=== PATIENT | male | born 1955 | race Caucasian/White ===

== ENCOUNTER 2016-10-19 22:41 | Emergency (ER) | payer MEDICAID, MEDICARE ==
[~2016-10-19] VITALS: Ht 172.7 cm; Wt 65.3 kg
[~2016-10-19 22:41] MED LIST: /HALO5TAB; /QUET10TA; /QUET25TA; ARIC5TAB PO; BENZ5TA PO; CHLO10SU; CLON0.5T PO; CLON1TAB PO; COGENTIN; DEPA500T; DEPA500T2; EFFE37.527; HALO10TA4; HALO2TA PO; HYDR10TA3; HYDR25T PO; INDE1CAP5 PO; KLON0.5T; KLON1TAB PO; LATU1TAB PO; LORA2TAB; MIRT30TA3 PO; NORC1TAB4 PO; PROA1AER INH; PROP1TAB29 PO; PROP80CA PO; PROPRANOLOL PO; PROZ20CA11 PO; PROZ40CA PO; QUET20XRTB; RISP1TAB; RISP3TAB16; SERO200T PO; SERO400T; SERO400T PO; SERO400T3; Seroquel PO; VALI5TAB; VENL75TA2; VICO5TAB16 PO; ZOCO40TA
[2016-10-19 22:48] VITALS: BP 119/77
[2016-10-19] MEDS ORDERED: LORazepam 2 MG/ML VIAL (J2060) IV STA (23:03)
[2016-10-19] MEDS ORDERED: NS 500 ML IV ONE (23:15)
[2016-10-19 23:54] LABS: BASO % 0.8 % (0.0-1.0); EOS # 0.3 K/mm3 (0.0-0.50); EOS % 5.2 % (0.0-3.0); LARGE UNSTAINED CELL # 0.2 K/mm3 (0.0-0.4); LYMPH # 2.7 K/mm3 (1.5-4.5); LYMPH % 50.4 % (24.0-44.0); MEAN CORPUSCULAR HEMOGLOBIN 29.6 pg (27.0-33.0); MEAN CORPUSCULAR VOLUME 84.6 fl (80.0-96.0); MONO # 0.4 K/mm3 (0.0-0.8); MONO % 7.3 % (0.0-5.0); NEUTROPHILS # 1.7 K/mm3 (1.8-7.7); NEUTROPHILS % 32.2 % (36.0-66.0); PLATELET COUNT, AUTOMATED 217 k/mm3 (150-450); RED CELL DISTRIBUTION WIDTH 12.3 % (11.5-14.5); WHITE BLOOD COUNT 5.4 K/mm3 (4.0-10.0)
[2016-10-20 00:27] LABS: ALBUMIN 3.3 GM/DL (3.2-5.2); ALBUMIN/GLOBULIN RATIO 1.38 (1.00-1.93); ALKALINE PHOSPHATASE 79 U/L (45-117); ALT/SGPT 17 U/L (12-78); ANION GAP 10 MEQ/L (8-16); AST/SGOT 18 U/L (15-37); BILIRUBIN,DIRECT 0.1 MG/DL (0.0-0.2); BILIRUBIN,TOTAL 0.3 MG/DL (0.2-1.0); BLOOD UREA NITROGEN 16 MG/DL (7-18); CALCIUM LEVEL 9.2 MG/DL (8.8-10.2); CARBON DIOXIDE LEVEL 25 MEQ/L (21-32); CHLORIDE LEVEL 107 MEQ/L (98-107); CREATININE FOR GFR 1.15 MG/DL (0.70-1.30); GLOMERULAR FILTRATION RATE > 60.0 (>49); GLUCOSE, FASTING 114 MG/DL (80-110); POTASSIUM SERUM 4.1 MEQ/L (3.5-5.1); SODIUM LEVEL 142 MEQ/L (136-145); TOTAL PROTEIN 5.7 GM/DL (6.4-8.2)
--- NOTE | 2016-10-20 08:39 | REP ---
Clinical: Altered mental status . Comparison: 08/05/2016 . Findings: The mediastinum and cardiac silhouette are stable and within normal limits for portable technique. The lung dolan are clear without acute consolidation, effusion, or pneumothorax. Skeletal structures are intact. Impression: Normal portable chest x-ray Signed by Kofi Flowers MD 10/20/2016 08:30 A
--- NOTE | 2016-10-21 09:11 | ECGEPIP ---
Stationary ECG Study 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
== END 2016-10-20 02:22 | disposition home or self-care (01) ==
LOC: M ED 22:41
DX: F44.5 Conversion disorder with seizures or convulsions (principal); I10 Essential (primary) hypertension; M54.9 Dorsalgia, unspecified; M19.90 Unspecified osteoarthritis, unspecified site; F25.9 Schizoaffective disorder, unspecified; Z87.891 Personal history of nicotine dependence; Z79.899 Other long term (current) drug therapy
CPT/HCPCS: 71010; 80048; 80076; 82550; 82553; 83605; 84443; 84484; 85025; 93005; 94760; 96374; 99283; G0480; J2060

== ENCOUNTER 2016-11-19 12:54 | Emergency (ER) | payer MEDICARE ==
[~2016-11-19] VITALS: Ht 172.7 cm; Wt 64.4 kg
--- NOTE | 2016-11-19 14:22 | REP ---
Chest one-view HISTORY: Syncope Comparison: 10/19/2016 The lungs are clear. The heart is normal in size. The pulmonary vasculature is normal in appearance. Impression: No acute disease. Signed by Huy Bowie MD 11/19/2016 02:13 P
--- NOTE | 2016-11-19 14:39 | REP ---
CT CERVICAL SPINE WITHOUT CONTRAST: HISTORY: Syncope. There is no acute fracture or subluxation. Disc bulges are present at the C2-3 and C3-4 levels. Disc bulges with associated osteophyte formation are present at the C4-5 through C6-7 levels. There is minimal narrowing of the spinal canal. Uncinate process and/or facet hypertrophy are present at the C2-3 through C7-T1 levels . These findings produce minimal to moderate narrowing of the neural foramina. Anterior osteophyte formation is present at the C1-2 level. The C5-6 and C6-7 intervertebral discs are decreased in height consistent with disc degeneration. There is loss of the normal lordotic curve. IMPRESSION: 1. There is no acute fracture or subluxation. 2. There is cervical spondylosis at the C1-2 through C7-T1 levels. ? Signed by Huy Bowie MD 11/19/2016 02:53 P
[2016-11-19 14:49] LABS: BASO % 0.4 % (0.0-1.0); EOS # 0.1 K/mm3 (0.0-0.50); EOS % 1.3 % (0.0-3.0); LARGE UNSTAINED CELL # 0.2 K/mm3 (0.0-0.4); LARGE UNSTAINED CELL % 1.7 % (0.0-4.0); LYMPH # 1.5 K/mm3 (1.5-4.5); LYMPH % 16.1 % (24.0-44.0); MEAN CORPUSCULAR HEMOGLOBIN 30.7 pg (27.0-33.0); MEAN CORPUSCULAR HGB CONC 35.4 g/dl (32.0-36.5); MEAN CORPUSCULAR VOLUME 86.8 fl (80.0-96.0); MONO # 0.5 K/mm3 (0.0-0.8); MONO % 5.5 % (0.0-5.0); PLATELET COUNT, AUTOMATED 224 k/mm3 (150-450); RED CELL DISTRIBUTION WIDTH 12.4 % (11.5-14.5); WHITE BLOOD COUNT 9.3 K/mm3 (4.0-10.0)
[2016-11-19 15:15] LABS: ANION GAP 5 MEQ/L (8-16); BLOOD UREA NITROGEN 14 MG/DL (7-18); CALCIUM LEVEL 8.8 MG/DL (8.8-10.2); CARBON DIOXIDE LEVEL 30 MEQ/L (21-32); CHLORIDE LEVEL 106 MEQ/L (98-107); CREATININE FOR GFR 1.07 MG/DL (0.70-1.30); FREE T4 0.92 NG/DL (0.76-1.46); GLOMERULAR FILTRATION RATE > 60.0 (>49); GLUCOSE, FASTING 118 MG/DL (80-110); SODIUM LEVEL 141 MEQ/L (136-145)
[2016-11-19 16:09] VITALS: BP 130/67
[2016-11-19] MEDS ORDERED: NEUTRA-PHOS 1.25 GM PACKET PO ONE (16:30)
--- NOTE | 2016-11-19 17:22 | REP ---
CT HEAD WITHOUT CONTRAST: HISTORY: Syncope. COMPARISON: 03/17/2016 An area of decreased attenuation is present in the right basal ganglia. This represents an old lacunar infarction. Areas of decreased attenuation are present in the periventricular white matter. This represents small vessel ischemic disease. There is no intraparenchymal hemorrhage, mass or midline shift. The ventricular system and cortical sulci are dilated consistent with minimal volume loss. There is no extracerebral collection. There is no fracture. Minimal mucosal thickening is present in the right ethmoid sinus. IMPRESSION: 1. Old right basal ganglia lacunar infarction. 2. Small vessel ischemic disease. 3. Minimal volume loss. Signed by Huy Bowie MD 11/20/2016 08:23 A
--- NOTE | 2016-11-19 18:08 | ECGEPIP ---
Stationary ECG Study [facility] - ED Test Date: 2016-11-19 Pat Name: YOSSI PENA Department: Room: - Gender: M Carpenter Form: SUSHMA : 1955 Requested By: BLUE Grande Order Number: [id number] Reading MD: Alfredo Montes Measurements Intervals [place] Rate: 72 P: 41 GA: 154 QRS: 45 QRSD: 101 T: 50 QT: 393 QTc: 433 Interpretive Statements SINUS RHYTHM Electronically Signed On 11-19-2016 18:07:56 EDT by Alfredo Montes
== END 2016-11-19 16:13 | disposition home or self-care (01) ==
LOC: M ED 15:58
DX: R55 Syncope and collapse (principal); F44.5 Conversion disorder with seizures or convulsions; I10 Essential (primary) hypertension; F41.9 Anxiety disorder, unspecified; F31.9 Bipolar disorder, unspecified; F25.9 Schizoaffective disorder, unspecified; F17.200 Nicotine dependence, unspecified, uncomplicated; M47.812 Spondylosis without myelopathy or radiculopathy, cervical region; Z86.73 Personal history of transient ischemic attack (TIA), and cerebral infarction without residual deficits; Z79.899 Other long term (current) drug therapy

== ENCOUNTER → 2016-11-20 | Outpatient (REF) | payer MEDICARE | LOC: M LAB REF 17:07 | PROVIDERS: ATTEND Nurse Practitioner Adult Health | DX: E83.39 Other disorders of phosphorus metabolism (principal) ==

== ENCOUNTER 2017-01-06 15:07 | Emergency (ER) | payer MEDICARE ==
[~2017-01-06] VITALS: Ht 160 cm; Wt 66.3 kg
[2017-01-06] MEDS ORDERED: VENL37.598 PO (15:18)
[2017-01-06 17:22] VITALS: BP 116/79
[2017-01-08] MEDS ORDERED: HYDR-4274 PO ×2 (18:02)
[2017-01-08] MEDS ORDERED: VENL37CA PO (18:04)
[2017-01-08] MEDS ORDERED: ASPI81TA7 PO (18:05)
== END 2017-01-06 17:28 | disposition left against medical advice (07) ==
LOC: EDBD 15:07 → M ED 16:40
DX: Z53.29 Procedure and treatment not carried out because of patient's decision for other reasons (principal)

== ENCOUNTER 2017-01-08 14:36 | Inpatient (IN) | payer MEDICARE, MEDICAID ==
[~2017-01-08] VITALS: Ht 172.7 cm; Wt 68.4 kg
[~2017-01-08 14:36] MED LIST changes: +ARIC1TAB PO; -ARIC5TAB PO; +BENZ0.5T PO; -BENZ5TA PO; +HYDR-3363 PO; -HYDR25T PO; -PROA1AER INH; +PROAAER10 INH; +VENL37.598 PO
[2017-01-08 16:45] LABS: MEAN CORPUSCULAR HGB CONC 34.8 g/dl (32.0-36.5); MEAN CORPUSCULAR VOLUME 86.2 fl (80.0-96.0); RED CELL DISTRIBUTION WIDTH 12.2 % (11.5-14.5); WHITE BLOOD COUNT 5.3 K/mm3 (4.0-10.0)
[2017-01-08 17:00] LABS: ALBUMIN 3.6 GM/DL (3.2-5.2); ALKALINE PHOSPHATASE 80 U/L (45-117); ALT/SGPT 25 U/L (12-78); ANION GAP 9 MEQ/L (8-16); AST/SGOT 16 U/L (15-37); BILIRUBIN,DIRECT 0.1 MG/DL (0.0-0.2); BILIRUBIN,TOTAL 0.4 MG/DL (0.2-1.0); BLOOD UREA NITROGEN 16 MG/DL (7-18); CALCIUM LEVEL 8.8 MG/DL (8.8-10.2); CARBON DIOXIDE LEVEL 24 MEQ/L (21-32); CHLORIDE LEVEL 106 MEQ/L (98-107); GLOMERULAR FILTRATION RATE > 60.0 (>49); GLUCOSE, FASTING 86 MG/DL (80-110); POTASSIUM SERUM 3.9 MEQ/L (3.5-5.1); SODIUM LEVEL 139 MEQ/L (136-145)
[2017-01-08] MEDS ORDERED: CLON1TAB PO ×2 (18:01)
[2017-01-08] MEDS ORDERED: HYDR50TA70 PO ×2 (18:02)
[2017-01-08] MEDS ORDERED: SERO200T PO (18:04)
[2017-01-08] MEDS ORDERED: VENL37.52 PO (18:04)
[2017-01-08] MEDS ORDERED: DRIS50002 PO (18:04)
[2017-01-08] MEDS ORDERED: MIRT45TA PO (18:04)
[2017-01-08] MEDS ORDERED: VITMTA PO (18:05)
[2017-01-08] MEDS ORDERED: ASPI1TAB15 PO (18:05)
[2017-01-08 18:58] LABS: METHADONE URINE NEGATIVE (NEGATIVE)
[2017-01-08 20:15] VITALS: BP 117/75
[2017-01-08] MEDS ORDERED: traZODone 50 MG TAB PO PRN (22:15)
[2017-01-08] MEDS ORDERED: MOM 30ML SUSPENSION UDC PO PRN (22:15)
[2017-01-08] MEDS ORDERED: MAALOX 30 ML SUSP *UDC PO PRN (22:15)
[2017-01-08] MEDS: hydrOXYzine 50 MG TAB PO SCH (22:59)
[2017-01-08] MEDS: MIRTAZAPINE 15 MG TAB PO SCH (22:59)
[2017-01-08] MEDS: QUEtiapine FUMARATE 200 MG TAB PO SCH (22:59)
[2017-01-08] MEDS: clonazePAM 1 MG TAB PO SCH (23:00)
[2017-01-09 06:40] VITALS: BP 119/66
[2017-01-09] MEDS: VENLAFAXINE 37.5 MG TAB PO SCH (08:54)
[2017-01-09] MEDS: hydrOXYzine 50 MG TAB PO SCH ×3 (08:55→21:30)
[2017-01-09] MEDS: ASPIRIN 81 MG ENTERIC TAB PO SCH (08:55)
[2017-01-09] MEDS: ACETAMINOPHEN TAB 650MG DOSE (2X325MG) PO PRN (08:55)
[2017-01-09] MEDS: QUEtiapine FUMARATE 200 MG TAB PO SCH ×3 (08:55→21:31)
[2017-01-09] MEDS: MULTIVITAMINS/MINERALS THERAP 1 TAB PO SCH (08:55)
[2017-01-09] MEDS ORDERED: QUEtiapine FUMARATE 200 MG TAB PO SCH (09:00)
[2017-01-09] MEDS ORDERED: clonazePAM 1 MG TAB PO SCH ×2 (09:00)
[2017-01-09] MEDS ORDERED: hydrOXYzine 50 MG TAB PO SCH (09:00)
--- NOTE | 2017-01-09 09:31 | HPEPDOC ---
Medical History and Physical Date of Admission Jan 08, 2017 at 18:21 History and Physical PCP: Roxanne Hdz DONATIONS ATTENDANT. ATTENDING: Dr. Gaurang Azul HPI: 61yoM admitted to [facility] for depressive disorder, being medically examined today. No acute medical complaints today. Denies any fevers, chills, weakness, fatigue, NARVAEZ, CP, SOB, cough, palpitations, abdominal pain, N/V/D or changes in bowel or bladder habits. PMHx: Depression Anxiety Panic attacks History of pseudoseizure Schizoaffective disorder Osteoarthritis Vitamin D deficiency PSHX: Foot surgery Repair left eardrum Colonoscopy 08/06. Ronna. Diverticulosis and internal hemorrhoids. SOCHX: Resides in: [facility] Marital Status: Employment: [employer] [facility] Tobacco use: Denies ETOH: Denies Illicit Drugs: Denies IV Drug Use: Denies Tattoos done unprofessionally: Denies FAMHX: Mother: Alive, history of renal cancer Father: , lung cancer Siblings: 6 brothers Alive, well. One sister epilepsy. Children: Alive, well Unexpected deaths due to medical reasons: None. ROS: As noted in HPI, otherwise 11pt ROS of systems reviewed and remarkable only for some left knee pain which he had this morning. The patient states it is now resolved. PE: GEN: 61 yo M, appears stated age. Well-nourished, well developed. No acute distress. Alert and oriented x 3. Pleasant, interactive. HEENT: Normocephalic, atraumatic. Pupils are equal, round, and reactive to light. Extraocular movements are intact. No nystagmus appreciated. Sclera are nonicteric. Conjunctiva without injection. Nose midline. Nasal turbinates without bogginess. EACs both patent BL. TMs both visualized and quintero with good cone of light, no bulging or erythema. No facial asymmetry. Moist mucous membranes. Wearing upper dentures. Pharynx pink and moist, no cobblestoning. Neck supple, trachea midline. No lymphadenopathy or thyromegaly appreciated. CHEST: Regular rate and rhythm, +S1, +S2 LUNGS: Clear to auscultation bilaterally. No wheezes, rales, or rhonchi. Breathing appears symmetric and easy. Patient is speaking in full sentences. No accessory muscle use. ABD: Round, soft, non-tender, non-distended. +Bowel sounds throughout. No rebound or guarding. No costovertebral angle tenderness. EXT: Pulses 2+ bilaterally dorsalis pedis and radial. No lower extremity edema appreciated. SKIN: Joes, dry, warm. Capillary refill <2sec. No rashes. NEURO: Alert and oriented x 3. Cranial nerves III-XII are intact. No focal deficits appreciated. EKG: Pending. A&P: 61yoM admitted to [facility] for depressive disorder 1. Psych. Plan per Psychiatry.Obtain baseline EKG to assure the safety of psychiatric medications as they can prolong the QT interval. 2. History of pseudoseizure. Followed by Dr. More. 3. Osteoarthritis. Continue Tylenol 650 mg every 4 hours as needed. 4. Follow up with PCP on discharge. 5. Vitamin D deficiency. Continue supplement. Update vitamin D level. 6. Keenan safety aid present throughout exam. Vital Signs Vital Signs Date Time Temp Pulse Resp B/P (MAP) Pulse Ox O2 Delivery O2 Flow Rate FiO2 01/09/17 06:40 97.5 72 16 119/66 (83) 01/08/17 20:15 97 Room Air Laboratory Data Labs 24H Laboratory Tests 2 01/08/17 15:27: Anion Gap 9, Glomerular Filtration Rate > 60.0, Calcium Level 8.8, Aspartate Amino Transf (AST/SGOT) 16, Alanine Aminotransferase (ALT/SGPT) 25, Alkaline Phosphatase 80, Total Bilirubin 0.4, Direct Bilirubin 0.1, Total Protein 6.0L, Albumin 3.6, Albumin/Globulin Ratio 1.50, Thyroid Stimulating Hormone (TSH) 2.400, Salicylates Level < 1.7L, Acetaminophen Level 2.5L, Ethyl Alcohol Level < 0.003 01/08/17 18:22: Urine Amphetamines Screen NEGATIVE, Urine Benzodiazepines Screen POSITIVEH, Urine Opiates Screen NEGATIVE, Urine Methadone Screen NEGATIVE, Urine Barbiturates Screen NEGATIVE, Urine Phencyclidine Screen NEGATIVE, Urine Cocaine Metabolite Screen NEGATIVE, Urine Cannabinoids Screen NEGATIVE CBC/BMP Laboratory Tests 01/08/17 15:27 Red Blood Count 4.93, Mean Corpuscular Volume 86.2, Mean Corpuscular Hemoglobin 30.0, Mean Corpuscular Hemoglobin Concent 34.8, Red Cell Distribution Width 12.2 Home Medications Scheduled Aspirin (Aspirin) 81 Mg Tab, 81 MG PO DAILY Clonazepam (Clonazepam) 1 Mg Tab, 2 MG PO QAM Clonazepam (Clonazepam) 1 Mg Tab, 1 MG PO BID TAKES NOON AND HS Hydroxyzine HCl (Hydroxyzine HCl) 50 Mg Tab, 100 MG PO QAM Hydroxyzine HCl (Hydroxyzine HCl) 50 Mg Tab, 50 MG PO BID TAKES NOON AND HS Mirtazapine (Mirtazapine) 45 Mg Tab, 45 MG PO QHS Multivitamins *[facility] STOCKED* (Thera M Plus *[facility] STOCKED*) 1 Tab Tab, 1 TAB PO DAILY Quetiapine Fumerate (Seroquel) 200 Mg Tab, 200 MG PO TID Venlafaxine HCl (Venlafaxine HCl ER) 37.5 Mg Cap, 37.5 MG PO DAILY Vitamin D (Drisdol) 50,000 Unit Cap, 50,000 UNIT PO QWEEK SUNDAYS Allergies Coded Allergies: No Known Drug Allergy (Verified Allergy, Unknown, 01/08/17) Dahlia Ramsey Jan 09, 2017 09:31
[2017-01-09] MEDS: clonazePAM 1 MG TAB PO SCH ×2 (11:38→21:30)
[2017-01-09 13:27] LABS: BASO # 0.1 K/mm3 (0.0-0.2); BASO % 0.6 % (0.0-1.0); EOS # 0.4 K/mm3 (0.0-0.50); EOS % 4.3 % (0.0-3.0); LARGE UNSTAINED CELL # 0.2 K/mm3 (0.0-0.4); LARGE UNSTAINED CELL % 2.2 % (0.0-4.0); LYMPH # 1.8 K/mm3 (1.5-4.5); LYMPH % 20.4 % (24.0-44.0); MEAN CORPUSCULAR HGB CONC 33.9 g/dl (32.0-36.5); MEAN CORPUSCULAR VOLUME 88.5 fl (80.0-96.0); MONO # 0.5 K/mm3 (0.0-0.8); NEUTROPHILS # 5.9 K/mm3 (1.8-7.7); NEUTROPHILS % 66.4 % (36.0-66.0); PLATELET COUNT, AUTOMATED 242 k/mm3 (150-450); RED CELL DISTRIBUTION WIDTH 12.2 % (11.5-14.5); WHITE BLOOD COUNT 8.8 K/mm3 (4.0-10.0)
--- NOTE | 2017-01-09 17:17 | ECGEPIP ---
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
[2017-01-09 18:00] VITALS: BP 115/64
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
[2017-01-09] MEDS ORDERED: MIRTAZAPINE 15 MG TAB PO SCH (21:00)
[2017-01-09] MEDS: MIRTAZAPINE 15 MG TAB PO SCH (21:30)
[2017-01-10 06:38] VITALS: BP 126/61
[2017-01-10] MEDS ORDERED: clonazePAM 1 MG TAB PO SCH (09:00)
[2017-01-10] MEDS: ASPIRIN 81 MG ENTERIC TAB PO SCH (09:17)
[2017-01-10] MEDS: MULTIVITAMINS/MINERALS THERAP 1 TAB PO SCH (09:17)
[2017-01-10] MEDS: QUEtiapine FUMARATE 200 MG TAB PO SCH ×3 (09:17→20:17)
[2017-01-10] MEDS: hydrOXYzine 50 MG TAB PO SCH ×3 (09:17→20:17)
[2017-01-10] MEDS: VENLAFAXINE 37.5 MG TAB PO SCH (09:17)
[2017-01-10] MEDS: clonazePAM 1 MG TAB PO SCH ×2 (12:57→20:17)
--- NOTE | 2017-01-10 16:21 | MHIPNPDOC ---
[facility] Progress Note Progress Note DATE OF SERVICE: 01/10/17 INTERVAL HISTORY: Medication Side effects: Reports no side effects from his medications Behavior/events: Has been engaging in present in the social milieu, has little trouble, shaking has stopped and the patient describes feeling "good" Group Attendance: Has attended groups frequently Psychiatric Symptoms: Describes that his symptoms of anxiety, paranoia and tremors that associated with his panic attacks have resolved and that his mood is fairly stable at this time. This provider was able to talk to Dr. Beckham and his outpatient provider who related that he feels the patient primarily has a panic disorder and has done well on Klonopin primarily. He describes that he feels the patient has done well on higher doses before and the titration of this and/or the venlafaxine would be ideal for treating the patient's symptoms. VITAL SIGNS: See below. NEW TEST RESULTS: See below CURRENT MEDICATIONS: See below. MENTAL STATUS EXAMINATION: General: Well dressed with good hygiene Speech: Spontaneous and fluid Thought processes: Linear and logical Thought content: Future orientated Abstract reasoning, and computation: Intact Description of associations: Intact Description of abnormal or psychotic thoughts:Denies any suicidal or homicidal ideation. Denies any auditory or visual hallucinations. Does not appear to be responding to internal stimuli. Does not appear to be endorsing any bizarre or paranoid ideation. Judgment: Improving Insight: And improving Orientation: Alert and orientated 3 Recent and remote memory: Intact Attention span and concentration: Intact Fund of knowledge: Adequate Mood: "Okay" Affect: Euthymic with a constricted range DIAGNOSES: 1.Unspecified psychotic disorder. 2. Panic disorder, severe, without agoraphobia. ASSESSMENT: Improving was social milieu MANAGEMENT PLAN: Medications: Increase Effexor to 75 mg daily, continue clonazepam at 3 mg daily total with increased backup of 0.5 as outpatient provider wishes to keep him on this Psychotherapy: Encourage group attendance Social: Possible discharge Friday as the patient's symptoms resolved rapidly7 Misc: None Disposition: The patient will need of further inpatient stay to address disposition needs a medication titration. TIME SPENT: 15 minutes. Vital Signs Vital Signs Date Time Temp Pulse Resp B/P (MAP) Pulse Ox O2 Delivery O2 Flow Rate FiO2 01/10/17 06:38 98.0 71 18 126/61 (82) 01/08/17 20:15 97 Room Air Current Medications Current Medications Acetaminophen (Tylenol Tab) 650 mg Q6HP PRN PO HEADACHE or DISCOMFORT Last administered on 01/09/17 08:55; Start 01/08/17 at 22:15; Stop 02/07/17 at 22:14 Al Hydrox/Mg Hydrox/Simethicone (Mylanta) 30 ml Q4HP PRN PO HEARTBURN/ INDIGESTION; Start 01/08/17 at 22:15; Stop 02/07/17 at 22:14 Aspirin (Ecotrin) 81 mg DAILY PO Last administered on 01/10/17 09:17; Start at 09:00; Stop 02/08/17 at 08:59 Clonazepam (KlonoPIN) 1 mg BID PO ; Start 01/09/17 at 09:00; Stop 01/09/17 at 09 :00; Status DC Clonazepam (KlonoPIN) 1 mg BID@1200,2100 PO Last administered on 01/10/17 12: 57; Start 01/08/17 at 21:00; Stop 01/15/17 at 20:59 Clonazepam (KlonoPIN) 1.5 mg DAILY PO Last administered on 01/10/17 09:16; Start 01/10/17 at 09:00; Stop 01/10/17 at 09:24; Status DC Clonazepam (KlonoPIN) 1.5 mg DAILY PO ; Start 01/11/17 at 09:00; Stop 01/11/17 at 09:00; Status DC Clonazepam (KlonoPIN) 2 mg DAILY PO Last administered on 01/09/17 08:54; Start 01/09/17 at 09:00; Stop 01/09/17 at 20:58; Status DC Clonazepam (KlonoPIN) 2 mg DAILY PO ; Start 01/11/17 at 09:00; Stop 01/18/17 at 08:59 Home Med (Med Rec Complete!) ASDIRECTED XX ; Start 01/08/17 at 18:15; Stop at 18:15; Status DC Hydroxyzine HCl (Atarax) 50 mg BID PO ; Start 01/09/17 at 09:00; Stop 01/09/17 at 09:00; Status DC Hydroxyzine HCl (Atarax) 50 mg BID@1200,2100 PO Last administered on 01/10/17 12:57; Start 01/08/17 at 21:00; Stop 02/07/17 at 20:59 Hydroxyzine HCl (Atarax) 100 mg QAM PO Last administered on 01/10/17 09:17; Start 01/09/17 at 09:00; Stop 02/08/17 at 08:59 Magnesium Hydroxide (Milk Of Magnesia) 30 ml DAILYPRN PRN PO CONSTIPATION; Start 01/08/17 at 22:15; Stop 02/07/17 at 22:14 Mirtazapine (Remeron) 45 mg QHS PO Last administered on 01/09/17 21:30; Start 01/08/17 at 21:00; Stop 02/07/17 at 20:59 Mirtazapine (Remeron) 45 mg QHS PO ; Start 01/09/17 at 21:00; Stop 01/09/17 at 21:00; Status DC Multivitamins (Theragram-M) 1 tab DAILY PO Last administered on 01/10/17 09:17 ; Start 01/09/17 at 09:00; Stop 02/08/17 at 08:59 Quetiapine Fumarate (SEROquel) 200 mg TID PO Last administered on 01/10/17 09: 17; Start 01/08/17 at 21:00; Stop 02/07/17 at 20:59 Quetiapine Fumarate (SEROquel) 200 mg TID PO ; Start 01/09/17 at 09:00; Stop at 09:00; Status DC Trazodone HCl (Desyrel) 50 mg QHSP PRN PO INSOMNIA; Start 01/08/17 at 22:15; Stop 02/07/17 at 22:14 Venlafaxine HCl (Effexor) 37.5 mg DAILY PO Last administered on 01/10/17 09:17 ; Start 01/09/17 at 09:00; Stop 01/10/17 at 15:51; Status DC Venlafaxine HCl (Effexor) 75 mg DAILY PO ; Start 01/11/17 at 09:00; Stop at 08:59 Vitamin D (Drisdol) 50,000 units [place]@09 PO ; Start 01/12/17 at 09:00; Stop at 08:59 Allergies Coded Allergies: No Known Drug Allergy (Verified Allergy, Unknown, 01/08/17) GME ATTESTATION GME ATTESTATION My preceptor for this patient encounter was physically present in the building during the encounter and was fully available. As needed, all aspects of the patient interview, examination, medical decision making process, and medical care plan development were reviewed and approved by the preceptor. Preceptor is aware and concurs with the plan as stated in the body of this note and will attest to such by his/her cosignature. DAHLIA ADRIAN DO Jan 10, 2017 16:21
[2017-01-10 18:00] VITALS: BP 116/73
[2017-01-10] MEDS: MIRTAZAPINE 15 MG TAB PO SCH (20:17)
[2017-01-10 20:46] VITALS: BP 132/78
[2017-01-11 06:31] VITALS: BP 125/58
[2017-01-11 06:32] VITALS: BP 119/68
[2017-01-11] MEDS ORDERED: clonazePAM 0.5 MG TAB PO SCH (09:00)
[2017-01-11] MEDS: clonazePAM 1 MG TAB PO SCH ×3 (09:03→20:28)
[2017-01-11] MEDS: MULTIVITAMINS/MINERALS THERAP 1 TAB PO SCH (09:03)
[2017-01-11] MEDS: ASPIRIN 81 MG ENTERIC TAB PO SCH (09:03)
[2017-01-11] MEDS: VENLAFAXINE 37.5 MG TAB PO SCH (09:04)
[2017-01-11] MEDS: QUEtiapine FUMARATE 200 MG TAB PO SCH ×3 (09:04→20:28)
[2017-01-11] MEDS: hydrOXYzine 50 MG TAB PO SCH ×3 (09:04→20:28)
[2017-01-11 18:07] VITALS: BP 110/70
[2017-01-11] MEDS: MIRTAZAPINE 15 MG TAB PO SCH (20:29)
--- NOTE | 2017-01-12 05:03 | IPN ---
DATE OF SERVICE: 01/11/2017 SUBJECTIVE: "I'm feeling a little better." OBJECTIVE: Patient continues anxious, hyperactive, at times impulsive. Patient reports that is sleeping better with the adjustment of the medication. He denies side effects and reports some improvement. No evidence of psychotic symptoms. No auditory or visual hallucinations or delusions. Patient is able to contract for safety during his hospitalization. MENTAL STATUS EXAMINATION: Patient is dressed in [facility]. Patient is cooperative, has fair eye contact. Speech is normal in rate, volume, and articulation. Mood is depressed and anxious, but improving. Affect is congruent with mood. No delusions or hallucinations. Memory, attention and concentration are fair. Patient is able to contract for safety during his hospitalization. Insight and judgment is fair. ASSESSMENT: 1. Paranoia/delusions. 2. Anxiety. PLAN: 1. Continue with Klonopin 2 mg by mouth every morning and 1 mg at 12 and 2100. 2. Continue with Effexor 75 mg by mouth every morning. 3. Continue with hydroxyzine 100 mg by mouth every morning. 4. Continue with Remeron 45 mg by mouth nightly. 5. Continue with Seroquel 200 mg by mouth three times a day.
[2017-01-12 06:23] VITALS: BP 133/77
[2017-01-12] MEDS: MULTIVITAMINS/MINERALS THERAP 1 TAB PO SCH (07:39)
[2017-01-12] MEDS: VENLAFAXINE 37.5 MG TAB PO SCH (07:40)
[2017-01-12] MEDS: ASPIRIN 81 MG ENTERIC TAB PO SCH (07:40)
[2017-01-12] MEDS: hydrOXYzine 50 MG TAB PO SCH ×3 (07:40→21:22)
[2017-01-12] MEDS: QUEtiapine FUMARATE 200 MG TAB PO SCH ×3 (07:40→21:22)
[2017-01-12] MEDS: clonazePAM 1 MG TAB PO SCH ×3 (07:41→21:22)
[2017-01-12] MEDS: VITAMIN D 50,000 UNITS CAPSULE (ERGOCALCIFEROL 1.25MG) PO SCH (07:41)
[2017-01-12 18:00] VITALS: BP 119/65
--- NOTE | 2017-01-12 19:02 | IPN ---
DATE: 01/12/2017 SUBJECTIVE: "I am feeling better." OBJECTIVE: The patient continues improving. Denies any side effects from the medication. No evidence of psychotic symptoms. Appears to be motivated for treatment. Sleeps better with the help of the treatment. MENTAL STATUS EXAMINATION: The patient is dressed in [facility]. The patient was in bed this morning. The patient was cooperative. Fair eye contact. Speech is normal in rate, volume and articulation. Mood is depressed and anxious. Affect is somewhat restricted. No delusions during the interview. No evidence of auditory or visual hallucinations. The patient is able to contract for safety. Insight and judgment is limited. ASSESSMENT: 1. Paranoia/delusions. 2. Anxiety. PLAN: 1. Continue with Klonopin 1 mg by mouth at noon and 2100 hours and 2 mg by mouth in the morning. 2. Effexor 75 mg by mouth in the morning. 3. Hydroxyzine 100 mg by mouth in the morning. 4. Remeron 45 mg by mouth at night. 5. Seroquel 200 mg by mouth three times a day. 6. Continue medication management, individual and group therapy.
[2017-01-12] MEDS: MIRTAZAPINE 15 MG TAB PO SCH (21:22)
[2017-01-13 07:04] VITALS: BP 117/67
[2017-01-13] MEDS: clonazePAM 1 MG TAB PO SCH ×3 (08:36→21:23)
[2017-01-13] MEDS: hydrOXYzine 50 MG TAB PO SCH ×3 (08:36→21:22)
[2017-01-13] MEDS: VENLAFAXINE 37.5 MG TAB PO SCH (08:36)
[2017-01-13] MEDS: MULTIVITAMINS/MINERALS THERAP 1 TAB PO SCH (08:37)
[2017-01-13] MEDS: QUEtiapine FUMARATE 200 MG TAB PO SCH ×3 (08:37→21:22)
[2017-01-13] MEDS: ASPIRIN 81 MG ENTERIC TAB PO SCH (08:37)
[2017-01-13] MEDS: BENZTROPINE 1 MG TAB PO SCH ×3 (09:52→21:22)
--- NOTE | 2017-01-13 16:45 | MHIPNPDOC ---
[facility] Progress Note Progress Note DATE OF SERVICE: 01/13/17 INTERVAL HISTORY: Medication Side effects: Denies medication side effects Behavior: He has not presented behavioral problems, has been compliant with medications, has had a positive and pleasant attitude towards staff and peers Group Attendance: Has not been attending groups Psychiatric Symptom change: He reports feeling increasingly anxious since the weekend VITAL SIGNS: See below. NEW TEST RESULTS: See below CURRENT MEDICATIONS: See below. MENTAL STATUS EXAMINATION: General: Alert, pleasant and cooperative, with poor eye contact, with good hygiene, dressed properly Speech: Not tangential and not circumstantial Thought processes: Logical. Thought content: Goal oriented Abstract reasoning, and computation: Limited Description of associations: Not loose Description of abnormal or psychotic thoughts: Denies auditory and visual hallucinations, denies thought delusions and denies suicidal and homicidal ideations Judgment: Limited Insight: Limited Orientation: Oriented 3 Recent and remote memory: Intact Attention span and concentration: Fair Fund of knowledge: Fair Mood: Anxious Affect: Anxious DIAGNOSES: 1. Unspecified Psychotic Disorder 2. Panic Disorder ASSESSMENT:Patient has been getting progressively anxious. spoke with [employer] Quality Inspector and reported pt. feels very anxious probably because he is aware knows he is [place] and he thought she didnt know anything about that. His relatives apparently knew but he had never told her. She believes this might have affected him, knowing that she is aware. She reportedly said she doesnt mind, she loves him and accepts him the way he is. MANAGEMENT PLAN: Medications: 1. Continue with Klonopin 2 mg by mouth every morning and 1 mg at 12 and 2100. 2. Continue with Effexor 75 mg by mouth every morning. 3. Continue with hydroxyzine 100 mg by mouth every morning. 4. Continue with Remeron 45 mg by mouth nightly. 5. Continue with Seroquel 200 mg by mouth three times a day. Psychotherapy:Will encourage him to attend groups Social: Will be discharged this week, once his anxiety decreases. He will benefit from therapy and will need to address his sexual orientation, so that he can come to terms with it. Misc: -- Disposition: He will be discharged home once he becomes more stable. TIME SPENT: 30 minutes. Vital Signs Vital Signs Date Time Temp Pulse Resp B/P (MAP) Pulse Ox O2 Delivery O2 Flow Rate FiO2 01/13/17 07:04 98.7 73 18 117/67 (84) 6/16/17 20:46 98 Room Air Current Medications Current Medications Acetaminophen (Tylenol Tab) 650 mg Q6HP PRN PO HEADACHE or DISCOMFORT Last administered on 01/09/17 08:55; Start 01/08/17 at 22:15; Stop 02/07/17 at 22:14 Al Hydrox/Mg Hydrox/Simethicone (Mylanta) 30 ml Q4HP PRN PO HEARTBURN/ INDIGESTION; Start 01/08/17 at 22:15; Stop 02/07/17 at 22:14 Aspirin (Ecotrin) 81 mg DAILY PO Last administered on 01/13/17 08:37; Start at 09:00; Stop 02/08/17 at 08:59 Benztropine Mesylate (Cogentin) 1 mg TID PO Last administered on 01/13/17 16: 28; Start 01/13/17 at 09:00; Stop 02/12/17 at 08:59 Clonazepam (KlonoPIN) 1 mg BID PO ; Start 01/09/17 at 09:00; Stop 01/09/17 at 09 :00; Status DC Clonazepam (KlonoPIN) 1 mg BID@1200,2100 PO Last administered on 01/13/17 12: 18; Start 01/08/17 at 21:00; Stop 01/15/17 at 20:59 Clonazepam (KlonoPIN) 1.5 mg DAILY PO Last administered on 01/10/17 09:16; Start 01/10/17 at 09:00; Stop 01/10/17 at 09:24; Status DC Clonazepam (KlonoPIN) 1.5 mg DAILY PO ; Start 01/11/17 at 09:00; Stop 01/11/17 at 09:00; Status DC Clonazepam (KlonoPIN) 2 mg DAILY PO Last administered on 01/09/17 08:54; Start 01/09/17 at 09:00; Stop 01/09/17 at 20:58; Status DC Clonazepam (KlonoPIN) 2 mg DAILY PO Last administered on 01/13/17 08:36; Start 01/11/17 at 09:00; Stop 01/18/17 at 08:59 Home Med (Med Rec Complete!) ASDIRECTED XX ; Start 01/08/17 at 18:15; Stop at 18:15; Status DC Hydroxyzine HCl (Atarax) 50 mg BID PO ; Start 01/09/17 at 09:00; Stop 01/09/17 at 09:00; Status DC Hydroxyzine HCl (Atarax) 50 mg BID@1200,2100 PO Last administered on 01/13/17 12:18; Start 01/08/17 at 21:00; Stop 02/07/17 at 20:59 Hydroxyzine HCl (Atarax) 100 mg QAM PO Last administered on 01/13/17 08:36; Start 01/09/17 at 09:00; Stop 02/08/17 at 08:59 Magnesium Hydroxide (Milk Of Magnesia) 30 ml DAILYPRN PRN PO CONSTIPATION; Start 01/08/17 at 22:15; Stop 02/07/17 at 22:14 Mirtazapine (Remeron) 45 mg QHS PO Last administered on 01/12/17 21:22; Start 01/08/17 at 21:00; Stop 02/07/17 at 20:59 Mirtazapine (Remeron) 45 mg QHS PO ; Start 01/09/17 at 21:00; Stop 01/09/17 at 21:00; Status DC Multivitamins (Theragram-M) 1 tab DAILY PO Last administered on 01/13/17 08:37 ; Start 01/09/17 at 09:00; Stop 02/08/17 at 08:59 Quetiapine Fumarate (SEROquel) 200 mg TID PO Last administered on 01/13/17 16: 28; Start 01/08/17 at 21:00; Stop 02/07/17 at 20:59 Quetiapine Fumarate (SEROquel) 200 mg TID PO ; Start 01/09/17 at 09:00; Stop at 09:00; Status DC Trazodone HCl (Desyrel) 50 mg QHSP PRN PO INSOMNIA; Start 01/08/17 at 22:15; Stop 02/07/17 at 22:14 Venlafaxine HCl (Effexor) 37.5 mg DAILY PO Last administered on 01/10/17 09:17 ; Start 01/09/17 at 09:00; Stop 01/10/17 at 15:51; Status DC Venlafaxine HCl (Effexor) 75 mg DAILY PO Last administered on 01/13/17 08:36; Start 01/11/17 at 09:00; Stop 02/10/17 at 08:59 Vitamin D (Drisdol) 50,000 units [place]@09 PO Last administered on 01/12/17 07:41 ; Start 01/12/17 at 09:00; Stop 02/11/17 at 08:59 Allergies Coded Allergies: No Known Drug Allergy (Verified Allergy, Unknown, 01/08/17) SCOTT THOMAS MD Jan 13, 2017 16:45
[2017-01-13 18:00] VITALS: BP 121/64
[2017-01-13] MEDS: MIRTAZAPINE 15 MG TAB PO SCH (21:23)
[2017-01-14 06:00] VITALS: BP 132/69
[2017-01-14] MEDS: clonazePAM 1 MG TAB PO SCH ×3 (08:47→20:56)
[2017-01-14] MEDS: ASPIRIN 81 MG ENTERIC TAB PO SCH (08:47)
[2017-01-14] MEDS: VENLAFAXINE 37.5 MG TAB PO SCH (08:47)
[2017-01-14] MEDS: MULTIVITAMINS/MINERALS THERAP 1 TAB PO SCH (08:47)
[2017-01-14] MEDS: hydrOXYzine 50 MG TAB PO SCH ×3 (08:48→20:56)
[2017-01-14] MEDS: QUEtiapine FUMARATE 200 MG TAB PO SCH ×3 (08:48→20:56)
--- NOTE | 2017-01-14 16:14 | MHIPNPDOC ---
[facility] Progress Note Progress Note DATE OF SERVICE: 01/14/17 INTERVAL HISTORY: Medication Side effects: Reports no side effects from his venlafaxine, Seroquel , Remeron or clonazepam at this time Behavior/events: Has been engaged in the milieu and socializing as best his ability, describes that his anxiety is worse making it hard for him to be in large groups without getting panic attacks. Group Attendance: Has described that he has attended groups fairly frequently Psychiatric Symptoms: States that his anxiety is much worse and that his depression has gotten worse over the weekend due to multiple stressors including sickness of some family members and a graduation on Friday, he described that he is feeling more shaky and tremulous due to his anxiety. He describes his sleeping and eating are at their baseline with no complaints. VITAL SIGNS: See below. NEW TEST RESULTS: See below CURRENT MEDICATIONS: See below. MENTAL STATUS EXAMINATION: General: Mildly disheveled Speech: Coherent Thought processes: Coherent Thought content: Perseveration on anxiety Abstract reasoning, and computation: Intact Description of associations: Intact Description of abnormal or psychotic thoughts:Denies any suicidal or homicidal ideation. Denies any auditory or visual hallucinations. Does not appear to be responding to internal stimuli. Does not appear to be endorsing any bizarre or paranoid ideation. Judgment: Fair Insight: Fair Orientation: Alert and orientated 3 Recent and remote memory: Intact Attention span and concentration: Intact Fund of knowledge: Adequate Mood: "Bad" Affect: Anxious and dysphoric DIAGNOSES: 1. Panic disorder, severe, without agoraphobia 2. Unspecified psychotic disorder. 3. Unspecified depressive disorder. ASSESSMENT: Decompensating MANAGEMENT PLAN: Medications: Increase venlafaxine to 112.5 mg daily, continue Remeron, clonazepam, Seroquel as current Psychotherapy: Encourage group attendance Social: Family is supportive, discharge potentially later this week if he improves from his current condition Misc: None Disposition: The patient will need of further inpatient stay to address severe anxiety and panic. TIME SPENT: 15 minutes. Vital Signs Vital Signs Date Time Temp Pulse Resp B/P (MAP) Pulse Ox O2 Delivery O2 Flow Rate FiO2 01/14/17 06:00 98.6 85 16 132/69 (90) 01/10/17 20:46 98 Room Air Current Medications Current Medications Acetaminophen (Tylenol Tab) 650 mg Q6HP PRN PO HEADACHE or DISCOMFORT Last administered on 01/09/17 08:55; Start 01/08/17 at 22:15; Stop 02/07/17 at 22:14 Al Hydrox/Mg Hydrox/Simethicone (Mylanta) 30 ml Q4HP PRN PO HEARTBURN/ INDIGESTION; Start 01/08/17 at 22:15; Stop 02/07/17 at 22:14 Aspirin (Ecotrin) 81 mg DAILY PO Last administered on 01/14/17 08:47; Start at 09:00; Stop 02/08/17 at 08:59 Benztropine Mesylate (Cogentin) 1 mg TID PO Last administered on 01/13/17 21: 22; Start 01/13/17 at 09:00; Stop 01/14/17 at 08:44; Status DC Clonazepam (KlonoPIN) 1 mg BID PO ; Start 01/09/17 at 09:00; Stop 01/09/17 at 09 :00; Status DC Clonazepam (KlonoPIN) 1 mg BID@1200,2100 PO Last administered on 01/14/17 11: 53; Start 01/08/17 at 21:00; Stop 01/15/17 at 20:59 Clonazepam (KlonoPIN) 1.5 mg DAILY PO Last administered on 01/10/17 09:16; Start 01/10/17 at 09:00; Stop 01/10/17 at 09:24; Status DC Clonazepam (KlonoPIN) 1.5 mg DAILY PO ; Start 01/11/17 at 09:00; Stop 01/11/17 at 09:00; Status DC Clonazepam (KlonoPIN) 2 mg DAILY PO Last administered on 01/09/17 08:54; Start 01/09/17 at 09:00; Stop 01/09/17 at 20:58; Status DC Clonazepam (KlonoPIN) 2 mg DAILY PO Last administered on 01/14/17 08:47; Start 01/11/17 at 09:00; Stop 01/18/17 at 08:59 Home Med (Med Rec Complete!) ASDIRECTED XX ; Start 01/08/17 at 18:15; Stop at 18:15; Status DC Hydroxyzine HCl (Atarax) 50 mg BID PO ; Start 01/09/17 at 09:00; Stop 01/09/17 at 09:00; Status DC Hydroxyzine HCl (Atarax) 50 mg BID@1200,2100 PO Last administered on 01/14/17 11:53; Start 01/08/17 at 21:00; Stop 02/07/17 at 20:59 Hydroxyzine HCl (Atarax) 100 mg QAM PO Last administered on 01/14/17 08:48; Start 01/09/17 at 09:00; Stop 02/08/17 at 08:59 Magnesium Hydroxide (Milk Of Magnesia) 30 ml DAILYPRN PRN PO CONSTIPATION; Start 01/08/17 at 22:15; Stop 02/07/17 at 22:14 Mirtazapine (Remeron) 45 mg QHS PO Last administered on 01/13/17 21:23; Start 01/08/17 at 21:00; Stop 02/07/17 at 20:59 Mirtazapine (Remeron) 45 mg QHS PO ; Start 01/09/17 at 21:00; Stop 01/09/17 at 21:00; Status DC Multivitamins (Theragram-M) 1 tab DAILY PO Last administered on 01/14/17 08:47 ; Start 01/09/17 at 09:00; Stop 02/08/17 at 08:59 Quetiapine Fumarate (SEROquel) 200 mg TID PO Last administered on 01/14/17 15: 38; Start 01/08/17 at 21:00; Stop 02/07/17 at 20:59 Quetiapine Fumarate (SEROquel) 200 mg TID PO ; Start 01/09/17 at 09:00; Stop at 09:00; Status DC Trazodone HCl (Desyrel) 50 mg QHSP PRN PO INSOMNIA; Start 01/08/17 at 22:15; Stop 02/07/17 at 22:14 Venlafaxine HCl (Effexor) 37.5 mg DAILY PO Last administered on 01/10/17 09:17 ; Start 01/09/17 at 09:00; Stop 01/10/17 at 15:51; Status DC Venlafaxine HCl (Effexor) 75 mg DAILY PO Last administered on 6/20/17at 08:47; Start 01/11/17 at 09:00; Stop 01/14/17 at 14:55; Status DC Venlafaxine HCl (Effexor) 112.5 mg DAILY PO ; Start 01/15/17 at 09:00; Stop at 08:59 Vitamin D (Drisdol) 50,000 units [place]@09 PO Last administered on 01/12/17 07:41 ; Start 01/12/17 at 09:00; Stop 02/11/17 at 08:59 Allergies Coded Allergies: No Known Drug Allergy (Verified Allergy, Unknown, 01/08/17) GME ATTESTATION My preceptor for this patient encounter was physically present in the building during the encounter and was fully available. As needed, all aspects of the patient interview, examination, medical decision making process, and medical care plan development were reviewed and approved by the preceptor. Preceptor is aware and concurs with the plan as stated in the body of this note and will attest to such by his/her cosignature. DAHLIA ADRIAN DO Jan 14, 2017 16:14
[2017-01-14 18:00] VITALS: BP 122/67
[2017-01-14] MEDS: MIRTAZAPINE 15 MG TAB PO SCH (20:56)
[2017-01-15 06:22] VITALS: BP_SYST 117; BP_SYST 157; BP_DIAS 62; BP_DIAS 79
[2017-01-15] MEDS: ASPIRIN 81 MG ENTERIC TAB PO SCH (07:57)
[2017-01-15] MEDS: hydrOXYzine 50 MG TAB PO SCH ×3 (07:58→20:43)
[2017-01-15] MEDS: clonazePAM 1 MG TAB PO SCH ×3 (07:58→20:43)
[2017-01-15] MEDS: MULTIVITAMINS/MINERALS THERAP 1 TAB PO SCH (09:13)
[2017-01-15] MEDS: QUEtiapine FUMARATE 200 MG TAB PO SCH ×3 (09:13→20:43)
[2017-01-15] MEDS: VENLAFAXINE 37.5 MG TAB PO SCH (09:13)
[2017-01-15 09:22] LABS: MEAN CORPUSCULAR VOLUME 88.1 fl (80.0-96.0); RED CELL DISTRIBUTION WIDTH 12.5 % (11.5-14.5); WHITE BLOOD COUNT 5.5 K/mm3 (4.0-10.0)
[2017-01-15 09:58] LABS: ALBUMIN 3.3 GM/DL (3.2-5.2); ALBUMIN/GLOBULIN RATIO 1.27 (1.00-1.93); ALKALINE PHOSPHATASE 78 U/L (45-117); ALT/SGPT 26 U/L (12-78); ANION GAP 6 MEQ/L (8-16); AST/SGOT 18 U/L (15-37); BILIRUBIN,TOTAL 0.3 MG/DL (0.2-1.0); BLOOD UREA NITROGEN 15 MG/DL (7-18); CALCIUM LEVEL 8.8 MG/DL (8.8-10.2); CARBON DIOXIDE LEVEL 31 MEQ/L (21-32); CHLORIDE LEVEL 105 MEQ/L (98-107); CREATININE FOR GFR 1.16 MG/DL (0.70-1.30); GLOMERULAR FILTRATION RATE > 60.0 (>49); GLUCOSE, FASTING 153 MG/DL (80-110); POTASSIUM SERUM 4.7 MEQ/L (3.5-5.1); SODIUM LEVEL 142 MEQ/L (136-145); TOTAL PROTEIN 5.9 GM/DL (6.4-8.2)
[2017-01-15 10:08] LABS: PROLACTIN 6.8 NG/ML (2.1-17.7)
[2017-01-15] MEDS: risperiDONE 0.5 MG TAB PO SCH ×3 (11:31→20:43)
[2017-01-15] MEDS: ACETAMINOPHEN TAB 650MG DOSE (2X325MG) PO PRN (15:59)
[2017-01-15 18:25] VITALS: BP 116/68
[2017-01-15] MEDS: BENZTROPINE 0.5 MG TAB PO SCH (20:43)
[2017-01-15] MEDS: MIRTAZAPINE 15 MG TAB PO SCH (20:43)
[2017-01-16 06:23] VITALS: BP 132/58
[2017-01-16] MEDS: VENLAFAXINE 37.5 MG TAB PO SCH (08:21)
[2017-01-16] MEDS: clonazePAM 1 MG TAB PO SCH ×3 (08:21→20:36)
[2017-01-16] MEDS: hydrOXYzine 50 MG TAB PO SCH ×3 (08:21→20:36)
[2017-01-16] MEDS: BENZTROPINE 0.5 MG TAB PO SCH ×2 (08:21→20:36)
[2017-01-16] MEDS: MULTIVITAMINS/MINERALS THERAP 1 TAB PO SCH (08:22)
[2017-01-16] MEDS: QUEtiapine FUMARATE 200 MG TAB PO SCH ×3 (08:22→20:36)
[2017-01-16] MEDS: risperiDONE 0.5 MG TAB PO SCH ×2 (08:22→20:36)
[2017-01-16] MEDS: ASPIRIN 81 MG ENTERIC TAB PO SCH (08:22)
[2017-01-16 10:24] VITALS: BP 142/72
[2017-01-16 14:56] LABS: BASO # 0.1 K/mm3 (0.0-0.2); BASO % 1.1 % (0.0-1.0); EOS # 0.3 K/mm3 (0.0-0.50); EOS % 3.7 % (0.0-3.0); LARGE UNSTAINED CELL # 0.2 K/mm3 (0.0-0.4); LARGE UNSTAINED CELL % 2.3 % (0.0-4.0); LYMPH # 2.1 K/mm3 (1.5-4.5); LYMPH % 27.7 % (24.0-44.0); MEAN CORPUSCULAR HEMOGLOBIN 30.1 pg (27.0-33.0); MEAN CORPUSCULAR HGB CONC 34.3 g/dl (32.0-36.5); MEAN CORPUSCULAR VOLUME 87.9 fl (80.0-96.0); MONO # 0.5 K/mm3 (0.0-0.8); MONO % 6.1 % (0.0-5.0); NEUTROPHILS # 4.4 K/mm3 (1.8-7.7); NEUTROPHILS % 59.2 % (36.0-66.0); PLATELET COUNT, AUTOMATED 263 k/mm3 (150-450); RED CELL DISTRIBUTION WIDTH 12.3 % (11.5-14.5); WHITE BLOOD COUNT 7.4 K/mm3 (4.0-10.0)
[2017-01-16 18:00] VITALS: BP 122/84
[2017-01-16] MEDS: cloZAPine 25 MG TAB (S0136) PO SCH (20:36)
[2017-01-16] MEDS: MIRTAZAPINE 15 MG TAB PO SCH (20:36)
[2017-01-16] MEDS ORDERED: BENZTROPINE 2 MG TAB PO ONE (21:15)
--- NOTE | 2017-01-17 00:36 | IPN ---
DATE OF SERVICE: 01/16/2017 A 61-year-old male with diagnoses of: 1. Panic disorder, severe without agoraphobia. 2. Unspecified psychotic disorder. 3. Unspecified depressive disorder. INTERVAL HISTORY: MEDICATION SIDE EFFECTS: Patient reports no side effects from medication, but at the same time he says that he is feeling worse than when he was admitted to the inpatient mental health unit. BEHAVIOR: The patient has not been isolated, he attends groups even though when he has stated before that he does not like to be surrounded by a lot of people. He has attended groups and has been participating in them. GROUP ATTENDANCE: As above. PSYCHIATRIC SYMPTOMS: The patient MTDD
--- NOTE | 2017-01-17 00:37 | IPN ---
DATE: __01/15/17 Evaluated 61-year-old male known for paranoid schizophrenia, chronic, treatment resistant. According to nursing staff and according to patient, he had a panic attack early this morning. He says that there was no trigger, and he reports not feeling well over the weekend either. According to history, his has reported that the patient's sexual orientation might have been causing him guilt because of his orthodoxy and because he is aware now that his knows that he has been homosexual for several years. This automotive service writer addressed this issue with the patient, and he says that he does not think that his sexual orientation or the fact that his is aware of it at this time has triggered this decompensation because he has repented a long time ago and had a conversation with God and God has forgiven him. However, he still reports guilt because he says that according to his moral and cheondoism values, being homosexual is not correct. VITAL SIGNS: His vital signs were stable throughout the day. NEW TEST RESULTS: There are no new test results. MENTAL STATUS EXAMINATION: Patient is a 61-year-old male who is alert, dressed in hospital clothes, with poor eye contact, good hygiene, cooperative with interview. Speech is sparse, not tangential, and not circumstantial. Language skills are fair. Thought process is linear. Thought content: He has thoughts of guilt and anxiety. However, he is goal directed. Abstract reasoning and computation are fair. Description of associations: There is no loosening of associations. Description of abnormal or psychotic thoughts: He denies auditory and visual hallucinations, denies delusional thoughts, denies suicidal or homicidal ideation. Judgment poor, insight limited. Orientation: Oriented times three. Recent and remote memory are intact. Attention span and concentration fair. Language normal. Fund of knowledge average. Mood: "I think I'm getting more anxious." Affect anxious, depressed. DIAGNOSES: 1. Paranoid schizophrenia, chronic, resistant to treatment. 2. Panic disorder. ASSESSMENT: Patient continues to be extremely anxious, and that is the reason for why Risperdal was added to his medications to 0.5 mg by mouth twice a day in order to be able to calm him down a little bit. Dr. Beckham, his outpatient psychiatrist, will be contacted tomorrow, and we will consult with him if patient could be started on Clozaril since he has been resistant to other antipsychotics and he presents with severe tics, twitching, and abnormal movements in his face and his neck, although he denies auditory or visual hallucinations. He denies delusional thoughts, but his affect is sort of constricted but anxious at the same time. Hopefully, the addition of Risperdal to his medications will given him some peace of mind. We will followup closely. MANAGEMENT PLAN: He will continue with: - Risperdal 0.5 mg by mouth twice a day - venlafaxine 112.5 mg daily - Seroquel 200 mg by mouth three times a day - Remeron 45 mg by mouth nightly - Atarax 100 mg by mouth every morning and 50 mg by mouth twice a day - clonazepam 1 mg by mouth twice a day - clonazepam 2 mg by mouth daily Today, he was started on Cogentin 0.5 mg by mouth twice a day due to the fact that Risperdal was added to the regimen and due to the fact that he already was on Seroquel. Patient will be followed up closely. [facility]
--- NOTE | 2017-01-17 00:59 | IPN ---
DATE OF SERVICE: 01/15/2017 A 61-year-old male with history of paranoid schizophrenia. INTERVAL HISTORY: MEDICATION SIDE EFFECTS: Patient reports no side effects from his medications. BEHAVIOR: Patient has been attending groups and has participated in mostly all of them, although he reports that occasionally he becomes anxious in those groups and he gets panic attacks. GROUP ATTENDANCE: As above. He participated on 01/15 and attended some groups. PSYCHIATRIC SYMPTOMS: Patient reports the anxiety is getting worse, he is getting more panic attacks and he has gotten some pseudoseizures. VITAL SIGNS: Stable. NEW TEST RESULTS: There were no new test results. CURRENT MEDICATIONS: He continues on venlafaxine, Seroquel, Remeron and clonazepam, but today it was added Risperdal 1 mg by mouth twice a day and Cogentin 0.5 mg by mouth three times a day because the patient was reported to be extremely anxious by nursing staff and by himself. MENTAL STATUS EXAMINATION: General: Patient is dressed in hospital clothes, with poor eye contact, hunched forward, cooperative with interview, slightly disheveled. Speech: He is logical and coherent. Thought process: He is coherent. Thought content: He perseverates on anxiety and what he thinks might be causing him anxiety and he states that sometimes while he is in large groups he gets a little bit more anxious. Abstract reasoning and computation are fair. Description of associations: There is no loosening of associations. Description of abnormal or psychotic thoughts: He denies homicidal or suicidal ideation, denies auditory or visual hallucinations and he is not responding to internal stimuli. He does not report paranoid or persecutory delusions. Judgment is improving. Insight is improving. Orientation: He is alert and oriented times three. Recent and remote memory are intact. Attention span and concentration are intact. Fund of knowledge is fair. Mood: "Anxious." Affect extremely anxious. DIAGNOSES: 1. Panic disorder, severe without agoraphobia. 2. Unspecified psychotic disorder. 3. Unspecified depressive disorder. ASSESSMENT: The patient is getting worse, have not been able to adjust medications. This team has spoken with his primary psychiatrists who have requested not to change his medications because it has been very difficult for him to stabilize the patient. This newswriter has not been wanting to increase the two more milligrams on Klonopin, so he is on 4 mg and not 6 mg of Klonopin as he was before, but today it was added to the regimen Risperdal 1 mg by mouth twice a day and Cogentin 0.5 mg by mouth three times a day to help him relax and calm down. Will seek to speak with Dr. Beckham to ensure that he agrees on starting the patient on Clozaril because apparently the patient has been resistant to many medications throughout the years and Clozaril could be probably the last possibility, the last chance that he could have to improve his psychiatric problem. MANAGEMENT PLAN: MEDICATIONS: Started on Risperdal 1 mg by mouth twice a day and started on Cogentin 0.5 mg by mouth three times a day. PSYCHOTHERAPY: Patient has been attending groups, but he has been encouraged to keep attending them. SOCIAL: He has a supportive family, a loving . MISCELLANEOUS: None. DISPOSITION: The patient will need a longer treatment because his anxiety and his panic are extreme. He needs to work on his personal issues with long-term psychotherapy and he will need to continue to receive medications, but will need to titrate them and if Dr. Beckham agrees, he will be started on Clozaril. TIME SPENT: 30 minutes.
--- NOTE | 2017-01-17 01:29 | IPN ---
DATE OF SERVICE: 01/16/2017 A 61-year-old male with history of: 1. Panic disorder, severe without agoraphobia. 2. Unspecified psychotic disorder. 3. Unspecified depressive disorder. INTERVAL HISTORY: MEDICATION SIDE EFFECTS: The patient has denied medication side effects, but at the same time he reports no improvement and getting worse. BEHAVIOR: The patient has not been aggressive or violent towards anyone, has been quiet and has complied with medications and regulations at the inpatient mental health unit. GROUP ATTENDANCE: The patient has been attending groups despite the fact that he has reported that he gets anxious when he is surrounded by several people. PSYCHIATRIC SYMPTOMS: The patient is worsening, this morning the nursing staff reported that he had two pseudoseizures in the morning and yesterday he got really anxious and really upset after he had a conversation with his . Patient reports that he got upset with his because she had spoken to treatment team as of his sexual orientation and he wanted to keep that as a secret and he did not understand that his is closed but she quit because she wanted him to get better and she thought that keeping that for himself was hurting him. VITAL SIGNS: Have been stable. There are no new test results. CURRENT MEDICATIONS: See below. MENTAL STATUS EXAMINATION: General: He is dressed in hospital clothes, with very poor eye contact, disheveled, hunched forward, extremely anxious. Speech is coherent, but it is difficult for him to speak because of the high level of anxiety that he is displaying. Thought process: He is coherent. Thought content: He perseverates about anxiety and panic attacks. Abstract reasoning and computation are intact. Description of associations: Not loose. Description of abnormal or psychotic thoughts: He denies auditory and visual hallucinations, denies bizarre or paranoid or persecutory delusions and denies suicidal or homicidal ideation. He is not seen responding to internal stimuli. Judgment is fair. Insight is fair. Orientation: He is alert and oriented times three. Recent and remote memory are intact. Attention span and concentration are fair. Fund of knowledge is adequate. Mood: "Very anxious, I'm feeling worse." Affect is anxious and irritable. ASSESSMENT: The patient is getting worse despite the adjustment to medications and having started him yesterday on Risperdal to help him relax and calm him a little bit more. PSYCHOTHERAPY: He is attending groups and he is participating in them. SOCIAL: He has a supportive family. A meeting has been scheduled for Friday the at 12 p.m. MISCELLANEOUS: None. DISPOSITION: The patient will require further inpatient hospitalization despite his request and family request to be at a family graduation over the weekend. The patient needs to address several personal issues with a therapist and receive psychotherapy besides receiving medication. TIME SPENT: 30 minutes.
[2017-01-17 06:32] VITALS: BP 144/68
[2017-01-17] MEDS: QUEtiapine FUMARATE 200 MG TAB PO SCH ×3 (08:02→21:18)
[2017-01-17] MEDS: ASPIRIN 81 MG ENTERIC TAB PO SCH (08:02)
[2017-01-17] MEDS: hydrOXYzine 50 MG TAB PO SCH ×3 (08:02→21:19)
[2017-01-17] MEDS: risperiDONE 0.5 MG TAB PO SCH ×2 (08:02→21:19)
[2017-01-17] MEDS: clonazePAM 1 MG TAB PO SCH ×3 (08:02→21:18)
[2017-01-17] MEDS: VENLAFAXINE 37.5 MG TAB PO SCH (08:02)
[2017-01-17] MEDS: MULTIVITAMINS/MINERALS THERAP 1 TAB PO SCH (08:02)
[2017-01-17] MEDS: BENZTROPINE 0.5 MG TAB PO SCH ×2 (08:02→21:00)
[2017-01-17 08:15] VITALS: BP 130/77
--- NOTE | 2017-01-17 09:44 | REP ---
RIGHT SHOULDER SERIES: Four views of the right shoulder are performed. There is no acute fracture or dislocation. There is narrowing of the acromioclavicular joint with downward sloping of the acromion, likely causing impingement on the supraspinatus tendon. IMPRESSION: No acute fracture or dislocation. Signed by Jeremias Wagoner MD 01/17/2017 03:12 P
--- NOTE | 2017-01-17 09:48 | REP ---
RIGHT LOWER LEG, AP AND LATERAL: There is no evidence of an acute fracture, dislocation or intrinsic bone disease. IMPRESSION: No fracture or dislocation. Signed by Jeremias Wagoner MD 01/17/2017 03:13 P
[2017-01-17 18:00] VITALS: BP 125/71
[2017-01-17] MEDS: MIRTAZAPINE 15 MG TAB PO SCH (21:18)
[2017-01-17] MEDS: cloZAPine 25 MG TAB (S0136) PO SCH (21:18)
--- NOTE | 2017-01-17 23:00 | MHIPNPDOC ---
[facility] Progress Note Progress Note DATE OF SERVICE: 01/17/17 HISTORY: Evaluated 61 year old male with history of paranoid Schizophrenia, chronic, resistant to treatment and Panic Disorder without agoraphobia. Nursing staff reported patient fell on the floor after he tripped on the walker of another patient and hurt his right troncoso and shoulder. Pt denied pain, but he was taken to x rays and they were normal, both, for shoulder and lower leg. VITAL SIGNS: See below. NEW TEST RESULTS: S rays for shoulder and troncoso are normal CURRENT MEDICATIONS: See below. MENTAL STATUS EXAMINATION: Patient is a 61-year old male, who is alert, cooperative, pleasant, dressed in hospital clothes. Speech: Is fluid, not tangential and not circumstantial Language skills are fair. Thought processes including: Intact. Thought content: Perseveres about anxiety. Abstract reasoning, and computation: fair. Description of associations: Not loose. Description of abnormal or psychotic thoughts: Denies suicidal and homicidal ideation, denies delusional thoughts but admits that once in a while he listens a voice calling him by his name. Judgment: Limited Insight: Limited. Orientation: Oriented x 3 Recent and remote memory: Fair Attention span and concentration: Fair. Language: Normal. Fund of knowledge: Fair. Mood: "Im anxious". Affect: Anxious DIAGNOSES: 1. Paranoid schizophrenia, chronic, resistant to medications 2. Panic disorder, without agoraphobia. 3. . ASSESSMENT:patient was started on January 16 on Clozaril 25 mgs after this hand sign writer spoke with Dr. Lui who said he was agrreable to give him a trial of clozaril for 6 months. His CBC with differential is within normal limits. He is taking Risperdal and today he looks better, less anxious. MANAGEMENT PLAN: Needs to continue hospitalization until he responds to treatment. TIME SPENT: 30 minutes. Vital Signs Vital Signs Date Time Temp Pulse Resp B/P (MAP) Pulse Ox O2 Delivery O2 Flow Rate FiO2 01/17/17 18:00 98.4 89 16 125/71 (89) 01/16/17 10:24 98 Room Air Current Medications Current Medications Acetaminophen (Tylenol Tab) 650 mg Q6HP PRN PO HEADACHE or DISCOMFORT Last administered on 01/15/17t 15:59; Start 01/08/17 at 22:15; Stop 02/07/17 at 22:14 Al Hydrox/Mg Hydrox/Simethicone (Mylanta) 30 ml Q4HP PRN PO HEARTBURN/ INDIGESTION; Start 01/08/17 at 22:15; Stop 02/07/17 at 22:14 Aspirin (Ecotrin) 81 mg DAILY PO Last administered on 01/17/17 08:02; Start at 09:00; Stop 02/08/17 at 08:59 Benztropine Mesylate (Cogentin) 0.5 mg BID PO Last administered on 01/17/17 21 :00; Start 01/15/17 at 21:00; Stop 02/14/17 at 20:59 Benztropine Mesylate (Cogentin) 1 mg TID PO Last administered on 01/13/17 21: 22; Start 01/13/17 at 09:00; Stop 01/14/17 at 08:44; Status DC Clonazepam (KlonoPIN) 1 mg BID PO ; Start 01/09/17 at 09:00; Stop 01/09/17 at 09 :00; Status DC Clonazepam (KlonoPIN) 1 mg BID@1200,2100 PO Last administered on 01/17/17 21: 18; Start 01/08/17 at 21:00; Stop 01/21/17 at 20:59 Clonazepam (KlonoPIN) 1.5 mg DAILY PO Last administered on 01/10/17 09:16; Start 01/10/17 at 09:00; Stop 01/10/17 at 09:24; Status DC Clonazepam (KlonoPIN) 1.5 mg DAILY PO ; Start 01/11/17 at 09:00; Stop 01/11/17 at 09:00; Status DC Clonazepam (KlonoPIN) 2 mg DAILY PO Last administered on 01/09/17 08:54; Start 01/09/17 at 09:00; Stop 01/09/17 at 20:58; Status DC Clonazepam (KlonoPIN) 2 mg DAILY PO Last administered on 01/17/17 08:02; Start 01/11/17 at 09:00; Stop 01/24/17 at 08:59 Clozapine (Clozaril) 25 mg QHS PO Last administered on 01/17/17 21:18; Start 01/16/17 at 21:00; Stop 01/23/17 at 20:59 Home Med (Med Rec Complete!) ASDIRECTED XX ; Start 01/08/17 at 18:15; Stop at 18:15; Status DC Hydroxyzine HCl (Atarax) 50 mg BID PO ; Start 01/09/17 at 09:00; Stop 01/09/17 at 09:00; Status DC Hydroxyzine HCl (Atarax) 50 mg BID@1200,2100 PO Last administered on 01/17/17 21:19; Start 01/08/17 at 21:00; Stop 02/07/17 at 20:59 Hydroxyzine HCl (Atarax) 100 mg QAM PO Last administered on 01/17/17 08:02; Start 01/09/17 at 09:00; Stop 02/08/17 at 08:59 Magnesium Hydroxide (Milk Of Magnesia) 30 ml DAILYPRN PRN PO CONSTIPATION; Start 01/08/17 at 22:15; Stop 02/07/17 at 22:14 Mirtazapine (Remeron) 45 mg QHS PO Last administered on 01/17/17 21:18; Start 01/08/17 at 21:00; Stop 02/07/17 at 20:59 Mirtazapine (Remeron) 45 mg QHS PO ; Start 01/09/17 at 21:00; Stop 01/09/17 at 21:00; Status DC Multivitamins (Theragram-M) 1 tab DAILY PO Last administered on 01/17/17 08:02 ; Start 01/09/17 at 09:00; Stop 02/08/17 at 08:59 Quetiapine Fumarate (SEROquel) 200 mg TID PO Last administered on 01/17/17 21: 18; Start 01/08/17 at 21:00; Stop 02/07/17 at 20:59 Quetiapine Fumarate (SEROquel) 200 mg TID PO ; Start 01/09/17 at 09:00; Stop at 09:00; Status DC Risperidone (RisperDAL) 0.5 mg BID PO Last administered on 01/17/17 21:19; Start 01/16/17 at 21:00; Stop 02/14/17 at 08:59 Risperidone (RisperDAL) 0.5 mg TID PO Last administered on 01/16/17 08:22; Start 01/15/17 at 09:00; Stop 01/16/17 at 14:25; Status DC Trazodone HCl (Desyrel) 50 mg QHSP PRN PO INSOMNIA Last administered on 20:37; Start 01/08/17 at 22:15; Stop 02/07/17 at 22:14 Venlafaxine HCl (Effexor) 37.5 mg DAILY PO Last administered on 01/10/17 09:17 ; Start 01/09/17 at 09:00; Stop 01/10/17 at 15:51; Status DC Venlafaxine HCl (Effexor) 75 mg DAILY PO Last administered on 01/14/17 08:47; Start 01/11/17 at 09:00; Stop 01/14/17 at 14:55; Status DC Venlafaxine HCl (Effexor) 112.5 mg DAILY PO Last administered on 01/17/17 08: 02; Start 01/15/17 at 09:00; Stop 02/14/17 at 08:59 Vitamin D (Drisdol) 50,000 units [place]@09 PO Last administered on 01/12/17 07:41 ; Start 01/12/17 at 09:00; Stop 02/11/17 at 08:59 Allergies Coded Allergies: No Known Drug Allergy (Verified Allergy, Unknown, 01/08/17) SCOTT THOMAS MD Jan 17, 2017 23:00
[2017-01-18] MEDS: MULTIVITAMINS/MINERALS THERAP 1 TAB PO SCH (08:29)
[2017-01-18] MEDS: BENZTROPINE 0.5 MG TAB PO SCH ×2 (08:29→20:34)
[2017-01-18] MEDS: risperiDONE 0.5 MG TAB PO SCH ×2 (08:29→20:34)
[2017-01-18] MEDS: clonazePAM 1 MG TAB PO SCH ×3 (08:29→20:34)
[2017-01-18] MEDS: hydrOXYzine 50 MG TAB PO SCH ×3 (08:29→20:35)
[2017-01-18] MEDS: ASPIRIN 81 MG ENTERIC TAB PO SCH (08:29)
[2017-01-18] MEDS: QUEtiapine FUMARATE 200 MG TAB PO SCH ×3 (08:29→20:34)
[2017-01-18] MEDS: VENLAFAXINE 37.5 MG TAB PO SCH (08:29)
[2017-01-18 18:00] VITALS: BP 119/72
[2017-01-18] MEDS: cloZAPine 25 MG TAB (S0136) PO SCH (20:34)
[2017-01-18] MEDS: MIRTAZAPINE 15 MG TAB PO SCH (20:34)
[2017-01-19 06:00] VITALS: BP 122/68
[2017-01-19] MEDS: BENZTROPINE 0.5 MG TAB PO SCH ×2 (08:02→21:05)
[2017-01-19] MEDS: ASPIRIN 81 MG ENTERIC TAB PO SCH (08:02)
[2017-01-19] MEDS: MULTIVITAMINS/MINERALS THERAP 1 TAB PO SCH (08:02)
[2017-01-19] MEDS: clonazePAM 1 MG TAB PO SCH ×3 (08:02→21:05)
[2017-01-19] MEDS: risperiDONE 0.5 MG TAB PO SCH ×2 (08:02→21:04)
[2017-01-19] MEDS: VENLAFAXINE 37.5 MG TAB PO SCH (08:02)
[2017-01-19] MEDS: VITAMIN D 50,000 UNITS CAPSULE (ERGOCALCIFEROL 1.25MG) PO SCH (08:02)
[2017-01-19] MEDS: QUEtiapine FUMARATE 200 MG TAB PO SCH ×3 (08:02→21:04)
[2017-01-19] MEDS: hydrOXYzine 50 MG TAB PO SCH ×3 (08:03→21:05)
[2017-01-19 18:00] VITALS: BP 108/65
[2017-01-19] MEDS: cloZAPine 25 MG TAB (S0136) PO SCH (21:04)
[2017-01-19] MEDS: MIRTAZAPINE 15 MG TAB PO SCH (21:05)
[2017-01-20 06:22] VITALS: BP 128/71
[2017-01-20] MEDS: ASPIRIN 81 MG ENTERIC TAB PO SCH (08:12)
[2017-01-20] MEDS: risperiDONE 0.5 MG TAB PO SCH ×2 (08:12→20:52)
[2017-01-20] MEDS: MULTIVITAMINS/MINERALS THERAP 1 TAB PO SCH (08:12)
[2017-01-20] MEDS: hydrOXYzine 50 MG TAB PO SCH ×3 (08:12→20:52)
[2017-01-20] MEDS: BENZTROPINE 0.5 MG TAB PO SCH ×2 (08:12→20:52)
[2017-01-20] MEDS: clonazePAM 1 MG TAB PO SCH ×3 (08:12→20:52)
[2017-01-20] MEDS: VENLAFAXINE 37.5 MG TAB PO SCH (08:12)
[2017-01-20] MEDS: QUEtiapine FUMARATE 200 MG TAB PO SCH ×3 (08:12→20:52)
[2017-01-20] MEDS: ACETAMINOPHEN TAB 650MG DOSE (2X325MG) PO PRN ×2 (12:14→17:56)
[2017-01-20 18:20] VITALS: BP 130/88
--- NOTE | 2017-01-20 19:28 | MHIPNPDOC ---
[facility] Progress Note Progress Note DATE OF SERVICE: 01/20/17 INTERVAL HISTORY: Medication Side effects: the patient reports no side effects his clozapine such as constipation or fevers Behavior/events: the patient has been extremely anxious in the morning, no events overnight Group Attendance: has attended groups when he is able to Psychiatric Symptoms: the patient reports his anxiety is massively worse and that he is becoming increasingly more unable to control his tremors. He describes that he feels worse on the clozapine. Patient was not able to tolerate a long interview as he became quickly very anxious and was only able to be soothed by breathing techniques VITAL SIGNS: See below. NEW TEST RESULTS: See below CURRENT MEDICATIONS: See below. MENTAL STATUS EXAMINATION: General: disheveled Speech: broken apart by tremors Thought processes: coherent Thought content: perseveration on anxiety Abstract reasoning, and computation: intact Description of associations: loose Description of abnormal or psychotic thoughts: patient makes no threats towards himself or others. Does not appear to be responding to internal stimuli. Judgment: limited Insight: limited Orientation: alert and orientated to surroundings Recent and remote memory: intact Attention span and concentration: intact Fund of knowledge: adequate Mood: "bad" Affect: anxious and dysphoric DIAGNOSES: 1. Unspecified psychotic disorder. 2. Unspecified anxiety disorder. ASSESSMENT: destabilizing MANAGEMENT PLAN: Medications: continue clozapine 25 mg other psychiatric medications as below, plan to cross titrate Psychotherapy: encouraged attendance Social: prospective discharge, if patient improves on Friday Misc: none Disposition: The patient will need of further inpatient stay to address severe anxiety and psychosis. TIME SPENT: 15 minutes. Vital Signs Vital Signs Date Time Temp Pulse Resp B/P (MAP) Pulse Ox O2 Delivery O2 Flow Rate FiO2 01/20/17 18:20 98.4 94 18 130/88 (102) 01/16/17 10:24 98 Room Air Current Medications Current Medications Acetaminophen (Tylenol Tab) 650 mg Q6HP PRN PO HEADACHE or DISCOMFORT Last administered on 01/20/17t 17:56; Start 01/08/17 at 22:15; Stop 02/07/17 at 22:14 Al Hydrox/Mg Hydrox/Simethicone (Mylanta) 30 ml Q4HP PRN PO HEARTBURN/ INDIGESTION; Start 01/08/17 at 22:15; Stop 02/07/17 at 22:14 Aspirin (Ecotrin) 81 mg DAILY PO Last administered on 01/20/17 08:12; Start at 09:00; Stop 02/08/17 at 08:59 Benztropine Mesylate (Cogentin) 0.5 mg BID PO Last administered on 01/20/17 08 :12; Start 01/15/17 at 21:00; Stop 02/14/17 at 20:59 Benztropine Mesylate (Cogentin) 1 mg TID PO Last administered on 01/13/17 21: 22; Start 01/13/17 at 09:00; Stop 01/14/17 at 08:44; Status DC Clonazepam (KlonoPIN) 1 mg BID PO ; Start 01/09/17 at 09:00; Stop 01/09/17 at 09 :00; Status DC Clonazepam (KlonoPIN) 1 mg BID@1200,2100 PO Last administered on 01/20/17 12: 13; Start 01/08/17 at 21:00; Stop 01/21/17 at 20:59 Clonazepam (KlonoPIN) 1.5 mg DAILY PO Last administered on 01/10/17 09:16; Start 01/10/17 at 09:00; Stop 01/10/17 at 09:24; Status DC Clonazepam (KlonoPIN) 1.5 mg DAILY PO ; Start 01/11/17 at 09:00; Stop 01/11/17 at 09:00; Status DC Clonazepam (KlonoPIN) 2 mg DAILY PO Last administered on 01/09/17 08:54; Start 01/09/17 at 09:00; Stop 01/09/17 at 20:58; Status DC Clonazepam (KlonoPIN) 2 mg DAILY PO Last administered on 01/20/17 08:12; Start 01/11/17 at 09:00; Stop 01/24/17 at 08:59 Clozapine (Clozaril) 25 mg QHS PO Last administered on 01/19/17 21:04; Start 01/16/17 at 21:00; Stop 01/23/17 at 20:59 Home Med (Med Rec Complete!) ASDIRECTED XX ; Start 01/08/17 at 18:15; Stop at 18:15; Status DC Hydroxyzine HCl (Atarax) 50 mg BID PO ; Start 01/09/17 at 09:00; Stop 01/09/17 at 09:00; Status DC Hydroxyzine HCl (Atarax) 50 mg BID@1200,2100 PO Last administered on 01/20/17 12:13; Start 01/08/17 at 21:00; Stop 02/07/17 at 20:59 Hydroxyzine HCl (Atarax) 100 mg QAM PO Last administered on 01/20/17 08:12; Start 01/09/17 at 09:00; Stop 02/08/17 at 08:59 Magnesium Hydroxide (Milk Of Magnesia) 30 ml DAILYPRN PRN PO CONSTIPATION; Start 01/08/17 at 22:15; Stop 02/07/17 at 22:14 Mirtazapine (Remeron) 45 mg QHS PO Last administered on 01/19/17 21:05; Start 01/08/17 at 21:00; Stop 02/07/17 at 20:59 Mirtazapine (Remeron) 45 mg QHS PO ; Start 01/09/17 at 21:00; Stop 01/09/17 at 21:00; Status DC Multivitamins (Theragram-M) 1 tab DAILY PO Last administered on 01/20/17 08:12 ; Start 01/09/17 at 09:00; Stop 02/08/17 at 08:59 Quetiapine Fumarate (SEROquel) 200 mg TID PO Last administered on 01/20/17 16: 15; Start 01/08/17 at 21:00; Stop 02/07/17 at 20:59 Quetiapine Fumarate (SEROquel) 200 mg TID PO ; Start 01/09/17 at 09:00; Stop at 09:00; Status DC Risperidone (RisperDAL) 0.5 mg BID PO Last administered on 01/20/17 08:12; Start 01/16/17 at 21:00; Stop 02/14/17 at 08:59 Risperidone (RisperDAL) 0.5 mg TID PO Last administered on 01/16/17 08:22; Start 01/15/17 at 09:00; Stop 01/16/17 at 14:25; Status DC Trazodone HCl (Desyrel) 50 mg QHSP PRN PO INSOMNIA Last administered on 20:37; Start 01/08/17 at 22:15; Stop 02/07/17 at 22:14 Venlafaxine HCl (Effexor) 37.5 mg DAILY PO Last administered on 01/10/17 09:17 ; Start 01/09/17 at 09:00; Stop 01/10/17 at 15:51; Status DC Venlafaxine HCl (Effexor) 75 mg DAILY PO Last administered on 01/14/17 08:47; Start 01/11/17 at 09:00; Stop 01/14/17 at 14:55; Status DC Venlafaxine HCl (Effexor) 112.5 mg DAILY PO Last administered on 01/20/17 08: 12; Start 01/15/17 at 09:00; Stop 02/14/17 at 08:59 Vitamin D (Drisdol) 50,000 units [place]@09 PO Last administered on 01/19/17 08:02 ; Start 01/12/17 at 09:00; Stop 02/11/17 at 08:59 Allergies Coded Allergies: No Known Drug Allergy (Verified Allergy, Unknown, 01/08/17) GME ATTESTATION My preceptor for this patient encounter was physically present in the building during the encounter and was fully available. As needed, all aspects of the patient interview, examination, medical decision making process, and medical care plan development were reviewed and approved by the preceptor. Preceptor is aware and concurs with the plan as stated in the body of this note and will attest to such by his/her cosignature. DAHLIA ADRIAN DO Jan 20, 2017 19:28
[2017-01-20] MEDS: cloZAPine 25 MG TAB (S0136) PO SCH (20:52)
[2017-01-20] MEDS: MIRTAZAPINE 15 MG TAB PO SCH (20:53)
[2017-01-21 06:26] VITALS: BP 117/79
[2017-01-21] MEDS: risperiDONE 0.5 MG TAB PO SCH ×2 (08:13→20:37)
[2017-01-21] MEDS: hydrOXYzine 50 MG TAB PO SCH ×3 (08:13→20:37)
[2017-01-21] MEDS: ASPIRIN 81 MG ENTERIC TAB PO SCH (08:13)
[2017-01-21] MEDS: VENLAFAXINE 37.5 MG TAB PO SCH (08:13)
[2017-01-21] MEDS: MULTIVITAMINS/MINERALS THERAP 1 TAB PO SCH (08:13)
[2017-01-21] MEDS: clonazePAM 1 MG TAB PO SCH ×3 (08:14→20:37)
[2017-01-21] MEDS: QUEtiapine FUMARATE 200 MG TAB PO SCH ×3 (08:14→20:37)
[2017-01-21] MEDS: BENZTROPINE 0.5 MG TAB PO SCH ×2 (08:14→20:37)
[2017-01-21 12:22] LABS: BASO % 0.7 % (0.0-1.0); EOS # 0.2 K/mm3 (0.0-0.50); EOS % 3.5 % (0.0-3.0); LARGE UNSTAINED CELL # 0.1 K/mm3 (0.0-0.4); LARGE UNSTAINED CELL % 2.1 % (0.0-4.0); LYMPH # 1.7 K/mm3 (1.5-4.5); LYMPH % 26.1 % (24.0-44.0); MEAN CORPUSCULAR HEMOGLOBIN 30.4 pg (27.0-33.0); MEAN CORPUSCULAR HGB CONC 34.6 g/dl (32.0-36.5); MEAN CORPUSCULAR VOLUME 87.9 fl (80.0-96.0); MONO # 0.4 K/mm3 (0.0-0.8); MONO % 6.4 % (0.0-5.0); NEUTROPHILS # 3.7 K/mm3 (1.8-7.7); NEUTROPHILS % 61.3 % (36.0-66.0); PLATELET COUNT, AUTOMATED 239 k/mm3 (150-450); RED CELL DISTRIBUTION WIDTH 12.5 % (11.5-14.5)
[2017-01-21 18:11] VITALS: BP 119/85
[2017-01-21] MEDS: ACETAMINOPHEN TAB 650MG DOSE (2X325MG) PO PRN (20:37)
[2017-01-21] MEDS: MIRTAZAPINE 15 MG TAB PO SCH (20:37)
[2017-01-21] MEDS: cloZAPine 25 MG TAB (S0136) PO SCH (20:37)
--- NOTE | 2017-01-21 20:46 | MHIPNPDOC ---
[facility] Progress Note Progress Note DATE OF SERVICE: 01/21/17 INTERVAL HISTORY: Medication Side effects: reports no side effects clozapine Behavior/events: has become increasingly more anxious, was able to sleep the previous evening, no events overnight Group Attendance: the patient has not been able to attend groups today due to his severe anxiety Psychiatric Symptoms: the patient reports his anxiety is slightly worse today and although, he was able to sleep well last night he finds himself more worried and panicky today. He was only able to tolerate a very short interview as he became very anxious there were several episodes where he used breathing techniques in order to calm himself. However, after several times he needed to dismiss himself from the interview VITAL SIGNS: See below. NEW TEST RESULTS: See below CURRENT MEDICATIONS: See below. MENTAL STATUS EXAMINATION: General: disheveled Speech: more coherent Thought processes: linear Thought content: perseveration on anxiety Abstract reasoning, and computation: intact Description of associations: loosened Description of abnormal or psychotic thoughts: made no threats towards himself or others. Did not appear to be responding to internal stimuli Judgment: limited Insight: limited Orientation: alert and orientated to surroundings Recent and remote memory: intact Attention span and concentration: intact Fund of knowledge: adequate Mood: "bad" Affect: severely anxious and dysphoric DIAGNOSES: 1. Unspecified psychotic disorder. 2. Unspecified anxiety disorder. ASSESSMENT: destabilizing MANAGEMENT PLAN: Medications: increase clozapine to 50 mg nightly with other psychotropics with no changes as below Psychotherapy: encourage group attendance Social: considering long-term treatment at [facility] Misc: none Disposition: The patient will need of further inpatient stay to address severe anxiety and psychosis. TIME SPENT: 15 minutes. Vital Signs Vital Signs Date Time Temp Pulse Resp B/P (MAP) Pulse Ox O2 Delivery O2 Flow Rate FiO2 01/21/17 18:11 98.5 92 16 119/85 (96) 01/16/17 10:24 98 Room Air Laboratory Data 24H Labs Laboratory Tests 2 01/21/17 12:05: White Blood Count 6.0, Red Blood Count 4.91, Hemoglobin 14.9, Hematocrit 43.1, Mean Corpuscular Volume 87.9, Mean Corpuscular Hemoglobin 30.4, Mean Corpuscular Hemoglobin Concent 34.6, Red Cell Distribution Width 12.5, Platelet Count 239, Neutrophils (%) (Auto) 61.3, Lymphocytes (%) (Auto) 26.1, Monocytes ( %) (Auto) 6.4H, Eosinophils (%) (Auto) 3.5H, Basophils (%) (Auto) 0.7, Neutrophils # (Auto) 3.7, Lymphocytes # (Auto) 1.7, Monocytes # (Auto) 0.4, Eosinophils # (Auto) 0.2, Basophils # (Auto) 0.0, Large Unclassified Cells % 2.1 , Large Unclassified Cells # 0.1 CBC/BMP Laboratory Tests 01/21/17 12:05 Red Blood Count 4.91, Mean Corpuscular Volume 87.9, Mean Corpuscular Hemoglobin 30.4, Mean Corpuscular Hemoglobin Concent 34.6, Red Cell Distribution Width 12.5 , Neutrophils (%) (Auto) 61.3, Lymphocytes (%) (Auto) 26.1, Monocytes (%) (Auto ) 6.4 H, Eosinophils (%) (Auto) 3.5 H, Basophils (%) (Auto) 0.7, Neutrophils # ( Auto) 3.7, Lymphocytes # (Auto) 1.7, Monocytes # (Auto) 0.4, Eosinophils # (Auto ) 0.2, Basophils # (Auto) 0.0 Current Medications Current Medications Acetaminophen (Tylenol Tab) 650 mg Q6HP PRN PO HEADACHE or DISCOMFORT Last administered on 01/20/17 17:56; Start 01/08/17 at 22:15; Stop 02/07/17 at 22:14 Al Hydrox/Mg Hydrox/Simethicone (Mylanta) 30 ml Q4HP PRN PO HEARTBURN/ INDIGESTION; Start 01/08/17 at 22:15; Stop 02/07/17 at 22:14 Aspirin (Ecotrin) 81 mg DAILY PO Last administered on 01/21/17 08:13; Start at 09:00; Stop 02/08/17 at 08:59 Benztropine Mesylate (Cogentin) 0.5 mg BID PO Last administered on 01/21/17 08 :14; Start 01/15/17 at 21:00; Stop 02/14/17 at 20:59 Benztropine Mesylate (Cogentin) 1 mg TID PO Last administered on 01/13/17 21: 22; Start 01/13/17 at 09:00; Stop 01/14/17 at 08:44; Status DC Clonazepam (KlonoPIN) 1 mg BID PO ; Start 01/09/17 at 09:00; Stop 01/09/17 at 09 :00; Status DC Clonazepam (KlonoPIN) 1 mg BID@1200,2100 PO Last administered on 01/21/17 11: 59; Start 01/08/17 at 21:00; Stop 01/27/17 at 20:59 Clonazepam (KlonoPIN) 1.5 mg DAILY PO Last administered on 01/10/17 09:16; Start 01/10/17 at 09:00; Stop 01/10/17 at 09:24; Status DC Clonazepam (KlonoPIN) 1.5 mg DAILY PO ; Start 01/11/17 at 09:00; Stop 01/11/17 at 09:00; Status DC Clonazepam (KlonoPIN) 2 mg DAILY PO Last administered on 01/09/17 08:54; Start 01/09/17 at 09:00; Stop 01/09/17 at 20:58; Status DC Clonazepam (KlonoPIN) 2 mg DAILY PO Last administered on 01/21/17 08:14; Start 01/11/17 at 09:00; Stop 01/21/17 at 11:55; Status DC Clonazepam (KlonoPIN) 2 mg DAILY PO ; Start 01/22/17 at 09:00; Stop 01/29/17 at 08:59 Clozapine (Clozaril) 25 mg QHS PO Last administered on 01/20/17 20:52; Start 01/16/17 at 21:00; Stop 01/21/17 at 11:56; Status DC Clozapine (Clozaril) 50 mg QHS PO ; Start 01/21/17 at 21:00; Stop 01/28/17 at 20: 59 Home Med (Med Rec Complete!) ASDIRECTED XX ; Start 01/08/17 at 18:15; Stop at 18:15; Status DC Hydroxyzine HCl (Atarax) 50 mg BID PO ; Start 01/09/17 at 09:00; Stop 01/09/17 at 09:00; Status DC Hydroxyzine HCl (Atarax) 50 mg BID@1200,2100 PO Last administered on 01/21/17 11:59; Start 01/08/17 at 21:00; Stop 02/07/17 at 20:59 Hydroxyzine HCl (Atarax) 100 mg QAM PO Last administered on 01/21/17 08:13; Start 01/09/17 at 09:00; Stop 02/08/17 at 08:59 Magnesium Hydroxide (Milk Of Magnesia) 30 ml DAILYPRN PRN PO CONSTIPATION; Start 01/08/17 at 22:15; Stop 02/07/17 at 22:14 Mirtazapine (Remeron) 45 mg QHS PO Last administered on 01/20/17 20:53; Start 01/08/17 at 21:00; Stop 02/07/17 at 20:59 Mirtazapine (Remeron) 45 mg QHS PO ; Start 01/09/17 at 21:00; Stop 01/09/17 at 21:00; Status DC Multivitamins (Theragram-M) 1 tab DAILY PO Last administered on 01/21/17 08:13 ; Start 01/09/17 at 09:00; Stop 02/08/17 at 08:59 Quetiapine Fumarate (SEROquel) 200 mg TID PO Last administered on 01/21/17 15: 43; Start 01/08/17 at 21:00; Stop 02/07/17 at 20:59 Quetiapine Fumarate (SEROquel) 200 mg TID PO ; Start 01/09/17 at 09:00; Stop at 09:00; Status DC Risperidone (RisperDAL) 0.5 mg BID PO Last administered on 01/21/17 08:13; Start 01/16/17 at 21:00; Stop 02/14/17 at 08:59 Risperidone (RisperDAL) 0.5 mg TID PO Last administered on 01/16/17 08:22; Start 01/15/17 at 09:00; Stop 01/16/17 at 14:25; Status DC Trazodone HCl (Desyrel) 50 mg QHSP PRN PO INSOMNIA Last administered on 20:37; Start 01/08/17 at 22:15; Stop 02/07/17 at 22:14 Venlafaxine HCl (Effexor) 37.5 mg DAILY PO Last administered on 01/10/17 09:17 ; Start 01/09/17 at 09:00; Stop 01/10/17 at 15:51; Status DC Venlafaxine HCl (Effexor) 75 mg DAILY PO Last administered on 01/14/17 08:47; Start 01/11/17 at 09:00; Stop 01/14/17 at 14:55; Status DC Venlafaxine HCl (Effexor) 112.5 mg DAILY PO Last administered on 01/21/17 08: 13; Start 01/15/17 at 09:00; Stop 02/14/17 at 08:59 Vitamin D (Drisdol) 50,000 units [place]@09 PO Last administered on 01/19/17 08:02 ; Start 01/12/17 at 09:00; Stop 02/11/17 at 08:59 Allergies Coded Allergies: No Known Drug Allergy (Verified Allergy, Unknown, 01/08/17) GME ATTESTATION My preceptor for this patient encounter was physically present in the building during the encounter and was fully available. As needed, all aspects of the patient interview, examination, medical decision making process, and medical care plan development were reviewed and approved by the preceptor. Preceptor is aware and concurs with the plan as stated in the body of this note and will attest to such by his/her cosignature. DAHLIA ADRIAN DO Jan 21, 2017 20:46
[2017-01-22 06:29] VITALS: BP 129/74
[2017-01-22] MEDS: BENZTROPINE 0.5 MG TAB PO SCH ×2 (08:12→21:05)
[2017-01-22] MEDS: VENLAFAXINE 37.5 MG TAB PO SCH (08:12)
[2017-01-22] MEDS: risperiDONE 0.5 MG TAB PO SCH ×2 (08:13→21:07)
[2017-01-22] MEDS: MULTIVITAMINS/MINERALS THERAP 1 TAB PO SCH (08:13)
[2017-01-22] MEDS: QUEtiapine FUMARATE 200 MG TAB PO SCH ×3 (08:13→21:07)
[2017-01-22] MEDS: ASPIRIN 81 MG ENTERIC TAB PO SCH (08:13)
[2017-01-22] MEDS: clonazePAM 1 MG TAB PO SCH ×3 (08:13→21:05)
[2017-01-22] MEDS: hydrOXYzine 50 MG TAB PO SCH ×3 (08:13→21:07)
[2017-01-22] MEDS: ACETAMINOPHEN TAB 650MG DOSE (2X325MG) PO PRN ×2 (11:59→21:08)
--- NOTE | 2017-01-22 16:12 | MHIPNPDOC ---
[facility] Progress Note Progress Note DATE OF SERVICE: 01/22/17 HISTORY: 61-year-old male known for panic disorder without agoraphobia, pseudoseizures and possibly psychotic disorder. Patient was started on Clozaril since last week and yesterday the dose was increased to 50 mg by mouth daily at bedtime and a CBC with differential was done for control of his white blood cells count which was found to be normal. VITAL SIGNS: See below. NEW TEST RESULTS: CBC with differential within normal limits. CURRENT MEDICATIONS: See below. MENTAL STATUS EXAMINATION: Patient is a 63-year old male, who is alert, cooperative, with fair eye contact , good hygiene. Speech: Is normal. It was less difficult for him to communicate because he was less anxious. Language skills are fair. Thought processes including: Intact. Thought content: Coherent. Abstract reasoning, and computation: Fair. Description of associations: Not loose. Description of abnormal or psychotic thoughts: Denies current auditory or visual hallucinations, denies delusions, denies suicidal or homicidal ideation Judgment: Limited. Insight: Limited. Orientation: Oriented 3. Recent and remote memory: Fair. Attention span and concentration: Fair. Language: Normal. Fund of knowledge: Adequate. Mood: "I feel better today". Affect: Less anxious, less depressed. DIAGNOSES: 1. Unspecified psychotic disorder 2. Unspecified anxiety disorder. ASSESSMENT: Patient is doing better today, less anxious, more relaxed. He is able to communicate well. Seems to be having a good response to medication increase yesterday. MANAGEMENT PLAN: Will continue on current medications to stabilize him while he is still at the inpatient mental health unit. TIME SPENT: 30 minutes. Vital Signs Vital Signs Date Time Temp Pulse Resp B/P (MAP) Pulse Ox O2 Delivery O2 Flow Rate FiO2 01/22/17 06:29 97.4 95 18 129/74 (92) 01/16/17 10:24 98 Room Air Current Medications Current Medications Acetaminophen (Tylenol Tab) 650 mg Q6HP PRN PO HEADACHE or DISCOMFORT Last administered on 01/22/17t 11:59; Start 01/08/17 at 22:15; Stop 02/07/17 at 22:14 Al Hydrox/Mg Hydrox/Simethicone (Mylanta) 30 ml Q4HP PRN PO HEARTBURN/ INDIGESTION; Start 01/08/17 at 22:15; Stop 02/07/17 at 22:14 Aspirin (Ecotrin) 81 mg DAILY PO Last administered on 01/22/17 08:13; Start at 09:00; Stop 02/08/17 at 08:59 Benztropine Mesylate (Cogentin) 0.5 mg BID PO Last administered on 01/22/17 08 :12; Start 01/15/17 at 21:00; Stop 02/14/17 at 20:59 Benztropine Mesylate (Cogentin) 1 mg TID PO Last administered on 01/13/17 21: 22; Start 01/13/17 at 09:00; Stop 01/14/17 at 08:44; Status DC Clonazepam (KlonoPIN) 1 mg BID PO ; Start 01/09/17 at 09:00; Stop 01/09/17 at 09 :00; Status DC Clonazepam (KlonoPIN) 1 mg BID@1200,2100 PO Last administered on 01/22/17 11: 43; Start 01/08/17 at 21:00; Stop 01/27/17 at 20:59 Clonazepam (KlonoPIN) 1.5 mg DAILY PO Last administered on 01/10/17 09:16; Start 01/10/17 at 09:00; Stop 01/10/17 at 09:24; Status DC Clonazepam (KlonoPIN) 1.5 mg DAILY PO ; Start 01/11/17 at 09:00; Stop 01/11/17 at 09:00; Status DC Clonazepam (KlonoPIN) 2 mg DAILY PO Last administered on 01/09/17 08:54; Start 01/09/17 at 09:00; Stop 01/09/17 at 20:58; Status DC Clonazepam (KlonoPIN) 2 mg DAILY PO Last administered on 01/21/17 08:14; Start 01/11/17 at 09:00; Stop 01/21/17 at 11:55; Status DC Clonazepam (KlonoPIN) 2 mg DAILY PO Last administered on 01/22/17 08:13; Start 01/22/17 at 09:00; Stop 01/29/17 at 08:59 Clozapine (Clozaril) 25 mg QHS PO Last administered on 01/20/17 20:52; Start 01/16/17 at 21:00; Stop 01/21/17 at 11:56; Status DC Clozapine (Clozaril) 50 mg QHS PO Last administered on 01/21/17 20:37; Start 01/21/17 at 21:00; Stop 01/28/17 at 20:59 Home Med (Med Rec Complete!) ASDIRECTED XX ; Start 01/08/17 at 18:15; Stop at 18:15; Status DC Hydroxyzine HCl (Atarax) 50 mg BID PO ; Start 01/09/17 at 09:00; Stop 01/09/17 at 09:00; Status DC Hydroxyzine HCl (Atarax) 50 mg BID@1200,2100 PO Last administered on 01/22/17 11:43; Start 01/08/17 at 21:00; Stop 02/07/17 at 20:59 Hydroxyzine HCl (Atarax) 100 mg QAM PO Last administered on 01/22/17 08:13; Start 01/09/17 at 09:00; Stop 02/08/17 at 08:59 Magnesium Hydroxide (Milk Of Magnesia) 30 ml DAILYPRN PRN PO CONSTIPATION; Start 01/08/17 at 22:15; Stop 02/07/17 at 22:14 Mirtazapine (Remeron) 45 mg QHS PO Last administered on 01/21/17 20:37; Start 01/08/17 at 21:00; Stop 02/07/17 at 20:59 Mirtazapine (Remeron) 45 mg QHS PO ; Start 01/09/17 at 21:00; Stop 01/09/17 at 21:00; Status DC Multivitamins (Theragram-M) 1 tab DAILY PO Last administered on 01/22/17 08:13 ; Start 01/09/17 at 09:00; Stop 02/08/17 at 08:59 Quetiapine Fumarate (SEROquel) 200 mg TID PO Last administered on 01/22/17 15: 41; Start 01/08/17 at 21:00; Stop 02/07/17 at 20:59 Quetiapine Fumarate (SEROquel) 200 mg TID PO ; Start 01/09/17 at 09:00; Stop at 09:00; Status DC Risperidone (RisperDAL) 0.5 mg BID PO Last administered on 01/22/17 08:13; Start 01/16/17 at 21:00; Stop 02/14/17 at 08:59 Risperidone (RisperDAL) 0.5 mg TID PO Last administered on 01/16/17 08:22; Start 01/15/17 at 09:00; Stop 01/16/17 at 14:25; Status DC Trazodone HCl (Desyrel) 50 mg QHSP PRN PO INSOMNIA Last administered on 20:37; Start 01/08/17 at 22:15; Stop 02/07/17 at 22:14 Venlafaxine HCl (Effexor) 37.5 mg DAILY PO Last administered on 01/10/17 09:17 ; Start 01/09/17 at 09:00; Stop 01/10/17 at 15:51; Status DC Venlafaxine HCl (Effexor) 75 mg DAILY PO Last administered on 01/14/17 08:47; Start 01/11/17 at 09:00; Stop 01/14/17 at 14:55; Status DC Venlafaxine HCl (Effexor) 112.5 mg DAILY PO Last administered on 01/22/17 08: 12; Start 01/15/17 at 09:00; Stop 02/14/17 at 08:59 Vitamin D (Drisdol) 50,000 units [place]@09 PO Last administered on 01/19/17 08:02 ; Start 01/12/17 at 09:00; Stop 02/11/17 at 08:59 Allergies Coded Allergies: No Known Drug Allergy (Verified Allergy, Unknown, 01/08/17) SCOTT THOMAS MD Jan 22, 2017 16:12
[2017-01-22 18:04] VITALS: BP 119/63
[2017-01-22] MEDS: MIRTAZAPINE 15 MG TAB PO SCH (21:05)
[2017-01-22] MEDS: cloZAPine 25 MG TAB (S0136) PO SCH (21:06)
[2017-01-23] MEDS: clonazePAM 1 MG TAB PO SCH ×3 (08:17→20:20)
[2017-01-23] MEDS: BENZTROPINE 0.5 MG TAB PO SCH ×2 (08:17→20:21)
[2017-01-23] MEDS: hydrOXYzine 50 MG TAB PO SCH ×3 (08:17→20:20)
[2017-01-23] MEDS: VENLAFAXINE 37.5 MG TAB PO SCH (08:17)
[2017-01-23] MEDS: MULTIVITAMINS/MINERALS THERAP 1 TAB PO SCH (08:17)
[2017-01-23] MEDS: ASPIRIN 81 MG ENTERIC TAB PO SCH (08:17)
[2017-01-23] MEDS: risperiDONE 0.5 MG TAB PO SCH ×2 (08:17→20:20)
[2017-01-23] MEDS: QUEtiapine FUMARATE 200 MG TAB PO SCH ×3 (08:17→20:20)
[2017-01-23 18:00] VITALS: BP 122/74
[2017-01-23] MEDS: MIRTAZAPINE 15 MG TAB PO SCH (20:20)
[2017-01-23] MEDS: ACETAMINOPHEN TAB 650MG DOSE (2X325MG) PO PRN (20:20)
[2017-01-23] MEDS: cloZAPine 25 MG TAB (S0136) PO SCH (20:20)
--- NOTE | 2017-01-23 21:17 | MHIPNPDOC ---
[facility] Progress Note Progress Note DATE OF SERVICE: 01/23/17 INTERVAL HISTORY: Medication Side effects: reports no side effects clozapine Behavior/events: has become increasingly more anxious, was able to sleep the previous evening, no events overnight Group Attendance: the patient has not been able to attend groups today due to his severe anxiety Psychiatric Symptoms: the patient reports his anxiety is slightly worse today and although, he was able to sleep well last night he finds himself more worried and panicky today. He was only able to tolerate a very short interview as he became very anxious there were several episodes where he used breathing techniques in order to calm himself. However, after several times he needed to dismiss himself from the interview VITAL SIGNS: See below. NEW TEST RESULTS: See below CURRENT MEDICATIONS: See below. MENTAL STATUS EXAMINATION: General: Poor eye contact, good hygiene, shaved Speech: more coherent Thought processes: linear Thought content: Persevres on anxiety and pseudoseizure episode this morning. Abstract reasoning, and computation: intact Description of associations: slightly loose Description of abnormal or psychotic thoughts: Not responding to internal stimuli but might be having auditory or visual hallucinations. Judgment: limited Insight: limited Orientation: alert and orientated to place and person Recent and remote memory: intact Attention span and concentration: intact Fund of knowledge: adequate Mood: "better" Affect: less anxious DIAGNOSES: 1. Unspecified psychotic disorder. 2. Unspecified anxiety disorder. ASSESSMENT: Improving on 50 mgs.of Clozaril MANAGEMENT PLAN: Medications: Clozaril was increased two days ago to 50 mgs. PO QHS Psychotherapy: he attends most groups even when he feels a little uncomfortable with some of them Social: May need go [place] [facility] [place] [facility]. Misc: none Disposition: Needs to stay at the [facility] until stabilized. TIME SPENT: 15 minutes. Vital Signs Vital Signs Date Time Temp Pulse Resp B/P (MAP) Pulse Ox O2 Delivery O2 Flow Rate FiO2 01/23/17 18:00 98.8 89 16 122/74 (90) Current Medications Current Medications Acetaminophen (Tylenol Tab) 650 mg Q6HP PRN PO HEADACHE or DISCOMFORT Last administered on 01/23/17t 20:20; Start 01/08/17 at 22:15; Stop 02/07/17 at 22:14 Al Hydrox/Mg Hydrox/Simethicone (Mylanta) 30 ml Q4HP PRN PO HEARTBURN/ INDIGESTION; Start 01/08/17 at 22:15; Stop 02/07/17 at 22:14 Aspirin (Ecotrin) 81 mg DAILY PO Last administered on 01/23/17 08:17; Start at 09:00; Stop 02/08/17 at 08:59 Benztropine Mesylate (Cogentin) 0.5 mg BID PO Last administered on 01/23/17 20 :21; Start 01/15/17 at 21:00; Stop 02/14/17 at 20:59 Benztropine Mesylate (Cogentin) 1 mg TID PO Last administered on 01/13/17 21: 22; Start 01/13/17 at 09:00; Stop 01/14/17 at 08:44; Status DC Clonazepam (KlonoPIN) 1 mg BID PO ; Start 01/09/17 at 09:00; Stop 01/09/17 at 09 :00; Status DC Clonazepam (KlonoPIN) 1 mg BID@1200,2100 PO Last administered on 01/23/17 20: 20; Start 01/08/17 at 21:00; Stop 01/27/17 at 20:59 Clonazepam (KlonoPIN) 1.5 mg DAILY PO Last administered on 01/10/17 09:16; Start 01/10/17 at 09:00; Stop 01/10/17 at 09:24; Status DC Clonazepam (KlonoPIN) 1.5 mg DAILY PO ; Start 01/11/17 at 09:00; Stop 01/11/17 at 09:00; Status DC Clonazepam (KlonoPIN) 2 mg DAILY PO Last administered on 01/09/17 08:54; Start 01/09/17 at 09:00; Stop 01/09/17 at 20:58; Status DC Clonazepam (KlonoPIN) 2 mg DAILY PO Last administered on 01/21/17 08:14; Start 01/11/17 at 09:00; Stop 01/21/17 at 11:55; Status DC Clonazepam (KlonoPIN) 2 mg DAILY PO Last administered on 01/23/17 08:17; Start 01/22/17 at 09:00; Stop 01/29/17 at 08:59 Clozapine (Clozaril) 25 mg QHS PO Last administered on 01/20/17 20:52; Start 01/16/17 at 21:00; Stop 01/21/17 at 11:56; Status DC Clozapine (Clozaril) 50 mg QHS PO Last administered on 01/23/17 20:20; Start 01/21/17 at 21:00; Stop 01/28/17 at 20:59 Home Med (Med Rec Complete!) ASDIRECTED XX ; Start 01/08/17 at 18:15; Stop at 18:15; Status DC Hydroxyzine HCl (Atarax) 50 mg BID PO ; Start 01/09/17 at 09:00; Stop 01/09/17 at 09:00; Status DC Hydroxyzine HCl (Atarax) 50 mg BID@1200,2100 PO Last administered on 01/23/17 20:20; Start 01/08/17 at 21:00; Stop 02/07/17 at 20:59 Hydroxyzine HCl (Atarax) 100 mg QAM PO Last administered on 01/23/17 08:17; Start 01/09/17 at 09:00; Stop 02/08/17 at 08:59 Magnesium Hydroxide (Milk Of Magnesia) 30 ml DAILYPRN PRN PO CONSTIPATION; Start 01/08/17 at 22:15; Stop 02/07/17 at 22:14 Mirtazapine (Remeron) 45 mg QHS PO Last administered on 01/23/17 20:20; Start 01/08/17 at 21:00; Stop 02/07/17 at 20:59 Mirtazapine (Remeron) 45 mg QHS PO ; Start 01/09/17 at 21:00; Stop 01/09/17 at 21:00; Status DC Multivitamins (Theragram-M) 1 tab DAILY PO Last administered on 01/23/17 08:17 ; Start 01/09/17 at 09:00; Stop 02/08/17 at 08:59 Quetiapine Fumarate (SEROquel) 200 mg TID PO Last administered on 01/23/17 20: 20; Start 01/08/17 at 21:00; Stop 02/07/17 at 20:59 Quetiapine Fumarate (SEROquel) 200 mg TID PO ; Start 01/09/17 at 09:00; Stop at 09:00; Status DC Risperidone (RisperDAL) 0.5 mg BID PO Last administered on 01/23/17 20:20; Start 01/16/17 at 21:00; Stop 02/14/17 at 08:59 Risperidone (RisperDAL) 0.5 mg TID PO Last administered on 01/16/17 08:22; Start 01/15/17 at 09:00; Stop 01/16/17 at 14:25; Status DC Trazodone HCl (Desyrel) 50 mg QHSP PRN PO INSOMNIA Last administered on 20:37; Start 01/08/17 at 22:15; Stop 02/07/17 at 22:14 Venlafaxine HCl (Effexor) 37.5 mg DAILY PO Last administered on 01/10/17 09:17 ; Start 01/09/17 at 09:00; Stop 01/10/17 at 15:51; Status DC Venlafaxine HCl (Effexor) 75 mg DAILY PO Last administered on 01/14/17 08:47; Start 01/11/17 at 09:00; Stop 01/14/17 at 14:55; Status DC Venlafaxine HCl (Effexor) 112.5 mg DAILY PO Last administered on 01/23/17 08: 17; Start 01/15/17 at 09:00; Stop 02/14/17 at 08:59 Vitamin D (Drisdol) 50,000 units [place]@09 PO Last administered on 01/19/17 08:02 ; Start 01/12/17 at 09:00; Stop 02/11/17 at 08:59 Allergies Coded Allergies: No Known Drug Allergy (Verified Allergy, Unknown, 01/08/17) SCOTT THOMAS MD Jan 23, 2017 21:17
[2017-01-24 06:00] VITALS: BP 130/77
[2017-01-24] MEDS: VENLAFAXINE 37.5 MG TAB PO SCH (08:18)
[2017-01-24] MEDS: clonazePAM 1 MG TAB PO SCH ×3 (08:18→20:54)
[2017-01-24] MEDS: BENZTROPINE 0.5 MG TAB PO SCH ×2 (08:18→20:54)
[2017-01-24] MEDS: MULTIVITAMINS/MINERALS THERAP 1 TAB PO SCH (08:18)
[2017-01-24] MEDS: hydrOXYzine 50 MG TAB PO SCH ×3 (08:18→20:54)
[2017-01-24] MEDS: risperiDONE 0.5 MG TAB PO SCH (08:19)
[2017-01-24] MEDS: QUEtiapine FUMARATE 200 MG TAB PO SCH ×3 (08:19→20:54)
[2017-01-24] MEDS: ASPIRIN 81 MG ENTERIC TAB PO SCH (08:19)
[2017-01-24] MEDS: OLANZapine 5 MG TAB PO PRN (14:59)
[2017-01-24 18:16] VITALS: BP 119/69
--- NOTE | 2017-01-24 20:38 | MHIPNPDOC ---
[facility] Progress Note Progress Note DATE OF SERVICE: 01/24/17 INTERVAL HISTORY: Medication Side effects: reports no side effects but would like to have a PRN medication for anxiety Behavior/events: his anxiety levels were low today Group Attendance: the patient has attended some groups Psychiatric Symptoms: He is less anxious and has slept well. He didnt have pseudoseizures this morning. VITAL SIGNS: See below. NEW TEST RESULTS: See below CURRENT MEDICATIONS: See below. MENTAL STATUS EXAMINATION: General: Poor eye contact, good hygiene, shaved Speech: more fluid Thought processes: Intact Thought content: Anxiety, spells, how to not have more spells. Abstract reasoning, and computation: intact Description of associations: slightly loose Description of abnormal or psychotic thoughts: Not responding to internal stimuli but might be having auditory or visual hallucinations. Judgment: poor Insight: poor Orientation: alert and orientated to place and person Recent and remote memory: intact Attention span and concentration: intact Fund of knowledge: adequate Mood: "Im feeling better" Affect: less anxious DIAGNOSES: 1. Unspecified psychotic disorder. 2. Unspecified anxiety disorder. ASSESSMENT: Improving on 50 mgs.of Clozaril- Has requested a PRN medication MANAGEMENT PLAN: Will start him on Zyprexa 5 mgs. PO q6 hrs. PRN for anxiety or agitation and will discontinue Risperdal Medications: Clozaril was increased two days ago to 50 mgs. PO QHS yesterday and Zyprexa 5 mgs. PO q6hrs. PRN for anxiety was started today Psychotherapy: he attends most groups even when he feels a little uncomfortable with some of them Social: He will be transferred to [place] for senior living treatment. Misc: none Disposition: Needs to stay at the [facility] until stabilized and if not stable enough , will be transferred to [place]. TIME SPENT: 15 minutes. Vital Signs Vital Signs Vital Signs Date Time Temp Pulse Resp B/P (MAP) Pulse Ox O2 Delivery O2 Flow Rate FiO2 01/24/17 18:16 99.0 88 18 119/69 (86) Current Medications Current Medications Acetaminophen (Tylenol Tab) 650 mg Q6HP PRN PO HEADACHE or DISCOMFORT Last administered on 01/23/17t 20:20; Start 01/08/17 at 22:15; Stop 02/07/17 at 22:14 Al Hydrox/Mg Hydrox/Simethicone (Mylanta) 30 ml Q4HP PRN PO HEARTBURN/ INDIGESTION; Start 01/08/17 at 22:15; Stop 02/07/17 at 22:14 Aspirin (Ecotrin) 81 mg DAILY PO Last administered on 01/24/17 08:19; Start at 09:00; Stop 02/08/17 at 08:59 Benztropine Mesylate (Cogentin) 0.5 mg BID PO Last administered on 01/24/17 08 :18; Start 01/15/17 at 21:00; Stop 02/14/17 at 20:59 Benztropine Mesylate (Cogentin) 1 mg TID PO Last administered on 01/13/17 21: 22; Start 01/13/17 at 09:00; Stop 01/14/17 at 08:44; Status DC Clonazepam (KlonoPIN) 1 mg BID PO ; Start 01/09/17 at 09:00; Stop 01/09/17 at 09 :00; Status DC Clonazepam (KlonoPIN) 1 mg BID@1200,2100 PO Last administered on 01/24/17 12: 05; Start 01/08/17 at 21:00; Stop 01/27/17 at 20:59 Clonazepam (KlonoPIN) 1.5 mg DAILY PO Last administered on 01/10/17 09:16; Start 01/10/17 at 09:00; Stop 01/10/17 at 09:24; Status DC Clonazepam (KlonoPIN) 1.5 mg DAILY PO ; Start 01/11/17 at 09:00; Stop 01/11/17 at 09:00; Status DC Clonazepam (KlonoPIN) 2 mg DAILY PO Last administered on 01/09/17 08:54; Start 01/09/17 at 09:00; Stop 01/09/17 at 20:58; Status DC Clonazepam (KlonoPIN) 2 mg DAILY PO Last administered on 01/21/17 08:14; Start 01/11/17 at 09:00; Stop 01/21/17 at 11:55; Status DC Clonazepam (KlonoPIN) 2 mg DAILY PO Last administered on 01/24/17 08:18; Start 01/22/17 at 09:00; Stop 01/29/17 at 08:59 Clozapine (Clozaril) 25 mg QHS PO Last administered on 01/20/17 20:52; Start 01/16/17 at 21:00; Stop 01/21/17 at 11:56; Status DC Clozapine (Clozaril) 50 mg QHS PO Last administered on 01/23/17 20:20; Start 01/21/17 at 21:00; Stop 01/28/17 at 20:59 Home Med (Med Rec Complete!) ASDIRECTED XX ; Start 01/08/17 at 18:15; Stop at 18:15; Status DC Hydroxyzine HCl (Atarax) 50 mg BID PO ; Start 01/09/17 at 09:00; Stop 01/09/17 at 09:00; Status DC Hydroxyzine HCl (Atarax) 50 mg BID@1200,2100 PO Last administered on 01/24/17 12:05; Start 01/08/17 at 21:00; Stop 02/07/17 at 20:59 Hydroxyzine HCl (Atarax) 100 mg QAM PO Last administered on 01/24/17 08:18; Start 01/09/17 at 09:00; Stop 02/08/17 at 08:59 Magnesium Hydroxide (Milk Of Magnesia) 30 ml DAILYPRN PRN PO CONSTIPATION; Start 01/08/17 at 22:15; Stop 02/07/17 at 22:14 Mirtazapine (Remeron) 45 mg QHS PO Last administered on 01/23/17 20:20; Start 01/08/17 at 21:00; Stop 02/07/17 at 20:59 Mirtazapine (Remeron) 45 mg QHS PO ; Start 01/09/17 at 21:00; Stop 01/09/17 at 21:00; Status DC Multivitamins (Theragram-M) 1 tab DAILY PO Last administered on 01/24/17 08:18 ; Start 01/09/17 at 09:00; Stop 02/08/17 at 08:59 Olanzapine (ZyPREXA) 5 mg Q4HP PRN PO ANXIETY/AGITATION Last administered on 14:59; Start 01/24/17 at 15:00; Stop 02/23/17 at 14:59 Quetiapine Fumarate (SEROquel) 200 mg TID PO Last administered on 01/24/17 15: 04; Start 01/08/17 at 21:00; Stop 02/07/17 at 20:59 Quetiapine Fumarate (SEROquel) 200 mg TID PO ; Start 01/09/17 at 09:00; Stop at 09:00; Status DC Risperidone (RisperDAL) 0.5 mg BID PO Last administered on 01/24/17 08:19; Start 01/16/17 at 21:00; Stop 01/24/17 at 14:48; Status DC Risperidone (RisperDAL) 0.5 mg TID PO Last administered on 01/16/17 08:22; Start 01/15/17 at 09:00; Stop 01/16/17 at 14:25; Status DC Trazodone HCl (Desyrel) 50 mg QHSP PRN PO INSOMNIA Last administered on 20:37; Start 01/08/17 at 22:15; Stop 02/07/17 at 22:14 Venlafaxine HCl (Effexor) 37.5 mg DAILY PO Last administered on 01/10/17 09:17 ; Start 01/09/17 at 09:00; Stop 01/10/17 at 15:51; Status DC Venlafaxine HCl (Effexor) 75 mg DAILY PO Last administered on 01/14/17 08:47; Start 01/11/17 at 09:00; Stop 01/14/17 at 14:55; Status DC Venlafaxine HCl (Effexor) 112.5 mg DAILY PO Last administered on 01/24/17 08: 18; Start 01/15/17 at 09:00; Stop 02/14/17 at 08:59 Vitamin D (Drisdol) 50,000 units [place]@09 PO Last administered on 01/19/17 08:02 ; Start 01/12/17 at 09:00; Stop 02/11/17 at 08:59 Allergies Coded Allergies: No Known Drug Allergy (Verified Allergy, Unknown, 01/08/17) SCOTT THOMAS MD Jan 24, 2017 20:38
[2017-01-24] MEDS: MIRTAZAPINE 15 MG TAB PO SCH (20:54)
[2017-01-24] MEDS: cloZAPine 25 MG TAB (S0136) PO SCH (20:54)
[2017-01-25 06:12] VITALS: BP 100/63
[2017-01-25] MEDS: ACETAMINOPHEN TAB 650MG DOSE (2X325MG) PO PRN (06:14)
[2017-01-25] MEDS: clonazePAM 1 MG TAB PO SCH ×3 (08:11→20:57)
[2017-01-25] MEDS: MULTIVITAMINS/MINERALS THERAP 1 TAB PO SCH (08:12)
[2017-01-25] MEDS: QUEtiapine FUMARATE 200 MG TAB PO SCH ×3 (08:12→20:58)
[2017-01-25] MEDS: hydrOXYzine 50 MG TAB PO SCH ×3 (08:12→20:58)
[2017-01-25] MEDS: BENZTROPINE 0.5 MG TAB PO SCH ×2 (08:12→20:57)
[2017-01-25] MEDS: VENLAFAXINE 37.5 MG TAB PO SCH (08:12)
[2017-01-25] MEDS: ASPIRIN 81 MG ENTERIC TAB PO SCH (08:12)
[2017-01-25 18:00] VITALS: BP 113/58
[2017-01-25] MEDS: MIRTAZAPINE 15 MG TAB PO SCH (20:57)
[2017-01-25] MEDS: cloZAPine 25 MG TAB (S0136) PO SCH (20:58)
[2017-01-26 06:13] VITALS: BP 133/76
[2017-01-26] MEDS: OLANZapine 5 MG TAB PO PRN ×2 (06:14→17:43)
[2017-01-26] MEDS: ASPIRIN 81 MG ENTERIC TAB PO SCH (08:06)
[2017-01-26] MEDS: MULTIVITAMINS/MINERALS THERAP 1 TAB PO SCH (08:06)
[2017-01-26] MEDS: VENLAFAXINE 37.5 MG TAB PO SCH (08:06)
[2017-01-26] MEDS: clonazePAM 1 MG TAB PO SCH ×3 (08:06→21:06)
[2017-01-26] MEDS: VITAMIN D 50,000 UNITS CAPSULE (ERGOCALCIFEROL 1.25MG) PO SCH (08:06)
[2017-01-26] MEDS: BENZTROPINE 0.5 MG TAB PO SCH ×2 (08:07→21:08)
[2017-01-26] MEDS: QUEtiapine FUMARATE 200 MG TAB PO SCH ×3 (08:07→21:07)
[2017-01-26] MEDS: hydrOXYzine 50 MG TAB PO SCH ×3 (08:07→21:07)
[2017-01-26 18:27] VITALS: BP 128/74
[2017-01-26] MEDS: MIRTAZAPINE 15 MG TAB PO SCH (21:06)
[2017-01-26] MEDS: cloZAPine 25 MG TAB (S0136) PO SCH (21:07)
[2017-01-27] MEDS: OLANZapine 5 MG TAB PO PRN (06:19)
[2017-01-27 06:36] VITALS: BP 123/57
[2017-01-27] MEDS: BENZTROPINE 0.5 MG TAB PO SCH ×2 (08:18→21:03)
[2017-01-27] MEDS: VENLAFAXINE 37.5 MG TAB PO SCH (08:18)
[2017-01-27] MEDS: ASPIRIN 81 MG ENTERIC TAB PO SCH (08:18)
[2017-01-27] MEDS: MULTIVITAMINS/MINERALS THERAP 1 TAB PO SCH (08:18)
[2017-01-27] MEDS: QUEtiapine FUMARATE 200 MG TAB PO SCH ×3 (08:18→21:04)
[2017-01-27] MEDS: hydrOXYzine 50 MG TAB PO SCH ×3 (08:18→21:04)
[2017-01-27] MEDS: clonazePAM 1 MG TAB PO SCH ×3 (08:18→21:03)
--- NOTE | 2017-01-27 16:40 | MHIPNPDOC ---
[facility] Progress Note Progress Note DATE OF SERVICE: 01/27/17 NTERVAL HISTORY: Medication Side effects: Reports he feels better and states that Zyprexa has been helping him as a when necessary medication. Behavior/events: Less anxious when interacting with others Group Attendance: the patient has attended some groups Psychiatric Symptoms: He reports he almost had a panic attack this morning but he was able to control it. Reports good sleep, less anxiety. VITAL SIGNS: See below. NEW TEST RESULTS: See below CURRENT MEDICATIONS: See below. MENTAL STATUS EXAMINATION: General: Good eye contact, good hygiene, shaved Speech: fluid, coherent Thought processes: Intact Thought content: Anxiety Abstract reasoning, and computation: Fair Description of associations: slightly loose Description of abnormal or psychotic thoughts: Not responding to internal stimuli and denies auditory and visual hallucinations. Denies thought delusions. Judgment: poor Insight: poor Orientation: alert and orientated to place and person Recent and remote memory: intact Attention span and concentration: intact Fund of knowledge: adequate Mood: "I slept well, I feel better " Affect: less anxious DIAGNOSES: 1. Unspecified psychotic disorder. 2. Unspecified anxiety disorder. ASSESSMENT: Improving on Clozaril 50 mg by mouth daily at bedtime and Zyprexa 5 mg by mouth every 6 hours when necessary for anxiety and agitation MANAGEMENT PLAN: Will continue on the same medications. Medications: No medication changes were made today Psychotherapy: Attending groups Social: He will be transferred to [place] for senior living treatment. Misc: none Disposition: Needs to stay at the [facility] until stabilized and if not stable enough , will be transferred to [place]. TIME SPENT: 15 minutes. Vital Signs Vital Signs Date Time Temp Pulse Resp B/P (MAP) Pulse Ox O2 Delivery O2 Flow Rate FiO2 01/27/17 08:35 84 01/27/17 06:36 97.2 20 123/57 (79) Current Medications Current Medications Acetaminophen (Tylenol Tab) 650 mg Q6HP PRN PO HEADACHE or DISCOMFORT Last administered on 01/25/17t 06:14; Start 01/08/17 at 22:15; Stop 02/07/17 at 22:14 Al Hydrox/Mg Hydrox/Simethicone (Mylanta) 30 ml Q4HP PRN PO HEARTBURN/ INDIGESTION; Start 01/08/17 at 22:15; Stop 02/07/17 at 22:14 Aspirin (Ecotrin) 81 mg DAILY PO Last administered on 01/27/17 08:18; Start at 09:00; Stop 02/08/17 at 08:59 Benztropine Mesylate (Cogentin) 0.5 mg BID PO Last administered on 01/27/17 08: 18; Start 01/15/17 at 21:00; Stop 02/14/17 at 20:59 Benztropine Mesylate (Cogentin) 1 mg TID PO Last administered on 01/13/17 21: 22; Start 01/13/17 at 09:00; Stop 01/14/17 at 08:44; Status DC Clonazepam (KlonoPIN) 1 mg BID PO ; Start 01/09/17 at 09:00; Stop 01/09/17 at 09 :00; Status DC Clonazepam (KlonoPIN) 1 mg BID@1200,2100 PO Last administered on 01/27/17 11:23 ; Start 01/08/17 at 21:00; Stop 02/02/17 at 20:59 Clonazepam (KlonoPIN) 1.5 mg DAILY PO Last administered on 01/10/17 09:16; Start 01/10/17 at 09:00; Stop 01/10/17 at 09:24; Status DC Clonazepam (KlonoPIN) 1.5 mg DAILY PO ; Start 01/11/17 at 09:00; Stop 01/11/17 at 09:00; Status DC Clonazepam (KlonoPIN) 2 mg DAILY PO Last administered on 01/09/17 08:54; Start 01/09/17 at 09:00; Stop 01/09/17 at 20:58; Status DC Clonazepam (KlonoPIN) 2 mg DAILY PO Last administered on 01/21/17 08:14; Start 01/11/17 at 09:00; Stop 01/21/17 at 11:55; Status DC Clonazepam (KlonoPIN) 2 mg DAILY PO Last administered on 01/27/17 08:18; Start 01/22/17 at 09:00; Stop 01/29/17 at 08:59 Clozapine (Clozaril) 25 mg QHS PO Last administered on 01/20/17 20:52; Start 01/16/17 at 21:00; Stop 01/21/17 at 11:56; Status DC Clozapine (Clozaril) 50 mg QHS PO Last administered on 01/26/17 21:07; Start at 21:00; Stop 01/28/17 at 20:59 Home Med (Med Rec Complete!) ASDIRECTED XX ; Start 01/08/17 at 18:15; Stop at 18:15; Status DC Hydroxyzine HCl (Atarax) 50 mg BID PO ; Start 01/09/17 at 09:00; Stop 01/09/17 at 09:00; Status DC Hydroxyzine HCl (Atarax) 50 mg BID@1200,2100 PO Last administered on 01/27/17 11:23; Start 01/08/17 at 21:00; Stop 02/07/17 at 20:59 Hydroxyzine HCl (Atarax) 100 mg QAM PO Last administered on 01/27/17 08:18; Start 01/09/17 at 09:00; Stop 02/08/17 at 08:59 Magnesium Hydroxide (Milk Of Magnesia) 30 ml DAILYPRN PRN PO CONSTIPATION; Start 01/08/17 at 22:15; Stop 02/07/17 at 22:14 Mirtazapine (Remeron) 45 mg QHS PO Last administered on 01/26/17 21:06; Start 01/08/17 at 21:00; Stop 02/07/17 at 20:59 Mirtazapine (Remeron) 45 mg QHS PO ; Start 01/09/17 at 21:00; Stop 01/09/17 at 21:00; Status DC Multivitamins (Theragram-M) 1 tab DAILY PO Last administered on 01/27/17 08:18 ; Start 01/09/17 at 09:00; Stop 02/08/17 at 08:59 Olanzapine (ZyPREXA) 5 mg Q4HP PRN PO ANXIETY/AGITATION Last administered on 06:19; Start 01/24/17 at 15:00; Stop 02/23/17 at 14:59 Quetiapine Fumarate (SEROquel) 200 mg TID PO Last administered on 01/27/17 15: 39; Start 01/08/17 at 21:00; Stop 02/07/17 at 20:59 Quetiapine Fumarate (SEROquel) 200 mg TID PO ; Start 01/09/17 at 09:00; Stop at 09:00; Status DC Risperidone (RisperDAL) 0.5 mg BID PO Last administered on 01/24/17 08:19; Start 01/16/17 at 21:00; Stop 01/24/17 at 14:48; Status DC Risperidone (RisperDAL) 0.5 mg TID PO Last administered on 01/16/17 08:22; Start 01/15/17 at 09:00; Stop 01/16/17 at 14:25; Status DC Trazodone HCl (Desyrel) 50 mg QHSP PRN PO INSOMNIA Last administered on 20:37; Start 01/08/17 at 22:15; Stop 02/07/17 at 22:14 Venlafaxine HCl (Effexor) 37.5 mg DAILY PO Last administered on 01/10/17 09:17 ; Start 01/09/17 at 09:00; Stop 01/10/17 at 15:51; Status DC Venlafaxine HCl (Effexor) 75 mg DAILY PO Last administered on 01/14/17 08:47; Start 01/11/17 at 09:00; Stop 01/14/17 at 14:55; Status DC Venlafaxine HCl (Effexor) 112.5 mg DAILY PO Last administered on 01/27/17 08:18 ; Start 01/15/17 at 09:00; Stop 02/14/17 at 08:59 Vitamin D (Drisdol) 50,000 units [place]@09 PO Last administered on 01/26/17 08:06; Start 01/12/17 at 09:00; Stop 02/11/17 at 08:59 Allergies Coded Allergies: No Known Drug Allergy (Verified Allergy, Unknown, 01/08/17) SCOTT THOMAS MD Jan 27, 2017 16:40
[2017-01-27 18:00] VITALS: BP 121/62
[2017-01-27] MEDS: MIRTAZAPINE 15 MG TAB PO SCH (21:03)
[2017-01-27] MEDS: cloZAPine 25 MG TAB (S0136) PO SCH (21:03)
[2017-01-28] MEDS: OLANZapine 5 MG TAB PO PRN (06:16)
[2017-01-28 06:22] VITALS: BP 116/76
[2017-01-28] MEDS: MULTIVITAMINS/MINERALS THERAP 1 TAB PO SCH (08:00)
[2017-01-28] MEDS: BENZTROPINE 0.5 MG TAB PO SCH ×2 (08:00→20:59)
[2017-01-28] MEDS: ASPIRIN 81 MG ENTERIC TAB PO SCH (08:00)
[2017-01-28] MEDS: hydrOXYzine 50 MG TAB PO SCH ×3 (08:00→20:59)
[2017-01-28] MEDS: VENLAFAXINE 37.5 MG TAB PO SCH (08:00)
[2017-01-28] MEDS: clonazePAM 1 MG TAB PO SCH ×3 (08:00→20:59)
[2017-01-28] MEDS: QUEtiapine FUMARATE 200 MG TAB PO SCH ×3 (08:01→20:59)
[2017-01-28 18:00] VITALS: BP 114/70
[2017-01-28] MEDS: MIRTAZAPINE 15 MG TAB PO SCH (20:59)
[2017-01-28] MEDS: cloZAPine 25 MG TAB (S0136) PO SCH (20:59)
[2017-01-29] MEDS: OLANZapine 5 MG TAB PO PRN (06:12)
[2017-01-29 06:51] VITALS: BP 115/57
[2017-01-29] MEDS: VENLAFAXINE 37.5 MG TAB PO SCH (08:16)
[2017-01-29] MEDS: MULTIVITAMINS/MINERALS THERAP 1 TAB PO SCH (08:16)
[2017-01-29] MEDS: hydrOXYzine 50 MG TAB PO SCH ×3 (08:16→21:28)
[2017-01-29] MEDS: clonazePAM 1 MG TAB PO SCH ×3 (08:16→21:27)
[2017-01-29] MEDS: QUEtiapine FUMARATE 200 MG TAB PO SCH ×3 (08:16→21:28)
[2017-01-29] MEDS: BENZTROPINE 0.5 MG TAB PO SCH ×2 (08:16→21:27)
[2017-01-29] MEDS: ASPIRIN 81 MG ENTERIC TAB PO SCH (08:16)
[2017-01-29 16:00] LABS: BASO # 0.1 K/mm3 (0.0-0.2); BASO % 1.2 % (0.0-1.0); EOS # 0.3 K/mm3 (0.0-0.50); EOS % 4.7 % (0.0-3.0); LARGE UNSTAINED CELL # 0.2 K/mm3 (0.0-0.4); LARGE UNSTAINED CELL % 3.4 % (0.0-4.0); LYMPH # 1.8 K/mm3 (1.5-4.5); LYMPH % 27.6 % (24.0-44.0); MEAN CORPUSCULAR HEMOGLOBIN 30.7 pg (27.0-33.0); MEAN CORPUSCULAR HGB CONC 35.5 g/dl (32.0-36.5); MEAN CORPUSCULAR VOLUME 86.6 fl (80.0-96.0); MONO # 0.5 K/mm3 (0.0-0.8); MONO % 7.7 % (0.0-5.0); NEUTROPHILS # 3.6 K/mm3 (1.8-7.7); NEUTROPHILS % 55.4 % (36.0-66.0); PLATELET COUNT, AUTOMATED 259 k/mm3 (150-450); RED CELL DISTRIBUTION WIDTH 12.3 % (11.5-14.5); WHITE BLOOD COUNT 6.5 K/mm3 (4.0-10.0)
--- NOTE | 2017-01-29 16:56 | MHIPNPDOC ---
[facility] Progress Note Progress Note DATE OF SERVICE: 01/29/17 NTERVAL HISTORY: Medication Side effects: Denies medication side effects and he says he has been making an F fort to control his anxiety because he doesn't want to get the "spells". Behavior/events: Less anxious, he speech is more spontaneous and fluid. Group Attendance: the patient has attended some groups Psychiatric Symptoms: Patient reports he has persistent thoughts about the devil wanting to separate him from God. He reports he hasn't seen the devil but he can't feel him and he can feel the demons around him. He reports this makes him anxious but nevertheless he has been able to control the anxiety. VITAL SIGNS: See below. NEW TEST RESULTS: See below CURRENT MEDICATIONS: See below. MENTAL STATUS EXAMINATION: General: This is a 61-year-old male with alert, cooperative, with fair eye contact, dressed in personal clothes, slightly less anxious. Speech: Clear, spontaneous Thought processes: Intact Thought content: Perseveres about being anxious and feeling that the devil is close to him. Abstract reasoning, and computation: Fair Description of associations: Good Description of abnormal or psychotic thoughts: Not responding to internal stimuli and denies auditory and visual hallucinations. Has thought delusions about the months taking him apart from God. Judgment: Limited Insight: Limited Orientation: Oriented to place and person only Recent and remote memory: intact Attention span and concentration: intact Fund of knowledge: adequate Mood: "I feel better today but yesterday I had a bad day " Affect: less anxious DIAGNOSES: 1. Unspecified psychotic disorder. 2. Unspecified anxiety disorder. ASSESSMENT: He is improving as perceived by staff and by patient. Will increase Clozaril today to 75 mg and we will order a CBC with differential to keep track of his white blood cell count. Staff has reported that he becomes increasingly anxious early in the morning and for that reason the time for administration of clonazepam changed from 9 to 6:00 in the morning. Hopefully with this change, he is anxiety levels will decrease. He didn't have thought delusions about demons are more than a week and now they have reappeared, probably because he didn't feel well yesterday during visiting hours with his family and this increased his anxiety levels. 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 Medications: Clozaril was increased to 75 mg at bedtime and he is 2 mg dose of clonazepam was changed to 6:00 in the morning. 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 Vital Signs Vital Signs Date Time Temp Pulse Resp B/P (MAP) Pulse Ox O2 Delivery O2 Flow Rate FiO2 01/29/17 06:51 97.5 92 18 115/57 (76) Room Air Laboratory Data 24H Labs Laboratory Tests 2 01/29/17 15:30: White Blood Count 6.5, Red Blood Count 4.77, Hemoglobin 14.7, Hematocrit 41.3L, Mean Corpuscular Volume 86.6, Mean Corpuscular Hemoglobin 30.7, Mean Corpuscular Hemoglobin Concent 35.5, Red Cell Distribution Width 12.3, Platelet Count 259, Neutrophils (%) (Auto) 55.4, Lymphocytes (%) (Auto) 27.6, Monocytes ( %) (Auto) 7.7H, Eosinophils (%) (Auto) 4.7H, Basophils (%) (Auto) 1.2H, Neutrophils # (Auto) 3.6, Lymphocytes # (Auto) 1.8, Monocytes # (Auto) 0.5, Eosinophils # (Auto) 0.3, Basophils # (Auto) 0.1, Large Unclassified Cells % 3.4 , Large Unclassified Cells # 0.2 CBC/BMP Laboratory Tests 01/29/17 15:30 Red Blood Count 4.77, Mean Corpuscular Volume 86.6, Mean Corpuscular Hemoglobin 30.7, Mean Corpuscular Hemoglobin Concent 35.5, Red Cell Distribution Width 12.3 , Neutrophils (%) (Auto) 55.4, Lymphocytes (%) (Auto) 27.6, Monocytes (%) (Auto ) 7.7 H, Eosinophils (%) (Auto) 4.7 H, Basophils (%) (Auto) 1.2 H, Neutrophils # (Auto) 3.6, Lymphocytes # (Auto) 1.8, Monocytes # (Auto) 0.5, Eosinophils # ( Auto) 0.3, Basophils # (Auto) 0.1 Current Medications Current Medications Acetaminophen (Tylenol Tab) 650 mg Q6HP PRN PO HEADACHE or DISCOMFORT Last administered on 01/25/17 06:14; Start 01/08/17 at 22:15; Stop 02/07/17 at 22:14 Al Hydrox/Mg Hydrox/Simethicone (Mylanta) 30 ml Q4HP PRN PO HEARTBURN/ INDIGESTION; Start 01/08/17 at 22:15; Stop 02/07/17 at 22:14 Aspirin (Ecotrin) 81 mg DAILY PO Last administered on 01/29/17 08:16; Start at 09:00; Stop 02/08/17 at 08:59 Benztropine Mesylate (Cogentin) 0.5 mg BID PO Last administered on 01/29/17 08: 16; Start 01/15/17 at 21:00; Stop 02/14/17 at 20:59 Benztropine Mesylate (Cogentin) 1 mg TID PO Last administered on 01/13/17 21: 22; Start 01/13/17 at 09:00; Stop 01/14/17 at 08:44; Status DC Clonazepam (KlonoPIN) 1 mg BID PO ; Start 01/09/17 at 09:00; Stop 01/09/17 at 09 :00; Status DC Clonazepam (KlonoPIN) 1 mg BID@1200,2100 PO Last administered on 01/29/17 11:46 ; Start 01/08/17 at 21:00; Stop 02/02/17 at 20:59 Clonazepam (KlonoPIN) 1.5 mg DAILY PO Last administered on 01/10/17 09:16; Start 01/10/17 at 09:00; Stop 01/10/17 at 09:24; Status DC Clonazepam (KlonoPIN) 1.5 mg DAILY PO ; Start 01/11/17 at 09:00; Stop 01/11/17 at 09:00; Status DC Clonazepam (KlonoPIN) 2 mg DAILY PO Last administered on 01/09/17 08:54; Start 01/09/17 at 09:00; Stop 01/09/17 at 20:58; Status DC Clonazepam (KlonoPIN) 2 mg DAILY PO Last administered on 01/21/17 08:14; Start 01/11/17 at 09:00; Stop 01/21/17 at 11:55; Status DC Clonazepam (KlonoPIN) 2 mg DAILY PO Last administered on 01/29/17 08:16; Start 01/22/17 at 09:00; Stop 01/29/17 at 13:29; Status DC Clonazepam (KlonoPIN) 2 mg DAILY@0600 PO ; Start 01/30/17 at 06:00; Stop at 05:59 Clozapine (Clozaril) 25 mg QHS PO Last administered on 01/20/17 20:52; Start 01/16/17 at 21:00; Stop 01/21/17 at 11:56; Status DC Clozapine (Clozaril) 50 mg QHS PO Last administered on 01/28/17 20:59; Start at 21:00; Stop 01/29/17 at 15:11; Status DC Clozapine (Clozaril) 75 mg QHS PO ; Start 01/29/17 at 21:00; Stop 02/05/17 at 20: 59 Home Med (Med Rec Complete!) ASDIRECTED XX ; Start 01/08/17 at 18:15; Stop at 18:15; Status DC Hydroxyzine HCl (Atarax) 50 mg BID PO ; Start 01/09/17 at 09:00; Stop 01/09/17 at 09:00; Status DC Hydroxyzine HCl (Atarax) 50 mg BID@1200,2100 PO Last administered on 01/29/17 11:46; Start 01/08/17 at 21:00; Stop 02/07/17 at 20:59 Hydroxyzine HCl (Atarax) 100 mg QAM PO Last administered on 01/29/17 08:16; Start 01/09/17 at 09:00; Stop 02/08/17 at 08:59 Magnesium Hydroxide (Milk Of Magnesia) 30 ml DAILYPRN PRN PO CONSTIPATION; Start 01/08/17 at 22:15; Stop 02/07/17 at 22:14 Mirtazapine (Remeron) 45 mg QHS PO Last administered on 01/28/17 20:59; Start 01/08/17 at 21:00; Stop 02/07/17 at 20:59 Mirtazapine (Remeron) 45 mg QHS PO ; Start 01/09/17 at 21:00; Stop 01/09/17 at 21:00; Status DC Multivitamins (Theragram-M) 1 tab DAILY PO Last administered on 01/29/17 08:16 ; Start 01/09/17 at 09:00; Stop 02/08/17 at 08:59 Olanzapine (ZyPREXA) 5 mg Q4HP PRN PO ANXIETY/AGITATION Last administered on 06:12; Start 01/24/17 at 15:00; Stop 02/23/17 at 14:59 Quetiapine Fumarate (SEROquel) 200 mg TID PO Last administered on 01/29/17 16: 32; Start 01/08/17 at 21:00; Stop 02/07/17 at 20:59 Quetiapine Fumarate (SEROquel) 200 mg TID PO ; Start 01/09/17 at 09:00; Stop at 09:00; Status DC Risperidone (RisperDAL) 0.5 mg BID PO Last administered on 01/24/17 08:19; Start 01/16/17 at 21:00; Stop 01/24/17 at 14:48; Status DC Risperidone (RisperDAL) 0.5 mg TID PO Last administered on 01/16/17 08:22; Start 01/15/17 at 09:00; Stop 01/16/17 at 14:25; Status DC Trazodone HCl (Desyrel) 50 mg QHSP PRN PO INSOMNIA Last administered on 20:37; Start 01/08/17 at 22:15; Stop 02/07/17 at 22:14 Venlafaxine HCl (Effexor) 37.5 mg DAILY PO Last administered on 01/10/17 09:17 ; Start 01/09/17 at 09:00; Stop 01/10/17 at 15:51; Status DC Venlafaxine HCl (Effexor) 75 mg DAILY PO Last administered on 01/14/17 08:47; Start 01/11/17 at 09:00; Stop 01/14/17 at 14:55; Status DC Venlafaxine HCl (Effexor) 112.5 mg DAILY PO Last administered on 01/29/17 08:16 ; Start 01/15/17 at 09:00; Stop 02/14/17 at 08:59 Vitamin D (Drisdol) 50,000 units [place]@09 PO Last administered on 01/26/17 08:06; Start 01/12/17 at 09:00; Stop 02/11/17 at 08:59 Allergies Coded Allergies: No Known Drug Allergy (Verified Allergy, Unknown, 01/08/17) SCOTT THOMAS MD Jan 29, 2017 16:56
[2017-01-29 18:00] VITALS: BP 133/74
[2017-01-29] MEDS: MIRTAZAPINE 15 MG TAB PO SCH (21:28)
[2017-01-29] MEDS: cloZAPine 25 MG TAB (S0136) PO SCH (21:28)
[2017-01-30] MEDS: clonazePAM 1 MG TAB PO SCH ×3 (06:05→21:04)
[2017-01-30 06:18] VITALS: BP 120/61
[2017-01-30] MEDS: QUEtiapine FUMARATE 200 MG TAB PO SCH ×3 (08:26→21:04)
[2017-01-30] MEDS: ASPIRIN 81 MG ENTERIC TAB PO SCH (08:26)
[2017-01-30] MEDS: VENLAFAXINE 37.5 MG TAB PO SCH (08:26)
[2017-01-30] MEDS: MULTIVITAMINS/MINERALS THERAP 1 TAB PO SCH (08:26)
[2017-01-30] MEDS: hydrOXYzine 50 MG TAB PO SCH ×3 (08:27→21:04)
[2017-01-30] MEDS: BENZTROPINE 0.5 MG TAB PO SCH ×2 (08:27→21:04)
[2017-01-30] MEDS: ACETAMINOPHEN TAB 650MG DOSE (2X325MG) PO PRN (08:29)
[2017-01-30 18:04] VITALS: BP 130/86
--- NOTE | 2017-01-30 19:49 | MHIPNPDOC ---
[facility] Progress Note Progress Note DATE OF SERVICE: 01/30/17 NTERVAL HISTORY: Medication Side effects: Reports he is having a good response to medications, he says he didn't get a "spell", feels rested, has slept well, is eating well and he says his anxiety is on a 2/10 Behavior/events: He has very good eye contact, is able to smile, he is not fidgety and has not had pseudoseizures. " Group Attendance: the patient has attended some groups Psychiatric Symptoms: Patient feels better, he says he is happy about his improvement. VITAL SIGNS: See below. NEW TEST RESULTS: See below CURRENT MEDICATIONS: See below. MENTAL STATUS EXAMINATION: General: This is a 61-year-old male with alert, pleasant, engaging, cooperative , with fair eye contact, dressed in personal clothes, not anxious. Speech: Fluid, spontaneous, coherent. Thought processes: Intact Thought content: Goal directed, coherent. Abstract reasoning, and computation: Fair Description of associations: Good Description of abnormal or psychotic thoughts: Not responding to internal stimuli and denies auditory and visual hallucinations. Denies thought delusions. Judgment: Improving Insight: Improving Orientation: Oriented to place, person and partially to date and time Recent and remote memory: intact Attention span and concentration: intact Fund of knowledge: adequate Mood: "I feel really good " Affect: less anxious DIAGNOSES: 1. Unspecified psychotic disorder. 2. Unspecified anxiety disorder. ASSESSMENT: Patient has improved and this has been notices by patient and staff. His levels of anxiety have decreased almost 100% and he also has improved regarding his thoughts delusions although they are not gone completely because he occasionally manifests his fear of the devil, being close to him. MANAGEMENT PLAN: Clozaril has been increased to 75 mgs Po QHS since last night and Klonopin was administered this morning at 6 a.m. He reported feeling better with the time change for the administration of Klonopin. Medications: As above." Psychotherapy: Will encourage him to attend all groups Social: Discharge home is being cosidered. it disaster recovery manager left a message to his and she (the ) called the Nurse station sayin if we "wanted to give up on him". she said she was not going to take him home. The fact is that the patient has had a great improvement and his is not noticing it because she doesn't see him every day, but the patient is improved and ready to go home. This check writer salesperson will suggest to it disaster recovery manager to call his and schedule a meeting with her to discuss this issue. Misc: none Disposition: Patient is almost 100% improved. Consider discharge home and call the for a meeting. TIME SPENT: 15 minutes. Vital Signs Vital Signs Date Time Temp Pulse Resp B/P (MAP) Pulse Ox O2 Delivery O2 Flow Rate FiO2 01/30/17 18:04 98.7 86 16 130/86 (101) 01/29/17 06:51 Room Air Current Medications Current Medications Acetaminophen (Tylenol Tab) 650 mg Q6HP PRN PO HEADACHE or DISCOMFORT Last administered on 01/30/17 08:29; Start 01/08/17 at 22:15; Stop 02/07/17 at 22:14 Al Hydrox/Mg Hydrox/Simethicone (Mylanta) 30 ml Q4HP PRN PO HEARTBURN/ INDIGESTION; Start 01/08/17 at 22:15; Stop 02/07/17 at 22:14 Aspirin (Ecotrin) 81 mg DAILY PO Last administered on 01/30/17 08:26; Start at 09:00; Stop 02/08/17 at 08:59 Benztropine Mesylate (Cogentin) 0.5 mg BID PO Last administered on 01/30/17 08: 27; Start 01/15/17 at 21:00; Stop 02/14/17 at 20:59 Benztropine Mesylate (Cogentin) 1 mg TID PO Last administered on 01/13/17 21: 22; Start 01/13/17 at 09:00; Stop 01/14/17 at 08:44; Status DC Clonazepam (KlonoPIN) 1 mg BID PO ; Start 01/09/17 at 09:00; Stop 01/09/17 at 09 :00; Status DC Clonazepam (KlonoPIN) 1 mg BID@1200,2100 PO Last administered on 01/30/17 11:49 ; Start 01/08/17 at 21:00; Stop 02/02/17 at 20:59 Clonazepam (KlonoPIN) 1.5 mg DAILY PO Last administered on 01/10/17 09:16; Start 01/10/17 at 09:00; Stop 01/10/17 at 09:24; Status DC Clonazepam (KlonoPIN) 1.5 mg DAILY PO ; Start 01/11/17 at 09:00; Stop 01/11/17 at 09:00; Status DC Clonazepam (KlonoPIN) 2 mg DAILY PO Last administered on 01/09/17 08:54; Start 01/09/17 at 09:00; Stop 01/09/17 at 20:58; Status DC Clonazepam (KlonoPIN) 2 mg DAILY PO Last administered on 01/21/17 08:14; Start 01/11/17 at 09:00; Stop 01/21/17 at 11:55; Status DC Clonazepam (KlonoPIN) 2 mg DAILY PO Last administered on 01/29/17 08:16; Start 01/22/17 at 09:00; Stop 01/29/17 at 13:29; Status DC Clonazepam (KlonoPIN) 2 mg DAILY@0600 PO Last administered on 01/30/17 06:05; Start 01/30/17 at 06:00; Stop 02/06/17 at 05:59 Clozapine (Clozaril) 25 mg QHS PO Last administered on 01/20/17 20:52; Start 01/16/17 at 21:00; Stop 01/21/17 at 11:56; Status DC Clozapine (Clozaril) 50 mg QHS PO Last administered on 01/28/17 20:59; Start at 21:00; Stop 01/29/17 at 15:11; Status DC Clozapine (Clozaril) 75 mg QHS PO Last administered on 01/29/17 21:28; Start at 21:00; Stop 02/05/17 at 20:59 Home Med (Med Rec Complete!) ASDIRECTED XX ; Start 01/08/17 at 18:15; Stop at 18:15; Status DC Hydroxyzine HCl (Atarax) 50 mg BID PO ; Start 01/09/17 at 09:00; Stop 01/09/17 at 09:00; Status DC Hydroxyzine HCl (Atarax) 50 mg BID@1200,2100 PO Last administered on 01/30/17 11:49; Start 01/08/17 at 21:00; Stop 02/07/17 at 20:59 Hydroxyzine HCl (Atarax) 100 mg QAM PO Last administered on 01/30/17 08:27; Start 01/09/17 at 09:00; Stop 02/08/17 at 08:59 Magnesium Hydroxide (Milk Of Magnesia) 30 ml DAILYPRN PRN PO CONSTIPATION; Start 01/08/17 at 22:15; Stop 02/07/17 at 22:14 Mirtazapine (Remeron) 45 mg QHS PO Last administered on 01/29/17 21:28; Start 01/08/17 at 21:00; Stop 02/07/17 at 20:59 Mirtazapine (Remeron) 45 mg QHS PO ; Start 01/09/17 at 21:00; Stop 01/09/17 at 21:00; Status DC Multivitamins (Theragram-M) 1 tab DAILY PO Last administered on 01/30/17 08:26 ; Start 01/09/17 at 09:00; Stop 02/08/17 at 08:59 Olanzapine (ZyPREXA) 5 mg Q4HP PRN PO ANXIETY/AGITATION Last administered on 06:12; Start 01/24/17 at 15:00; Stop 02/23/17 at 14:59 Quetiapine Fumarate (SEROquel) 200 mg TID PO Last administered on 01/30/17 16: 14; Start 01/08/17 at 21:00; Stop 02/07/17 at 20:59 Quetiapine Fumarate (SEROquel) 200 mg TID PO ; Start 01/09/17 at 09:00; Stop at 09:00; Status DC Risperidone (RisperDAL) 0.5 mg BID PO Last administered on 01/24/17 08:19; Start 01/16/17 at 21:00; Stop 01/24/17 at 14:48; Status DC Risperidone (RisperDAL) 0.5 mg TID PO Last administered on 01/16/17 08:22; Start 01/15/17 at 09:00; Stop 01/16/17 at 14:25; Status DC Trazodone HCl (Desyrel) 50 mg QHSP PRN PO INSOMNIA Last administered on 20:37; Start 01/08/17 at 22:15; Stop 02/07/17 at 22:14 Venlafaxine HCl (Effexor) 37.5 mg DAILY PO Last administered on 01/10/17 09:17 ; Start 01/09/17 at 09:00; Stop 01/10/17 at 15:51; Status DC Venlafaxine HCl (Effexor) 75 mg DAILY PO Last administered on 01/14/17 08:47; Start 01/11/17 at 09:00; Stop 01/14/17 at 14:55; Status DC Venlafaxine HCl (Effexor) 112.5 mg DAILY PO Last administered on 01/30/17 08:26 ; Start 01/15/17 at 09:00; Stop 02/14/17 at 08:59 Vitamin D (Drisdol) 50,000 units [place]@09 PO Last administered on 01/26/17 08:06; Start 01/12/17 at 09:00; Stop 02/11/17 at 08:59 Allergies Coded Allergies: No Known Drug Allergy (Verified Allergy, Unknown, 01/08/17) SCOTT THOMAS MD Jan 30, 2017 19:49
[2017-01-30] MEDS: cloZAPine 25 MG TAB (S0136) PO SCH (21:04)
[2017-01-30] MEDS: MIRTAZAPINE 15 MG TAB PO SCH (21:04)
[2017-01-31] MEDS: clonazePAM 1 MG TAB PO SCH ×3 (05:59→21:02)
[2017-01-31 06:13] VITALS: BP 119/73
[2017-01-31] MEDS: VENLAFAXINE 37.5 MG TAB PO SCH (08:32)
[2017-01-31] MEDS: ASPIRIN 81 MG ENTERIC TAB PO SCH (08:32)
[2017-01-31] MEDS: QUEtiapine FUMARATE 200 MG TAB PO SCH ×3 (08:32→21:02)
[2017-01-31] MEDS: BENZTROPINE 0.5 MG TAB PO SCH ×2 (08:32→21:03)
[2017-01-31] MEDS: MULTIVITAMINS/MINERALS THERAP 1 TAB PO SCH (08:32)
[2017-01-31] MEDS: hydrOXYzine 50 MG TAB PO SCH ×3 (08:32→21:02)
[2017-01-31] MEDS: ACETAMINOPHEN TAB 650MG DOSE (2X325MG) PO PRN (17:12)
[2017-01-31 18:00] VITALS: BP 128/83
[2017-01-31] MEDS: cloZAPine 25 MG TAB (S0136) PO SCH (21:02)
[2017-01-31] MEDS: MIRTAZAPINE 15 MG TAB PO SCH (21:03)
[2017-02-01] MEDS: clonazePAM 1 MG TAB PO SCH ×3 (06:12→21:28)
[2017-02-01 06:25] VITALS: BP 124/78
--- NOTE | 2017-02-01 08:40 | IPN ---
DATE OF SERVICE: 01/31/2017 THIS DOCUMENT WAS INTERRUPTED BY THE DICTATION SERVICE. THERE'S ANOTHER DOCUMENT, COMPLETE THAT IS THE CONTINUATION OF THIS DOCUMENT ON THE SAME DAY, Evaluated male patient with history of: 1. Panic disorder without agorophobia. 2. Unspecified psychotic disorder. SUBJECTIVE: The patient reports he is feeling really well. He is ready to be discharged on Friday or Friday next week. He would like to know what this telegraphic typewriter operator chief thinks of his diagnoses, and he is willing to know what kind of laboratories he will need to have once he gets discharged. He denies medication side effects, denies suicidal ideation, denies homicidal ideation, denies psychotic thoughts, denies auditory and visual hallucinations. Reports feeling happy because of his decreased levels of anxiety, and he says that on a scale from 1-10, he is on a 2/10 in anxiety. OBJECTIVE: The patient is alert, oriented times three, cooperative, pleasant, dressed in personal clothes, with good eye contact and good rapport. BRAYDEN
[2017-02-01] MEDS: hydrOXYzine 50 MG TAB PO SCH ×3 (08:50→21:28)
[2017-02-01] MEDS: MULTIVITAMINS/MINERALS THERAP 1 TAB PO SCH (08:50)
[2017-02-01] MEDS: ASPIRIN 81 MG ENTERIC TAB PO SCH (08:50)
[2017-02-01] MEDS: BENZTROPINE 0.5 MG TAB PO SCH ×2 (08:50→21:28)
[2017-02-01] MEDS: VENLAFAXINE 37.5 MG TAB PO SCH (08:50)
[2017-02-01] MEDS: QUEtiapine FUMARATE 200 MG TAB PO SCH ×3 (08:50→21:28)
--- NOTE | 2017-02-01 09:17 | IPN ---
DATE: 01/31/2017 THIS DOCUMENT IS AN ADDENDUM TO PREVIOUS PROGRESS NOTE ON THE SAME PATIENT AND THE SAME DAY. PREVIOUS DOCUMENT GOT INTERRUPTED BY THE DICTATION SYSTEM Evaluated 61-year-old male patient with history of: 1. Panic disorder without agoraphobia. 2. Unspecified psychotic disorder. SUBJECTIVE: Patient reports feeling well, no medication side effects. Reports good sleep, feeling rested, in good spirits, happy because his anxiety has decreased almost 100%. He denies auditory or visual hallucinations, denies suicidal or homicidal thoughts. Reports he is okay by going home next week, and he would like to know what labs he has to have done weekly in order to continue his treatment with Clozaril. OBJECTIVE: Patient is alert, oriented times three, friendly, cooperative, with good eye contact and good rapport. His mood and affect are brighter, not anxious and not depressed. His speech is spontaneous, fluent, coherent. Thought process is intact, thought content is about going home, taking good care of himself, and about the anxiety reduction he has had in the last couple of days. Abnormal or psychotic thoughts: Patient denies auditory or visual hallucinations, denies thought delusions, denies suicidal or homicidal ideations. Patient's memory and attention are fair, his remote and recent memory are intact, his judgment and insight have improved greatly, and his impulse control is good. The patient is not responding to internal stimuli, he does not endorse bizarre ideations. The patient is, at this time, not in danger to self or others. ASSESSMENT: As stated above, patient is not in danger to self or others, has improved greatly and seems stable enough to be discharged home next week. We will observe closely during the weekend and report any changes, in case there will be a change in mood, behavior, or anxiety levels. At this time, the patient will continue with current medications, will attend groups and individual psychotherapy. Will followup. BRAYDEN
[2017-02-01] MEDS: OLANZapine 5 MG TAB PO PRN (16:58)
[2017-02-01 18:00] VITALS: BP 123/77
[2017-02-01] MEDS: cloZAPine 25 MG TAB (S0136) PO SCH (21:28)
[2017-02-01] MEDS: MIRTAZAPINE 15 MG TAB PO SCH (21:28)
[2017-02-02] MEDS: clonazePAM 1 MG TAB PO SCH ×3 (05:57→20:49)
[2017-02-02 06:42] VITALS: BP 120/90
[2017-02-02] MEDS: MULTIVITAMINS/MINERALS THERAP 1 TAB PO SCH (08:06)
[2017-02-02] MEDS: VITAMIN D 50,000 UNITS CAPSULE (ERGOCALCIFEROL 1.25MG) PO SCH (08:06)
[2017-02-02] MEDS: VENLAFAXINE 37.5 MG TAB PO SCH (08:06)
[2017-02-02] MEDS: BENZTROPINE 0.5 MG TAB PO SCH ×2 (08:06→20:49)
[2017-02-02] MEDS: QUEtiapine FUMARATE 200 MG TAB PO SCH ×3 (08:07→20:49)
[2017-02-02] MEDS: ASPIRIN 81 MG ENTERIC TAB PO SCH (08:07)
[2017-02-02] MEDS: hydrOXYzine 50 MG TAB PO SCH ×3 (08:07→20:49)
[2017-02-02 18:00] VITALS: BP 132/86
[2017-02-02] MEDS: MIRTAZAPINE 15 MG TAB PO SCH (20:49)
[2017-02-02] MEDS: cloZAPine 25 MG TAB (S0136) PO SCH (20:50)
[2017-02-03] MEDS: clonazePAM 1 MG TAB PO SCH ×2 (06:11→11:50)
[2017-02-03 06:29] VITALS: BP 112/70
[2017-02-03] MEDS: BENZTROPINE 0.5 MG TAB PO SCH (09:10)
[2017-02-03] MEDS: MULTIVITAMINS/MINERALS THERAP 1 TAB PO SCH (09:10)
[2017-02-03] MEDS: hydrOXYzine 50 MG TAB PO SCH ×2 (09:10→11:50)
[2017-02-03] MEDS: QUEtiapine FUMARATE 200 MG TAB PO SCH (09:10)
[2017-02-03] MEDS: ASPIRIN 81 MG ENTERIC TAB PO SCH (09:10)
[2017-02-03] MEDS: VENLAFAXINE 37.5 MG TAB PO SCH (09:10)
[2017-02-03] MEDS ORDERED: MIRT45TA PO (10:53)
[2017-02-03] MEDS ORDERED: TRAZO50TA PO (10:53)
[2017-02-03] MEDS ORDERED: CLOZ25TA3 PO ×2 (10:53→10:59)
[2017-02-03] MEDS ORDERED: ASPI1TAB15 PO (10:53)
[2017-02-03] MEDS ORDERED: BENZ0.5T PO (10:53)
[2017-02-03] MEDS ORDERED: OLAN5TAB PO (10:53)
[2017-02-03] MEDS ORDERED: CLON1TAB PO ×2 (10:53)
[2017-02-03] MEDS ORDERED: SERO200T PO (10:53)
[2017-02-03] MEDS ORDERED: VENL37TA PO (10:53)
[2017-02-03] MEDS ORDERED: HYDR50TA70 PO ×2 (10:53)
--- NOTE | 2017-02-03 21:53 | MHDSPDOC ---
[facility] Discharge Summary Discharge Summary DATE OF ADMISSION: Jan 08, 2017 at 18:21 DATE OF DISCHARGE: Feb 03, 2017 at 13:50 DISCHARGE DIAGNOSES: 1. Psychotic disorder with delusions 2. Panic disorder without agoraphobia REASON FOR ADMISSION: Patient was admitted due to worsening of panic disorder and pseudoseizures. During the panic episodes it was difficult for him to breath and eventually these episodes would lead to a pseudoseizure. Patient had been treated on multiple medications over the years and had not shown a good response to neither one of them, obtaining only temporary relief for his problem. CONSULTANTS INVOLVED: None TREATMENT AND PROGRESS ON THE UNIT : Patients's psychiatrist requested not to change his medications and he was kept on them for some days,but then, Risperdal was added to his medications because he repeatedly said the demons were very close to him and wanted to keep him away from God. His affect was flat , had no eye contact al all and was very suspicious. He gave the impression of suffering a psychotic disorder. Recently he had talked to his about his homosexuality (never acted upon it) and was surprised to know his had known about him being homosexual for several years. His thought this had affected him even when she had told him she loved him and accepted him as he was. Patient said he didn't think this had affected him but at the same time he said he knew this was "wrong", being homosexual and that he knew God had forgiven him but he did not feel comfortable with being [place]. He was started on Clozaril because he had failed other antipsychotics and he had an excellent response to it. Risperdal was discontinued and instead he was started on Zyprexa 5 mgs. PO q4hrs. PRN for anxiety and agitation. He also had a good response to it. He had severe anxiety and panic attacks during the tube winder hand hours and for that reason, his Klonopin, 2 mgs., was given during the last couple of days at 6 am in the morning and this also helped him. HOSPITAL COURSE: The patient had a dramatic improvement in his symptoms of depression and psychosis. DISCHARGE ASSESSMENT: The patient was stable, not in danger to self or others, not suicidal, not homicidal, not responding to internal stimuli and denied auditory or visual hallucinations. He also denied thought delusions at the time of discharge. MENTAL STATUS EXAMINATION ON DISCHARGE: Patient is a 61-year old male, who is alert, cooperative, pleasant, with good eye contact. Speech is Coherent, spontaneous. Language skills are Normal. Thought processes including: Intact. Thought content: Coherent. Abstract reasoning, and computation: Fair . Description of associations: Not loose. Description of abnormal or psychotic thoughts: Denied thught delusions, denied auditory or visual hallucinations, denied suicidal or homicidal ideation.. Judgment: Improved Insight: Improved. Orientation to Oriented x 3. Recent and remote memory: Fair. Attention span and concentration: Fair Language: Normal. Fund of knowledge: Fair. Mood: "I'm fine". Affect: Brighter, full range, reactive, congruent to mood MEDICATIONS ON DISCHARGE: - Klonopin 2 mgs PO QAM for anxiety. - Klonotin 1 mg. PO BID for anxiety. - Venlafaxine 112.5 mgs PO QD for depression/anxiety -Clozaril 75 mgs PO QD -Seroquel 200 mgs PO TID -Remeron 45 mgs PO QHS for sleep -Trazodone 50 mgs. PO QHS PRN for insomnia -Cogentin 1 mg. PO BID for EPS -Atarax 100 mgs. PO QAM and 50 mgs. PO BID PLAN/FOLLOWUP ARRANGEMENTS: Pt. will follow up with his Psychiatrist, Dr. Villegas and will have regular visuts to the lab to have his blood drawn for white blood cell count and for Clozaril levels. The amount of time spent in the coordination of care for this patient was approximately 45 minutes. Vital Signs/I&Os Vital Signs Date Time Temp Pulse Resp B/P (MAP) Pulse Ox O2 Delivery O2 Flow Rate FiO2 02/03/17 06:29 97.9 104 18 112/70 (84) 01/29/17 06:51 Room Air Medications Scheduled Aspirin (Aspirin) 81 Mg Tab, 81 MG PO DAILY for ANGINA/VA PREVENTION, #7 Benztropine Mesylate (Benztropine Mesylate) 0.5 Mg Tab, 0.5 MG PO BID for Extrapyramidal side effects, #14 Clonazepam (Clonazepam) 1 Mg Tab, 2 MG PO QAM for ANXIETY, #14 Clonazepam (Clonazepam) 1 Mg Tab, 1 MG PO BID for ANGINA, #14 TAKES NOON AND HS Clozapine (Clozapine) 25 Mg Tab, 75 MG PO QHS for PSYCHOSIS, #21 will need cbc with differential weekly Hydroxyzine HCl (Hydroxyzine HCl) 50 Mg Tab, 100 MG PO QAM for ANXIETY/ AGITATION for 14 Days, #14 Hydroxyzine HCl (Hydroxyzine HCl) 50 Mg Tab, 50 MG PO BID for ANXIETY/AGITATION , #14 TAKES NOON AND HS Mirtazapine (Mirtazapine) 45 Mg Tab, 45 MG PO QHS for INSOMNA, #7 Multivitamins *[facility] STOCKED* (Thera M Plus *[facility] STOCKED*) 1 Tab Tab, 1 TAB PO DAILY, (Reported) Olanzapine (Olanzapine) 5 Mg Tab, 5 MG PO Q4HP for ANXIETY/AGITATION, #30 Quetiapine Fumerate (Seroquel) 200 Mg Tab, 200 MG PO TID for MOOD, #21 Venlafaxine HCl (Venlafaxine HCl) 37.5 Mg Tab, 112.5 MG PO DAILY for DEPRESSION/ ANXIETY, #21 Vitamin D (Drisdol) 50,000 Unit Cap, 50,000 UNIT PO QWEEK, (Reported) SUNDAYS Scheduled PRN Trazodone HCl (Trazodone HCl) 50 Mg Tab, 50 MG PO QHSP PRN for INSOMNIA, #7 DOSE INSTRUCTIONS: MAY REPEAT ONLY ONE TIME IF NOT ASLEEP ONE HOUR AFTER FIRST DOSE Allergies Coded Allergies: No Known Drug Allergy (Verified Allergy, Unknown, 01/08/17) SCOTT THOMAS MD Feb 03, 2017 21:53
== END 2017-02-03 13:50 | disposition home or self-care (01) | DRG 885 ==
LOC: M ED 15:34 → M ED INP 18:21 → M PSY 20:26
PROVIDERS: ADMIT Psychiatry & Neurology Psychiatry; ATTEND Psychiatry & Neurology Psychiatry
DX: F22 Delusional disorders (principal); F41.0 Panic disorder [episodic paroxysmal anxiety]; Z79.899 Other long term (current) drug therapy; Z79.82 Long term (current) use of aspirin; E55.9 Vitamin D deficiency, unspecified; M19.90 Unspecified osteoarthritis, unspecified site; G40.909 Epilepsy, unspecified, not intractable, without status epilepticus

== ENCOUNTER → 2017-02-05 | Outpatient (CLI) | payer MEDICARE, MEDICAID ==
[~2017-02-05] MED LIST changes: +ASPI1TAB15 PO; +ASPI81TAEC PO; +CLOZ100T2 PO; +CLOZ25TA3 PO; +DRIS50002 PO; +EFFE37.527 PO; +HYDR50CA2; +HYDR50TA70 PO; +MIRT45TA PO; +OLAN5TAB PO; +QUET1TAB9; +TRAZ50TA11 PO; +TRAZO50TA PO; +VENL37.52 PO; +VENL37TA PO; +VITMTA PO
[2017-02-05 14:14] LABS: BASO % 0.8 % (0.0-1.0); EOS # 0.2 K/mm3 (0.0-0.50); EOS % 3.8 % (0.0-3.0); LARGE UNSTAINED CELL # 0.2 K/mm3 (0.0-0.4); LARGE UNSTAINED CELL % 2.7 % (0.0-4.0); LYMPH # 1.9 K/mm3 (1.5-4.5); LYMPH % 28.4 % (24.0-44.0); MEAN CORPUSCULAR HEMOGLOBIN 30.3 pg (27.0-33.0); MEAN CORPUSCULAR VOLUME 86.6 fl (80.0-96.0); MONO # 0.4 K/mm3 (0.0-0.8); MONO % 7.3 % (0.0-5.0); NEUTROPHILS # 3.4 K/mm3 (1.8-7.7); NEUTROPHILS % 56.9 % (36.0-66.0); PLATELET COUNT, AUTOMATED 262 k/mm3 (150-450); RED CELL DISTRIBUTION WIDTH 12.6 % (11.5-14.5)
== END ==
LOC: M LAB 13:36
PROVIDERS: ATTEND Psychiatry & Neurology Psychiatry
DX: Z79.899 Other long term (current) drug therapy (principal)

== ENCOUNTER → 2017-02-12 | Outpatient (CLI) | payer MEDICARE, MEDICAID ==
[2017-02-12 14:40] LABS: EOS # 0.3 K/mm3 (0.0-0.50); EOS % 6.3 % (0.0-3.0); LARGE UNSTAINED CELL # 0.2 K/mm3 (0.0-0.4); LARGE UNSTAINED CELL % 3.5 % (0.0-4.0); LYMPH # 1.5 K/mm3 (1.5-4.5); LYMPH % 31.5 % (24.0-44.0); MEAN CORPUSCULAR HEMOGLOBIN 30.1 pg (27.0-33.0); MEAN CORPUSCULAR HGB CONC 34.3 g/dl (32.0-36.5); MEAN CORPUSCULAR VOLUME 87.7 fl (80.0-96.0); MONO # 0.4 K/mm3 (0.0-0.8); MONO % 8.5 % (0.0-5.0); NEUTROPHILS # 2.3 K/mm3 (1.8-7.7); NEUTROPHILS % 49.2 % (36.0-66.0); PLATELET COUNT, AUTOMATED 264 k/mm3 (150-450); RED CELL DISTRIBUTION WIDTH 12.1 % (11.5-14.5); WHITE BLOOD COUNT 4.6 K/mm3 (4.0-10.0)
== END ==
LOC: M LAB 13:15
PROVIDERS: ATTEND Psychiatry & Neurology Psychiatry
DX: Z51.81 Encounter for therapeutic drug level monitoring (principal)

== ENCOUNTER → 2017-02-25 | Outpatient (CLI) | payer MEDICARE, MEDICAID ==
[2017-02-25 14:15] LABS: MEAN CORPUSCULAR HEMOGLOBIN 30.3 pg (27.0-33.0); MEAN CORPUSCULAR VOLUME 89.1 fl (80.0-96.0); PLATELET COUNT, AUTOMATED 279 k/mm3 (150-450); RED CELL DISTRIBUTION WIDTH 12.5 % (11.5-14.5); WHITE BLOOD COUNT 4.2 K/mm3 (4.0-10.0)
[2017-02-26 13:00] LABS: DIFF SLIDE NUMBER 237
[2017-02-26 13:22] LABS: BASOPHILS 1 % (0-4); EOSINOPHILS 4 % (0-5)
== END ==
LOC: M LAB 12:33
PROVIDERS: ATTEND Psychiatry & Neurology Psychiatry
DX: F33.9 Major depressive disorder, recurrent, unspecified (principal); Z79.899 Other long term (current) drug therapy

== ENCOUNTER → 2017-03-04 | Outpatient (CLI) | payer MEDICARE, MEDICAID ==
[2017-03-04 15:40] LABS: MEAN CORPUSCULAR HEMOGLOBIN 29.6 pg (27.0-33.0); MEAN CORPUSCULAR HGB CONC 34.4 g/dl (32.0-36.5); MEAN CORPUSCULAR VOLUME 85.8 fl (80.0-96.0); PLATELET COUNT, AUTOMATED 221 k/mm3 (150-450); RED CELL DISTRIBUTION WIDTH 12.3 % (11.5-14.5); WHITE BLOOD COUNT 5.7 K/mm3 (4.0-10.0)
[2017-03-05 11:56] LABS: EOSINOPHILS 3 % (0-5)
[2017-03-05 11:57] LABS: ANISOCYTOSIS 1+
[2017-03-07 08:27] LABS: DIFF SLIDE NUMBER 296
== END ==
LOC: M LAB 14:48
PROVIDERS: ATTEND Psychiatry & Neurology Psychiatry
DX: F33.9 Major depressive disorder, recurrent, unspecified (principal); Z79.899 Other long term (current) drug therapy

== ENCOUNTER → 2017-03-11 | Outpatient (CLI) | payer MEDICARE, MEDICAID ==
[2017-03-11 17:01] LABS: BASO % 0.8 % (0.0-1.0); EOS # 0.3 K/mm3 (0.0-0.50); EOS % 6.1 % (0.0-3.0); LYMPH # 1.6 K/mm3 (1.5-4.5); LYMPH % 28.4 % (24.0-44.0); MEAN CORPUSCULAR HEMOGLOBIN 29.4 pg (27.0-33.0); MEAN CORPUSCULAR HGB CONC 34.5 g/dl (32.0-36.5); MEAN CORPUSCULAR VOLUME 85.3 fl (80.0-96.0); MONO # 0.4 K/mm3 (0.0-0.8); MONO % 7.7 % (0.0-5.0); NEUTROPHILS # 2.9 K/mm3 (1.8-7.7); NEUTROPHILS % 55.4 % (36.0-66.0); RED CELL DISTRIBUTION WIDTH 12.3 % (11.5-14.5); WHITE BLOOD COUNT 5.2 K/mm3 (4.0-10.0)
== END ==
LOC: M LAB 15:53
PROVIDERS: ATTEND Psychiatry & Neurology Psychiatry
DX: Z51.81 Encounter for therapeutic drug level monitoring (principal); Z79.899 Other long term (current) drug therapy

== ENCOUNTER 2017-03-18 19:47 | Emergency (ER) | payer MEDICARE, MEDICAID ==
[~2017-03-18] VITALS: Ht 172.7 cm; Wt 65.0 kg
[~2017-03-18 19:47] MED LIST changes: -ASPI81TAEC PO; -CLOZ100T2 PO; -EFFE37.527 PO; -HYDR50CA2; -QUET1TAB9; -TRAZ50TA11 PO
[2017-03-18] MEDS ORDERED: CLON1TAB PO (19:57)
[2017-03-18] MEDS ORDERED: NS 1,000 ML IV SCH (21:36)
[2017-03-18] MEDS ORDERED: MORPHINE 2 MG/ML 1ML SYRINGE IV PRN (21:45)
[2017-03-18 22:17] LABS: BASO # 0.2 K/mm3 (0.0-0.2); BASO % 2.3 % (0.0-1.0); EOS # 0.5 K/mm3 (0.0-0.50); EOS % 7.9 % (0.0-3.0); LARGE UNSTAINED CELL # 0.2 K/mm3 (0.0-0.4); LARGE UNSTAINED CELL % 2.8 % (0.0-4.0); LYMPH # 2.7 K/mm3 (1.5-4.5); LYMPH % 40.5 % (24.0-44.0); MEAN CORPUSCULAR HEMOGLOBIN 29.5 pg (27.0-33.0); MEAN CORPUSCULAR HGB CONC 34.5 g/dl (32.0-36.5); MEAN CORPUSCULAR VOLUME 85.5 fl (80.0-96.0); MONO # 0.5 K/mm3 (0.0-0.8); MONO % 6.8 % (0.0-5.0); NEUTROPHILS # 2.6 K/mm3 (1.8-7.7); NEUTROPHILS % 39.7 % (36.0-66.0); PLATELET COUNT, AUTOMATED 281 k/mm3 (150-450); RED CELL DISTRIBUTION WIDTH 11.9 % (11.5-14.5); WHITE BLOOD COUNT 6.6 K/mm3 (4.0-10.0)
[2017-03-18 22:36] LABS: ALBUMIN/GLOBULIN RATIO 1.43 (1.00-1.93); ALKALINE PHOSPHATASE 83 U/L (45-117); ALT/SGPT 24 U/L (12-78); ANION GAP 8 MEQ/L (8-16); AST/SGOT 18 U/L (15-37); BILIRUBIN,DIRECT 0.1 MG/DL (0.0-0.2); BILIRUBIN,TOTAL 0.4 MG/DL (0.2-1.0); BLOOD UREA NITROGEN 14 MG/DL (7-18); CALCIUM LEVEL 9.2 MG/DL (8.8-10.2); CARBON DIOXIDE LEVEL 29 MEQ/L (21-32); CHLORIDE LEVEL 105 MEQ/L (98-107); CREATININE FOR GFR 1.21 MG/DL (0.70-1.30); GLOMERULAR FILTRATION RATE > 60.0 (>49); GLUCOSE, FASTING 89 MG/DL (80-110); SODIUM LEVEL 142 MEQ/L (136-145); TOTAL PROTEIN 6.8 GM/DL (6.4-8.2)
[2017-03-18] MEDS ORDERED: ISOVUE-370 76% 100ML VIAL (Q9967) As Ordered ONE (22:52)
--- NOTE | 2017-03-18 23:20 | REPUSA ---
CT of the abdomen and pelvis with contrast Clinical statement: Pain. Technique: Multiple axial CT images were obtained from the base of the lungs through the floor of the pelvis utilizing 5 mm axial slices after administration of nonionic intravenous contrast. Coronal an d sagittal reconstructions were also obtained. No comparison is available. Findings: Chest: The visualized lung bases are clear. Abdomen: The liver, spleen, pancreas, kidneys, gallbladder, and adrenal glands are unremarkable. The aorta is within normal limits. There is no evidence of abdominal lymphadenopathy or ascites. Pelvis: The bowel is unremarkable, with no obstructive or inflammatory changes. Moderate amount of st ool fills the colon. The urinary bladder is within normal limits. The other pelvic structures appear grossly intact. There is no evidence of pelvic lymphadenopathy or ascites. Bones: There are no suspicious osseous abnormalities seen. Impression: 1. Moderate constipation. No obstructive or inflammatory bowel changes.
[2017-03-18] MEDS ORDERED: MAGNESIUM CITRATE 300 ML BTL PO ONE (23:30)
[2017-03-18 23:34] VITALS: BP 102/68
== END 2017-03-18 23:38 | disposition home or self-care (01) ==
LOC: M ED 19:47
DX: K59.00 Constipation, unspecified (principal); K42.9 Umbilical hernia without obstruction or gangrene; I10 Essential (primary) hypertension; F41.9 Anxiety disorder, unspecified; F32.9 Major depressive disorder, single episode, unspecified; F20.9 Schizophrenia, unspecified; F44.5 Conversion disorder with seizures or convulsions; G89.29 Other chronic pain; M54.9 Dorsalgia, unspecified; Z79.82 Long term (current) use of aspirin; Z79.899 Other long term (current) drug therapy
CPT/HCPCS: 74177; 80048; 80076; 83605; 83690; 85025; 96374; 99283; Q9967

== ENCOUNTER → 2017-03-18 | Outpatient (CLI) | payer MEDICARE, MEDICAID ==
[2017-03-18 16:25] LABS: BASO % 0.8 % (0.0-1.0); EOS # 0.2 K/mm3 (0.0-0.50); EOS % 4.2 % (0.0-3.0); LYMPH % 36.4 % (24.0-44.0); MEAN CORPUSCULAR HEMOGLOBIN 29.4 pg (27.0-33.0); MEAN CORPUSCULAR HGB CONC 33.9 g/dl (32.0-36.5); MEAN CORPUSCULAR VOLUME 86.8 fl (80.0-96.0); MONO # 0.4 K/mm3 (0.0-0.8); MONO % 8.2 % (0.0-5.0); NEUTROPHILS # 2.4 K/mm3 (1.8-7.7); NEUTROPHILS % 47.3 % (36.0-66.0); RED CELL DISTRIBUTION WIDTH 12.2 % (11.5-14.5)
== END ==
LOC: M LAB 08:00
PROVIDERS: ATTEND Psychiatry & Neurology Psychiatry
DX: Z51.81 Encounter for therapeutic drug level monitoring (principal); Z79.899 Other long term (current) drug therapy

== ENCOUNTER → 2017-03-25 | Outpatient (CLI) | payer MEDICARE, MEDICAID ==
[~2017-03-25] MED LIST changes: +ASPI81TAEC PO; +CLOZ100T2 PO; +EFFE37.527 PO; +HYDR50CA2; +QUET1TAB9; +TRAZ50TA11 PO
[2017-03-25 09:38] LABS: BASO % 0.9 % (0.0-1.0); EOS # 0.3 K/mm3 (0.0-0.50); EOS % 7.1 % (0.0-3.0); LYMPH # 1.1 K/mm3 (1.5-4.5); LYMPH % 26.5 % (24.0-44.0); MEAN CORPUSCULAR HEMOGLOBIN 29.7 pg (27.0-33.0); MEAN CORPUSCULAR HGB CONC 34.4 g/dl (32.0-36.5); MEAN CORPUSCULAR VOLUME 86.5 fl (80.0-96.0); MONO # 0.3 K/mm3 (0.0-0.8); NEUTROPHILS # 2.3 K/mm3 (1.8-7.7); WHITE BLOOD COUNT 4.2 K/mm3 (4.0-10.0)
== END ==
LOC: M LAB 09:03
PROVIDERS: ATTEND Psychiatry & Neurology Psychiatry
DX: Z51.81 Encounter for therapeutic drug level monitoring (principal); Z79.899 Other long term (current) drug therapy

== ENCOUNTER → 2017-04-08 | Outpatient (CLI) | payer MEDICARE, MEDICAID ==
[2017-04-08 14:25] LABS: BASO % 0.7 % (0.0-1.0); EOS # 0.3 K/mm3 (0.0-0.50); EOS % 5.9 % (0.0-3.0); LYMPH # 1.6 K/mm3 (1.5-4.5); MEAN CORPUSCULAR HEMOGLOBIN 29.5 pg (27.0-33.0); MEAN CORPUSCULAR HGB CONC 34.3 g/dl (32.0-36.5); MEAN CORPUSCULAR VOLUME 86.1 fl (80.0-96.0); MONO # 0.4 K/mm3 (0.0-0.8); MONO % 7.2 % (0.0-5.0); NEUTROPHILS # 2.9 K/mm3 (1.8-7.7); RED CELL DISTRIBUTION WIDTH 12.4 % (11.5-14.5); WHITE BLOOD COUNT 5.2 K/mm3 (4.0-10.0)
== END ==
LOC: M LAB 13:55
PROVIDERS: ATTEND Psychiatry & Neurology Psychiatry
DX: Z51.81 Encounter for therapeutic drug level monitoring (principal); Z79.899 Other long term (current) drug therapy

== ENCOUNTER → 2017-04-15 | Outpatient (CLI) | payer MEDICARE, MEDICAID ==
[2017-04-15 15:27] LABS: BASO % 0.8 % (0.0-1.0); EOS # 0.3 K/mm3 (0.0-0.50); EOS % 5.9 % (0.0-3.0); LYMPH # 1.5 K/mm3 (1.5-4.5); LYMPH % 28.5 % (24.0-44.0); MEAN CORPUSCULAR HEMOGLOBIN 29.2 pg (27.0-33.0); MEAN CORPUSCULAR HGB CONC 33.9 g/dl (32.0-36.5); MEAN CORPUSCULAR VOLUME 86.3 fl (80.0-96.0); MONO # 0.4 K/mm3 (0.0-0.8); MONO % 7.6 % (0.0-5.0); NEUTROPHILS # 2.8 K/mm3 (1.8-7.7); NEUTROPHILS % 55.3 % (36.0-66.0); RED CELL DISTRIBUTION WIDTH 12.4 % (11.5-14.5)
== END ==
LOC: M LAB 14:59
PROVIDERS: ATTEND Psychiatry & Neurology Psychiatry
DX: Z51.81 Encounter for therapeutic drug level monitoring (principal); Z79.899 Other long term (current) drug therapy

== ENCOUNTER → 2017-04-22 | Outpatient (CLI) | payer MEDICARE, MEDICAID ==
[2017-04-22 15:07] LABS: BASO # 0.1 10^3/uL (0.0-0.2); EOS # 0.2 10^3/uL (0.0-0.50); EOS % 3.6 % (0.0-3.0); LYMPH # 1.3 10^3/uL (1.5-4.5); LYMPH % 26.5 % (24.0-44.0); MEAN CORPUSCULAR HEMOGLOBIN 28.6 pg (27.0-33.0); MEAN CORPUSCULAR HGB CONC 33.6 g/dl (32.0-36.5); MEAN CORPUSCULAR VOLUME 85.1 fl (80.0-96.0); MONO # 0.5 10^3/uL (0.0-0.8); MONO % 9.3 % (0.0-5.0); NEUTROPHILS % 59.2 % (36.0-66.0); RED CELL DISTRIBUTION WIDTH 12.2 % (11.5-14.5); WHITE BLOOD COUNT 5.1 10^3/uL (4.0-10.0)
== END ==
LOC: M LAB 13:55
PROVIDERS: ATTEND Psychiatry & Neurology Psychiatry
DX: Z79.899 Other long term (current) drug therapy (principal)

== ENCOUNTER 2017-04-29 14:47 | Inpatient (IN) | payer MEDICARE, MEDICAID ==
[~2017-04-29] VITALS: Ht 172.7 cm; Wt 67.0 kg
[~2017-04-29 14:47] MED LIST changes: -ASPI81TAEC PO; -CLOZ100T2 PO; -EFFE37.527 PO; -HYDR50CA2; -QUET1TAB9; -TRAZ50TA11 PO
[2017-04-29] MEDS ORDERED: CLOZ100T2 PO (15:03)
[2017-04-29] MEDS ORDERED: HYDR50CA2 (15:04)
[2017-04-29] MEDS ORDERED: TRAZ50TA11 PO (15:04)
[2017-04-29] MEDS ORDERED: EFFE37.527 PO (15:04)
[2017-04-29] MEDS ORDERED: QUET1TAB9 (15:04)
[2017-04-29 16:47] LABS: MEAN CORPUSCULAR HEMOGLOBIN 28.9 pg (27.0-33.0); MEAN CORPUSCULAR HGB CONC 33.9 g/dl (32.0-36.5); MEAN CORPUSCULAR VOLUME 85.2 fl (80.0-96.0); RED CELL DISTRIBUTION WIDTH 12.3 % (11.5-14.5); WHITE BLOOD COUNT 6.7 10^3/uL (4.0-10.0)
[2017-04-29 17:39] LABS: ALBUMIN 3.9 GM/DL (3.2-5.2); ALBUMIN/GLOBULIN RATIO 1.44 (1.00-1.93); ALKALINE PHOSPHATASE 91 U/L (45-117); ALT/SGPT 29 U/L (12-78); ANION GAP 11 MEQ/L (8-16); AST/SGOT 22 U/L (15-37); BILIRUBIN,DIRECT 0.1 MG/DL (0.0-0.2); BILIRUBIN,TOTAL 0.4 MG/DL (0.2-1.0); BLOOD UREA NITROGEN 17 MG/DL (7-18); CALCIUM LEVEL 9.2 MG/DL (8.8-10.2); CARBON DIOXIDE LEVEL 25 MEQ/L (21-32); CHLORIDE LEVEL 106 MEQ/L (98-107); GLOMERULAR FILTRATION RATE 59.5 (>49); GLUCOSE, FASTING 89 MG/DL (80-110); POTASSIUM SERUM 3.9 MEQ/L (3.5-5.1); SODIUM LEVEL 142 MEQ/L (136-145); TOTAL PROTEIN 6.6 GM/DL (6.4-8.2)
[2017-04-29 19:04] LABS: METHADONE URINE NEGATIVE (NEGATIVE)
[2017-04-29 20:15] VITALS: BP 125/82
[2017-04-29] MEDS ORDERED: ACETAMINOPHEN TAB 650MG DOSE (2X325MG) PO PRN (23:15)
[2017-04-29] MEDS ORDERED: MAALOX 30 ML SUSP *UDC PO PRN (23:15)
[2017-04-29] MEDS ORDERED: MOM 30ML SUSPENSION UDC PO PRN (23:15)
[2017-04-29] MEDS ORDERED: diphenhydrAMINE 50 MG CAP PO PRN (23:15)
[2017-04-29] MEDS ORDERED: OLANZapine 5 MG TAB PO PRN ×2 (23:15)
[2017-04-29] MEDS ORDERED: hydrOXYzine 50 MG TAB PO PRN (23:30)
[2017-04-30] MEDS ORDERED: OLAN5TAB PO (01:01)
[2017-04-30] MEDS ORDERED: CLOZ25TA3 PO (01:01)
[2017-04-30] MEDS ORDERED: MIRT45TA PO (01:01)
[2017-04-30] MEDS ORDERED: ASPI81TAEC PO (01:01)
[2017-04-30] MEDS ORDERED: BENZ0.5T PO (01:01)
[2017-04-30] MEDS ORDERED: HYDR50TA70 PO (01:01)
[2017-04-30 06:21] VITALS: BP 123/59
[2017-04-30 07:11] LABS: BASO # 0.1 10^3/uL (0.0-0.2); BASO % 0.7 % (0.0-1.0); EOS # 0.5 10^3/uL (0.0-0.50); EOS % 6.8 % (0.0-3.0); IMMATURE GRANULOCYTE % 0.1 % (0-0); LYMPH # 2.3 10^3/uL (1.5-4.5); LYMPH % 33.9 % (24.0-44.0); MEAN CORPUSCULAR HEMOGLOBIN 28.8 pg (27.0-33.0); MEAN CORPUSCULAR HGB CONC 33.3 g/dl (32.0-36.5); MEAN CORPUSCULAR VOLUME 86.3 fl (80.0-96.0); MONO # 0.6 10^3/uL (0.0-0.8); NEUTROPHILS # 3.5 10^3/uL (1.8-7.7); NEUTROPHILS % 50.5 % (36.0-66.0); PLATELET COUNT, AUTOMATED 240 10^3/uL (150-450); RED CELL DISTRIBUTION WIDTH 12.6 % (11.5-14.5); WHITE BLOOD COUNT 6.9 10^3/uL (4.0-10.0)
[2017-04-30 07:37] LABS: ADD MANUAL DIFFER NO; DIFF SLIDE NUMBER 88
[2017-04-30] MEDS: cloZAPine 100 MG TAB (S0136) PO SCH (08:46)
[2017-04-30] MEDS: ASPIRIN 81 MG CHEW TABLET PO SCH (08:46)
[2017-04-30] MEDS: clonazePAM 1 MG TAB PO SCH ×4 (08:46→20:59)
[2017-04-30] MEDS: VENLAFAXINE **XR** 37.5 MG CAPSULE PO SCH (08:47)
--- NOTE | 2017-04-30 10:22 | HPEPDOC ---
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 ATTENDING: Dr. Gaurang Azul HPI: 61yoM admitted to [facility] for unspecified depressive disorder, being medically examined today. No acute medical complaints today. Reports he is feeling anxious and needs to take his medications. Denies any fevers, chills, weakness, fatigue, NARVAEZ, CP, SOB, cough, palpitations , abdominal pain, N/V/D or changes in bowel or bladder habits. PMHx: Depression Anxiety Panic attacks History of pseudoseizure Schizoaffective disorder Osteoarthritis Vitamin D deficiency PSHX: Foot surgery Repair left eardrum Colonoscopy 08/06. Ronna. Diverticulosis and internal hemorrhoids. SOCHX: Resides in: [facility] Marital Status: Employment: previously, [employer] Tobacco use: Denies ETOH: Denies Illicit Drugs: Denies IV Drug Use: Denies Tattoos done unprofessionally: Denies FAMHX: Mother: 04/03/17 Father: , lung cancer Siblings: 6 brothers Alive, well. One sister epilepsy. Children: Alive, well Unexpected deaths due to medical reasons: None. ROS: As noted in HPI, otherwise 11pt ROS of systems reviewed and unremarkable. PE: GEN: 61 yo M, appears stated age. Well-nourished, well developed. Alert and oriented x 3. Anxious throughout exam. HEENT: Normocephalic, atraumatic. Pupils are equal, round, and reactive to light. Extraocular movements are intact. No nystagmus appreciated. Sclera are nonicteric. Conjunctiva without injection. Nose midline. Nasal turbinates without bogginess. EACs both patent BL. TMs both visualized and quintero with good cone of light, no bulging or erythema. No facial asymmetry. Moist mucous membranes. Wearing upper dentures. Pharynx pink and moist, no cobblestoning. Neck supple, trachea midline. No lymphadenopathy or thyromegaly appreciated. CHEST: Regular rate and rhythm, +S1, +S2 LUNGS: Clear to auscultation bilaterally. No wheezes, rales, or rhonchi. Breathing appears symmetric and easy. Patient is speaking in full sentences. No accessory muscle use. ABD: Round, soft, non-tender, non-distended. +Bowel sounds throughout. No rebound or guarding. No costovertebral angle tenderness. EXT: Pulses 2+ bilaterally dorsalis pedis and radial. No lower extremity edema appreciated. SKIN: [place], dry, warm. Capillary refill <2sec. No rashes. NEURO: Alert and oriented x 3. Cranial nerves III-XII are intact. No focal deficits appreciated. EKG: Pending. A&P: 61yoM admitted to [facility] for unspecified depressive disorder 1. Psych. Plan per Psychiatry.Obtain baseline EKG to assure the safety of psychiatric medications as they can prolong the QT interval. 2. History of pseudoseizure. Followed by Dr. More. 3. Osteoarthritis. Continue Tylenol 650 mg every 4 hours as needed. 4. Follow up with PCP on discharge. 5. Vitamin D deficiency. Continue supplement. Vitamin D level 49.7 01/11. 6. Keenan safety aid present throughout exam. Vital Signs Vital Signs Date Time Temp Pulse Resp B/P (MAP) Pulse Ox O2 Delivery O2 Flow Rate FiO2 04/30/17 06:21 98.2 133 20 123/59 (80) 04/29/17 20:15 97 Room Air Laboratory Data Labs 24H Laboratory Tests 2 04/29/17 16:34: Anion Gap 11, Glomerular Filtration Rate 59.5, Calcium Level 9.2, Aspartate Amino Transf (AST/SGOT) 22, Alanine Aminotransferase (ALT/SGPT) 29, Alkaline Phosphatase 91, Total Bilirubin 0.4, Direct Bilirubin 0.1, Total Protein 6.6, Albumin 3.9, Albumin/Globulin Ratio 1.44, Thyroid Stimulating Hormone (TSH) 2.270, Salicylates Level < 1.7L, Acetaminophen Level < 2.0L, Ethyl Alcohol Level < 0.003 04/29/17 18:08: Urine Amphetamines Screen NEGATIVE, Urine Benzodiazepines Screen NEGATIVE, Urine Opiates Screen NEGATIVE, Urine Methadone Screen NEGATIVE, Urine Barbiturates Screen NEGATIVE, Urine Phencyclidine Screen NEGATIVE, Urine Cocaine Metabolite Screen NEGATIVE, Urine Cannabinoids Screen NEGATIVE 04/30/17 06:47: Immature Granulocyte % (Auto) 0.1H, White Blood Count 6.9, Red Blood Count 4.97 , Hemoglobin 14.3, Hematocrit 42.9, Mean Corpuscular Volume 86.3, Mean Corpuscular Hemoglobin 28.8, Mean Corpuscular Hemoglobin Concent 33.3, Red Cell Distribution Width 12.6, Platelet Count 240, Neutrophils (%) (Auto) 50.5, Lymphocytes (%) (Auto) 33.9, Monocytes (%) (Auto) 8.0H, Eosinophils (%) (Auto) 6.8H, Basophils (%) (Auto) 0.7, Neutrophils # (Auto) 3.5, Lymphocytes # (Auto) 2.3, Monocytes # (Auto) 0.6, Eosinophils # (Auto) 0.5, Basophils # (Auto) 0.1, Immature Granulocyte # (Auto) 0.0, Nucleated Red Blood Cells % (auto) 0.0 CBC/BMP Laboratory Tests 04/29/17 16:34 Red Blood Count 4.99, Mean Corpuscular Volume 85.2, Mean Corpuscular Hemoglobin 28.9, Mean Corpuscular Hemoglobin Concent 33.9, Red Cell Distribution Width 12.3 04/30/17 06:47 Red Blood Count 4.97, Mean Corpuscular Volume 86.3, Mean Corpuscular Hemoglobin 28.8, Mean Corpuscular Hemoglobin Concent 33.3, Red Cell Distribution Width 12.6 , Neutrophils (%) (Auto) 50.5, Lymphocytes (%) (Auto) 33.9, Monocytes (%) (Auto ) 8.0 H, Eosinophils (%) (Auto) 6.8 H, Basophils (%) (Auto) 0.7, Neutrophils # ( Auto) 3.5, Lymphocytes # (Auto) 2.3, Monocytes # (Auto) 0.6, Eosinophils # (Auto ) 0.5, Basophils # (Auto) 0.1 Home Medications Scheduled Aspirin (Aspirin EC) 81 Mg Tabec, 81 MG PO DAILY for HEART ATTACK/STROKE PREVENTION Benztropine Mesylate (Benztropine Mesylate) 0.5 Mg Tab, 0.5 MG PO BID for EXTRAPYRAMIDAL SIDE EFFECTS Clonazepam (Clonazepam) 1 Mg Tab, 1 MG PO QID for ANXIETY Clozapine (Clozapine) 100 Mg Tab, 100 MG PO DAILY for SCHIZOPHRENIA TAKES WITH 25MG FOR 125MG TOTAL Clozapine (Clozapine) 25 Mg Tab, 25 MG PO DAILY for SCHIZOPHRENIA TAKES WITH 100MG FOR 125MG TOTAL Mirtazapine (Mirtazapine) 45 Mg Tab, 45 MG PO QHS for INSOMNIA Venlafaxine Hydrochloride (Effexor Xr) 37.5 Mg Cap, 112.5 MG PO DAILY for DEPRESSION Vitamin D (Drisdol) 50,000 Unit Cap, 50,000 UNIT PO ASDIRECTED for SUPPLEMENT TAKES ON SUNDAYS IN THE MORNING Scheduled PRN Hydroxyzine HCl (Hydroxyzine HCl) 50 Mg Tab, 50 MG PO Q6H PRN for ANXIETY Olanzapine (Olanzapine) 5 Mg Tab, 5 MG PO Q4H PRN for ANXIETY/AGITATION Trazodone HCl (Trazodone HCl) 50 Mg Tab, 50 MG PO QHS PRN for INSOMNIA Allergies Coded Allergies: No Known Drug Allergy (Verified Allergy, Unknown, 01/08/17) Dahlia Ramsey Apr 30, 2017 10:22
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
[2017-04-30 18:53] VITALS: BP 110/74
[2017-04-30] MEDS: traZODone 50 MG TAB PO PRN (20:59)
[2017-04-30] MEDS: MIRTAZAPINE 15 MG TAB PO SCH (20:59)
--- NOTE | 2017-04-30 21:04 | ECGEPIP ---
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
[2017-05-01 06:56] VITALS: BP 121/70
[2017-05-01] MEDS: VENLAFAXINE **XR** 37.5 MG CAPSULE PO SCH (08:25)
[2017-05-01] MEDS: ASPIRIN 81 MG CHEW TABLET PO SCH (08:25)
[2017-05-01] MEDS: cloZAPine 100 MG TAB (S0136) PO SCH (08:25)
[2017-05-01] MEDS: clonazePAM 1 MG TAB PO SCH ×4 (08:25→21:30)
--- NOTE | 2017-05-01 12:25 | MHIPNPDOC ---
[facility] Progress Note Progress Note DATE OF SERVICE: 05/01/17 HISTORY: Patient is a 61-year-old male who came to the emergency department on the night of 04/29/2017 after "he had a funny feeling". Patient lost his mother was April 03 and on April 29 he was fired. He was a couple months ago at the inpatient mental health unit, where he spent almost a month and was discharged stable. Today, on 05/01/2017, patient reports feeling better, sleeping well, eating well. He denies homicidal or suicidal ideations, he says he is not as sad for his mother because he knows that she is in heaven and he denies auditory or visual hallucinations and denies thought delusions. He says his anxiety is a little bit less than when he came in and he denies having a panic attack early this morning. VITAL SIGNS: See below. NEW TEST RESULTS: Within normal limits CURRENT MEDICATIONS: See below. MENTAL STATUS EXAMINATION: Patient is a 61-year old male, who is alert, cooperative, dressed in hospital clothes, pleasant, with fair hygiene and grooming, good eye contact. Speech: Is coherent, goal-directed. Language skills are fair. Thought processes including: In that. Thought content: Anxious and angry thoughts about losing his job. Abstract reasoning, and computation: Not assessed at this time. Description of associations: Good. Description of abnormal or psychotic thoughts: Denies homicidal and suicidal ideation, denies thought delusions, denies auditory and visual hallucinations. Judgment: Fair. Insight: Fair. Orientation: Oriented 3. Recent and remote memory: Intact. Attention span and concentration: Good. Language: Normal. Fund of knowledge: Not assessed at this time. Mood: Anxious. Affect: Congruent to mood, appropriate. DIAGNOSES: 1. Panic disorder without agoraphobia. 2. Paranoid schizophrenia. 3. Adjustment disorder with mixed anxiety and depressed mood 4. Normal bereavement ASSESSMENT: Patient is doing much better compared to the last time he was and the inpatient mental health unit. He has been anxious, especially early in the morning like he did last time that he is not extremely anxious as he was before and he hasn't had as many pseudoseizures spells like he didn't his previous hospitalization. He doesn't have thought blocking, he is not responding to internal stimuli, and he is not psychotic. He is adjusting to severe psychosocial stressors like his mother's and the loss of his job, if he attends groups and he will learn coping skills to deal with these type of situation. We'll continue with the same treatment plan MANAGEMENT PLAN: We'll continue with the same treatment plan TIME SPENT: 30 minutes. Vital Signs Vital Signs Date Time Temp Pulse Resp B/P (MAP) Pulse Ox O2 Delivery O2 Flow Rate FiO2 05/01/17 06:56 98.4 84 18 121/70 (87) Room Air 04/29/17 20:15 97 Current Medications Current Medications Acetaminophen (Tylenol Tab) 650 mg Q6HP PRN PO HEADACHE or DISCOMFORT; Start 04/29/17 at 23:15; Stop 05/29/17 at 23:14 Al Hydrox/Mg Hydrox/Simethicone (Mylanta) 30 ml Q4HP PRN PO HEARTBURN/ INDIGESTION; Start 04/29/17 at 23:15; Stop 05/29/17 at 23:14 Aspirin (Aspirin Chewable) 81 mg DAILY PO Last administered on 05/01/17 08:25 ; Start 04/30/17 at 09:00; Stop 05/30/17 at 08:59 Clonazepam (KlonoPIN) 1 mg QID PO Last administered on 05/01/17 12:11; Start 04/30/17 at 09:00; Stop 05/07/17 at 08:59 Clozapine (Clozaril) 100 mg DAILY PO Last administered on 05/01/17 08:25; Start 04/30/17 at 09:00; Stop 05/07/17 at 08:59 Diphenhydramine HCl (Benadryl) 50 mg Q12HP PRN PO EXTRAPYRAMIDAL SIDE EFFECTS; Start 04/29/17 at 23:15; Stop 05/29/17 at 23:14 Home Med (Med Rec Complete!) ASDIRECTED XX ; Start 04/30/17 at 01:15; Stop 04/30/17 at 01:15; Status DC Hydroxyzine HCl (Atarax) 50 mg Q6HP PRN PO ANXIETY; Start 04/29/17 at 23:30; Stop 05/29/17 at 23:29 Magnesium Hydroxide (Milk Of Magnesia) 30 ml DAILYPRN PRN PO CONSTIPATION; Start 04/29/17 at 23:15; Stop 05/29/17 at 23:14 Mirtazapine (Remeron) 45 mg QHS PO Last administered on 04/30/17 20:59; Start 04/30/17 at 21:00; Stop 05/30/17 at 20:59 Olanzapine (ZyPREXA) 5 mg Q4HP PRN PO ANXIETY/AGITATION; Start 04/29/17 at 23: 15; Stop 04/29/17 at 23:34; Status DC Olanzapine (ZyPREXA) 5 mg Q4HP PRN PO ANXIETY/AGITATION; Start 04/29/17 at 23: 15; Stop 05/29/17 at 23:14 Trazodone HCl (Desyrel) 50 mg QHSP PRN PO INSOMNIA Last administered on 20:59; Start 04/29/17 at 23:15; Stop 05/29/17 at 23:14 Venlafaxine HCl (Effexor Xr) 112.5 mg DAILY PO Last administered on 08:25; Start 04/30/17 at 09:00; Stop 05/30/17 at 08:59 Vitamin D (Drisdol) 50,000 units [place]ren[place]@09 PO ; Start 05/04/17 at 09:00; Stop at 08:59 Allergies Coded Allergies: No Known Drug Allergy (Verified Allergy, Unknown, 01/08/17) SCOTT THOMAS MD May 01, 2017 12:25
[2017-05-01 18:00] VITALS: BP 128/74
[2017-05-01] MEDS: MIRTAZAPINE 15 MG TAB PO SCH (21:30)
[2017-05-02 06:37] VITALS: BP 152/83
[2017-05-02] MEDS: cloZAPine 100 MG TAB (S0136) PO SCH (08:27)
[2017-05-02] MEDS: ASPIRIN 81 MG CHEW TABLET PO SCH (08:27)
[2017-05-02] MEDS: clonazePAM 1 MG TAB PO SCH ×4 (08:27→21:05)
[2017-05-02] MEDS: VENLAFAXINE **XR** 37.5 MG CAPSULE PO SCH (08:28)
[2017-05-02 18:00] VITALS: BP 119/73
[2017-05-02] MEDS: MIRTAZAPINE 15 MG TAB PO SCH (21:05)
[2017-05-03 06:56] VITALS: BP 114/75
[2017-05-03] MEDS: ASPIRIN 81 MG CHEW TABLET PO SCH (08:34)
[2017-05-03] MEDS: VENLAFAXINE **XR** 37.5 MG CAPSULE PO SCH (08:34)
[2017-05-03] MEDS: cloZAPine 100 MG TAB (S0136) PO SCH (08:34)
[2017-05-03] MEDS: clonazePAM 1 MG TAB PO SCH ×4 (08:34→21:00)
--- NOTE | 2017-05-03 15:05 | MHIPNPDOC ---
[facility] Progress Note Progress Note DATE OF SERVICE: 05/03/17 HISTORY: Patient is a 61-year-old male who was admitted due to worsening symptoms of depression, inability to function Today patient reports feeling better, sleeping well, eating well. He denies homicidal or suicidal ideations, he denies auditory or visual hallucinations and denies thought delusions. He says his anxiety is better, denied any side effects of medications. VITAL SIGNS: See below. NEW TEST RESULTS: Within normal limits CURRENT MEDICATIONS: See below. MENTAL STATUS EXAMINATION: Patient is a 61-year old male, who is alert, cooperative, dressed in hospital clothes, pleasant, with fair hygiene and grooming, good eye contact. Speech: Is coherent, goal-directed. Language skills are fair. Thought processes including: In that. Thought content: no ideas of self harm or harm to others, no delusions elicited , no perceptual disturbances Abstract reasoning, and computation: Not assessed at this time. Description of associations: Good. Description of abnormal or psychotic thoughts: Denies homicidal and suicidal ideation, denies thought delusions, denies auditory and visual hallucinations. Judgment: Fair. Insight: Fair. Orientation: Oriented 3. Recent and remote memory: Intact. Attention span and concentration: Good. Language: Normal. Fund of knowledge: Not assessed at this time. Mood: Anxious. Affect: Congruent to mood, appropriate. DIAGNOSES: 1. Panic disorder without agoraphobia. 2. Paranoid schizophrenia. 3. Adjustment disorder with mixed anxiety and depressed mood 4. Normal bereavement MANAGEMENT PLAN: We'll continue with the same treatment plan TIME SPENT: 30 minutes. Vital Signs Vital Signs Date Time Temp Pulse Resp B/P (MAP) Pulse Ox O2 Delivery O2 Flow Rate FiO2 05/03/17 06:56 98.6 89 16 114/75 (88) 05/02/17 06:37 Room Air 04/29/17 20:15 97 Current Medications Current Medications Acetaminophen (Tylenol Tab) 650 mg Q6HP PRN PO HEADACHE or DISCOMFORT; Start 04/29/17 at 23:15; Stop 05/29/17 at 23:14 Al Hydrox/Mg Hydrox/Simethicone (Mylanta) 30 ml Q4HP PRN PO HEARTBURN/ INDIGESTION; Start 04/29/17 at 23:15; Stop 05/29/17 at 23:14 Aspirin (Aspirin Chewable) 81 mg DAILY PO Last administered on 05/03/17 08:34 ; Start 04/30/17 at 09:00; Stop 05/30/17 at 08:59 Clonazepam (KlonoPIN) 1 mg QID PO Last administered on 05/03/17 13:22; Start 04/30/17 at 09:00; Stop 05/07/17 at 08:59 Clozapine (Clozaril) 100 mg DAILY PO Last administered on 05/03/17 08:34; Start 04/30/17 at 09:00; Stop 05/07/17 at 08:59 Diphenhydramine HCl (Benadryl) 50 mg Q12HP PRN PO EXTRAPYRAMIDAL SIDE EFFECTS; Start 04/29/17 at 23:15; Stop 05/29/17 at 23:14 Home Med (Med Rec Complete!) ASDIRECTED XX ; Start 04/30/17 at 01:15; Stop 04/30/17 at 01:15; Status DC Hydroxyzine HCl (Atarax) 50 mg Q6HP PRN PO ANXIETY; Start 04/29/17 at 23:30; Stop 05/29/17 at 23:29 Magnesium Hydroxide (Milk Of Magnesia) 30 ml DAILYPRN PRN PO CONSTIPATION; Start 04/29/17 at 23:15; Stop 05/29/17 at 23:14 Mirtazapine (Remeron) 45 mg QHS PO Last administered on 05/02/17 21:05; Start 04/30/17 at 21:00; Stop 05/30/17 at 20:59 Olanzapine (ZyPREXA) 5 mg Q4HP PRN PO ANXIETY/AGITATION; Start 04/29/17 at 23: 15; Stop 04/29/17 at 23:34; Status DC Olanzapine (ZyPREXA) 5 mg Q4HP PRN PO ANXIETY/AGITATION; Start 04/29/17 at 23: 15; Stop 05/29/17 at 23:14 Trazodone HCl (Desyrel) 50 mg QHSP PRN PO INSOMNIA Last administered on 20:59; Start 04/29/17 at 23:15; Stop 05/29/17 at 23:14 Venlafaxine HCl (Effexor Xr) 112.5 mg DAILY PO Last administered on 10/7/ 17at 08:34; Start 04/30/17 at 09:00; Stop 05/30/17 at 08:59 Vitamin D (Drisdol) 50,000 units Arenas@09 PO ; Start 05/04/17 at 09:00; Stop at 08:59 Allergies Coded Allergies: No Known Drug Allergy (Verified Allergy, Unknown, 01/08/17) VINNIE BASHIR MD May 03, 2017 15:05
--- NOTE | 2017-05-03 19:03 | MHIPNPDOC ---
[facility] Progress Note Progress Note DATE OF SERVICE: 05/02/17 HISTORY: Patient is a 61-year-old male who came to the emergency department on the night of 04/29/2017 after "he had a funny feeling". Patient lost his mother was April 03 and on April 29 he was fired. He was a couple months ago at the inpatient mental health unit, where he spent almost a month and was discharged stable. Today, on 05/02/2017, patient reports feeling better because he has spoken with her previous boss who has reassured him that he will be transferred to another site, he hasn't been fired, he will be transferred and he is begining to think that transfer is going to be good for him. VITAL SIGNS: See below. NEW TEST RESULTS: Within normal limits CURRENT MEDICATIONS: See below. MENTAL STATUS EXAMINATION: Patient is a 61-year old male, who is alert, cooperative, dressed in hospital clothes, pleasant, with fair hygiene and grooming, good eye contact. Speech: Is spontaneous and fluent Language skills are fair. Thought processes including: Regarding his job and the of his mother Thought content: Hopeful about his new job. Abstract reasoning, and computation: Not assessed at this time. Description of associations: Good. Description of abnormal or psychotic thoughts: Denies homicidal and suicidal ideation, denies thought delusions, denies auditory and visual hallucinations. Judgment: Improved Insight: Improved Orientation: Oriented 3. Recent and remote memory: Intact. Attention span and concentration: Good. Language: Normal. Fund of knowledge: Not assessed at this time. Mood: Euthymic Affect: Euthymic, congruent with mood DIAGNOSES: 1. Panic disorder without agoraphobia. 2. Paranoid schizophrenia. 3. Adjustment disorder with mixed anxiety and depressed mood 4. Normal bereavement ASSESSMENT: Patient is in a brighter mood and affect and he states it is because he talked to his previous boss who has reassured him he was not fired, but he is going to be transferred to another area within the hospital. The patient's anxiety has decreased, he is less depressed, he is grieving but it is a normal grief. If he continues to do well over the weekend he will be discharged on Friday. MANAGEMENT PLAN: We'll continue with the same treatment plan TIME SPENT: 30 minutes. Vital Signs Vital Signs Date Time Temp Pulse Resp B/P (MAP) Pulse Ox O2 Delivery O2 Flow Rate FiO2 05/03/17 06:56 98.6 89 16 114/75 (88) 05/02/17 06:37 Room Air 04/29/17 20:15 97 Current Medications Current Medications Acetaminophen (Tylenol Tab) 650 mg Q6HP PRN PO HEADACHE or DISCOMFORT; Start 04/29/17 at 23:15; Stop 05/29/17 at 23:14 Al Hydrox/Mg Hydrox/Simethicone (Mylanta) 30 ml Q4HP PRN PO HEARTBURN/ INDIGESTION; Start 04/29/17 at 23:15; Stop 05/29/17 at 23:14 Aspirin (Aspirin Chewable) 81 mg DAILY PO Last administered on 05/03/17 08:34 ; Start 04/30/17 at 09:00; Stop 05/30/17 at 08:59 Clonazepam (KlonoPIN) 1 mg QID PO Last administered on 05/03/17 16:47; Start 04/30/17 at 09:00; Stop 05/07/17 at 08:59 Clozapine (Clozaril) 100 mg DAILY PO Last administered on 05/03/17 08:34; Start 04/30/17 at 09:00; Stop 05/07/17 at 08:59 Diphenhydramine HCl (Benadryl) 50 mg Q12HP PRN PO EXTRAPYRAMIDAL SIDE EFFECTS; Start 04/29/17 at 23:15; Stop 05/29/17 at 23:14 Home Med (Med Rec Complete!) ASDIRECTED XX ; Start 04/30/17 at 01:15; Stop 04/30/17 at 01:15; Status DC Hydroxyzine HCl (Atarax) 50 mg Q6HP PRN PO ANXIETY; Start 04/29/17 at 23:30; Stop 05/29/17 at 23:29 Magnesium Hydroxide (Milk Of Magnesia) 30 ml DAILYPRN PRN PO CONSTIPATION; Start 04/29/17 at 23:15; Stop 05/29/17 at 23:14 Mirtazapine (Remeron) 45 mg QHS PO Last administered on 05/02/17 21:05; Start 04/30/17 at 21:00; Stop 05/30/17 at 20:59 Olanzapine (ZyPREXA) 5 mg Q4HP PRN PO ANXIETY/AGITATION; Start 04/29/17 at 23: 15; Stop 04/29/17 at 23:34; Status DC Olanzapine (ZyPREXA) 5 mg Q4HP PRN PO ANXIETY/AGITATION; Start 04/29/17 at 23: 15; Stop 05/29/17 at 23:14 Trazodone HCl (Desyrel) 50 mg QHSP PRN PO INSOMNIA Last administered on 20:59; Start 04/29/17 at 23:15; Stop 05/29/17 at 23:14 Venlafaxine HCl (Effexor Xr) 112.5 mg DAILY PO Last administered on 08:34; Start 04/30/17 at 09:00; Stop 05/30/17 at 08:59 Vitamin D (Drisdol) 50,000 units Arenas@09 PO ; Start 05/04/17 at 09:00; Stop at 08:59 Allergies Coded Allergies: No Known Drug Allergy (Verified Allergy, Unknown, 01/08/17) SCOTT THOMAS MD May 03, 2017 19:03
[2017-05-03] MEDS: MIRTAZAPINE 15 MG TAB PO SCH (21:00)
[2017-05-03] MEDS: traZODone 50 MG TAB PO PRN (21:00)
[2017-05-04 06:34] VITALS: BP 126/77
[2017-05-04] MEDS: ASPIRIN 81 MG CHEW TABLET PO SCH (08:00)
[2017-05-04] MEDS: VENLAFAXINE **XR** 37.5 MG CAPSULE PO SCH (08:00)
[2017-05-04] MEDS: clonazePAM 1 MG TAB PO SCH ×4 (08:00→21:18)
[2017-05-04] MEDS: cloZAPine 100 MG TAB (S0136) PO SCH (08:00)
[2017-05-04] MEDS ORDERED: VITAMIN D 50,000 UNITS CAPSULE (ERGOCALCIFEROL 1.25MG) PO SCH (09:00)
[2017-05-04 18:00] VITALS: BP 105/65
[2017-05-04] MEDS: MIRTAZAPINE 15 MG TAB PO SCH (21:18)
[2017-05-05 07:03] VITALS: BP 145/79
[2017-05-05] MEDS: clonazePAM 1 MG TAB PO SCH (09:19)
[2017-05-05] MEDS: ASPIRIN 81 MG CHEW TABLET PO SCH (09:19)
[2017-05-05] MEDS: cloZAPine 100 MG TAB (S0136) PO SCH (09:19)
[2017-05-05] MEDS: VENLAFAXINE **XR** 37.5 MG CAPSULE PO SCH (09:20)
[2017-05-05] MEDS ORDERED: CLOZ100T2 PO (10:29)
[2017-05-05] MEDS ORDERED: CLOZ25TA3 PO (10:29)
--- NOTE | 2017-05-05 16:44 | MHDSPDOC ---
[facility] Discharge Summary Discharge Summary DATE OF ADMISSION: Apr 29, 2017 at 19:27 DATE OF DISCHARGE: May 05, 2017 at 12:05 DISCHARGE DIAGNOSES: 1. Panic disorder without agoraphobia. 2. Paranoid schizophrenia. 3. Adjustment disorder with mixed anxiety and depressed mood 4. Normal bereavement CHIEF COMPLAINT: "I wish I could go to [facility] with my mom" HISTORY OF THE PRESENT ILLNESS: Patient is a 61-year-old male, who came last night to the emergency department after "he was feeling funny". 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 He was very hurt because he has worked for this place for over 15 years and he never had problems before, he says he is spells have improved and he almost doesn't have them anymore. After he heard that he was being fired he went to visit one of his aunts with hospitalized and when he was living and going home is when he has that "funny sensation". This internal communications writer asked him what this funny sensation was and he said he was able not able to explain it , but it was a sensation he had in his head and for that reason he went to the emergency room. He admits he has been feeling very sad because his mom on 04/03/2017 and he was particularly close to her. She was 82 years old and she had cancer, he knew that she was ill but he is still very sad and he said at the emergency room that he wished he would go to [facility] with his mother REASON FOR ADMISSION: CONSULTANTS INVOLVED: None TREATMENT AND PROGRESS ON THE UNIT : . HOSPITAL COURSE: Patient's mother on April 03 and her has caused sadness and stress to the patient but he also thought he was fired on 04/29/17 and was very hurt because he has worked there (at [employer]) for more than 15 years. He came to visit an aunt who is hospitalized and after he visited her "had a funny feeling" and decided to go to the ED and said he wished he "would go to [facility] with his mother". On 10/04/17 he said he really was not suicidal, he was on edge, he felt very upset for being fired and sad for losing his mother, he denied having panic attacks in the morning, he said he was not that anxious and he denied SI. On 05/01/17 and 05/02/17 he continued to deny SI and he told this internal communications writer he was less upset because his former boss had spoken to him and she had told him that he was not fired, they were going to transfer him to another department within the hospital. DISCHARGE ASSESSMENT: patient is not suicidal, not homicidal and not psychotic. he's able to go home with his . MENTAL STATUS EXAMINATION ON DISCHARGE: Patient is a 61-year old male, who is alert, cooperative, good eye contact, fair grooming. Speech is Goal directed, coherent Language skills are Fair. Thought processes including: Intact. Thought content: Coherent, focused on his discharge, enthusiastic about starting his job. Abstract reasoning, and computation: Fair. Description of associations: Good. Description of abnormal or psychotic thoughts: Denies SI/HI, denies A/V hallucinations, denies thought delusions. Judgment: Improved. Insight: Improved. Orientation to Oriented x 3. Recent and remote memory: Intact. Attention span and concentration: Good. Language: Fair. Fund of knowledge: Adequate. Mood: Euthymic. Affect: Euthymic, congruent with affect. MEDICATIONS ON DISCHARGE: Clonazepam (KlonoPIN) 1 mg QID PO for anxiety Clozapine (Clozaril) 100 mg DAILY PO for psychosis Diphenhydramine HCl (Benadryl) 50 mg Q12HP PRN PO EXTRAPYRAMIDAL SIDE EFFECTS; Hydroxyzine HCl (Atarax) 50 mg Q6HP PRN PO ANXIETY Mirtazapine (Remeron) 45 mg QHS PO for insomnia Olanzapine (ZyPREXA) 5 mg Q4HP PRN PO ANXIETY/AGITATION Trazodone HCl (Desyrel) 50 mg QHSP PRN PO INSOMNIA Venlafaxine HCl (Effexor Xr) 112.5 mg DAILY PO for depression Vitamin D (Drisdol) 50,000 units [place]renas@09 PO PLAN/FOLLOWUP ARRANGEMENTS: * Mental Health Appt 1 * [facility] * Established With This Provider Yes * Therapist MARSHALL * Date May 08, 2017 * Time 09:00 * * Additional information [address] [facility] Follow Up Care Education Label * Mental Health Appt 2 * [facility] * Established With This Provider Yes * Therapist DR. ZARAGOZA * Date May 22, 2017 * Time 14:00 * Follow Up Care Education Label * Medical * Medical Follow Up [facility] * Established With This Provider Yes * Therapist KAREN JOHNSON * Date May 29, 2017 * Time 14:00 * The amount of time spent in the coordination of care for this patient was approximately 30 minutes. Vital Signs/I&Os Vital Signs Date Time Temp Pulse Resp B/P (MAP) Pulse Ox O2 Delivery O2 Flow Rate FiO2 05/05/17 07:03 99.2 94 16 145/79 (101) Room Air 04/29/17 20:15 97 Medications Scheduled Aspirin (Aspirin EC) 81 Mg Tabec, 81 MG PO DAILY for HEART ATTACK/STROKE PREVENTION, (Reported) Benztropine Mesylate (Benztropine Mesylate) 0.5 Mg Tab, 0.5 MG PO BID for EXTRAPYRAMIDAL SIDE EFFECTS, (Reported) Clonazepam (Clonazepam) 1 Mg Tab, 1 MG PO QID for ANXIETY, (Reported) Clozapine (Clozapine) 100 Mg Tab, 100 MG PO DAILY for SCHIZOPHRENIA, #7 TAKES WITH 25MG FOR 125MG TOTAL Clozapine (Clozapine) 25 Mg Tab, 25 MG PO DAILY for SCHIZOPHRENIA, #7 TAKES WITH 100MG FOR 125MG TOTAL Mirtazapine (Mirtazapine) 45 Mg Tab, 45 MG PO QHS for INSOMNIA, (Reported) Venlafaxine Hydrochloride (Effexor Xr) 37.5 Mg Cap, 112.5 MG PO DAILY for DEPRESSION, (Reported) Vitamin D (Drisdol) 50,000 Unit Cap, 50,000 UNIT PO ASDIRECTED for SUPPLEMENT, ( Reported) TAKES ON SUNDAYS IN THE MORNING Scheduled PRN Hydroxyzine HCl (Hydroxyzine HCl) 50 Mg Tab, 50 MG PO Q6H PRN for ANXIETY, ( Reported) Olanzapine (Olanzapine) 5 Mg Tab, 5 MG PO Q4H PRN for ANXIETY/AGITATION, ( Reported) Trazodone HCl (Trazodone HCl) 50 Mg Tab, 50 MG PO QHS PRN for INSOMNIA, ( Reported) Allergies Coded Allergies: No Known Drug Allergy (Verified Allergy, Unknown, 01/08/17) SCOTT THOMAS MD May 05, 2017 16:44
== END 2017-05-05 12:05 | disposition home or self-care (01) | DRG 880 ==
LOC: M ED 14:47 → M ED INP 19:27 → M PSY 20:21
PROVIDERS: ADMIT Psychiatry & Neurology Psychiatry; ATTEND Psychiatry & Neurology Psychiatry
DX: F41.0 Panic disorder [episodic paroxysmal anxiety] (principal); F20.0 Paranoid schizophrenia; F43.23 Adjustment disorder with mixed anxiety and depressed mood; Z63.4 Disappearance and death of family member; Z79.899 Other long term (current) drug therapy; Z79.82 Long term (current) use of aspirin; M19.90 Unspecified osteoarthritis, unspecified site; E55.9 Vitamin D deficiency, unspecified; K57.30 Diverticulosis of large intestine without perforation or abscess without bleeding; K64.8 Other hemorrhoids

== ENCOUNTER → 2017-05-06 | Outpatient (CLI) | payer MEDICARE, MEDICAID ==
[~2017-05-06] MED LIST changes: +ASPI81TAEC PO; +CLOZ100T2 PO; +EFFE37.527 PO; +HYDR50CA2; +QUET1TAB9; +TRAZ50TA11 PO
[2017-05-06 14:58] LABS: BASO # 0.1 10^3/uL (0.0-0.2); BASO % 0.9 % (0.0-1.0); EOS # 0.2 10^3/uL (0.0-0.50); EOS % 3.1 % (0.0-3.0); IMMATURE GRANULOCYTE % 0.5 % (0-0); LYMPH % 26.1 % (24.0-44.0); MEAN CORPUSCULAR HGB CONC 33.8 g/dl (32.0-36.5); MEAN CORPUSCULAR VOLUME 85.7 fl (80.0-96.0); MONO # 0.9 10^3/uL (0.0-0.8); MONO % 11.5 % (0.0-5.0); NEUTROPHILS # 4.4 10^3/uL (1.8-7.7); NEUTROPHILS % 57.9 % (36.0-66.0); RED CELL DISTRIBUTION WIDTH 12.7 % (11.5-14.5); WHITE BLOOD COUNT 7.7 10^3/uL (4.0-10.0)
== END ==
LOC: M LAB 14:29
PROVIDERS: ATTEND Psychiatry & Neurology Psychiatry
DX: Z79.899 Other long term (current) drug therapy (principal)

== ENCOUNTER 2017-09-03 15:35 | Emergency (ER) | payer MEDICARE, MEDICAID ==
[2017-09-03] MEDS ORDERED: LORazepam 2 MG/ML VIAL (J2060) As Ordered (15:54)
[2017-09-03] MEDS: LORazepam 2 MG/ML VIAL (J2060) IV (16:01)
[2017-09-03 16:36] LABS: BASO % 0.4 % (0.0-1.0); EOS % 0.4 % (0.0-3.0); HEMATOCRIT 38.5 % (42.0-52.0); HEMOGLOBIN 13.3 g/dl (14.0-18.0); IMMATURE GRANULOCYTE % 0.2 % (0-3.0); LYMPH # 1.2 10^3/uL (1.5-4.5); LYMPH % 10.9 % (24.0-44.0); MEAN CORPUSCULAR HGB CONC 34.5 g/dl (32.0-36.5); MEAN CORPUSCULAR VOLUME 83.9 fl (80.0-96.0); MONO # 0.8 10^3/uL (0.0-0.8); MONO % 6.8 % (0.0-5.0); NEUTROPHILS # 9.1 10^3/uL (1.8-7.7); NEUTROPHILS % 81.3 % (36.0-66.0); PLATELET COUNT, AUTOMATED 200 10^3/uL (150-450); RED BLOOD COUNT 4.59 10^6/uL (4.30-6.10); RED CELL DISTRIBUTION WIDTH 12.4 % (11.5-14.5); WHITE BLOOD COUNT 11.2 10^3/uL (4.0-10.0)
[2017-09-03 16:46] LABS: INR 0.95; PROTHROMBIN TIME 12.8 SECONDS (12.4-14.5)
[2017-09-03 16:47] LABS: PARTIAL THROMBOPLASTIN TIME 29.2 SECONDS (26.8-37.9)
[2017-09-03 17:03] LABS: BEDSIDE GLUCOSE 104 MG/DL (80-115)
[2017-09-03 17:05] LABS: ANION GAP 8 MEQ/L (8-16); BLOOD UREA NITROGEN 19 MG/DL (7-18); CALCIUM LEVEL 8.7 MG/DL (8.8-10.2); CARBON DIOXIDE LEVEL 27 MEQ/L (21-32); CHLORIDE LEVEL 107 MEQ/L (98-107); CK-MB VALUE MASS 2.1 NG/ML (0.0-3.6); CPK CREATINE PHOSPHOKINASE 119 U/L (39-308); CREATININE FOR GFR 0.97 MG/DL (0.70-1.30); GLOMERULAR FILTRATION RATE > 60.0 (>49); GLUCOSE, FASTING 94 MG/DL (70-100); MB/CK RELATIVE INDEX 1.76 (< OR =4); POTASSIUM SERUM 4.1 MEQ/L (3.5-5.1); SODIUM LEVEL 142 MEQ/L (136-145); TROPONIN I < 0.02 NG/ML (< 0.10)
== END 2017-09-03 22:16 | disposition home or self-care (01) ==
LOC: M ED 15:35
DX: F41.0 Panic disorder [episodic paroxysmal anxiety] (principal); F32.9 Major depressive disorder, single episode, unspecified; F41.9 Anxiety disorder, unspecified; F44.5 Conversion disorder with seizures or convulsions; M19.90 Unspecified osteoarthritis, unspecified site; E55.9 Vitamin D deficiency, unspecified; F20.9 Schizophrenia, unspecified; G24.01 Drug induced subacute dyskinesia; Z80.1 Family history of malignant neoplasm of trachea, bronchus and lung; Z79.82 Long term (current) use of aspirin; Z79.899 Other long term (current) drug therapy
CPT/HCPCS: J2060

== ENCOUNTER 2017-09-07 13:23 | Emergency (ER) | payer MEDICARE, MEDICAID ==
[2017-09-07] MEDS: NS 1,000 ML IV (13:20)
[2017-09-07 13:21] LABS: BASO % 0.5 % (0.0-1.0); EOS # 0.2 10^3/uL (0.0-0.50); EOS % 3.5 % (0.0-3.0); HEMATOCRIT 44.6 % (42.0-52.0); HEMOGLOBIN 15.4 g/dl (14.0-18.0); IMMATURE GRANULOCYTE % 0.2 % (0-3.0); LYMPH # 1.5 10^3/uL (1.5-4.5); LYMPH % 23.6 % (24.0-44.0); MEAN CORPUSCULAR HEMOGLOBIN 29.1 pg (27.0-33.0); MEAN CORPUSCULAR HGB CONC 34.5 g/dl (32.0-36.5); MEAN CORPUSCULAR VOLUME 84.2 fl (80.0-96.0); MONO # 0.5 10^3/uL (0.0-0.8); MONO % 7.7 % (0.0-5.0); NEUTROPHILS # 4.1 10^3/uL (1.8-7.7); NEUTROPHILS % 64.5 % (36.0-66.0); PLATELET COUNT, AUTOMATED 262 10^3/uL (150-450); RED CELL DISTRIBUTION WIDTH 12.2 % (11.5-14.5); WHITE BLOOD COUNT 6.3 10^3/uL (4.0-10.0)
[2017-09-07 13:24] LABS: ANION GAP 9 MEQ/L (8-16); BLOOD UREA NITROGEN 14 MG/DL (7-18); CARBON DIOXIDE LEVEL 26 MEQ/L (21-32); CHLORIDE LEVEL 107 MEQ/L (98-107); CREATININE FOR GFR 1.14 MG/DL (0.70-1.30); GLOMERULAR FILTRATION RATE > 60.0 (>49); GLUCOSE, FASTING 104 MG/DL (70-100); POTASSIUM SERUM 4.3 MEQ/L (3.5-5.1); SODIUM LEVEL 142 MEQ/L (136-145)
[2017-09-07 13:28] LABS: LACTIC ACID SEPSIS PROTOCOL 2.3 MMOL/L (0.4-2.0)
[2017-09-07] MEDS ORDERED: NS 500 ML IV (13:30)
[2017-09-07 17:41] LABS: ETHYL ALCOHOL (ETHANOL) < 0.003 % (0.000-0.010); SALICYLATE LEVEL < 1.7 MG/DL (5.0-30.0)
[2017-09-07 17:59] LABS: ACETAMINOPHEN LEVEL < 2.0 UG/ML (10.0-30.0)
[2017-09-07 20:46] LABS: AMPHETAMINES LEVEL URINE NEGATIVE (NEGATIVE); BARBITURATES URINE NEGATIVE (NEGATIVE); BENZODIAZEPINES URINE NEGATIVE (NEGATIVE); CANNABINOIDS URINE NEGATIVE (NEGATIVE); COCAINE METABOLITE URINE NEGATIVE (NEGATIVE); METHADONE URINE NEGATIVE (NEGATIVE); OPIATES URINE NEGATIVE (NEGATIVE); PHENCYCLIDINE URINE NEGATIVE (NEGATIVE)
== END 2017-09-07 20:55 | disposition short-term general hospital (02) ==
LOC: M ED 13:23
DX: F44.5 Conversion disorder with seizures or convulsions (principal); F32.9 Major depressive disorder, single episode, unspecified; R94.31 Abnormal electrocardiogram [ECG] [EKG]; I10 Essential (primary) hypertension; M19.90 Unspecified osteoarthritis, unspecified site; Z87.442 Personal history of urinary calculi; F41.9 Anxiety disorder, unspecified; F25.9 Schizoaffective disorder, unspecified; F43.20 Adjustment disorder, unspecified; Z79.82 Long term (current) use of aspirin; Z79.899 Other long term (current) drug therapy
CPT/HCPCS: 93005

== ENCOUNTER 2017-09-22 05:27 | Emergency (ER) | payer MEDICARE, MEDICAID ==
[2017-09-22 06:40] LABS: HEMATOCRIT 40.5 % (42.0-52.0); HEMOGLOBIN 13.8 g/dl (14.0-18.0); MEAN CORPUSCULAR HEMOGLOBIN 29.1 pg (27.0-33.0); MEAN CORPUSCULAR HGB CONC 34.1 g/dl (32.0-36.5); MEAN CORPUSCULAR VOLUME 85.4 fl (80.0-96.0); PLATELET COUNT, AUTOMATED 262 10^3/uL (150-450); RED BLOOD COUNT 4.74 10^6/uL (4.30-6.10); RED CELL DISTRIBUTION WIDTH 12.7 % (11.5-14.5); WHITE BLOOD COUNT 10.4 10^3/uL (4.0-10.0)
[2017-09-22] MEDS: LORazepam 1 MG TAB PO (06:41)
[2017-09-22 06:42] LABS: AMPHETAMINES LEVEL URINE NEGATIVE (NEGATIVE); BARBITURATES URINE NEGATIVE (NEGATIVE); BENZODIAZEPINES URINE NEGATIVE (NEGATIVE); CANNABINOIDS URINE NEGATIVE (NEGATIVE); COCAINE METABOLITE URINE NEGATIVE (NEGATIVE); METHADONE URINE NEGATIVE (NEGATIVE); OPIATES URINE NEGATIVE (NEGATIVE); PHENCYCLIDINE URINE NEGATIVE (NEGATIVE)
[2017-09-22 06:53] LABS: ACETAMINOPHEN LEVEL < 2.0 UG/ML (10.0-30.0); ALBUMIN 3.6 GM/DL (3.2-5.2); ALBUMIN/GLOBULIN RATIO 1.38 (1.00-1.93); ALKALINE PHOSPHATASE 87 U/L (45-117); ALT/SGPT 32 U/L (12-78); ANION GAP 11 MEQ/L (8-16); AST/SGOT 22 U/L (7-37); BILIRUBIN,DIRECT 0.2 MG/DL (0.0-0.2); BILIRUBIN,TOTAL 0.7 MG/DL (0.2-1.0); BLOOD UREA NITROGEN 15 MG/DL (7-18); CALCIUM LEVEL 9.1 MG/DL (8.8-10.2); CARBON DIOXIDE LEVEL 26 MEQ/L (21-32); CHLORIDE LEVEL 109 MEQ/L (98-107); CREATININE FOR GFR 1.39 MG/DL (0.70-1.30); GLOMERULAR FILTRATION RATE 54.9 (>49); GLUCOSE, FASTING 93 MG/DL (70-100); SALICYLATE LEVEL < 1.7 MG/DL (5.0-30.0); SODIUM LEVEL 146 MEQ/L (136-145); TOTAL PROTEIN 6.2 GM/DL (6.4-8.2)
[2017-09-22 06:54] LABS: ETHYL ALCOHOL (ETHANOL) < 0.003 % (0.000-0.010)
== END 2017-09-22 11:30 | disposition home or self-care (01) ==
LOC: M ED 05:27
DX: F25.9 Schizoaffective disorder, unspecified (principal); G40.89 Other seizures; F81.9 Developmental disorder of scholastic skills, unspecified; Z79.899 Other long term (current) drug therapy; Z79.82 Long term (current) use of aspirin

== ENCOUNTER 2017-09-23 02:46 | Inpatient (IN) | payer MEDICARE, MEDICAID ==
[2017-09-23 03:53] LABS: HEMATOCRIT 39.1 % (42.0-52.0); HEMOGLOBIN 13.4 g/dl (14.0-18.0); MEAN CORPUSCULAR HEMOGLOBIN 29.5 pg (27.0-33.0); MEAN CORPUSCULAR HGB CONC 34.3 g/dl (32.0-36.5); MEAN CORPUSCULAR VOLUME 85.9 fl (80.0-96.0); PLATELET COUNT, AUTOMATED 223 10^3/uL (150-450); RED BLOOD COUNT 4.55 10^6/uL (4.30-6.10); RED CELL DISTRIBUTION WIDTH 12.9 % (11.5-14.5); WHITE BLOOD COUNT 9.6 10^3/uL (4.0-10.0)
[2017-09-23 04:20] LABS: AMPHETAMINES LEVEL URINE NEGATIVE (NEGATIVE); BARBITURATES URINE NEGATIVE (NEGATIVE); BENZODIAZEPINES URINE NEGATIVE (NEGATIVE); CANNABINOIDS URINE NEGATIVE (NEGATIVE); COCAINE METABOLITE URINE NEGATIVE (NEGATIVE); METHADONE URINE NEGATIVE (NEGATIVE); OPIATES URINE NEGATIVE (NEGATIVE); PHENCYCLIDINE URINE NEGATIVE (NEGATIVE)
[2017-09-23 04:29] LABS: ACETAMINOPHEN LEVEL < 2.0 UG/ML (10.0-30.0); ALBUMIN 3.7 GM/DL (3.2-5.2); ALBUMIN/GLOBULIN RATIO 1.54 (1.00-1.93); ALKALINE PHOSPHATASE 84 U/L (45-117); ALT/SGPT 30 U/L (12-78); ANION GAP 9 MEQ/L (8-16); AST/SGOT 23 U/L (7-37); BILIRUBIN,DIRECT 0.2 MG/DL (0.0-0.2); BILIRUBIN,TOTAL 0.7 MG/DL (0.2-1.0); BLOOD UREA NITROGEN 21 MG/DL (7-18); CARBON DIOXIDE LEVEL 29 MEQ/L (21-32); CHLORIDE LEVEL 109 MEQ/L (98-107); GLOMERULAR FILTRATION RATE 59.4 (>49); GLUCOSE, FASTING 92 MG/DL (70-100); POTASSIUM SERUM 3.9 MEQ/L (3.5-5.1); SALICYLATE LEVEL < 1.7 MG/DL (5.0-30.0); SODIUM LEVEL 147 MEQ/L (136-145); TOTAL PROTEIN 6.1 GM/DL (6.4-8.2)
[2017-09-23 04:36] LABS: ETHYL ALCOHOL (ETHANOL) < 0.003 % (0.000-0.010)
[2017-09-23] MEDS ORDERED: MAALOX 30 ML SUSP *UDC PO (07:00)
[2017-09-23] MEDS ORDERED: MOM 30ML SUSPENSION UDC PO (07:00)
[2017-09-23] MEDS: clonazePAM 1 MG TAB PO ×4 (08:35→21:15)
[2017-09-23] MEDS: PALIPERIDONE 3 MG ER TAB (INVEGA) PO (08:36)
[2017-09-23] MEDS: OLANZapine 10 MG TAB PO (11:07)
[2017-09-23] MEDS: VENLAFAXINE **XR** 75MG CAPSULE PO (11:07)
[2017-09-23] MEDS: AMANTADINE 100 MG CAP PO ×2 (12:22→21:15)
[2017-09-23] MEDS: MIRTAZAPINE 15 MG TAB PO (21:15)
[2017-09-23] MEDS: ACETAMINOPHEN TAB 650MG DOSE (2X325MG) PO (21:18)
[2017-09-24] MEDS: traZODone 50 MG TAB PO ×2 (00:33→21:36)
[2017-09-24] MEDS: OLANZapine 5 MG TAB PO ×5 (00:33→21:36)
[2017-09-24] MEDS: hydrOXYzine 50 MG TAB PO (07:42)
[2017-09-24 08:18] LABS: HEMATOCRIT 40.7 % (42.0-52.0); HEMOGLOBIN 13.8 g/dl (14.0-18.0); MEAN CORPUSCULAR HEMOGLOBIN 29.6 pg (27.0-33.0); MEAN CORPUSCULAR HGB CONC 33.9 g/dl (32.0-36.5); MEAN CORPUSCULAR VOLUME 87.2 fl (80.0-96.0); PLATELET COUNT, AUTOMATED 236 10^3/uL (150-450); RED BLOOD COUNT 4.67 10^6/uL (4.30-6.10)
[2017-09-24 08:46] LABS: ALBUMIN 3.6 GM/DL (3.2-5.2); ALBUMIN/GLOBULIN RATIO 1.44 (1.00-1.93); ALKALINE PHOSPHATASE 100 U/L (45-117); ALT/SGPT 31 U/L (12-78); ANION GAP 7 MEQ/L (8-16); AST/SGOT 32 U/L (7-37); BILIRUBIN,TOTAL 1.4 MG/DL (0.2-1.0); BLOOD UREA NITROGEN 18 MG/DL (7-18); CALCIUM LEVEL 9.4 MG/DL (8.8-10.2); CARBON DIOXIDE LEVEL 31 MEQ/L (21-32); CHLORIDE LEVEL 105 MEQ/L (98-107); CREATININE FOR GFR 1.27 MG/DL (0.70-1.30); GLOMERULAR FILTRATION RATE > 60.0 (>49); GLUCOSE, FASTING 116 MG/DL (70-100); POTASSIUM SERUM 4.2 MEQ/L (3.5-5.1); SODIUM LEVEL 143 MEQ/L (136-145); TOTAL PROTEIN 6.1 GM/DL (6.4-8.2)
[2017-09-24] MEDS: PALIPERIDONE 3 MG ER TAB (INVEGA) PO (09:02)
[2017-09-24] MEDS: AMANTADINE 100 MG CAP PO ×2 (09:03→21:36)
[2017-09-24] MEDS: clonazePAM 1 MG TAB PO ×4 (09:04→21:36)
[2017-09-24] MEDS: VENLAFAXINE **XR** 75MG CAPSULE PO (09:04)
[2017-09-24] MEDS: MAXITROL OPHTH SUSP 5 ML OU ×2 (17:53→21:36)
[2017-09-24] MEDS: MIRTAZAPINE 15 MG TAB PO (21:36)
[2017-09-25] MEDS: hydrOXYzine 50 MG TAB PO ×3 (01:19→19:49)
[2017-09-25] MEDS ORDERED: HALOPERIDOL 5 MG TAB As Ordered (07:04)
[2017-09-25] MEDS ORDERED: LORazepam 1 MG TAB As Ordered (07:04)
[2017-09-25] MEDS: HALOPERIDOL 5 MG TAB PO (07:13)
[2017-09-25] MEDS: LORazepam 1 MG TAB PO (07:13)
[2017-09-25] MEDS: OLANZapine 5 MG TAB PO ×4 (09:12→19:49)
[2017-09-25] MEDS: PALIPERIDONE 3 MG ER TAB (INVEGA) PO (09:13)
[2017-09-25] MEDS: VENLAFAXINE **XR** 75MG CAPSULE PO (09:13)
[2017-09-25] MEDS: AMANTADINE 100 MG CAP PO (09:13)
[2017-09-25] MEDS: clonazePAM 1 MG TAB PO ×4 (09:13→19:49)
[2017-09-25] MEDS: LORazepam 2 MG TAB PO ×3 (09:13→23:02)
[2017-09-25] MEDS: MAXITROL OPHTH SUSP 5 ML OU ×4 (09:13→19:51)
[2017-09-25] MEDS: cloZAPine 25 MG TAB (S0136) PO (11:31)
[2017-09-25] MEDS: MIRTAZAPINE 15 MG TAB PO (19:49)
[2017-09-25] MEDS: diphenhydrAMINE 50 MG CAP PO (23:02)
[2017-09-25] MEDS: HALOPERIDOL 10 MG TAB PO (23:02)
[2017-09-26] MEDS: hydrOXYzine 50 MG TAB PO (05:06)
[2017-09-26] MEDS: LORazepam 2 MG TAB PO ×2 (05:08→10:43)
[2017-09-26] MEDS: diphenhydrAMINE INJ 50MG/ML VIAL (J1200) IM ×3 (05:29→12:57)
[2017-09-26] MEDS: LORazepam 2 MG/ML VIAL (J2060) IM ×4 (05:29→12:57)
[2017-09-26] MEDS: HALOPERIDOL 5 MG/ML VIAL (J1630) IM ×3 (05:30→12:32)
[2017-09-26] MEDS: VENLAFAXINE **XR** 75MG CAPSULE PO ×2 (09:00→10:43)
[2017-09-26] MEDS: clonazePAM 1 MG TAB PO ×5 (09:00→21:00)
[2017-09-26] MEDS: PALIPERIDONE 3 MG ER TAB (INVEGA) PO ×2 (09:00→10:43)
[2017-09-26] MEDS: AMANTADINE 100 MG CAP PO ×2 (09:00→10:43)
[2017-09-26] MEDS: MAXITROL OPHTH SUSP 5 ML OU ×5 (09:00→22:21)
[2017-09-26] MEDS: OLANZapine 5 MG TAB PO ×5 (09:00→22:16)
[2017-09-26] MEDS ORDERED: HALOPERIDOL 5 MG TAB PO (11:00)
[2017-09-26] MEDS ORDERED: HALOPERIDOL 10 MG TAB PO (12:27)
[2017-09-26] MEDS ORDERED: HALOPERIDOL 5 MG/ML VIAL (J1630) IM ×2 (12:38→12:45)
[2017-09-26 17:06] LABS: BASO % 0.4 % (0.0-1.0); EOS % 0.5 % (0.0-3.0); HEMATOCRIT 41.6 % (42.0-52.0); HEMOGLOBIN 14.1 g/dl (14.0-18.0); IMMATURE GRANULOCYTE % 0.5 % (0-3.0); LYMPH # 0.8 10^3/uL (1.5-4.5); MEAN CORPUSCULAR HEMOGLOBIN 29.7 pg (27.0-33.0); MEAN CORPUSCULAR HGB CONC 33.9 g/dl (32.0-36.5); MEAN CORPUSCULAR VOLUME 87.6 fl (80.0-96.0); MONO # 0.9 10^3/uL (0.0-0.8); MONO % 11.5 % (0.0-5.0); NEUTROPHILS # 6.3 10^3/uL (1.8-7.7); NEUTROPHILS % 77.1 % (36.0-66.0); PLATELET COUNT, AUTOMATED 229 10^3/uL (150-450); RED BLOOD COUNT 4.75 10^6/uL (4.30-6.10); RED CELL DISTRIBUTION WIDTH 12.9 % (11.5-14.5); WHITE BLOOD COUNT 8.1 10^3/uL (4.0-10.0)
[2017-09-26] MEDS: cloZAPine 25 MG TAB (S0136) PO (22:16)
[2017-09-26] MEDS: MIRTAZAPINE 15 MG TAB PO (22:17)
[2017-09-27] MEDS: LORazepam 2 MG/ML VIAL (J2060) IM (02:21)
[2017-09-27] MEDS: HALOPERIDOL 5 MG/ML VIAL (J1630) IM (03:45)
[2017-09-27] MEDS: diphenhydrAMINE INJ 50MG/ML VIAL (J1200) IM (05:07)
[2017-09-27] MEDS: PALIPERIDONE 3 MG ER TAB (INVEGA) PO (09:16)
[2017-09-27] MEDS: MAXITROL OPHTH SUSP 5 ML OU ×3 (09:16→16:44)
[2017-09-27] MEDS: clonazePAM 1 MG TAB PO ×3 (09:16→16:44)
[2017-09-27] MEDS: VENLAFAXINE **XR** 75MG CAPSULE PO (09:16)
[2017-09-27] MEDS: OLANZapine 5 MG TAB PO ×3 (09:16→16:44)
[2017-09-27] MEDS: AMANTADINE 100 MG CAP PO (09:16)
[2017-09-27 13:13] LABS: BASO % 0.4 % (0.0-1.0); EOS % 0.1 % (0.0-3.0); HEMATOCRIT 41.8 % (42.0-52.0); HEMOGLOBIN 14.2 g/dl (14.0-18.0); IMMATURE GRANULOCYTE % 0.1 % (0-3.0); LYMPH # 0.7 10^3/uL (1.5-4.5); LYMPH % 8.1 % (24.0-44.0); MEAN CORPUSCULAR HEMOGLOBIN 29.5 pg (27.0-33.0); MEAN CORPUSCULAR VOLUME 86.9 fl (80.0-96.0); MONO % 11.5 % (0.0-5.0); NEUTROPHILS # 6.6 10^3/uL (1.8-7.7); NEUTROPHILS % 79.8 % (36.0-66.0); PLATELET COUNT, AUTOMATED 271 10^3/uL (150-450); RED BLOOD COUNT 4.81 10^6/uL (4.30-6.10); WHITE BLOOD COUNT 8.2 10^3/uL (4.0-10.0)
[2017-09-27 13:41] LABS: AMMONIA 23 uMOL/L (<32)
[2017-09-27 14:08] LABS: ALBUMIN 4.1 GM/DL (3.2-5.2); ALBUMIN/GLOBULIN RATIO 1.37 (1.00-1.93); ALKALINE PHOSPHATASE 103 U/L (45-117); ALT/SGPT 78 U/L (12-78); ANION GAP 15 MEQ/L (8-16); AST/SGOT 245 U/L (7-37); BLOOD UREA NITROGEN 54 MG/DL (7-18); CALCIUM LEVEL 9.5 MG/DL (8.8-10.2); CARBON DIOXIDE LEVEL 23 MEQ/L (21-32); CHLORIDE LEVEL 109 MEQ/L (98-107); CREATININE FOR GFR 1.83 MG/DL (0.70-1.30); GLUCOSE, FASTING 187 MG/DL (70-100); MAGNESIUM LEVEL 2.7 MG/DL (1.8-2.4); POTASSIUM SERUM 4.1 MEQ/L (3.5-5.1); PREALBUMIN 25.4 MG/DL (20.0-40.0); SODIUM LEVEL 147 MEQ/L (136-145); TOTAL PROTEIN 7.1 GM/DL (6.4-8.2)
[2017-09-27 17:05] LABS: CPK CREATINE PHOSPHOKINASE 6290 U/L (39-308)
[2017-09-27] MEDS ORDERED: NS 1,000 ML IV (19:52)
== END 2017-09-27 20:20 | disposition short-term general hospital (02) | DRG 885 ==
LOC: M ED 02:46 → M PSY 07:50
DX: F25.9 Schizoaffective disorder, unspecified (principal); E87.0 Hyperosmolality and hypernatremia; F41.0 Panic disorder [episodic paroxysmal anxiety]; M19.90 Unspecified osteoarthritis, unspecified site; F41.1 Generalized anxiety disorder; E55.9 Vitamin D deficiency, unspecified; F44.5 Conversion disorder with seizures or convulsions; Z79.82 Long term (current) use of aspirin; Z79.899 Other long term (current) drug therapy

== ENCOUNTER 2017-09-27 20:20 | Inpatient (IN) | payer MEDICARE, MEDICAID ==
[~2017-09-27 20:20] MED LIST changes: -/HALO5TAB; -/QUET10TA; -/QUET25TA; +ACETAMINOPHEN TAB 650MG DOSE (2X325MG) PO; -ARIC1TAB PO; -ASPI1TAB15 PO; -ASPI81TAEC PO; -BENZ0.5T PO; -CHLO10SU; -CLON0.5T PO; -CLON1TAB PO; -CLOZ100T2 PO; -CLOZ25TA3 PO; -COGENTIN; -DEPA500T; -DEPA500T2; -DRIS50002 PO; -EFFE37.527; -EFFE37.527 PO; -HALO10TA4; -HALO2TA PO; -HYDR-3363 PO; -HYDR10TA3; -HYDR50CA2; -HYDR50TA70 PO; -INDE1CAP5 PO; -KLON0.5T; -KLON1TAB PO; -LATU1TAB PO; -LORA2TAB; -MIRT30TA3 PO; -MIRT45TA PO; -NORC1TAB4 PO; -OLAN5TAB PO; -PROAAER10 INH; -PROP1TAB29 PO; -PROP80CA PO; -PROPRANOLOL PO; -PROZ20CA11 PO; -PROZ40CA PO; -QUET1TAB9; -QUET20XRTB; -RISP1TAB; -RISP3TAB16; -SERO200T PO; -SERO400T; -SERO400T PO; -SERO400T3; -Seroquel PO; -TRAZ50TA11 PO; -TRAZO50TA PO; -VALI5TAB; -VENL37.52 PO; -VENL37.598 PO; -VENL37TA PO; -VENL75TA2; -VICO5TAB16 PO; -VITMTA PO; -ZOCO40TA
[2017-09-27] MEDS: cloZAPine 25 MG TAB (S0136) PO (21:00)
[2017-09-27] MEDS: OLANZapine 5 MG TAB PO (21:00)
[2017-09-27] MEDS: SENOKOT S TAB PO (21:00)
[2017-09-27] MEDS: MIRTAZAPINE 15 MG TAB PO (21:00)
[2017-09-27] MEDS: HEPARIN SOD (PORCINE) 5000 UNITS/ML VIAL SQ (21:00)
[2017-09-27] MEDS: MAXITROL OPHTH SUSP 5 ML OU (21:00)
[2017-09-27] MEDS: HALOPERIDOL 5 MG/ML VIAL (J1630) IV (21:43)
[2017-09-27] MEDS: LORazepam 2 MG/ML VIAL (J2060) IV (21:43)
[2017-09-27] MEDS: NS 1,000 ML IV (21:43)
[2017-09-27] MEDS: clonazePAM 1 MG TAB PO (22:00)
[2017-09-27] MEDS: HALOPERIDOL 5 MG/ML VIAL (J1630) IM (22:13)
[2017-09-27] MEDS ORDERED: HALOPERIDOL 5 MG/ML VIAL (J1630) IM (22:24)
[2017-09-27] MEDS ORDERED: diphenhydrAMINE INJ 50MG/ML VIAL (J1200) IM (22:24)
[2017-09-27] MEDS: ZIPRASIDONE 20 MG/ML VIAL *GEODON* (J3486) IM (23:17)
[2017-09-28] MEDS: D5W/0.45% SODIUM CHLORIDE 1,000 ML IV ×5 (00:05→22:51)
[2017-09-28 01:22] LABS: BEDSIDE GLUCOSE 168 MG/DL (80-115)
[2017-09-28] MEDS ORDERED: HALOPERIDOL 5 MG/ML VIAL (J1630) IV (01:45)
[2017-09-28] MEDS: HALOPERIDOL 5 MG/ML VIAL (J1630) IM (02:20)
[2017-09-28] MEDS ORDERED: PALIPERIDONE 3 MG ER TAB (INVEGA) PO (09:00)
[2017-09-28 09:34] LABS: BASO % 0.5 % (0.0-1.0); EOS # 0.1 10^3/uL (0.0-0.50); EOS % 2.1 % (0.0-3.0); HEMATOCRIT 39.9 % (42.0-52.0); HEMOGLOBIN 13.2 g/dl (14.0-18.0); IMMATURE GRANULOCYTE % 0.3 % (0-3.0); LYMPH % 14.7 % (24.0-44.0); MEAN CORPUSCULAR HEMOGLOBIN 29.5 pg (27.0-33.0); MEAN CORPUSCULAR HGB CONC 33.1 g/dl (32.0-36.5); MEAN CORPUSCULAR VOLUME 89.1 fl (80.0-96.0); MONO # 0.9 10^3/uL (0.0-0.8); MONO % 13.2 % (0.0-5.0); NEUTROPHILS # 4.6 10^3/uL (1.8-7.7); NEUTROPHILS % 69.2 % (36.0-66.0); PLATELET COUNT, AUTOMATED 189 10^3/uL (150-450); RED BLOOD COUNT 4.48 10^6/uL (4.30-6.10); RED CELL DISTRIBUTION WIDTH 13.3 % (11.5-14.5); WHITE BLOOD COUNT 6.6 10^3/uL (4.0-10.0)
[2017-09-28 09:53] LABS: ESTIMATED AVERAGE GLUCOSE 117 MG/DL (60-110); HEMOGLOBIN A1c 5.7 %
[2017-09-28 10:03] LABS: ALBUMIN 3.6 GM/DL (3.2-5.2); ALKALINE PHOSPHATASE 85 U/L (45-117); ALT/SGPT 70 U/L (12-78); ANION GAP 5 MEQ/L (8-16); AST/SGOT 163 U/L (7-37); BILIRUBIN,TOTAL 0.8 MG/DL (0.2-1.0); BLOOD UREA NITROGEN 47 MG/DL (7-18); CALCIUM LEVEL 8.9 MG/DL (8.8-10.2); CARBON DIOXIDE LEVEL 29 MEQ/L (21-32); CHLORIDE LEVEL 116 MEQ/L (98-107); CREATININE FOR GFR 1.05 MG/DL (0.70-1.30); GLOMERULAR FILTRATION RATE > 60.0 (>49); GLUCOSE, FASTING 138 MG/DL (70-100); MAGNESIUM LEVEL 2.8 MG/DL (1.8-2.4); POTASSIUM SERUM 4.4 MEQ/L (3.5-5.1); SODIUM LEVEL 150 MEQ/L (136-145); TOTAL PROTEIN 6.6 GM/DL (6.4-8.2)
[2017-09-28 10:11] LABS: CK-MB VALUE MASS 16.5 NG/ML (0.0-3.6); CPK CREATINE PHOSPHOKINASE 3652 U/L (39-308); MB/CK RELATIVE INDEX 0.45 (< OR =4)
[2017-09-28] MEDS: SENOKOT S TAB PO ×2 (11:53→20:06)
[2017-09-28] MEDS: AMANTADINE 100 MG CAP PO (11:53)
[2017-09-28] MEDS: VENLAFAXINE **XR** 75MG CAPSULE PO (11:53)
[2017-09-28] MEDS: clonazePAM 1 MG TAB PO ×2 (11:53→20:06)
[2017-09-28] MEDS: HEPARIN SOD (PORCINE) 5000 UNITS/ML VIAL SQ ×2 (11:54→20:06)
[2017-09-28] MEDS: OLANZapine 5 MG TAB PO ×2 (11:54→20:07)
[2017-09-28] MEDS: MAXITROL OPHTH SUSP 5 ML OU ×4 (11:54→20:07)
[2017-09-28 19:03] LABS: CK-MB VALUE MASS 9.2 NG/ML (0.0-3.6); CPK CREATINE PHOSPHOKINASE 2319 U/L (39-308); MB/CK RELATIVE INDEX 0.39 (< OR =4)
[2017-09-28] MEDS: cloZAPine 25 MG TAB (S0136) PO (20:06)
[2017-09-28] MEDS: MIRTAZAPINE 15 MG TAB PO (20:06)
[2017-09-29 05:24] LABS: HEMATOCRIT 38.5 % (42.0-52.0); HEMOGLOBIN 12.6 g/dl (14.0-18.0); MEAN CORPUSCULAR HEMOGLOBIN 29.4 pg (27.0-33.0); MEAN CORPUSCULAR HGB CONC 32.7 g/dl (32.0-36.5); MEAN CORPUSCULAR VOLUME 89.7 fl (80.0-96.0); PLATELET COUNT, AUTOMATED 199 10^3/uL (150-450); RED BLOOD COUNT 4.29 10^6/uL (4.30-6.10); RED CELL DISTRIBUTION WIDTH 13.2 % (11.5-14.5)
[2017-09-29 05:54] LABS: ALBUMIN 3.2 GM/DL (3.2-5.2); ALKALINE PHOSPHATASE 79 U/L (45-117); ALT/SGPT 57 U/L (12-78); ANION GAP 4 MEQ/L (8-16); AST/SGOT 83 U/L (7-37); BILIRUBIN,TOTAL 0.6 MG/DL (0.2-1.0); BLOOD UREA NITROGEN 31 MG/DL (7-18); CALCIUM LEVEL 8.7 MG/DL (8.8-10.2); CARBON DIOXIDE LEVEL 29 MEQ/L (21-32); CHLORIDE LEVEL 114 MEQ/L (98-107); CK-MB VALUE MASS 3.5 NG/ML (0.0-3.6); CPK CREATINE PHOSPHOKINASE 1297 U/L (39-308); CREATININE FOR GFR 0.88 MG/DL (0.70-1.30); GLOMERULAR FILTRATION RATE > 60.0 (>49); GLUCOSE, FASTING 129 MG/DL (70-100); MAGNESIUM LEVEL 2.3 MG/DL (1.8-2.4); MB/CK RELATIVE INDEX 0.26 (< OR =4); POTASSIUM SERUM 3.8 MEQ/L (3.5-5.1); SODIUM LEVEL 147 MEQ/L (136-145); TOTAL PROTEIN 6.1 GM/DL (6.4-8.2)
[2017-09-29] MEDS: MAXITROL OPHTH SUSP 5 ML OU ×4 (09:00→20:47)
[2017-09-29] MEDS: VENLAFAXINE **XR** 75MG CAPSULE PO (09:26)
[2017-09-29] MEDS: clonazePAM 1 MG TAB PO ×2 (09:26→20:46)
[2017-09-29] MEDS: SENOKOT S TAB PO ×2 (09:26→20:46)
[2017-09-29] MEDS: AMANTADINE 100 MG CAP PO (09:26)
[2017-09-29] MEDS: OLANZapine 5 MG TAB PO ×2 (09:27→20:46)
[2017-09-29] MEDS: HEPARIN SOD (PORCINE) 5000 UNITS/ML VIAL SQ ×2 (09:27→20:46)
[2017-09-29 18:56] LABS: CK-MB VALUE MASS 2.1 NG/ML (0.0-3.6); CPK CREATINE PHOSPHOKINASE 868 U/L (39-308); MB/CK RELATIVE INDEX 0.24 (< OR =4)
[2017-09-29] MEDS: cloZAPine 25 MG TAB (S0136) PO (20:46)
[2017-09-29] MEDS: MIRTAZAPINE 15 MG TAB PO (20:46)
[2017-09-30] MEDS ORDERED: SLF 3 ML SYR IV (01:30)
[2017-09-30 04:24] LABS: HEMATOCRIT 36.4 % (42.0-52.0); MEAN CORPUSCULAR HEMOGLOBIN 29.1 pg (27.0-33.0); MEAN CORPUSCULAR VOLUME 88.1 fl (80.0-96.0); PLATELET COUNT, AUTOMATED 187 10^3/uL (150-450); RED BLOOD COUNT 4.13 10^6/uL (4.30-6.10); RED CELL DISTRIBUTION WIDTH 12.7 % (11.5-14.5); WHITE BLOOD COUNT 8.4 10^3/uL (4.0-10.0)
[2017-09-30 04:45] LABS: ALBUMIN 2.8 GM/DL (3.2-5.2); ALBUMIN/GLOBULIN RATIO 0.97 (1.00-1.93); ALKALINE PHOSPHATASE 76 U/L (45-117); ALT/SGPT 49 U/L (12-78); ANION GAP 5 MEQ/L (8-16); AST/SGOT 51 U/L (7-37); BILIRUBIN,TOTAL 0.5 MG/DL (0.2-1.0); BLOOD UREA NITROGEN 25 MG/DL (7-18); CALCIUM LEVEL 8.5 MG/DL (8.8-10.2); CARBON DIOXIDE LEVEL 29 MEQ/L (21-32); CHLORIDE LEVEL 110 MEQ/L (98-107); CK-MB VALUE MASS 1.9 NG/ML (0.0-3.6); CPK CREATINE PHOSPHOKINASE 598 U/L (39-308); CREATININE FOR GFR 0.76 MG/DL (0.70-1.30); GLOMERULAR FILTRATION RATE > 60.0 (>49); GLUCOSE, FASTING 107 MG/DL (70-100); MAGNESIUM LEVEL 1.9 MG/DL (1.8-2.4); MB/CK RELATIVE INDEX 0.31 (< OR =4); POTASSIUM SERUM 3.9 MEQ/L (3.5-5.1); SODIUM LEVEL 144 MEQ/L (136-145); TOTAL PROTEIN 5.7 GM/DL (6.4-8.2)
[2017-09-30] MEDS: SLF 3 ML SYR IV ×3 (05:25→22:11)
[2017-09-30] MEDS: clonazePAM 1 MG TAB PO ×3 (08:22→22:11)
[2017-09-30] MEDS: SENOKOT S TAB PO ×2 (08:22→22:11)
[2017-09-30] MEDS: AMANTADINE 100 MG CAP PO (08:22)
[2017-09-30] MEDS: VENLAFAXINE **XR** 75MG CAPSULE PO (08:22)
[2017-09-30] MEDS: OLANZapine 5 MG TAB PO ×2 (08:22→22:11)
[2017-09-30] MEDS: HEPARIN SOD (PORCINE) 5000 UNITS/ML VIAL SQ ×2 (08:23→22:11)
[2017-09-30] MEDS: MAXITROL OPHTH SUSP 5 ML OU ×4 (08:23→22:11)
[2017-09-30 11:46] LABS: VITAMIN B12 LEVEL 740 PG/ML (247-911)
[2017-09-30 18:33] LABS: CK-MB VALUE MASS 1.3 NG/ML (0.0-3.6); CPK CREATINE PHOSPHOKINASE 450 U/L (39-308); MB/CK RELATIVE INDEX 0.28 (< OR =4)
[2017-09-30] MEDS: cloZAPine 25 MG TAB (S0136) PO (22:11)
[2017-09-30] MEDS: MIRTAZAPINE 15 MG TAB PO (22:11)
[2017-10-01] MEDS: SLF 3 ML SYR IV ×2 (05:40→13:14)
[2017-10-01 06:05] LABS: HEMATOCRIT 38.1 % (42.0-52.0); HEMOGLOBIN 12.9 g/dl (14.0-18.0); MEAN CORPUSCULAR HEMOGLOBIN 30.1 pg (27.0-33.0); MEAN CORPUSCULAR HGB CONC 33.9 g/dl (32.0-36.5); PLATELET COUNT, AUTOMATED 201 10^3/uL (150-450); RED BLOOD COUNT 4.28 10^6/uL (4.30-6.10); RED CELL DISTRIBUTION WIDTH 12.6 % (11.5-14.5); WHITE BLOOD COUNT 5.7 10^3/uL (4.0-10.0)
[2017-10-01 06:36] LABS: ALBUMIN 2.9 GM/DL (3.2-5.2); ALBUMIN/GLOBULIN RATIO 0.97 (1.00-1.93); ALKALINE PHOSPHATASE 85 U/L (45-117); ALT/SGPT 49 U/L (12-78); ANION GAP 4 MEQ/L (8-16); AST/SGOT 40 U/L (7-37); BILIRUBIN,TOTAL 0.6 MG/DL (0.2-1.0); BLOOD UREA NITROGEN 25 MG/DL (7-18); CALCIUM LEVEL 9.1 MG/DL (8.8-10.2); CARBON DIOXIDE LEVEL 31 MEQ/L (21-32); CHLORIDE LEVEL 107 MEQ/L (98-107); CREATININE FOR GFR 0.86 MG/DL (0.70-1.30); GLOMERULAR FILTRATION RATE > 60.0 (>49); GLUCOSE, FASTING 96 MG/DL (70-100); MAGNESIUM LEVEL 2.3 MG/DL (1.8-2.4); POTASSIUM SERUM 4.3 MEQ/L (3.5-5.1); SODIUM LEVEL 142 MEQ/L (136-145); TOTAL PROTEIN 5.9 GM/DL (6.4-8.2)
[2017-10-01] MEDS: VENLAFAXINE **XR** 75MG CAPSULE PO (08:20)
[2017-10-01] MEDS: OLANZapine 5 MG TAB PO (08:20)
[2017-10-01] MEDS: HEPARIN SOD (PORCINE) 5000 UNITS/ML VIAL SQ (08:20)
[2017-10-01] MEDS: SENOKOT S TAB PO (08:20)
[2017-10-01] MEDS: clonazePAM 1 MG TAB PO ×2 (08:20→15:01)
[2017-10-01] MEDS: MAXITROL OPHTH SUSP 5 ML OU ×2 (08:21→13:14)
[2017-10-01] MEDS: AMANTADINE 100 MG CAP PO (09:00)
[2017-10-01] MEDS: HALOPERIDOL 5 MG/ML VIAL (J1630) IV (13:42)
== END 2017-10-01 16:25 | DRG 558 ==
LOC: M MSPAV 09-30 20:19 → M PCU 23:23
PROVIDERS: Hospitalist
DX: M62.82 Rhabdomyolysis (principal); N17.9 Acute kidney failure, unspecified; E87.0 Hyperosmolality and hypernatremia; F20.0 Paranoid schizophrenia; E86.0 Dehydration; F41.9 Anxiety disorder, unspecified; F25.9 Schizoaffective disorder, unspecified; G20 Parkinson's disease; R27.0 Ataxia, unspecified; Z79.82 Long term (current) use of aspirin; Z79.899 Other long term (current) drug therapy; Z88.8 Allergy status to other drugs, medicaments and biological substances

== ENCOUNTER 2017-10-01 16:33 | Inpatient (IN) | payer MEDICARE, MEDICAID ==
[2017-10-01] MEDS ORDERED: HALOPERIDOL 5 MG TAB PO (17:00)
[2017-10-01] MEDS: OLANZapine 5 MG TAB PO (21:20)
[2017-10-01] MEDS: cloZAPine 25 MG TAB (S0136) PO (21:20)
[2017-10-01] MEDS: MIRTAZAPINE 15 MG TAB PO (21:20)
[2017-10-01] MEDS: clonazePAM 1 MG TAB PO (21:20)
[2017-10-02 06:38] LABS: BASO # 0.1 10^3/uL (0.0-0.2); EOS # 0.4 10^3/uL (0.0-0.50); EOS % 6.1 % (0.0-3.0); HEMATOCRIT 43.1 % (42.0-52.0); HEMOGLOBIN 14.1 g/dl (14.0-18.0); IMMATURE GRANULOCYTE % 0.3 % (0-3.0); LYMPH # 2.5 10^3/uL (1.5-4.5); LYMPH % 43.1 % (24.0-44.0); MEAN CORPUSCULAR HEMOGLOBIN 29.1 pg (27.0-33.0); MEAN CORPUSCULAR HGB CONC 32.7 g/dl (32.0-36.5); MONO # 0.7 10^3/uL (0.0-0.8); MONO % 12.1 % (0.0-5.0); NEUTROPHILS # 2.2 10^3/uL (1.8-7.7); NEUTROPHILS % 37.4 % (36.0-66.0); PLATELET COUNT, AUTOMATED 235 10^3/uL (150-450); RED BLOOD COUNT 4.84 10^6/uL (4.30-6.10); RED CELL DISTRIBUTION WIDTH 12.6 % (11.5-14.5); WHITE BLOOD COUNT 5.9 10^3/uL (4.0-10.0)
[2017-10-02 07:13] LABS: ALBUMIN 3.4 GM/DL (3.2-5.2); ALBUMIN/GLOBULIN RATIO 1.26 (1.00-1.93); ALKALINE PHOSPHATASE 91 U/L (45-117); ALT/SGPT 63 U/L (12-78); ANION GAP 6 MEQ/L (8-16); AST/SGOT 41 U/L (7-37); BILIRUBIN,TOTAL 0.4 MG/DL (0.2-1.0); BLOOD UREA NITROGEN 25 MG/DL (7-18); CALCIUM LEVEL 9.3 MG/DL (8.8-10.2); CARBON DIOXIDE LEVEL 32 MEQ/L (21-32); CHLORIDE LEVEL 105 MEQ/L (98-107); CREATININE FOR GFR 1.01 MG/DL (0.70-1.30); GLOMERULAR FILTRATION RATE > 60.0 (>49); GLUCOSE, FASTING 101 MG/DL (70-100); POTASSIUM SERUM 4.7 MEQ/L (3.5-5.1); SODIUM LEVEL 143 MEQ/L (136-145); TOTAL PROTEIN 6.1 GM/DL (6.4-8.2)
[2017-10-02] MEDS: OLANZapine 5 MG TAB PO ×2 (08:11→21:16)
[2017-10-02] MEDS: clonazePAM 1 MG TAB PO ×3 (08:11→21:16)
[2017-10-02] MEDS: VENLAFAXINE **XR** 75MG CAPSULE PO (08:11)
[2017-10-02] MEDS: ASPIRIN 81 MG ENTERIC TAB PO (09:36)
[2017-10-02] MEDS: hydrOXYzine 50 MG TAB PO ×2 (12:06→21:16)
[2017-10-02] MEDS: MIRTAZAPINE 15 MG TAB PO (21:16)
[2017-10-02] MEDS: cloZAPine 100 MG TAB (S0136) PO (21:16)
[2017-10-03 06:53] LABS: HEMATOCRIT 40.6 % (42.0-52.0); HEMOGLOBIN 13.7 g/dl (14.0-18.0); MEAN CORPUSCULAR HEMOGLOBIN 29.2 pg (27.0-33.0); MEAN CORPUSCULAR HGB CONC 33.7 g/dl (32.0-36.5); MEAN CORPUSCULAR VOLUME 86.6 fl (80.0-96.0); PLATELET COUNT, AUTOMATED 260 10^3/uL (150-450); RED BLOOD COUNT 4.69 10^6/uL (4.30-6.10); RED CELL DISTRIBUTION WIDTH 12.8 % (11.5-14.5); WHITE BLOOD COUNT 5.7 10^3/uL (4.0-10.0)
[2017-10-03 07:27] LABS: ALBUMIN 3.5 GM/DL (3.2-5.2); ALBUMIN/GLOBULIN RATIO 1.25 (1.00-1.93); ALKALINE PHOSPHATASE 100 U/L (45-117); ALT/SGPT 75 U/L (12-78); ANION GAP 8 MEQ/L (8-16); AST/SGOT 42 U/L (7-37); BILIRUBIN,TOTAL 0.4 MG/DL (0.2-1.0); BLOOD UREA NITROGEN 28 MG/DL (7-18); CALCIUM LEVEL 9.8 MG/DL (8.8-10.2); CARBON DIOXIDE LEVEL 28 MEQ/L (21-32); CHLORIDE LEVEL 105 MEQ/L (98-107); CREATININE FOR GFR 0.96 MG/DL (0.70-1.30); GLOMERULAR FILTRATION RATE > 60.0 (>49); GLUCOSE, FASTING 103 MG/DL (70-100); POTASSIUM SERUM 4.4 MEQ/L (3.5-5.1); SODIUM LEVEL 141 MEQ/L (136-145); TOTAL PROTEIN 6.3 GM/DL (6.4-8.2)
[2017-10-03] MEDS: ASPIRIN 81 MG ENTERIC TAB PO (08:36)
[2017-10-03] MEDS: OLANZapine 5 MG TAB PO ×2 (08:36→20:21)
[2017-10-03] MEDS: VENLAFAXINE **XR** 75MG CAPSULE PO (08:36)
[2017-10-03] MEDS: clonazePAM 1 MG TAB PO ×3 (08:36→20:20)
[2017-10-03] MEDS: MIRTAZAPINE 15 MG TAB PO (20:21)
[2017-10-03] MEDS: cloZAPine 100 MG TAB (S0136) PO (20:21)
[2017-10-04] MEDS: ASPIRIN 81 MG ENTERIC TAB PO (08:16)
[2017-10-04] MEDS: clonazePAM 1 MG TAB PO ×3 (08:16→19:58)
[2017-10-04] MEDS: OLANZapine 5 MG TAB PO ×2 (08:16→19:58)
[2017-10-04] MEDS: VENLAFAXINE **XR** 75MG CAPSULE PO (08:16)
[2017-10-04] MEDS: ACETAMINOPHEN TAB 650MG DOSE (2X325MG) PO (10:05)
[2017-10-04] MEDS ORDERED: MAALOX 30 ML SUSP *UDC PO (15:45)
[2017-10-04] MEDS: MOM 30ML SUSPENSION UDC PO (17:26)
[2017-10-04] MEDS: MIRTAZAPINE 15 MG TAB PO (19:58)
[2017-10-04] MEDS: cloZAPine 100 MG TAB (S0136) PO (19:58)
[2017-10-05] MEDS: clonazePAM 1 MG TAB PO ×3 (08:21→21:16)
[2017-10-05] MEDS: VITAMIN D 50,000 UNITS CAPSULE (ERGOCALCIFEROL 1.25MG) PO (08:21)
[2017-10-05] MEDS: VENLAFAXINE **XR** 75MG CAPSULE PO (08:21)
[2017-10-05] MEDS: OLANZapine 5 MG TAB PO ×2 (08:21→21:16)
[2017-10-05] MEDS: ASPIRIN 81 MG ENTERIC TAB PO (08:21)
[2017-10-05] MEDS: DOCUSATE SODIUM 100 MG CAP PO (13:38)
[2017-10-05] MEDS: MOM 30ML SUSPENSION UDC PO (20:01)
[2017-10-05] MEDS: MIRTAZAPINE 15 MG TAB PO (21:16)
[2017-10-05] MEDS: cloZAPine 100 MG TAB (S0136) PO (21:16)
[2017-10-06 06:54] LABS: BASO # 0.1 10^3/uL (0.0-0.2); EOS # 0.4 10^3/uL (0.0-0.50); EOS % 4.2 % (0.0-3.0); HEMATOCRIT 39.9 % (42.0-52.0); HEMOGLOBIN 13.4 g/dl (14.0-18.0); IMMATURE GRANULOCYTE % 1.5 % (0-3.0); LYMPH # 2.7 10^3/uL (1.5-4.5); LYMPH % 32.9 % (24.0-44.0); MEAN CORPUSCULAR HEMOGLOBIN 29.6 pg (27.0-33.0); MEAN CORPUSCULAR HGB CONC 33.6 g/dl (32.0-36.5); MEAN CORPUSCULAR VOLUME 88.3 fl (80.0-96.0); MONO % 12.6 % (0.0-5.0); NEUTROPHILS % 47.8 % (36.0-66.0); PLATELET COUNT, AUTOMATED 291 10^3/uL (150-450); RED BLOOD COUNT 4.52 10^6/uL (4.30-6.10); RED CELL DISTRIBUTION WIDTH 12.6 % (11.5-14.5); WHITE BLOOD COUNT 8.3 10^3/uL (4.0-10.0)
[2017-10-06] MEDS: VENLAFAXINE **XR** 75MG CAPSULE PO (07:57)
[2017-10-06] MEDS: ASPIRIN 81 MG ENTERIC TAB PO (07:57)
[2017-10-06] MEDS: OLANZapine 5 MG TAB PO ×2 (07:57→21:02)
[2017-10-06] MEDS: clonazePAM 1 MG TAB PO ×3 (07:57→21:02)
[2017-10-06] MEDS: DOCUSATE SODIUM 100 MG CAP PO (07:57)
[2017-10-06] MEDS: ACETAMINOPHEN TAB 650MG DOSE (2X325MG) PO (07:57)
[2017-10-06] MEDS: MIRTAZAPINE 15 MG TAB PO (21:02)
[2017-10-06] MEDS: cloZAPine 100 MG TAB (S0136) PO (21:02)
[2017-10-07] MEDS: clonazePAM 1 MG TAB PO (08:14)
[2017-10-07] MEDS: ASPIRIN 81 MG ENTERIC TAB PO (08:14)
[2017-10-07] MEDS: DOCUSATE SODIUM 100 MG CAP PO (08:14)
[2017-10-07] MEDS: OLANZapine 5 MG TAB PO (08:14)
[2017-10-07] MEDS: VENLAFAXINE **XR** 75MG CAPSULE PO (08:14)
== END 2017-10-07 14:38 | disposition home or self-care (01) | DRG 885 ==
LOC: M PSY 16:33
DX: F25.9 Schizoaffective disorder, unspecified (principal); G90.3 Multi-system degeneration of the autonomic nervous system; F41.0 Panic disorder [episodic paroxysmal anxiety]; Z79.82 Long term (current) use of aspirin; Z79.899 Other long term (current) drug therapy; E55.9 Vitamin D deficiency, unspecified; M19.90 Unspecified osteoarthritis, unspecified site; R56.9 Unspecified convulsions; R27.0 Ataxia, unspecified

== ENCOUNTER 2018-01-14 13:51 | Emergency (ER) | payer MEDICARE, MEDICAID ==
[2018-01-14] MEDS: NS 1,000 ML IV (14:58)
[2018-01-14 15:11] LABS: BEDSIDE GLUCOSE 151 MG/DL (80-115)
[2018-01-14 15:22] LABS: BASO % 0.5 % (0.0-1.0); EOS # 0.1 10^3/uL (0.0-0.50); EOS % 1.8 % (0.0-3.0); HEMATOCRIT 39.9 % (42.0-52.0); HEMOGLOBIN 13.7 g/dl (13.5-17.5); IMMATURE GRANULOCYTE % 0.2 % (0-3.0); LYMPH # 1.4 10^3/uL (1.5-4.5); LYMPH % 23.3 % (24.0-44.0); MEAN CORPUSCULAR HGB CONC 34.3 g/dl (32.0-36.5); MEAN CORPUSCULAR VOLUME 84.4 fl (80.0-96.0); MONO # 0.4 10^3/uL (0.0-0.8); MONO % 6.4 % (0.0-5.0); NEUTROPHILS # 4.1 10^3/uL (1.8-7.7); NEUTROPHILS % 67.8 % (36.0-66.0); PLATELET COUNT, AUTOMATED 258 10^3/uL (150-450); RED BLOOD COUNT 4.73 10^6/uL (4.30-6.10); RED CELL DISTRIBUTION WIDTH 11.9 % (11.5-14.5); WHITE BLOOD COUNT 6.1 10^3/uL (4.0-10.0)
[2018-01-14 15:32] LABS: INR 0.89; PROTHROMBIN TIME 12.1 SECONDS (12.4-14.5)
[2018-01-14 15:33] LABS: PARTIAL THROMBOPLASTIN TIME 29.3 SECONDS (26.8-37.9)
[2018-01-14 15:47] LABS: ALBUMIN 3.3 GM/DL (3.2-5.2); ALBUMIN/GLOBULIN RATIO 1.18 (1.00-1.93); ALKALINE PHOSPHATASE 87 U/L (45-117); ALT/SGPT 25 U/L (12-78); ANION GAP 8 MEQ/L (8-16); AST/SGOT 19 U/L (7-37); BILIRUBIN,DIRECT < 0.1 MG/DL (0.0-0.2); BILIRUBIN,TOTAL 0.2 MG/DL (0.2-1.0); BLOOD UREA NITROGEN 9 MG/DL (7-18); CALCIUM LEVEL 8.6 MG/DL (8.8-10.2); CARBON DIOXIDE LEVEL 25 MEQ/L (21-32); CHLORIDE LEVEL 110 MEQ/L (98-107); CPK CREATINE PHOSPHOKINASE 82 U/L (39-308); CREATININE FOR GFR 1.02 MG/DL (0.70-1.30); GLOMERULAR FILTRATION RATE > 60.0 (>49); GLUCOSE, FASTING 155 MG/DL (70-100); POTASSIUM SERUM 3.8 MEQ/L (3.5-5.1); SODIUM LEVEL 143 MEQ/L (136-145); TOTAL PROTEIN 6.1 GM/DL (6.4-8.2); TROPONIN I < 0.02 NG/ML (< 0.10)
[2018-01-14 15:48] LABS: CK-MB VALUE MASS < 1.0 NG/ML (<3.6); MB/CK RELATIVE INDEX 1.21 (< OR =4)
[2018-01-14] MEDS: ACETAMINOPHEN TAB 650MG DOSE (2X325MG) PO (16:44)
== END 2018-01-14 21:22 | disposition home or self-care (01) ==
LOC: M ED 13:51
DX: R51 Headache (principal); R00.0 Tachycardia, unspecified; I63.9 Cerebral infarction, unspecified; G89.29 Other chronic pain; M54.9 Dorsalgia, unspecified; E55.9 Vitamin D deficiency, unspecified; M19.90 Unspecified osteoarthritis, unspecified site; F25.9 Schizoaffective disorder, unspecified; F32.9 Major depressive disorder, single episode, unspecified; F41.9 Anxiety disorder, unspecified; F44.5 Conversion disorder with seizures or convulsions; R26.81 Unsteadiness on feet; Z79.82 Long term (current) use of aspirin; Z79.899 Other long term (current) drug therapy; Z88.8 Allergy status to other drugs, medicaments and biological substances
CPT/HCPCS: 70551

== ENCOUNTER 2018-03-08 22:56 | Inpatient (IN) | payer MEDICARE, MEDICAID ==
[2018-03-09] MEDS: clonazePAM 1 MG TAB PO ×2 (00:06→06:53)
[2018-03-09 00:42] LABS: HEMATOCRIT 37.6 % (42.0-52.0); HEMOGLOBIN 12.8 g/dl (13.5-17.5); MEAN CORPUSCULAR HEMOGLOBIN 29.2 pg (27.0-33.0); MEAN CORPUSCULAR VOLUME 85.8 fl (80.0-96.0); PLATELET COUNT, AUTOMATED 199 10^3/uL (150-450); RED BLOOD COUNT 4.38 10^6/uL (4.30-6.10); RED CELL DISTRIBUTION WIDTH 12.2 % (11.5-14.5); WHITE BLOOD COUNT 4.9 10^3/uL (4.0-10.0)
[2018-03-09 00:48] LABS: ACETAMINOPHEN LEVEL < 2.0 UG/ML (10.0-30.0); ALBUMIN 3.2 GM/DL (3.2-5.2); ALBUMIN/GLOBULIN RATIO 1.23 (1.00-1.93); ALKALINE PHOSPHATASE 69 U/L (45-117); ALT/SGPT 22 U/L (12-78); ANION GAP 8 MEQ/L (8-16); AST/SGOT 23 U/L (7-37); BILIRUBIN,DIRECT < 0.1 MG/DL (0.0-0.2); BILIRUBIN,TOTAL 0.4 MG/DL (0.2-1.0); BLOOD UREA NITROGEN 9 MG/DL (7-18); CALCIUM LEVEL 8.4 MG/DL (8.8-10.2); CARBON DIOXIDE LEVEL 25 MEQ/L (21-32); CHLORIDE LEVEL 111 MEQ/L (98-107); CREATININE FOR GFR 0.98 MG/DL (0.70-1.30); GLOMERULAR FILTRATION RATE > 60.0 (>49); GLUCOSE, FASTING 128 MG/DL (70-100); POTASSIUM SERUM 3.8 MEQ/L (3.5-5.1); SALICYLATE LEVEL < 1.7 MG/DL (5.0-30.0); SODIUM LEVEL 144 MEQ/L (136-145); TOTAL PROTEIN 5.8 GM/DL (6.4-8.2)
[2018-03-09 00:50] LABS: ETHYL ALCOHOL (ETHANOL) < 0.003 % (0.000-0.010)
[2018-03-09 01:00] LABS: AMPHETAMINES LEVEL URINE NEGATIVE (NEGATIVE); BARBITURATES URINE NEGATIVE (NEGATIVE); BENZODIAZEPINES URINE POSITIVE (NEGATIVE); CANNABINOIDS URINE NEGATIVE (NEGATIVE); COCAINE METABOLITE URINE NEGATIVE (NEGATIVE); METHADONE URINE NEGATIVE (NEGATIVE); OPIATES URINE NEGATIVE (NEGATIVE); PHENCYCLIDINE URINE NEGATIVE (NEGATIVE)
[2018-03-09] MEDS ORDERED: MOM 30ML SUSPENSION UDC PO (02:00)
[2018-03-09] MEDS ORDERED: MAALOX 30 ML SUSP *UDC PO (02:00)
[2018-03-09] MEDS ORDERED: ACETAMINOPHEN TAB 650MG DOSE (2X325MG) PO (02:00)
[2018-03-09] MEDS ORDERED: traZODone 50 MG TAB PO (02:00)
[2018-03-09] MEDS ORDERED: OLANZapine 5 MG TAB PO (03:15)
[2018-03-09 06:48] LABS: BASO # 0.1 10^3/uL (0.0-0.2); BASO % 0.9 % (0.0-1.0); EOS # 0.4 10^3/uL (0.0-0.50); EOS % 6.8 % (0.0-3.0); HEMATOCRIT 39.3 % (42.0-52.0); HEMOGLOBIN 13.3 g/dl (13.5-17.5); IMMATURE GRANULOCYTE % 0.2 % (0-3.0); LYMPH # 2.1 10^3/uL (1.5-4.5); LYMPH % 37.1 % (24.0-44.0); MEAN CORPUSCULAR HGB CONC 33.8 g/dl (32.0-36.5); MEAN CORPUSCULAR VOLUME 85.6 fl (80.0-96.0); MONO # 0.6 10^3/uL (0.0-0.8); MONO % 10.3 % (0.0-5.0); NEUTROPHILS # 2.5 10^3/uL (1.8-7.7); NEUTROPHILS % 44.7 % (36.0-66.0); PLATELET COUNT, AUTOMATED 202 10^3/uL (150-450); RED BLOOD COUNT 4.59 10^6/uL (4.30-6.10); RED CELL DISTRIBUTION WIDTH 12.3 % (11.5-14.5); WHITE BLOOD COUNT 5.6 10^3/uL (4.0-10.0)
[2018-03-09] MEDS: ASPIRIN 81 MG ENTERIC TAB PO (11:17)
[2018-03-09] MEDS: MULTIVITAMINS/MINERALS THERAP 1 TAB PO (11:18)
[2018-03-09] MEDS ORDERED: hydrOXYzine 50 MG TAB PO (14:45)
[2018-03-09] MEDS: VENLAFAXINE **XR** 75MG CAPSULE PO (15:59)
[2018-03-09] MEDS: QUEtiapine FUMARATE 200 MG TAB PO (21:27)
[2018-03-09] MEDS: cloZAPine 100 MG TAB (S0136) PO (21:27)
[2018-03-10] MEDS: VENLAFAXINE **XR** 75MG CAPSULE PO (08:30)
[2018-03-10] MEDS: ASPIRIN 81 MG ENTERIC TAB PO (08:30)
[2018-03-10] MEDS: MULTIVITAMINS/MINERALS THERAP 1 TAB PO (08:30)
[2018-03-10] MEDS: QUEtiapine FUMARATE 200 MG TAB PO (21:08)
[2018-03-10] MEDS: cloZAPine 100 MG TAB (S0136) PO (21:08)
[2018-03-11] MEDS: VENLAFAXINE **XR** 75MG CAPSULE PO (08:01)
[2018-03-11] MEDS: MULTIVITAMINS/MINERALS THERAP 1 TAB PO (08:02)
[2018-03-11] MEDS: ASPIRIN 81 MG ENTERIC TAB PO (08:02)
== END 2018-03-11 10:25 | disposition home or self-care (01) | DRG 885 ==
LOC: M ED 22:56 → M ED INP 03-09 01:50 → M PSY 03-09 02:54
DX: F25.9 Schizoaffective disorder, unspecified (principal); R45.851 Suicidal ideations; G20 Parkinson's disease; F41.0 Panic disorder [episodic paroxysmal anxiety]; Z79.82 Long term (current) use of aspirin; Z79.899 Other long term (current) drug therapy; Z88.8 Allergy status to other drugs, medicaments and biological substances; M19.90 Unspecified osteoarthritis, unspecified site; E55.9 Vitamin D deficiency, unspecified; M54.5 Low back pain; R26.89 Other abnormalities of gait and mobility

== ENCOUNTER 2018-05-10 01:21 | Emergency (ER) | payer MEDICARE, MEDICAID ==
[2018-05-10 02:21] LABS: BASO % 0.6 % (0.0-1.0); EOS # 0.3 10^3/uL (0.0-0.50); EOS % 4.6 % (0.0-3.0); HEMATOCRIT 41.5 % (42.0-52.0); HEMOGLOBIN 14.8 g/dl (13.5-17.5); IMMATURE GRANULOCYTE % 0.1 % (0-3.0); LYMPH # 2.4 10^3/uL (1.5-4.5); LYMPH % 32.9 % (24.0-44.0); MEAN CORPUSCULAR HEMOGLOBIN 30.8 pg (27.0-33.0); MEAN CORPUSCULAR HGB CONC 35.7 g/dl (32.0-36.5); MEAN CORPUSCULAR VOLUME 86.5 fl (80.0-96.0); MONO # 0.7 10^3/uL (0.0-0.8); MONO % 9.4 % (0.0-5.0); NEUTROPHILS # 3.8 10^3/uL (1.8-7.7); NEUTROPHILS % 52.4 % (36.0-66.0); PLATELET COUNT, AUTOMATED 201 10^3/uL (150-450); WHITE BLOOD COUNT 7.2 10^3/uL (4.0-10.0)
[2018-05-10 03:22] LABS: ALBUMIN 3.3 GM/DL (3.2-5.2); ALBUMIN/GLOBULIN RATIO 1.27 (1.00-1.93); ALKALINE PHOSPHATASE 83 U/L (45-117); ALT/SGPT 37 U/L (12-78); ANION GAP 9 MEQ/L (8-16); AST/SGOT 38 U/L (7-37); BILIRUBIN,DIRECT < 0.1 MG/DL (0.0-0.2); BILIRUBIN,TOTAL 0.4 MG/DL (0.2-1.0); BLOOD UREA NITROGEN 20 MG/DL (7-18); CALCIUM LEVEL 7.8 MG/DL (8.8-10.2); CARBON DIOXIDE LEVEL 26 MEQ/L (21-32); CHLORIDE LEVEL 108 MEQ/L (98-107); CK-MB VALUE MASS < 1.0 NG/ML (<3.6); CPK CREATINE PHOSPHOKINASE 73 U/L (39-308); CREATININE FOR GFR 1.22 MG/DL (0.70-1.30); GLOMERULAR FILTRATION RATE > 60.0 (>49); GLUCOSE, FASTING 97 MG/DL (70-100); LIPASE 206 U/L (73-393); MB/CK RELATIVE INDEX 1.37 (< OR =4); POTASSIUM SERUM 4.6 MEQ/L (3.5-5.1); SODIUM LEVEL 143 MEQ/L (136-145); TOTAL PROTEIN 5.9 GM/DL (6.4-8.2); TROPONIN I < 0.02 NG/ML (< 0.10)
[2018-05-10] MEDS: NS 1,000 ML IV (04:45)
== END 2018-05-10 06:10 | disposition home or self-care (01) ==
LOC: M ED 01:21
DX: I95.1 Orthostatic hypotension (principal); Z88.8 Allergy status to other drugs, medicaments and biological substances

== ENCOUNTER 2018-05-10 22:42 | Emergency (ER) | payer MEDICARE, MEDICAID ==
[2018-05-10] MEDS: OLANZapine INTRAMUSCULAR 10 MG VIAL (S0166) IM (23:33)
== END 2018-05-11 04:08 | disposition home or self-care (01) ==
LOC: M ED 22:42
DX: F44.5 Conversion disorder with seizures or convulsions (principal); F25.9 Schizoaffective disorder, unspecified; Z88.8 Allergy status to other drugs, medicaments and biological substances; Z79.82 Long term (current) use of aspirin; Z79.899 Other long term (current) drug therapy; Z86.69 Personal history of other diseases of the nervous system and sense organs
CPT/HCPCS: 70450

== ENCOUNTER 2018-05-11 14:08 | Emergency (ER) | payer MEDICARE, MEDICAID ==
[2018-05-11 15:03] LABS: BASO % 0.5 % (0.0-1.0); EOS # 0.1 10^3/uL (0.0-0.50); EOS % 2.2 % (0.0-3.0); HEMATOCRIT 43.8 % (42.0-52.0); HEMOGLOBIN 15.3 g/dl (13.5-17.5); IMMATURE GRANULOCYTE % 0.5 % (0-3.0); LYMPH # 1.4 10^3/uL (1.5-4.5); LYMPH % 23.8 % (24.0-44.0); MEAN CORPUSCULAR HEMOGLOBIN 29.4 pg (27.0-33.0); MEAN CORPUSCULAR HGB CONC 34.9 g/dl (32.0-36.5); MEAN CORPUSCULAR VOLUME 84.2 fl (80.0-96.0); MONO # 0.4 10^3/uL (0.0-0.8); MONO % 6.5 % (0.0-5.0); NEUTROPHILS % 66.5 % (36.0-66.0); PLATELET COUNT, AUTOMATED 207 10^3/uL (150-450); RED CELL DISTRIBUTION WIDTH 12.4 % (11.5-14.5)
[2018-05-11 15:20] LABS: OSMOLALITY SERUM 290 MOSM/KG (280-301)
[2018-05-11 15:43] LABS: ACETAMINOPHEN LEVEL < 2.0 UG/ML (10.0-30.0); ALBUMIN 3.4 GM/DL (3.2-5.2); ALBUMIN/GLOBULIN RATIO 1.21 (1.00-1.93); ALKALINE PHOSPHATASE 90 U/L (45-117); ALT/SGPT 38 U/L (12-78); ANION GAP 9 MEQ/L (8-16); AST/SGOT 24 U/L (7-37); BILIRUBIN,DIRECT < 0.1 MG/DL (0.0-0.2); BILIRUBIN,TOTAL 0.3 MG/DL (0.2-1.0); BLOOD UREA NITROGEN 8 MG/DL (7-18); CALCIUM LEVEL 8.6 MG/DL (8.8-10.2); CARBON DIOXIDE LEVEL 24 MEQ/L (21-32); CHLORIDE LEVEL 111 MEQ/L (98-107); CPK CREATINE PHOSPHOKINASE 55 U/L (39-308); CREATININE FOR GFR 1.21 MG/DL (0.70-1.30); ETHYL ALCOHOL (ETHANOL) < 0.003 % (0.000-0.010); GLOMERULAR FILTRATION RATE > 60.0 (>49); GLUCOSE, FASTING 96 MG/DL (70-100); POTASSIUM SERUM 4.2 MEQ/L (3.5-5.1); SALICYLATE LEVEL < 1.7 MG/DL (5.0-30.0); SODIUM LEVEL 144 MEQ/L (136-145); TOTAL PROTEIN 6.2 GM/DL (6.4-8.2)
[2018-05-11 18:02] LABS: AMPHETAMINES LEVEL URINE NEGATIVE (NEGATIVE); BARBITURATES URINE NEGATIVE (NEGATIVE); BENZODIAZEPINES URINE POSITIVE (NEGATIVE); CANNABINOIDS URINE NEGATIVE (NEGATIVE); COCAINE METABOLITE URINE NEGATIVE (NEGATIVE); METHADONE URINE NEGATIVE (NEGATIVE); OPIATES URINE NEGATIVE (NEGATIVE); PHENCYCLIDINE URINE NEGATIVE (NEGATIVE)
[2018-05-12 03:47] LABS: APPEARANCE, URINE HAZY (CLEAR); BACTERIA, URINE AUTO NEGATIVE (NEGATIVE); BILIRUBIN, URINE AUTO NEGATIVE (NEGATIVE); BLOOD, URINE BLOOD NEGATIVE (NEGATIVE); COLOR, URINE YELLOW (YELLOW); GLUCOSE, URINE (UA) AUTO NEGATIVE (NEGATIVE); KETONE, URINE AUTO NEGATIVE (NEGATIVE); LEUKOCYTE ESTERASE, URINE AUTO NEGATIVE (NEGATIVE); NITRITE, URINE AUTO NEGATIVE (NEGATIVE); PROTEIN, URINE AUTO NEGATIVE (NEGATIVE); RBC, URINE AUTO 0 /HPF (0-3); SPECIFIC GRAVITY URINE AUTO 1.016 (1.002-1.035); SQUAMOUS EPITHELIAL CELL UR AU 0 /HPF (0-6); UROBILINOGEN, URINE AUTO 0.2 mg/dL (0.0-2.0); WBC, URINE AUTO 0 /HPF (0-3)
[2018-05-12] MEDS: VENLAFAXINE **XR** 75MG CAPSULE PO (09:01)
== END 2018-05-12 14:29 ==
LOC: M ED 05-12 14:29
DX: T50.992A Poisoning by other drugs, medicaments and biological substances, intentional self-harm, initial encounter (principal); X58.XXXA Exposure to other specified factors, initial encounter; F33.9 Major depressive disorder, recurrent, unspecified; F41.9 Anxiety disorder, unspecified; F25.9 Schizoaffective disorder, unspecified; M19.90 Unspecified osteoarthritis, unspecified site; R56.9 Unspecified convulsions; Z79.82 Long term (current) use of aspirin
CPT/HCPCS: 71045

== ENCOUNTER 2018-10-15 15:58 | Emergency (ER) | payer MEDICARE, MEDICAID ==
[~2018-10-15] VITALS: Ht 172.7 cm; Wt 67.7 kg
[~2018-10-15 15:58] MED LIST changes: -ACETAMINOPHEN TAB 650MG DOSE (2X325MG) PO; +AMAN100C18 PO; +ARIC1TAB PO; +ASPI1TAB PO; +ASPI1TAB15 PO; +ASPI81TAEC PO; +BENZ0.5T PO; +CHLO10SU; +CLON0.5T8 PO; +CLON1TAB8 PO; +CLOZ100T2 PO; +CLOZ25TA3 PO; +COGENTIN; +DEPA500T; +DEPA500T2; +DRIS50003 PO; +EFFE37.5 PO; +EFFE37.527; +HALO10TA4; +HALO1TAB21; +HALO2TAB26 PO; +HYDR-3363 PO; +HYDR10TA3; +HYDR50CA2; +HYDR50TA70; +HYDR50TA70 PO; +INDE60CA4 PO; +KLON0.5T; +KLON1TAB PO; +LATU1TAB PO; +LORA2TAB; +MIRT30TA3 PO; +MIRT45TA4 PO; +NEOM1SUS22 OU; +NORC1TAB4 PO; +OLAN5TAB PO; +PATIENT COMMENTS; +PROAAER10 INH; +PROP20TA72 PO; +PROP80CA PO; +PROPRANOLOL PO; +PROZ20CA11 PO; +PROZ40CA PO; +QUET1TAB9; +QUET1TAB9 PO; +RISP1TAB; +RISP3TAB16; +SERO1TAB; +SERO1TAB3; +SERO200T PO; +SERO200T43; +SERO400T; +SERO400T PO; +SERO400T3; +Seroquel PO; +TRAZ-160 PO; +TRAZO50TA PO; +VALI5TAB; +VENL150C43 PO; +VENL37.52; +VENL37.52 PO; +VENL37.598 PO; +VENL37TA PO; +VENL75CA47 PO; +VENL75TA2; +VICO5TAB16 PO; +VITMTA PO; +ZOCO40TA
--- NOTE | 2018-10-15 16:23 | REP ---
CT Head without contrast HISTORY: Slurred speech COMPARISON: 05/10/2018 Areas of decreased attenuation are present in the periventricular white matter. This represents small-vessel ischemic disease. There is no intraparenchymal hemorrhage, acute infarct, mass or midline shift. The ventricular system and cortical sulci are dilated consistent with minimal volume loss. There is no extra cerebral collection. There is no fracture. The visualized sinuses are clear. IMPRESSION: 1. Small-vessel ischemic disease. 2. Minimal volume loss. Electronically Signed by Huy Bowie MD 10/15/2018 04:14 P
--- NOTE | 2018-10-15 16:29 | REP ---
CT cervical spine without contrast HISTORY: Slurred speech COMPARISON: 11/19/2016 There is no acute fracture or subluxation. Disc bulges are present at the C2-3 and C3-4 levels. Disc bulges with associated osteophyte formation are present at the C4-5 through C6-7 levels. There is minimal narrowing of the spinal canal. The process and/or facet hypertrophy are present at the C2-3 through C7-T1 levels. These findings produce minimal to moderate narrowing of the neural foramina. Anterior osteophytes are present at the C1-2 level. The C4-5 through C6-7 intervertebral discs are decreased in height consistent with disc degeneration. IMPRESSION: 1. There is no acute fracture or subluxation. 2. There is cervical spondylosis at the C1-2 through C7-T1 levels. Electronically Signed by Huy Bowie MD 10/15/2018 04:20 P
[2018-10-15 16:49] LABS: BASO % 0.8 % (0.0-1.0); EOS # 0.2 10^3/uL (0.0-0.50); EOS % 3.8 % (0.0-3.0); HEMATOCRIT 42.3 % (42.0-52.0); HEMOGLOBIN 14.3 g/dl (13.5-17.5); LYMPH # 1.4 10^3/uL (1.5-4.5); LYMPH % 28.3 % (24.0-44.0); MEAN CORPUSCULAR HEMOGLOBIN 30.2 pg (27.0-33.0); MEAN CORPUSCULAR HGB CONC 33.8 g/dl (32.0-36.5); MEAN CORPUSCULAR VOLUME 89.4 fl (80.0-96.0); MONO # 0.4 10^3/uL (0.0-0.8); MONO % 8.8 % (0.0-5.0); NEUTROPHILS # 2.9 10^3/uL (1.8-7.7); NEUTROPHILS % 58.1 % (36.0-66.0); PLATELET COUNT, AUTOMATED 217 10^3/uL (150-450); RED BLOOD COUNT 4.73 10^6/uL (4.30-6.10)
--- NOTE | 2018-10-15 16:55 | REP ---
Chest one-view HISTORY: Infarction Comparison: 05/11/2018 The lungs are clear. The heart is normal in size. The pulmonary vasculature is normal in appearance. Impression: No acute disease. Electronically Signed by Huy Bowie MD 10/15/2018 04:46 P
[2018-10-15 16:58] LABS: PROTHROMBIN TIME 13.3 SECONDS (12.1-14.4)
[2018-10-15 17:16] LABS: BLOOD UREA NITROGEN 9 MG/DL (7-18); CALCIUM LEVEL 8.9 MG/DL (8.8-10.2); CARBON DIOXIDE LEVEL 29 MEQ/L (21-32); CHLORIDE LEVEL 107 MEQ/L (98-107); CK-MB VALUE MASS < 1.0 NG/ML (<3.6); CPK CREATINE PHOSPHOKINASE 92 U/L (39-308); CREATININE FOR GFR 0.94 MG/DL (0.70-1.30); GLOMERULAR FILTRATION RATE > 60.0 (>49); GLUCOSE, FASTING 91 MG/DL (70-100); MB/CK RELATIVE INDEX 1.09 (< OR =4); POTASSIUM SERUM 4.2 MEQ/L (3.5-5.1); SODIUM LEVEL 141 MEQ/L (136-145); TROPONIN I < 0.02 NG/ML (< 0.10)
[2018-10-15 19:15] VITALS: BP 123/85
--- NOTE | 2018-10-16 06:27 | ECGEPIP ---
Stationary ECG Study [facility] - ED Test Date: 2018-10-15 Pat Name: YOSSI PENA Department: Room: - Gender: M Parts Representative: MENG : 1955 Requested By: JENNIFER Monreal Order Number: [id number] Reading MD: Alfredo Montes Measurements Intervals [place] Rate: 76 P: 50 ME: 151 QRS: 37 QRSD: 98 T: 40 QT: 362 QTc: 407 Interpretive Statements SINUS RHYTHM SIMILAR TO 05/12/18 Electronically Signed On 10-16-2018 6:27:35 EDT by Alfredo Montes
== END 2018-10-15 19:28 | disposition home or self-care (01) ==
LOC: M ED 15:58
DX: R29.6 Repeated falls (principal); R29.810 Facial weakness; F25.9 Schizoaffective disorder, unspecified; F41.9 Anxiety disorder, unspecified; E55.9 Vitamin D deficiency, unspecified; F44.5 Conversion disorder with seizures or convulsions; M19.90 Unspecified osteoarthritis, unspecified site; Z88.8 Allergy status to other drugs, medicaments and biological substances; Z79.899 Other long term (current) drug therapy; Z79.82 Long term (current) use of aspirin

== ENCOUNTER → 2018-11-02 | Outpatient (CLI) | payer MEDICARE, MEDICAID ==
[~2018-11-02] MED LIST changes: -ASPI1TAB PO; +ASPI81TA26 PO; -NORC1TAB4 PO; +NORC1TAB7 PO; -VICO5TAB16 PO; +VICO5TAB17 PO
--- NOTE | 2018-11-03 07:56 | REP ---
Supine upright abdomen two views: There are no comparisons. There are mildly dilated small bowel loops in the right lower quadrant. This is nonspecific and could represent focal ileus or ensuing obstruction. Follow-up is recommended. There is no colonic distension. There are no calcifications or foreign bodies. The skeletal structures and soft tissues otherwise are unremarkable. Impression: Nonspecific bowel gas pattern as described, focal ileus versus ensuing obstruction. Electronically Signed by Jeremias Pierre MD 11/02/2018 02:49 P
== END ==
LOC: M RAD 14:14
PROVIDERS: ATTEND Physician Assistant Medical
DX: R14.3 Flatulence (principal)

== ENCOUNTER 2018-11-03 22:56 | Emergency (ER) | payer MEDICARE, MEDICAID ==
[~2018-11-03] VITALS: Ht 172.7 cm; Wt 69.1 kg
[2018-11-03 22:57] VITALS: BP 121/72
== END 2018-11-03 23:31 | disposition left against medical advice (07) ==
LOC: M ED 22:56
DX: Z53.21 Procedure and treatment not carried out due to patient leaving prior to being seen by health care provider (principal)

== ENCOUNTER 2018-11-04 11:31 | Emergency (ER) | payer MEDICARE, MEDICAID ==
[~2018-11-04] VITALS: Ht 172.7 cm; Wt 69.1 kg
[2018-11-04 12:11] LABS: BASO % 0.9 % (0.0-1.0); EOS # 0.1 10^3/uL (0.0-0.50); EOS % 2.8 % (0.0-3.0); HEMATOCRIT 46.9 % (42.0-52.0); HEMOGLOBIN 15.6 g/dl (13.5-17.5); LYMPH # 1.4 10^3/uL (1.5-4.5); MEAN CORPUSCULAR HEMOGLOBIN 29.8 pg (27.0-33.0); MEAN CORPUSCULAR HGB CONC 33.3 g/dl (32.0-36.5); MEAN CORPUSCULAR VOLUME 89.7 fl (80.0-96.0); MONO # 0.5 10^3/uL (0.0-0.8); MONO % 11.1 % (0.0-5.0); NEUTROPHILS # 2.2 10^3/uL (1.8-7.7); PLATELET COUNT, AUTOMATED 242 10^3/uL (150-450); RED BLOOD COUNT 5.23 10^6/uL (4.30-6.10); WHITE BLOOD COUNT 4.2 10^3/uL (4.0-10.0)
[2018-11-04 12:41] LABS: ALBUMIN 3.9 GM/DL (3.2-5.2); ALT/SGPT 27 U/L (12-78); BILIRUBIN,DIRECT < 0.1 MG/DL (0.0-0.2); BILIRUBIN,TOTAL 0.4 MG/DL (0.2-1.0); BLOOD UREA NITROGEN 12 MG/DL (7-18); CALCIUM LEVEL 9.4 MG/DL (8.8-10.2); CARBON DIOXIDE LEVEL 30 MEQ/L (21-32); CHLORIDE LEVEL 105 MEQ/L (98-107); CREATININE FOR GFR 1.14 MG/DL (0.70-1.30); GLOMERULAR FILTRATION RATE > 60.0 (>49); GLUCOSE, FASTING 123 MG/DL (70-100); LIPASE 384 U/L (73-393); SODIUM LEVEL 140 MEQ/L (136-145); TOTAL PROTEIN 6.9 GM/DL (6.4-8.2)
[2018-11-04] MEDS: GASTROGRAFIN SOLUTION 30ML PO SCH ×2 (13:26→13:47)
[2018-11-04] MEDS ORDERED: clonazePAM 1 MG TAB PO ONE ×2 (14:30)
[2018-11-04] MEDS ORDERED: ISOVUE-370 76% 100ML VIAL (Q9967) As Ordered ONE (14:55)
--- NOTE | 2018-11-04 15:54 | REP ---
CT ABDOMEN AND PELVIS WITH ORAL AND IV CONTRAST: TECHNIQUE: Axial contrast enhanced images from the lung bases to the pubic symphysis using 100 mL Isovue 370 intravenous contrast material with multiplanar reformations. Visualized lung bases demonstrate no infiltrate. The liver, spleen, adrenals, pancreas and kidneys are normal in appearance. There is no hydronephrosis bilaterally. There is atherosclerotic calcification of the abdominal aorta without aneurysm. There is no adenopathy. There is no free air or free fluid. No bowel wall thickening is seen. There is no evidence of appendicitis. There is no evidence of bowel obstruction. There is a small umbilical hernia containing fat. No pelvic mass is seen. Urinary bladder appears unremarkable. There are degenerative changes of the spine. There is mild sigmoid diverticulosis without evidence of acute diverticulitis. IMPRESSION: No acute abnormality is detected. No evidence of small bowel obstruction. No evidence of appendicitis. No free air or free fluid. Small umbilical hernia contains fat. Mild sigmoid diverticulosis without evidence of acute diverticulitis. Electronically Signed by Jeremias Wagoner MD 11/05/2018 08:33 P
[2018-11-04 16:12] VITALS: BP 118/66
== END 2018-11-04 16:20 | disposition home or self-care (01) ==
LOC: M ED 11:31
DX: R10.12 Left upper quadrant pain (principal); I10 Essential (primary) hypertension; E78.5 Hyperlipidemia, unspecified; F33.9 Major depressive disorder, recurrent, unspecified; F41.9 Anxiety disorder, unspecified; F20.9 Schizophrenia, unspecified; R56.9 Unspecified convulsions; Z87.442 Personal history of urinary calculi; Z79.899 Other long term (current) drug therapy; Z79.82 Long term (current) use of aspirin; Z88.8 Allergy status to other drugs, medicaments and biological substances; Z87.891 Personal history of nicotine dependence
CPT/HCPCS: 36415; 74177; 80048; 80076; 83690; 85025; 93041; 99284; Q9963; Q9967

== ENCOUNTER 2018-11-09 11:08 | Emergency (ER) | payer MEDICARE, MEDICAID ==
[~2018-11-09] VITALS: Ht 172.7 cm; Wt 69.1 kg
[2018-11-09 13:10] LABS: HEMATOCRIT 43.2 % (42.0-52.0); HEMOGLOBIN 14.7 g/dl (13.5-17.5); MEAN CORPUSCULAR HEMOGLOBIN 30.3 pg (27.0-33.0); MEAN CORPUSCULAR VOLUME 89.1 fl (80.0-96.0); PLATELET COUNT, AUTOMATED 209 10^3/uL (150-450); RED BLOOD COUNT 4.85 10^6/uL (4.30-6.10); WHITE BLOOD COUNT 4.6 10^3/uL (4.0-10.0)
[2018-11-09 13:33] LABS: BLOOD UREA NITROGEN 12 MG/DL (7-18); CALCIUM LEVEL 8.9 MG/DL (8.8-10.2); CARBON DIOXIDE LEVEL 28 MEQ/L (21-32); CHLORIDE LEVEL 109 MEQ/L (98-107); CPK CREATINE PHOSPHOKINASE 99 U/L (39-308); CREATININE FOR GFR 0.87 MG/DL (0.70-1.30); GLOMERULAR FILTRATION RATE > 60.0 (>49); GLUCOSE, FASTING 96 MG/DL (70-100); MB/CK RELATIVE INDEX 1.52 (< OR =4); POTASSIUM SERUM 4.2 MEQ/L (3.5-5.1); SODIUM LEVEL 141 MEQ/L (136-145); TROPONIN I < 0.02 NG/ML (< 0.10)
[2018-11-09 13:38] VITALS: BP 124/70
--- NOTE | 2018-11-10 21:16 | ECGEPIP ---
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
== END 2018-11-09 13:48 | disposition home or self-care (01) ==
LOC: M ED 11:08
DX: R53.81 Other malaise (principal); F41.9 Anxiety disorder, unspecified; F33.9 Major depressive disorder, recurrent, unspecified; R56.9 Unspecified convulsions; Z79.899 Other long term (current) drug therapy; Z79.82 Long term (current) use of aspirin; Z88.0 Allergy status to penicillin

== ENCOUNTER 2018-11-18 15:07 | Emergency (ER) | payer MEDICARE, MEDICAID ==
[2018-11-18] MEDS ORDERED: NS 1,000 ML IV ONE (15:45)
--- NOTE | 2018-11-18 16:21 | REP ---
CT Head without contrast HISTORY: Seizure COMPARISON: 10/15/2018 Areas of decreased attenuation are present in the periventricular white matter. This represents small-vessel ischemic disease. There is no intraparenchymal hemorrhage, acute infarct, mass or midline shift. The ventricular system and cortical sulci are dilated consistent with minimal volume loss. There is no extra cerebral collection. There is no fracture. The visualized sinuses are clear. IMPRESSION: 1. Small vessel ischemic disease. 2. Minimal volume loss. Electronically Signed by Huy Bowie MD 11/18/2018 04:13 P
[2018-11-18 16:27] LABS: VENOUS BASE EXCESS 3.5 (-2.0-2.0); VENOUS HCO3 29.5 MEQ/L (23.0-27.0); VENOUS O2 SATURATION 72.5 % (60.0-80.0); VENOUS PARTIAL PRESSURE CO2 49.8 mmHg (38.0-50.0); VENOUS PARTIAL PRESSURE O2 37.4 mmHg (30.0-50.0); VENOUS STANDARD HCO3 26.9 MEQ/L
[2018-11-18 16:32] LABS: BASO % 0.4 % (0.0-1.0); EOS # 0.2 10^3/uL (0.0-0.50); EOS % 3.5 % (0.0-3.0); HEMATOCRIT 41.7 % (42.0-52.0); LYMPH # 1.7 10^3/uL (1.5-4.5); LYMPH % 31.9 % (24.0-44.0); MEAN CORPUSCULAR HEMOGLOBIN 29.9 pg (27.0-33.0); MEAN CORPUSCULAR HGB CONC 33.6 g/dl (32.0-36.5); MEAN CORPUSCULAR VOLUME 88.9 fl (80.0-96.0); MONO # 0.5 10^3/uL (0.0-0.8); MONO % 9.5 % (0.0-5.0); NEUTROPHILS % 54.3 % (36.0-66.0); PLATELET COUNT, AUTOMATED 203 10^3/uL (150-450); RED BLOOD COUNT 4.69 10^6/uL (4.30-6.10); WHITE BLOOD COUNT 5.5 10^3/uL (4.0-10.0)
[2018-11-18 16:56] LABS: ACETAMINOPHEN LEVEL < 2.0 UG/ML (10.0-30.0); ALBUMIN 3.6 GM/DL (3.2-5.2); ALT/SGPT 28 U/L (12-78); BILIRUBIN,DIRECT < 0.1 MG/DL (0.0-0.2); BILIRUBIN,TOTAL 0.3 MG/DL (0.2-1.0); BLOOD UREA NITROGEN 12 MG/DL (7-18); CALCIUM LEVEL 9.1 MG/DL (8.8-10.2); CARBON DIOXIDE LEVEL 30 MEQ/L (21-32); CHLORIDE LEVEL 108 MEQ/L (98-107); CPK CREATINE PHOSPHOKINASE 73 U/L (39-308); CREATININE FOR GFR 1.02 MG/DL (0.70-1.30); ETHYL ALCOHOL (ETHANOL) < 0.003 % (0.000-0.010); GLOMERULAR FILTRATION RATE > 60.0 (>49); GLUCOSE, FASTING 88 MG/DL (70-100); MB/CK RELATIVE INDEX 1.37 (< OR =4); POTASSIUM SERUM 4.3 MEQ/L (3.5-5.1); SALICYLATE LEVEL < 1.7 MG/DL (5.0-30.0); SODIUM LEVEL 142 MEQ/L (136-145); TOTAL PROTEIN 6.1 GM/DL (6.4-8.2); TROPONIN I < 0.02 NG/ML (< 0.10)
[2018-11-18 17:50] LABS: AMPHETAMINES LEVEL URINE NEGATIVE (NEGATIVE); BARBITURATES URINE NEGATIVE (NEGATIVE); BENZODIAZEPINES URINE POSITIVE (NEGATIVE); CANNABINOIDS URINE NEGATIVE (NEGATIVE); COCAINE METABOLITE URINE NEGATIVE (NEGATIVE); METHADONE URINE NEGATIVE (NEGATIVE); OPIATES URINE NEGATIVE (NEGATIVE); PHENCYCLIDINE URINE NEGATIVE (NEGATIVE)
[2018-11-18] MEDS ORDERED: clonazePAM 1 MG TAB PO ONE (18:15)
[2018-11-18 18:25] VITALS: BP 121/78
--- NOTE | 2018-11-18 22:22 | ECGEPIP ---
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
== END 2018-11-18 18:26 | disposition home or self-care (01) ==
LOC: M ED 15:07 → EDBD 15:07 → M ED 18:26
DX: F44.5 Conversion disorder with seizures or convulsions (principal); F41.9 Anxiety disorder, unspecified; F32.9 Major depressive disorder, single episode, unspecified; F25.9 Schizoaffective disorder, unspecified; R56.9 Unspecified convulsions; Z79.82 Long term (current) use of aspirin; Z79.899 Other long term (current) drug therapy; Z88.8 Allergy status to other drugs, medicaments and biological substances
CPT/HCPCS: 70450; 80048; 80076; 80307; 82550; 82553; 82803; 84443; 84484; 85025; 93005; 93041; 99285; G0480

== ENCOUNTER 2019-01-12 13:45 | Emergency (ER) | payer MEDICARE, MEDICAID ==
[~2019-01-12] VITALS: Ht 172.7 cm; Wt 70.9 kg
[~2019-01-12 13:45] MED LIST changes: -TRAZ-160 PO; +TRAZ-252 PO; +TRAZ1TAB10 PO; -TRAZO50TA PO
[2019-01-12 14:58] VITALS: BP 119/73
== END 2019-01-12 15:20 | disposition home or self-care (01) ==
LOC: M ED 13:45 → EDBD 13:45 → M ED 15:20
DX: F44.5 Conversion disorder with seizures or convulsions (principal); F41.1 Generalized anxiety disorder; Z79.82 Long term (current) use of aspirin; Z79.899 Other long term (current) drug therapy; Z86.59 Personal history of other mental and behavioral disorders; Z88.3 Allergy status to other anti-infective agents

== ENCOUNTER 2019-03-26 16:00 | Emergency (ER) | payer MEDICARE, MEDICAID ==
[~2019-03-26] VITALS: Ht 172.7 cm; Wt 70.0 kg
[~2019-03-26 16:00] MED LIST changes: -BENZ0.5T PO; +BENZ0.5T23 PO; -QUET1TAB9; -QUET1TAB9 PO; +QUET200T2; +QUET200T2 PO
[2019-03-26] MEDS ORDERED: clonazePAM 1 MG TAB PO ONE (16:45)
[2019-03-26] MEDS ORDERED: KETOROLAC 30 MG/ML VIAL (J1885) IV ONE (16:45)
[2019-03-26] MEDS ORDERED: NS 1,000 ML IV ONE (16:45)
--- NOTE | 2019-03-26 17:17 | REP ---
Clinical: Left lateral abdominal pain. Technique: Single supine view of the abdomen and pelvis. Findings: Bowel gas pattern is nonspecific although mild fecal stasis cannot be excluded. No bowel obstruction or perforation. No organomegaly. No significant abnormal calcifications or foreign body. Skeletal structures demonstrate age-related degenerative change. Impression: Nonspecific examination. Mild fecal stasis cannot be excluded. Electronically Signed by Kofi Flowers MD 03/26/2019 05:09 P
[2019-03-26 17:23] LABS: BASO % 0.7 % (0.0-1.0); EOS # 0.1 10^3/uL (0.0-0.50); EOS % 2.5 % (0.0-3.0); HEMOGLOBIN 15.2 g/dl (13.5-17.5); LYMPH # 1.1 10^3/uL (1.5-4.5); LYMPH % 27.2 % (24.0-44.0); MEAN CORPUSCULAR HEMOGLOBIN 31.1 pg (27.0-33.0); MEAN CORPUSCULAR HGB CONC 34.5 g/dl (32.0-36.5); MONO # 0.4 10^3/uL (0.0-0.8); NEUTROPHILS # 2.4 10^3/uL (1.8-7.7); NEUTROPHILS % 59.4 % (36.0-66.0); PLATELET COUNT, AUTOMATED 219 10^3/uL (150-450); RED BLOOD COUNT 4.89 10^6/uL (4.30-6.10); WHITE BLOOD COUNT 4.1 10^3/uL (4.0-10.0)
[2019-03-26 17:54] LABS: ALBUMIN 3.8 GM/DL (3.2-5.2); ALT/SGPT 23 U/L (12-78); BILIRUBIN,DIRECT < 0.1 MG/DL (0.0-0.2); BILIRUBIN,TOTAL 0.4 MG/DL (0.2-1.0); BLOOD UREA NITROGEN 12 MG/DL (7-18); CALCIUM LEVEL 9.7 MG/DL (8.8-10.2); CARBON DIOXIDE LEVEL 30 MEQ/L (21-32); CHLORIDE LEVEL 107 MEQ/L (98-107); CREATININE FOR GFR 1.15 MG/DL (0.70-1.30); GLOMERULAR FILTRATION RATE > 60.0 (>49); GLUCOSE, FASTING 101 MG/DL (70-100); LIPASE 206 U/L (73-393); POTASSIUM SERUM 4.5 MEQ/L (3.5-5.1); SODIUM LEVEL 144 MEQ/L (136-145); TOTAL PROTEIN 6.7 GM/DL (6.4-8.2)
[2019-03-26 18:34] VITALS: BP 123/80
[2019-03-26] MEDS ORDERED: KETO10TAB PO (18:52)
== END 2019-03-26 18:55 | disposition home or self-care (01) ==
LOC: M ED 16:00
DX: M54.5 Low back pain (principal); I10 Essential (primary) hypertension; R56.9 Unspecified convulsions; Z79.899 Other long term (current) drug therapy; Z79.82 Long term (current) use of aspirin; Z88.8 Allergy status to other drugs, medicaments and biological substances
CPT/HCPCS: 36415; 74018; 80048; 80076; 81001; 83690; 85025; 96361; 96374; 99284; J1885

== ENCOUNTER 2019-04-02 16:13 | Emergency (ER) | payer MEDICARE, MEDICAID ==
[~2019-04-02] VITALS: Ht 172.7 cm; Wt 70.6 kg
[~2019-04-02 16:13] MED LIST changes: +CLON0.5T2 PO; -CLON0.5T8 PO; +KETO10TAB PO
[2019-04-02 17:05] LABS: BLOOD UREA NITROGEN 13 MG/DL (7-18); CALCIUM LEVEL 9.7 MG/DL (8.8-10.2); CARBON DIOXIDE LEVEL 28 MEQ/L (21-32); CHLORIDE LEVEL 106 MEQ/L (98-107); CREATININE FOR GFR 1.24 MG/DL (0.70-1.30); GLOMERULAR FILTRATION RATE > 60.0 (>49); GLUCOSE, FASTING 91 MG/DL (70-100); POTASSIUM SERUM 4.4 MEQ/L (3.5-5.1); SODIUM LEVEL 140 MEQ/L (136-145)
[2019-04-02 19:10] VITALS: BP 127/69
[2019-04-02 21:10] LABS: BASO % 0.6 % (0.0-1.0); EOS # 0.1 10^3/uL (0.0-0.5); EOS % 2.1 % (0.0-3.0); HEMOGLOBIN 14.2 g/dl (13.5-17.5); LYMPH # 1.8 10^3/uL (1.5-5.0); LYMPH % 33.3 % (24.0-44.0); MEAN CORPUSCULAR HEMOGLOBIN 30.1 pg (27.0-33.0); MEAN CORPUSCULAR HGB CONC 33.8 g/dl (32.0-36.5); MEAN CORPUSCULAR VOLUME 89.2 fl (80.0-96.0); MONO # 0.5 10^3/uL (0.0-0.8); MONO % 9.3 % (0.0-5.0); NEUTROPHILS # 2.9 10^3/uL (1.5-8.5); NEUTROPHILS % 54.5 % (36.0-66.0); PLATELET COUNT, AUTOMATED 221 10^3/uL (150-450); RED BLOOD COUNT 4.71 10^6/uL (4.30-6.10); WHITE BLOOD COUNT 5.3 10^3/uL (4.0-10.0)
[2019-04-02 21:29] LABS: ACETAMINOPHEN LEVEL < 2.0 UG/ML (10.0-30.0); ALBUMIN 3.6 GM/DL (3.2-5.2); ALT/SGPT 20 U/L (12-78); BILIRUBIN,DIRECT < 0.1 MG/DL (0.0-0.2); BILIRUBIN,TOTAL 0.4 MG/DL (0.2-1.0); ETHYL ALCOHOL (ETHANOL) < 0.003 % (0.000-0.010); SALICYLATE LEVEL < 1.7 MG/DL (5.0-30.0); TOTAL PROTEIN 6.3 GM/DL (6.4-8.2)
[2019-04-03] MEDS ORDERED: QUET1TAB8 (07:14)
== END 2019-04-02 19:20 | disposition home or self-care (01) ==
LOC: M ED 16:13 → EDBD 16:13 → M ED 19:20
DX: F44.5 Conversion disorder with seizures or convulsions (principal); F99 Mental disorder, not otherwise specified; Z88.8 Allergy status to other drugs, medicaments and biological substances; Z79.899 Other long term (current) drug therapy; Z79.82 Long term (current) use of aspirin; F32.9 Major depressive disorder, single episode, unspecified; R45.851 Suicidal ideations; S60.812A Abrasion of left wrist, initial encounter; X78.1XXA Intentional self-harm by knife, initial encounter; Y92.231 Patient bathroom in hospital as the place of occurrence of the external cause
CPT/HCPCS: 36415; 80048; 80076; 80307; 84443; 85025; 93005; 99284; 99285; G0480

== ENCOUNTER 2019-04-02 19:52 | Emergency (ER) | payer MEDICARE, MEDICAID ==
[~2019-04-02] VITALS: Ht 172.7 cm; Wt 70.0 kg
[~2019-04-02 19:52] MED LIST changes: -CLON0.5T2 PO; +CLON0.5T8 PO
[2019-04-02] MEDS ORDERED: clonazePAM 1 MG TAB PO ONE (20:45)
[2019-04-02 21:52] LABS: AMPHETAMINES LEVEL URINE NEGATIVE (NEGATIVE); BARBITURATES URINE NEGATIVE (NEGATIVE); BENZODIAZEPINES URINE POSITIVE (NEGATIVE); CANNABINOIDS URINE NEGATIVE (NEGATIVE); COCAINE METABOLITE URINE NEGATIVE (NEGATIVE); METHADONE URINE NEGATIVE (NEGATIVE); OPIATES URINE NEGATIVE (NEGATIVE); PHENCYCLIDINE URINE NEGATIVE (NEGATIVE)
[2019-04-03] MEDS ORDERED: clonazePAM 1 MG TAB PO ONE (04:30)
[2019-04-03] MEDS ORDERED: QUET1TAB8 (07:14)
[2019-04-03] MEDS ORDERED: MULTIVITAMINS/MINERALS THERAP 1 TAB PO ONE (07:45)
[2019-04-03] MEDS ORDERED: ASPIRIN 81 MG CHEW TABLET PO ONE (07:45)
[2019-04-03] MEDS ORDERED: VENLAFAXINE **XR** 75MG CAPSULE PO ONE (07:45)
[2019-04-03] MEDS ORDERED: QUEtiapine FUMARATE 200 MG TAB PO ONE (09:15)
[2019-04-03 14:17] VITALS: BP 117/64
--- NOTE | 2019-04-03 15:05 | ECGEPIP ---
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
== END 2019-04-03 14:20 ==
LOC: M ED 19:52
DX: F32.9 Major depressive disorder, single episode, unspecified (principal); R45.851 Suicidal ideations; S60.812A Abrasion of left wrist, initial encounter; X78.1XXA Intentional self-harm by knife, initial encounter; Y92.231 Patient bathroom in hospital as the place of occurrence of the external cause; F44.5 Conversion disorder with seizures or convulsions; Z88.8 Allergy status to other drugs, medicaments and biological substances; Z79.899 Other long term (current) drug therapy; Z79.82 Long term (current) use of aspirin
CPT/HCPCS: 36415; 80048; 80076; 80307; 84443; 85025; 93005; 99284; 99285; G0480

== ENCOUNTER 2019-05-02 11:03 | Emergency (ER) | payer MEDICARE, MEDICAID ==
[~2019-05-02] VITALS: Ht 172.7 cm; Wt 70.0 kg
[~2019-05-02 11:03] MED LIST changes: +QUET1TAB8
--- NOTE | 2019-05-02 12:11 | REP ---
Left ribs for views: There is no rib fracture or other rib abnormality. PA chest: Comparison is 10/15/2018. The lung dolan are clear. The cardiac size is normal. The siena, mediastinum, and skeletal structures are unremarkable. Impression: Negative portable chest. There is no interval change. Electronically Signed by Jeremias Pierre MD 05/02/2019 12:02 P
[2019-05-02 12:46] VITALS: BP 116/78
== END 2019-05-02 12:43 | disposition home or self-care (01) ==
LOC: M ED 11:03
DX: S20.222A Contusion of left back wall of thorax, initial encounter (principal); W17.89XA Other fall from one level to another, initial encounter; Y92.007 Garden or yard of unspecified non-institutional (private) residence as the place of occurrence of the external cause; I10 Essential (primary) hypertension; M54.9 Dorsalgia, unspecified; G89.29 Other chronic pain; M19.90 Unspecified osteoarthritis, unspecified site; Z87.442 Personal history of urinary calculi; Z86.69 Personal history of other diseases of the nervous system and sense organs; Z88.8 Allergy status to other drugs, medicaments and biological substances; Z79.82 Long term (current) use of aspirin; Z79.899 Other long term (current) drug therapy

== ENCOUNTER 2019-05-11 00:54 | Emergency (ER) | payer MEDICARE, MEDICAID ==
[~2019-05-11] VITALS: Ht 172.7 cm; Wt 68.2 kg
[2019-05-11 02:19] VITALS: BP 117/79
== END 2019-05-11 02:32 | disposition home or self-care (01) ==
LOC: M ED 00:54
DX: F44.5 Conversion disorder with seizures or convulsions (principal); Z88.8 Allergy status to other drugs, medicaments and biological substances; Z79.82 Long term (current) use of aspirin; Z79.899 Other long term (current) drug therapy

== ENCOUNTER → 2019-07-26 | Outpatient (REF) | payer MEDICARE, MEDICAID ==
[~2019-07-26] MED LIST changes: +CLON0.5T2 PO; -CLON0.5T8 PO
[2019-07-30 00:06] LABS: Lyme Disease IgG/IgM Antibodie <0.91 ISR (0.00-0.90); Lyme Disease IgM Ab Quantitati <0.80 index (0.00-0.79)
== END ==
LOC: M LAB REF 17:01
PROVIDERS: ATTEND Nurse Practitioner Adult Health
DX: R41.3 Other amnesia (principal); M54.5 Low back pain; Z79.899 Other long term (current) drug therapy

== ENCOUNTER 2019-08-15 11:19 | Emergency (ER) | payer MEDICARE, MEDICAID ==
[~2019-08-15] VITALS: Ht 165.1 cm; Wt 74.5 kg
[2019-08-15 11:19] VITALS: BP 146/95
== END 2019-08-15 12:55 | disposition home or self-care (01) ==
LOC: M ED 11:19
DX: F25.0 Schizoaffective disorder, bipolar type (principal); Z79.82 Long term (current) use of aspirin; Z79.899 Other long term (current) drug therapy; Z88.8 Allergy status to other drugs, medicaments and biological substances

== ENCOUNTER 2019-09-09 11:12 | Emergency (ER) | payer MEDICARE, MEDICAID ==
[~2019-09-09 11:12] MED LIST changes: +QUET100T2; -QUET1TAB8
[2019-09-09] MEDS ORDERED: GABA-843 (11:23)
[2019-09-09] MEDS ORDERED: ATOR1TAB21 (11:23)
[2019-09-09] MEDS ORDERED: clonazePAM 1 MG TAB PO STA (12:46)
[2019-09-09 13:22] VITALS: BP 121/63
[2019-09-09] MEDS ORDERED: ATOR1TAB21 PO (21:58)
[2019-09-09] MEDS ORDERED: GABA-843 PO (21:58)
== END 2019-09-09 13:24 | disposition home or self-care (01) ==
LOC: M ED 11:12 → EDBD 11:12 → M ED 13:24
DX: R56.9 Unspecified convulsions (principal); Z88.8 Allergy status to other drugs, medicaments and biological substances; Z79.82 Long term (current) use of aspirin; Z79.899 Other long term (current) drug therapy

== ENCOUNTER 2019-09-09 16:52 | Inpatient (IN) | payer MEDICARE, MEDICAID ==
[~2019-09-09] VITALS: Ht 172.7 cm; Wt 72.7 kg
[~2019-09-09 16:52] MED LIST changes: +ATOR1TAB21; +GABA-843
[2019-09-09 18:30] LABS: HEMATOCRIT 41.7 % (42.0-52.0); HEMOGLOBIN 14.3 g/dl (13.5-17.5); MEAN CORPUSCULAR HEMOGLOBIN 30.5 pg (27.0-33.0); MEAN CORPUSCULAR HGB CONC 34.3 g/dl (32.0-36.5); MEAN CORPUSCULAR VOLUME 88.9 fl (80.0-96.0); PLATELET COUNT, AUTOMATED 233 10^3/uL (150-450); RED BLOOD COUNT 4.69 10^6/uL (4.30-6.10); WHITE BLOOD COUNT 4.5 10^3/uL (4.0-10.0)
[2019-09-09 19:07] LABS: ACETAMINOPHEN LEVEL < 2.0 UG/ML (10.0-30.0); ALBUMIN 3.7 GM/DL (3.2-5.2); ALT/SGPT 25 U/L (12-78); BILIRUBIN,DIRECT 0.1 MG/DL (0.0-0.2); BILIRUBIN,TOTAL 0.4 MG/DL (0.2-1.0); BLOOD UREA NITROGEN 14 MG/DL (7-18); CALCIUM LEVEL 9.2 MG/DL (8.8-10.2); CARBON DIOXIDE LEVEL 29 MEQ/L (21-32); CHLORIDE LEVEL 107 MEQ/L (98-107); CREATININE FOR GFR 1.09 MG/DL (0.70-1.30); ETHYL ALCOHOL (ETHANOL) < 0.003 % (0.000-0.010); GLOMERULAR FILTRATION RATE > 60.0 (>49); GLUCOSE, FASTING 82 MG/DL (70-100); SALICYLATE LEVEL < 1.7 MG/DL (5.0-30.0); SODIUM LEVEL 142 MEQ/L (136-145); TOTAL PROTEIN 6.3 GM/DL (6.4-8.2)
[2019-09-09 20:55] LABS: AMPHETAMINES LEVEL URINE NEGATIVE (NEGATIVE); BARBITURATES URINE NEGATIVE (NEGATIVE); BENZODIAZEPINES URINE NEGATIVE (NEGATIVE); CANNABINOIDS URINE NEGATIVE (NEGATIVE); COCAINE METABOLITE URINE NEGATIVE (NEGATIVE); METHADONE URINE NEGATIVE (NEGATIVE); OPIATES URINE NEGATIVE (NEGATIVE); PHENCYCLIDINE URINE NEGATIVE (NEGATIVE)
[2019-09-09] MEDS: GABAPENTIN 300 MG CAP PO SCH (21:00)
[2019-09-09] MEDS ORDERED: traZODone 50 MG TAB PO PRN (21:30)
[2019-09-09] MEDS ORDERED: MOM 30ML SUSPENSION UDC PO PRN (21:30)
[2019-09-09] MEDS ORDERED: MAALOX 30 ML SUSP *UDC PO PRN (21:30)
[2019-09-09] MEDS ORDERED: ACETAMINOPHEN TAB 650MG DOSE (2X325MG) PO PRN (21:30)
[2019-09-09] MEDS ORDERED: ATOR1TAB21 PO (21:58)
[2019-09-09] MEDS ORDERED: GABA-843 PO (21:58)
[2019-09-10 00:56] VITALS: BP 132/80
[2019-09-10] MEDS: clonazePAM 1 MG TAB PO PRN ×2 (06:18→21:02)
--- NOTE | 2019-09-10 08:26 | MHHPEPDOC ---
[facility] History & Physical History and Physical DATE OF ADMISSION: Sep 09, 2019 at 21:16 New Patient Kofi Tello MRN: N/A Date of : N/A Date of Service: 09/10/2019 Chief Complaint "This is the worst that has ever been." History of Present Illness The patient, a 64-year-old man who I had previously taken care of as a resident presents again with reported pseudoseizures, however, he presents with suicidal thoughts due to the severity of his tremors and reported auditory hallucinations of voices telling to himself. He is difficult to interview today as he has significant tremors and shakiness making it difficult to get a full and comprehensive interview today. I spoke with the patient's outpatient provider after getting consent who reported that he had just started taking over his case, but he had had a long history of being on diazepam and reportedly had also started having memory problems with positive cognitive problems on testing, screening exams done on him in 2013. Review Of Systems Unable to obtain due to patient's severe tremors. Past Psychiatric History Currently sees Dr. Nevarez, at [facility] on a combination of Seroquel, had previously been on Clozaril and a number other medications. Last admitted several years ago. Allergies Please see below. Family Psychiatric History Reports having a father who is schizophrenic and alcoholic and had 2 sisters that attempted suicide. Social History The patient is a currently man who has several adult children, lives with his spouse, owns his own home, currently works. He is employed part-time. The patient also has disability partial, completed high school. Parents . His mother in 2016, reported he were very close. 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 He has 8 siblings. No significant mention of any history of trauma. Reports excellent relationship with of nearly 40 years. Substance Abuse History The patient denies any excessive alcohol use, tobacco or illicit drug use, denies history of substance use treatment. Medical History Has been worked up many times for tremors, some concern for Parkinson's versus pseudoseizures. Mental Status Examination General: Well dressed with good hygiene Speech: Garbled. Thought processes: Linear MSK: Significant tremors and pseudoseizures. Thought content: Hopeless Abstract reasoning, and computation: Intact Description of associations: Intact Description of abnormal or psychotic thoughts: "I might as well just kill myself." Judgment: Impaired Insight: Impaired Orientation: Alert and orientated 3 Cognition: Grossly normal Recent and remote memory: Intact Attention span and concentration: Intact Fund of knowledge: Adequate Mood: "Bad" Affect: Anxious and dysthymic Diagnoses Unspecified psychotic disorder. 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 Assessment and Plan Unspecified psychotic disorder: We will see about restarting Seroquel. Conversion versus somatization versus neurological: We will send for [place]'s labs. We will try pramipexole 0.125 mg TID. For buffering had been previously on carbidopa. Unclear if tremors are somatic or related to neurological, however, they are quite extreme and even for the patient by his own report that these are . Disposition The patient will need a further inpatient admission to address his auditory hallucinations and suicidal thoughts. Problem List 1. Risk for suicide. 2. Altered thoughts. Initial Treatment Plan 1. Patient was admitted on a 9.39 legal status. 2. Complete history was obtained. 3. With patients permission, family will be contacted and database will be expanded. 4. Patients medication regimen will be reviewed and changed accordingly. 5. Patient will be provided with protected environment. 6. Patient will be treated with individual, group, and milieu therapies. 7. Patient will receive supportive psych-education. 8. Discharge planning will commence immediately. 9. Outpatient follow-up treatment will be strongly recommended. 10. The initial treatment plan will focus initially on: Estimated Length Of Stay 4 days. Time Spent 70 minutes. Friday Vital Signs Vital Signs Date Time Temp Pulse Resp B/P (MAP) Pulse Ox O2 Delivery O2 Flow Rate FiO2 09/10/19 00:56 98.4 82 16 132/80 (97) 96 Room Air Laboratory Data 24H Labs Laboratory Tests 2 09/09/19 18:20: Nucleated Red Blood Cells % (auto) 0.0, Anion Gap 6L, Glomerular Filtration Rate > 60.0, Calcium Level 9.2, Total Bilirubin 0.4, Direct Bilirubin 0.1, Aspartate Amino Transf (AST/SGOT) 23, Alanine Aminotransferase (ALT/SGPT) 25, Alkaline Phosphatase 91, Total Protein 6.3L, Albumin 3.7, Albumin/Globulin Ratio 1.42, Thyroid Stimulating Hormone (TSH) 2.420, Salicylates Level < 1.7L, Acetaminophen Level < 2.0L, Ethyl Alcohol Level < 0.003 09/09/19 20:21: Urine Opiates Screen NEGATIVE, Urine Methadone Screen NEGATIVE, Urine Barbiturates Screen NEGATIVE, Urine Phencyclidine Screen NEGATIVE, Urine Amphetamines Screen NEGATIVE, Urine Benzodiazepines Screen NEGATIVE, Urine Cocaine Metabolite Screen NEGATIVE, Urine Cannabinoids Screen NEGATIVE CBC/BMP Laboratory Tests 09/09/19 18:20 Medications Scheduled Aspirin (Aspirin EC) 81 Mg Tab, 81 MG PO DAILY, (Reported) Atorvastatin Calcium (Atorvastatin Calcium) 20 Mg Tablet, 20 MG PO DAILY, (Reported) Gabapentin (Gabapentin) 300 Mg Capsule, 300 MG PO BID, (Reported) Multivitamins (Thera M Plus Tablet) 1 Tab Tab, 1 TAB PO DAILY, (Reported) Quetiapine Fumarate (Quetiapine Fumarate) 200 Mg Tab, 200 MG PO TID, (Reported) Venlafaxine HCl (Venlafaxine HCl ER) 150 Mg Cap, 150 MG PO DAILY, (Reported) Scheduled PRN Clonazepam (Clonazepam) 1 Mg Tab, 1 MG PO TID PRN for ANXIETY, (Reported) Allergies Coded Allergies: amantadine (Verified Allergy, Unknown, 11/03/18) DAHLIA ADRIAN DO Sep 10, 2019 08:26
[2019-09-10] MEDS: PRAMIPEXOLE (MIRAPEX) 0.125 MG TAB PO SCH ×4 (09:00→21:02)
[2019-09-10] MEDS: MULTIVITAMINS/MINERALS THERAP 1 TAB PO SCH ×2 (09:00→09:57)
[2019-09-10] MEDS: ASPIRIN 81 MG ENTERIC TAB PO SCH ×2 (09:00→09:57)
[2019-09-10] MEDS: ATORVASTATIN 20 MG TAB PO SCH ×2 (09:00→09:57)
[2019-09-10] MEDS: VENLAFAXINE **XR** 75MG CAPSULE PO SCH ×2 (09:00→09:57)
[2019-09-10] MEDS: GABAPENTIN 300 MG CAP PO SCH ×3 (09:00→21:02)
--- NOTE | 2019-09-10 16:27 | HPEPDOC ---
General Date of Admission Sep 09, 2019 at 21:16 Date of Service: Sep 10, 2019 Chief Complaint The patient is a 64-year-old male admitted with a reason for visit of Unspecified Psychotic D/O. Source: Patient, RN/, Old records History of Present Illness 64 year old male admitted for depression to [facility]. I am seeing the patient for medical history and physical. He complains of memory issues for the past 6 months. Also complains of abnormal movements of the hands and legs and tremors for the past [address] More about 2 years ago. His gait and balance is also a problem. Says all these problems are becoming too much and he says he is feeling completely out of control. 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 Home Medications Scheduled Aspirin (Aspirin EC) 81 Mg Tab, 81 MG PO DAILY, (Reported) Atorvastatin Calcium (Atorvastatin Calcium) 20 Mg Tablet, 20 MG PO DAILY, (Reported) Gabapentin (Gabapentin) 300 Mg Capsule, 300 MG PO BID, (Reported) Multivitamins (Thera M Plus Tablet) 1 Tab Tab, 1 TAB PO DAILY, (Reported) Quetiapine Fumarate (Quetiapine Fumarate) 200 Mg Tab, 200 MG PO TID, (Reported) Venlafaxine HCl (Venlafaxine HCl ER) 150 Mg Cap, 150 MG PO DAILY, (Reported) Scheduled PRN Clonazepam (Clonazepam) 1 Mg Tab, 1 MG PO TID PRN for ANXIETY, (Reported) Allergies Coded Allergies: amantadine (Verified Allergy, Unknown, 11/03/18) Past Medical History Medical History Tardive dyskinesia -Tremors and abnormal movements Abnormal Gait Memory problem for past 6 months. Depression Anxiety Panic attacks Schizoaffective disorder Schizophrenia History of pseudoseizure Osteoarthritis Vitamin D deficiency chronic back pain ?Microadenoma of [place] in [place] [facility] in 2016 Surgical History Foot surgery Repair left eardrum repair Colonoscopy 08/06. Ronna. Diverticulosis and internal hemorrhoids. Family History Significant Family History: Cancer (father lung cancer), Other (multiple sclerosis grandmother) Social History * Smoker: Denies Alcohol: Denies Drugs: denies A-FIB/CHADSVASC A-FIB History Current/History of A-Fib/PAF?: No Review of Systems Constitutional: Denies: Chills, Fever, Night Sweats Eyes: Denies: Pain, Vision change ENT: Denies: Head Aches, Ear Pain, Dysphagia Skin: Denies: Rash, Lesions, Breakdown Pulmonary: Denies: Dyspnea, Cough Cardiovascular: Denies: Chest Pain, Palpitations, Orthopnea, Paroxysmal Noc. Dyspnea, Lt Headedness Gastrointestinal: Denies: Nausea, Vomiting, Abdominal Pain, Diarrhea Musculoskeletal: Reports: Back Pain Neurological: Reports: Incoordination, Other Symptoms (tremors, jumping of li mbs) Psych: Reports: Anxiety, Depression, Memory Issues Physical Examination General Exam: Positive: Alert, Cooperative, No Acute Distress Eye Exam: Positive: Conjunctiva & lids normal, Other Eye Symptoms (pupils about 2 mm and poorly responsive to light. EOMI abnormal. ) ENT Exam: Positive: Atraumatic, Mucous membr. moist/pink, Pharynx Normal Neck Exam: Positive: Supple; Negative: JVD, thyromegaly Chest Exam: Positive: Clear to auscultation, Normal air movement Heart Exam: Positive: Rate Normal, Regular Rhythm, Normal S1, Normal S2; Negative: Murmurs, Rubs Abdomen Exam: Positive: Normal bowel sounds, Soft; Negative: Tenderness, Hepatospenomegaly Extremity Exam: Positive: Normal pulses; Negative: Clubbing, Cyanosis, Edema Neuro Exam: Positive: Strength at 5/5 X4 ext, Sensation Intact, Reflexes 2+ Psych Exam: Positive: Anxiety, Oriented x 3 Vital Signs Vital Signs Date Time Temp Pulse Resp B/P (MAP) Pulse Ox O2 Delivery O2 Flow Rate FiO2 09/10/19 00:56 98.4 82 16 132/80 (97) 96 Room Air Laboratory Data Labs 24H Laboratory Tests 2 09/09/19 18:20: Nucleated Red Blood Cells % (auto) 0.0, Anion Gap 6L, Glomerular Filtration Rate > 60.0, Calcium Level 9.2, Total Bilirubin 0.4, Direct Bilirubin 0.1, Aspartate Amino Transf (AST/SGOT) 23, Alanine Aminotransferase (ALT/SGPT) 25, Alkaline Phosphatase 91, Total Protein 6.3L, Albumin 3.7, Albumin/Globulin Ratio 1.42, Thyroid Stimulating Hormone (TSH) 2.420, Salicylates Level < 1.7L, Acetaminophen Level < 2.0L, Ethyl Alcohol Level < 0.003 09/09/19 20:21: Urine Opiates Screen NEGATIVE, Urine Methadone Screen NEGATIVE, Urine Barbiturates Screen NEGATIVE, Urine Phencyclidine Screen NEGATIVE, Urine Amphetamines Screen NEGATIVE, Urine Benzodiazepines Screen NEGATIVE, Urine Cocaine Metabolite Screen NEGATIVE, Urine Cannabinoids Screen NEGATIVE 09/09/19 21:16: Lab Scanned Report LAB OTHER 09/10/19 10:30: CBC/BMP Laboratory Tests 09/09/19 18:20 Assessment/Plan 64 year old male admitted for depression to [facility]. I am seeing the patient for medical history and physical. Tremors, abnormal movement, abnormal gait, memory problem. discussed with Dr FELTON. He had seen dr More from 2014 to 2018. He carries a diagnosis of Tardive dyskinesia due to psychiatric meds shelter use. Also had some pseudoseizures related to one medication. Stephan screen has been ordered by psychiatry RPR negative, TSh normal, ceruloplasmin normal. Lyme serology negative. Psychiatric issues as per psychiatry. Plan / VTE VTE Prophylaxis Ordered?: No JUAN JOSÉ PLATA MD Sep 10, 2019 16:27
[2019-09-10 16:36] VITALS: BP 129/78
[2019-09-11] MEDS ORDERED: QUEtiapine FUMARATE 50 MG TAB PO ONE (03:15)
[2019-09-11] MEDS: clonazePAM 1 MG TAB PO PRN ×2 (03:29→09:03)
[2019-09-11 06:19] VITALS: BP 133/74
[2019-09-11] MEDS: ATORVASTATIN 20 MG TAB PO SCH (08:48)
[2019-09-11] MEDS: ASPIRIN 81 MG ENTERIC TAB PO SCH (08:48)
[2019-09-11] MEDS: VENLAFAXINE **XR** 75MG CAPSULE PO SCH (08:48)
[2019-09-11] MEDS: MULTIVITAMINS/MINERALS THERAP 1 TAB PO SCH (08:48)
[2019-09-11] MEDS: GABAPENTIN 300 MG CAP PO SCH ×2 (08:48→20:15)
[2019-09-11] MEDS: PRAMIPEXOLE (MIRAPEX) 0.125 MG TAB PO SCH (08:48)
--- NOTE | 2019-09-11 10:46 | MHIPNPDOC ---
[facility] Progress Note Progress Note Inpatient Progress Note Kofi Tello MRN: N/A Date of : N/A Date of Service: 09/11/2019 History of Present Illness The patient, a 64-year-old man who I had previously taken care of as a resident presents again with reported pseudoseizures, however, he presents with suicidal thoughts due to the severity of his tremors and reported auditory hallucinations of voices telling to himself. He is difficult to interview today as he has sign ificant tremors and shakiness making it difficult to get a full and comprehensive interview today. I spoke with the patient's outpatient provider after getting consent who reported that he had just started taking over his case, but he had had a long history of being on diazepam and reportedly had also started having memory problems with positive cognitive problems on testing, screening exams done on him in 2013. Interval History Narrative: The patient met with, he still has significant tremors, has been on a one-to-one for fall risk. No fall problems, reports that it makes some more agitated. He reports that he is feeling somewhat better on the new medication. Affective: The patient still feels, he has some low mood at times. Psychotic: The patient denies any voices at this time. Anxiety: Reports difficulties about his situation and some worry about them. Eating and sleeping behaviors: Appears generally normal. Group Attendance: None. Medication Side effects: See ROS below Behavioral problems/significant events overnight: None. Staff Report: Friendly amenable, but has significant tremors from [id number] will have episodes of what appear to be muscle spasms. Review Of Systems Denies any side effects on the medication, such as nausea, vomiting, cons tipation, diarrhea or other GI side effects. Psychotherapy None on this visit. Vital Signs Reviewed. Mental Status Examination General: Well dressed with good hygiene Speech: Garbled. Thought processes: Linear MSK: The tremors appear to be slightly better today. Thought content: Hopeless Abstract reasoning, and computation: Intact Description of associations: Intact Description of abnormal or psychotic thoughts: The patient denies any suicidal or homicidal ideation. Denies auditory or visual hallucinations. Does not appear internally preoccupied. 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 Assessment and Plan Parkinson psychosis: Restart Seroquel 200 mg daily. Depression due to general medical condition: Continue Effexor. Parkinson's disease: Increased pramipexole to 0.25 mg TID, appears to be doing well on the dose and appears to be improving his mood ability to tolerate stress appears quite likely Parkinson's is the general cause of the patient's tremors and pseudoseizures appear to be more likely to be dystonias then pseudoseizures. Disposition The patient will need further observation on medication titration in order to ensure a safe and effective discharge. Time Spent 15 minutes. Friday Vital Signs Vital Signs Date Time Temp Pulse Resp B/P (MAP) Pulse Ox O2 Delivery O2 Flow Rate FiO2 09/11/19 06:19 97.3 83 18 133/74 (93) 09/10/19 16:36 97 Room Air Current Medications Current Medications Medications (Trade) Dose Ordered Sig/Tiki Route PRN Reason Start Time Stop Time Status Last Admin Dose Admin Acetaminophen (Tylenol Tab) 650 mg Q6HP PRN PO HEADACHE or DISCOMFORT 09/09/19 21:30 09/10/19 12:53 Al Hydrox/Mg Hydrox/Simethicone (Mylanta) 30 ml Q4HP PRN PO HEARTBURN/INDIGESTION 09/09/19 21:30 Aspirin (Ecotrin) 81 mg DAILY PO 09/10/19 09:00 09/11/19 08:48 Atorvastatin Calcium (Lipitor) 20 mg DAILY PO 09/10/19 09:00 09/11/19 08:48 Clonazepam (KlonoPIN) 1 mg TIDP PRN PO Anxiety/Agitation 09/09/19 23:15 09/11/19 09:03 Gabapentin (Neurontin) 300 mg BID PO 09/09/19 21:00 09/11/19 08:48 Home Med (Med Rec Complete!) ASDIRECTED XX 09/09/19 22:00 09/09/19 22:04 DC Magnesium Hydroxide (Milk Of Magnesia) 30 ml DAILYPRN PRN PO CONSTIPATION 09/09/19 21:30 Multivitamins (Theragram-M) 1 tab DAILY PO 09/10/19 09:00 09/11/19 08:48 Pramipexole Dihydrochloride (Mirapex) 0.125 mg TID PO 09/10/19 09:00 09/11/19 08:48 Trazodone HCl (Desyrel) 50 mg QHSP PRN PO INSOMNIA 09/09/19 21:30 Venlafaxine HCl (Effexor Xr) 150 mg DAILY PO 09/10/19 09:00 09/11/19 08:48 Allergies Coded Allergies: amantadine (Verified Allergy, Unknown, 11/03/18) DAHLIA ADRIAN DO Sep 11, 2019 10:46
[2019-09-11 15:12] VITALS: BP 145/76
[2019-09-11] MEDS: PRAMIPEXOLE 0.25 MG TAB PO SCH ×2 (15:17→20:15)
[2019-09-11] MEDS: QUEtiapine FUMARATE 200 MG TAB PO SCH (20:15)
[2019-09-12] MEDS: clonazePAM 1 MG TAB PO PRN ×2 (04:19→13:58)
[2019-09-12 06:12] VITALS: BP 119/74
[2019-09-12] MEDS: GABAPENTIN 300 MG CAP PO SCH ×2 (08:27→20:23)
[2019-09-12] MEDS: ASPIRIN 81 MG ENTERIC TAB PO SCH (08:27)
[2019-09-12] MEDS: VENLAFAXINE **XR** 75MG CAPSULE PO SCH (08:27)
[2019-09-12] MEDS: ATORVASTATIN 20 MG TAB PO SCH (08:27)
[2019-09-12] MEDS: PRAMIPEXOLE 0.25 MG TAB PO SCH ×3 (08:27→20:22)
[2019-09-12] MEDS: MULTIVITAMINS/MINERALS THERAP 1 TAB PO SCH (08:27)
--- NOTE | 2019-09-12 13:16 | MHIPNPDOC ---
[facility] Progress Note Progress Note Inpatient Progress Note Kofi Tello MRN: N/A Date of : N/A Date of Service: 09/12/2019 History of Present Illness The patient, a 64-year-old man who I had previously taken care of as a resident presents again with reported pseudoseizures, however, he presents with suicidal thoughts due to the severity of his tremors and reported auditory hallucinations of voices telling to himself. He is difficult to interview today as he has sign ificant tremors and shakiness making it difficult to get a full and comprehensive interview today. I spoke with the patient's outpatient provider after getting consent who reported that he had just started taking over his case, but he had had a long history of being on diazepam and reportedly had also started having memory problems with positive cognitive problems on testing, screening exams done on him in 2013. Interval History Narrative: The patient was met with, still reports having significant tremors but have made massive improvements, nearly none reported today. Off one-to-one sitter as reports that he feels better and has no balance problem. Affective: The patient feels his mood is euthymic, no signs of depression, denies any symptoms. Psychotic: She denies any symptoms. Anxiety: Patient feels she is massively improved. Eating and sleeping behaviors: Appears generally normal. Group Attendance: None. Medication Side effects: See ROS below Behavioral problems/significant events overnight: None. Staff Report: Nearly tremor free at this time. Review Of Systems General: Denies fever or appetite changes Cardiovascular: Denies Chest pain or palpations GI: Denies Nausea, vomiting, or bowel changes Respiratory: Denies shortness of breath or cough Neuro: Denies dizziness, tremors Derm: Denies any rashes or pruritus : Denies any dysuria or urinary problems MSK: Denies any muscle tightness or stiffness HEENT: Denies any vision changes or headaches Psychotherapy None on this visit. Vital Signs Reviewed. Mental Status Examination General: Well dressed with good hygiene Speech: Garbled. Thought processes: Linear MSK: Nearly no tremors today. Thought content: Future oriented. Abstract reasoning, and computation: Intact Description of associations: Intact Description of abnormal or psychotic thoughts: The patient denies any suicidal or homicidal ideation. Denies auditory or visual hallucinations. Does not appear internally preoccupied. Judgment: Improved Insight: Improved Orientation: Alert and orientated 3 Cognition: Grossly normal Recent and remote memory: Intact Attention span and concentration: Intact Fund of knowledge: Adequate Mood: "Great" Affect: Euthymic. 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 Assessment and Plan Parkinson psychosis: Restart Seroquel 200 mg daily. Depression due to general medical condition: Continue Effexor. Parkinson's disease: Continue pramipexole at 0.25 mg TID, nearly tremor free, highly diagnostic for Parkinson's disorder. Patient has not had diagnosis prior. Disposition Discharge tomorrow with continued improvement. Time Spent 15 minutes. Friday Vital Signs Vital Signs Date Time Temp Pulse Resp B/P (MAP) Pulse Ox O2 Delivery O2 Flow Rate FiO2 09/12/19 06:12 97.6 80 16 119/74 (89) 09/10/19 16:36 97 Room Air Current Medications Current Medications Medications (Trade) Dose Ordered Sig/Tiki Route PRN Reason Start Time Stop Time Status Last Admin Dose Admin Acetaminophen (Tylenol Tab) 650 mg Q6HP PRN PO HEADACHE or DISCOMFORT 09/09/19 21:30 09/10/19 12:53 Al Hydrox/Mg Hydrox/Simethicone (Mylanta) 30 ml Q4HP PRN PO HEARTBURN/INDIGESTION 09/09/19 21:30 Aspirin (Ecotrin) 81 mg DAILY PO 09/10/19 09:00 09/12/19 08:27 Atorvastatin Calcium (Lipitor) 20 mg DAILY PO 09/10/19 09:00 09/12/19 08:27 Clonazepam (KlonoPIN) 1 mg TIDP PRN PO Anxiety/Agitation 09/09/19 23:15 09/12/19 04:19 Gabapentin (Neurontin) 300 mg BID PO 09/09/19 21:00 09/12/19 08:27 Home Med (Med Rec Complete!) ASDIRECTED XX 09/09/19 22:00 09/09/19 22:04 DC Magnesium Hydroxide (Milk Of Magnesia) 30 ml DAILYPRN PRN PO CONSTIPATION 09/09/19 21:30 Multivitamins (Theragram-M) 1 tab DAILY PO 09/10/19 09:00 09/12/19 08:27 Pramipexole Dihydrochloride (Mirapex) 0.125 mg TID PO 09/10/19 09:00 09/11/19 13:02 DC 09/11/19 08:48 Pramipexole Dihydrochloride (Mirapex) 0.25 mg TID PO 09/11/19 16:00 09/12/19 08:27 Quetiapine Fumarate (SEROquel) 200 mg QHS PO 09/11/19 21:00 09/11/19 20:15 Trazodone HCl (Desyrel) 50 mg QHSP PRN PO INSOMNIA 09/09/19 21:30 Venlafaxine HCl (Effexor Xr) 150 mg DAILY PO 09/10/19 09:00 09/12/19 08:27 Allergies Coded Allergies: amantadine (Verified Allergy, Unknown, 11/03/18) DAHLIA ADRIAN DO Sep 12, 2019 13:16
[2019-09-12 17:51] VITALS: BP 142/80
[2019-09-12] MEDS: QUEtiapine FUMARATE 200 MG TAB PO SCH (20:23)
[2019-09-13 05:57] VITALS: BP 137/63
[2019-09-13] MEDS: clonazePAM 1 MG TAB PO PRN ×2 (06:08→10:30)
--- NOTE | 2019-09-13 08:31 | MHDSPDOC ---
[facility] Discharge Summary Discharge Summary DATE OF ADMISSION: Sep 09, 2019 at 21:16 DATE OF DISCHARGE: 09/13/19 Discharge Kofi Tello MRN: N/A Date of : N/A Date of Service: 09/13/2019 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 History of Present Illness The patient, a 64-year-old man who I had previously taken care of as a resident presents again with reported pseudoseizures, however, he presents with suicidal thoughts due to the severity of his tremors and reported auditory hallucinations of voices telling to himself. He is difficult to interview today as he has significant tremors and shakiness making it difficult to get a full and comprehensive interview today. I spoke with the patient's outpatient provider after getting consent who reported that he had just started taking over his case, but he had had a long history of being on diazepam and reportedly had also started having memory problems with positive cognitive problems on testing, screening exams done on him in 2013. Consultants Involved Hospitalist/PCP screening Treatment and Progress On The Unit The patient was admitted to the inpatient mental health unit with some vague auditory hallucinations and depressive symptoms, some suicidal ideation at times due to the severity of his condition. He had huge tremors what appear to be dystonias that had been described as pseudoseizures for number of years. He was resumed on home his home medications of Seroquel, Klonopin and gabapentin. I spoke to his outpatient provider who is unsure about the long-term clonazepam use. The patient was started on pramipexole and increased to 0.25 mg TID with near complete remission of his tremors. The patient made a true 180 degree change and demonstrated no depression, no suicidality, no tremors, burning from a crippled man barely able to walk shuffling slowly into a completely average individual who appeared quite healthy and vigorous. Patient had no previous diagnosis of Parkinson's; however, once treated with pramipexole it appeared quite clear that the patient had Parkinson's and the treatment of it resulted in him returning to a completely normal state of being. The patient was thankful and grateful for the change. He was started on extended-release as he had notable off periods during the morning after his medication wore off overnight. Discussed with his about the aftercare plans and his psychiatrist as well. 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 Starting him on pramipexole for his concern for Parkinson's, causes a massive change. The patient improves to the p oint that he is able to engage in all of his behaviors returning to a state He reportedly had not been in "decades." the patient on the day of discharge does not meet involuntary criteria as he denies any suicidal or homicidal ideation. Denies any auditory or visual hallucinations. Has not completely improved mental status and physical status. Is future oriented and extremely happy about the changes. He declines further voluntary and is discharged in good abel. The patient was discussed with about the risk with pramipexole and hedonism and compulsive behaviors. Mental Status Examination General: Well dressed with good hygiene Speech: Spontaneous and fluid Thought processes: Linear and logical MSK: Smooth and coordinated gait, no signs of tremors or involuntary orofacial movements Thought content: Future orientated Abstract reasoning, and computation: Intact Description of associations: Intact Description of abnormal or psychotic thoughts: Denies any suicidal or homicidal ideation. Denies any auditory or visual hallucinations. Does not appear to be responding to internal stimuli. Does not appear to be endorsing any bizarre or paranoid ideation. Judgment: fair Insight: fair Orientation: Alert and orientated 3 Cognition: Grossly normal Recent and remote memory: Intact Attention span and concentration: Intact Fund of knowledge: Adequate Mood: "okay" Affect: Euthymic with a full range Follow Up The social work team worked during the predischarge meeting in order to evaluate for further issues of lethality address them fully before discharge. They worked on safety planning with the patient's family members in order to ensure that the patient will have a safe and effective discharge. Time Spent The amount of time spent in the coordination of care for this patient was approximately 40 minutes. Friday Vital Signs/I&Os Vital Signs Date Time Temp Pulse Resp B/P (MAP) Pulse Ox O2 Delivery O2 Flow Rate FiO2 09/13/19 05:57 97.3 91 16 137/63 (87) 09/10/19 16:36 97 Room Air Medications Scheduled Aspirin (Aspirin EC) 81 Mg Tab, 81 MG PO DAILY, (Reported) Atorvastatin Calcium (Atorvastatin Calcium) 20 Mg Tablet, 20 MG PO DAILY, (Reported) Gabapentin (Gabapentin) 300 Mg Capsule, 300 MG PO BID for anxiety for 14 Days, #28 Multivitamins (Thera M Plus Tablet) 1 Tab Tab, 1 TAB PO DAILY, (Reported) Pramipexole Di-HCl (Pramipexole ER) 2.25 Mg Tab.er.24h, 1 TAB PO QPM for parkinson's for 30 Days, #30 Quetiapine Fumarate (Quetiapine Fumarate) 200 Mg Tab, 200 MG PO TID, (Reported) Venlafaxine HCl (Venlafaxine HCl ER) 150 Mg Cap, 150 MG PO DAILY, (Reported) Scheduled PRN Clonazepam (Clonazepam) 1 Mg Tab, 1 MG PO TID PRN for ANXIETY for 14 Days, #21 Pramipexole Di-HCl (Mirapex) 0.25 Mg Tablet, 0.25 MG PO TIDP PRN for ANXIETY/AGITATION for 7 Days, #21 Allergies Coded Allergies: amantadine (Verified Allergy, Unknown, 11/03/18) DAHLIA ADRIAN DO Sep 13, 2019 08:31
[2019-09-13] MEDS ORDERED: PRAM1TAB75 PO (08:49)
[2019-09-13] MEDS: VENLAFAXINE **XR** 75MG CAPSULE PO SCH (08:59)
[2019-09-13] MEDS: ATORVASTATIN 20 MG TAB PO SCH (08:59)
[2019-09-13] MEDS: MULTIVITAMINS/MINERALS THERAP 1 TAB PO SCH (08:59)
[2019-09-13] MEDS: ASPIRIN 81 MG ENTERIC TAB PO SCH (08:59)
[2019-09-13] MEDS: GABAPENTIN 300 MG CAP PO SCH (08:59)
[2019-09-13] MEDS: PRAMIPEXOLE 0.25 MG TAB PO SCH ×2 (09:27→16:30)
[2019-09-13] MEDS ORDERED: MIRA0.254 PO (11:37)
[2019-09-13] MEDS ORDERED: GABA-843 PO (17:10)
[2019-09-13] MEDS ORDERED: CLON1TAB8 PO (17:10)
== END 2019-09-13 18:30 | disposition home or self-care (01) | DRG 881 ==
LOC: EDBD 16:52 → M ED 16:52 → M ED INP 21:16 → M PSY 09-10 00:45
PROVIDERS: ADMIT Psychiatry & Neurology Psychiatry; ATTEND Psychiatry & Neurology Addiction Medicine
DX: F32.9 Major depressive disorder, single episode, unspecified (principal); R45.851 Suicidal ideations; R56.9 Unspecified convulsions; G24.9 Dystonia, unspecified; G20 Parkinson's disease; Z79.82 Long term (current) use of aspirin; Z79.899 Other long term (current) drug therapy; Z88.8 Allergy status to other drugs, medicaments and biological substances; F41.9 Anxiety disorder, unspecified; M19.90 Unspecified osteoarthritis, unspecified site; E55.9 Vitamin D deficiency, unspecified; M54.5 Low back pain; K57.30 Diverticulosis of large intestine without perforation or abscess without bleeding; K64.8 Other hemorrhoids

== ENCOUNTER 2019-09-20 20:42 | Inpatient (IN) | payer MEDICARE, MEDICAID ==
[~2019-09-20] VITALS: Ht 172.7 cm; Wt 75.2 kg
[~2019-09-20 20:42] MED LIST changes: +ATOR1TAB21 PO; +GABA-843 PO; +MIRA0.254 PO; +PRAM1TAB75 PO
[2019-09-20 21:25] LABS: HEMATOCRIT 47.2 % (42.0-52.0); HEMOGLOBIN 16.3 g/dl (13.5-17.5); MEAN CORPUSCULAR HEMOGLOBIN 31.4 pg (27.0-33.0); MEAN CORPUSCULAR HGB CONC 34.5 g/dl (32.0-36.5); MEAN CORPUSCULAR VOLUME 90.9 fl (80.0-96.0); PLATELET COUNT, AUTOMATED 288 10^3/uL (150-450); RED BLOOD COUNT 5.19 10^6/uL (4.30-6.10)
[2019-09-20 21:55] LABS: ACETAMINOPHEN LEVEL < 2.0 UG/ML (10.0-30.0); ALBUMIN 3.7 GM/DL (3.2-5.2); ALT/SGPT 49 U/L (12-78); BILIRUBIN,DIRECT < 0.1 MG/DL (0.0-0.2); BILIRUBIN,TOTAL 0.4 MG/DL (0.2-1.0); BLOOD UREA NITROGEN 12 MG/DL (7-18); CALCIUM LEVEL 8.3 MG/DL (8.8-10.2); CARBON DIOXIDE LEVEL 30 MEQ/L (21-32); CHLORIDE LEVEL 107 MEQ/L (98-107); CREATININE FOR GFR 0.99 MG/DL (0.70-1.30); ETHYL ALCOHOL (ETHANOL) < 0.003 % (0.000-0.010); GLOMERULAR FILTRATION RATE > 60.0 (>49); GLUCOSE, FASTING 114 MG/DL (70-100); POTASSIUM SERUM 4.4 MEQ/L (3.5-5.1); SALICYLATE LEVEL < 1.7 MG/DL (5.0-30.0); SODIUM LEVEL 140 MEQ/L (136-145); THYROID STIMULATING HORMONE 0.955 uIU/ML (0.358-3.740); TOTAL PROTEIN 6.6 GM/DL (6.4-8.2)
[2019-09-20] MEDS ORDERED: NS 1,000 ML IV ONE (22:30)
[2019-09-20 23:06] LABS: AMPHETAMINES LEVEL URINE NEGATIVE (NEGATIVE); BARBITURATES URINE NEGATIVE (NEGATIVE); BENZODIAZEPINES URINE NEGATIVE (NEGATIVE); CANNABINOIDS URINE NEGATIVE (NEGATIVE); COCAINE METABOLITE URINE NEGATIVE (NEGATIVE); METHADONE URINE NEGATIVE (NEGATIVE); OPIATES URINE NEGATIVE (NEGATIVE); PHENCYCLIDINE URINE NEGATIVE (NEGATIVE)
[2019-09-21] MEDS ORDERED: MOM 30ML SUSPENSION UDC PO PRN (03:45)
[2019-09-21] MEDS ORDERED: MAALOX 30 ML SUSP *UDC PO PRN (03:45)
[2019-09-21] MEDS ORDERED: PRAM1TAB75 PO (03:52)
[2019-09-21] MEDS ORDERED: CLON1TAB8 PO (03:52)
[2019-09-21] MEDS ORDERED: GABA-843 PO (03:52)
[2019-09-21] MEDS ORDERED: MIRA0.254 PO (03:52)
[2019-09-21 04:45] VITALS: BP 130/70
--- NOTE | 2019-09-21 05:58 | ECGEPIP ---
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
[2019-09-21] MEDS: clonazePAM 1 MG TAB PO PRN ×2 (07:28→17:30)
[2019-09-21] MEDS: ATORVASTATIN 20 MG TAB PO SCH (08:32)
[2019-09-21] MEDS: VENLAFAXINE **XR** 75MG CAPSULE PO SCH (08:32)
[2019-09-21] MEDS: MULTIVITAMINS/MINERALS THERAP 1 TAB PO SCH (08:32)
[2019-09-21] MEDS: ASPIRIN 81 MG ENTERIC TAB PO SCH (08:32)
[2019-09-21] MEDS: QUEtiapine FUMARATE 200 MG TAB PO SCH ×3 (08:32→20:14)
[2019-09-21] MEDS: GABAPENTIN 300 MG CAP PO SCH ×2 (10:37→20:14)
[2019-09-21] MEDS: PRAMIPEXOLE 0.25 MG TAB PO SCH ×3 (11:32→20:13)
[2019-09-21 16:00] VITALS: BP 128/75
[2019-09-21] MEDS: PRAMIPEXOLE 0.25 MG TAB PO PRN (17:30)
--- NOTE | 2019-09-21 21:31 | MHHPE ---
DATE OF ADMISSION: 09/21/2019 DATE OF EVALUATION: 09/21/2019 HISTORY OF PRESENT ILLNESS: This is one of multiple psychiatric admissions for this 64-year-old man brought to the hospital by the [facility]. The patient had reportedly held a pairing knife to his stomach and asked his to help him stab himself because he did not want to cut his wrists. The patient also reportedly took more than his prescribed daily Klonopin dose. In addition, there apparently was an empty bottle of gabapentin that had been filled on 09/13/2019. Apparently, the patient appeared to be confused when he was in route to the hospital, asking for his children and describing them as kids, instead of the fact that they are adults. Today, when I asked him how he is doing, he says, "If I could find out what's wrong with me, then I could deal with it." The patient apparently has had lifelong episodes of pseudoseizures that always seem to get worse whenever he feels overwhelmed. The patient was just discharged from [facility] on 09/13/2019, which was about a week ago. He said that at first he was fine for the first few days and that he then started to go "downhill." He states "my brain is screwed up." He says he is having racing thoughts and poor memory, that he loses periods of time, such as a few days ago where he went to his daughter's house and then the next thing he remembers he woke up in bed. He states that his told him that he walked home, ate dinner, and watched TV for a few hours, but he did not remember any of it. He admitted that he had a knife because he has to protect himself from the people who are going to attack him, but he does not know who they are or why they want to harm him. He states that he hears voices that call his name, but then later stated that the voices talk to him and tell him that his situation is hopeless and helpless. He also reports that he was seeing a man standing by his bed and again he was saying, "if they don't figure out what's wrong with me, I'm going to kill myself." The patient has a history of suicidal attempts via cutting and overdoses. He said he took extra Klonopin because he was feeling increasingly anxious and did not think that the medicine was effective. PAST PSYCHIATRIC HISTORY: The patient has a history of multiple psychiatric hospitalizations usually with similar presentation. He attends the community clinic at [facility] and he is on Seroquel 200 mg three times a day, Effexor extended release 150 mg twice a day, Klonopin 1 mg three times a day, Neurontin 300 mg twice a day. As I said above, he has a history of multiple other medications he has been treated with in the past, including Clozaril, and he has a history of multiple suicidal attempts, as I noted above. FAMILY HISTORY: He says his father is schizophrenic, had trouble with abusing alcohol, and he has two sisters that attempted suicide. MEDICAL HISTORY: He has been worked up many times for his tremors and there is some concern that he may have some Parkinsonian tremors, but he has been diagnosed with pseudoseizures for many years now. SUBSTANCE ABUSE: He denies any problems with alcohol or drugs. ABUSE HISTORY: He denies any history of being abused. REVIEW OF SYSTEMS: VITAL SIGNS: Blood pressure is 130/70, pulse 80, respirations 16. APPEARANCE: He did not appear to be in any apparent distress. NEUROMUSCULAR SYSTEM: The patient definitely has pretty severe involuntary movements of his upper extremities and basically his whole body. All other systems were noted to be negative. MENTAL STATUS EXAMINATION: The patient is alert and oriented times three. Eye contact is poor at times. He seems to be constantly drinking. He is having constant tremors of his entire body. His speech is garbled and difficult to understand. There is no formal thought disorder noted. He says his mood is depressed. His affect is appropriate to mood. He seems to be having auditory hallucinations and what he refers to as visual hallucinations of seeing a man standing by his bed. The patient continues to say that if they do not find out what is wrong with him, that he is going to kill myself, but he is able to contract at this point. He is denying homicidal ideations. Concentration is poor. Memory intact. Insight and judgment is poor. DIAGNOSES: 1. Unspecified psychotic disorder. 2. Conversion disorder with pseudoseizures. 3. Rule out Parkinsonian disease. TREATMENT PLAN: At this point, we will continue the patient on his current psychotropic medications as noted above. We will continue to monitor him for his suicidal thoughts. He is able to contract for safety at this point. We will titrate his medications as indicated and the plan will be to discharge him once stable.
[2019-09-22] MEDS: clonazePAM 1 MG TAB PO PRN ×3 (05:43→20:11)
[2019-09-22 06:42] VITALS: BP 126/70
--- NOTE | 2019-09-22 08:22 | HPEPDOC ---
[facility] Medical History & Physical Date of Admission Sep 21, 2019 Date of Service: Sep 21, 2019 History and Physical Chief Complaint The patient is a 64-year-old male admitted with a reason for visit of Unspecified Psychotic D/O. History of Present Illness 64 year old male admitted for depression to [facility]. I am seeing the patient for medical history and physical. He was brought to the hospital by the [facility]. The patient had reportedly held a pairing knife to his stomach and asked his to help him stab himself because he did not want to cut his wrists. The patient also reportedly took more than his prescribed daily Klonopin dose. He has had memory issues for the past 6 months. Also complains of abnormal movements of the hands and legs and tremors for the past 5 years. Past Medical History Tardive dyskinesia -Tremors and abnormal movements Abnormal Gait Memory problem for past 6 months. Depression Anxiety Panic attacks Schizoaffective disorder Schizophrenia History of pseudoseizure Osteoarthritis Vitamin D deficiency chronic back pain ?Microadenoma of [place] in [place] [facility] in 2015 Surgical History Foot surgery Repair left eardrum repair Colonoscopy 08/06. Ronna. Diverticulosis and internal hemorrhoids. Family History Cancer (father lung cancer), Other (multiple sclerosis grandmother) Social History Smoker: Denies Alcohol: Denies Drugs: denies Review of systems. Pertinent positive findings as per HPI and is negative PHYSICAL EXAMINATION: General: The patient is awake, alert, oriented x3, sitting up in the bed in no apparent distress. Head and Neck Exam: Extraocular muscles intact. Pupils equally round and reactive to light. Mucous membranes are moist. Neck is supple. There is no jugular venous distention (JVD). Cardiovascular: S1 and S2, regular rate. No real edema Respiratory: Clear auscultation Abdomen: Soft. Positive bowel sounds. Nontender. No organomegaly. Genitourinary: Deferred Musculoskeletal: Clubbing of the fingernails, no cyanosis was noted. Central Nervous System ([employer] FLOOR): No focal deficit. Power is 5/5 in all extr emities. Assessment and plan 1. Depression/Suicidal thoughts: As per psychiatric 2. Tremors, abnormal movement, abnormal gait, memory problem. He carries a diagnosis of Tardive dyskinesia due to psychiatric meds fdc use. Also had some pseudoseizures related to one medication. [place] screen was by psychiatry on the last admission RPR negative, TSh normal, ceruloplasmin normal. Lyme serology negative. On the last admission. Management as per psychiatric Diet as per psychiatric Thank so much for consulting us on this patient Vital Signs Vital Signs Date Time Temp Pulse Resp B/P (MAP) Pulse Ox O2 Delivery O2 Flow Rate FiO2 09/21/19 09:26 Room Air 09/21/19 04:45 99.0 80 16 130/70 (90) 94 Laboratory Data Labs 24H Laboratory Tests 2 09/20/19 21:13: Nucleated Red Blood Cells % (auto) 0.0, Anion Gap 3L, Glomerular Filtration Rate > 60.0, Calcium Level 8.3L, Total Bilirubin 0.4, Direct Bilirubin < 0.1, Aspartate Amino Transf (AST/SGOT) 30, Alanine Aminotransferase (ALT/SGPT) 49, Alkaline Phosphatase 93, Total Protein 6.6, Albumin 3.7, Albumin/Globulin Ratio 1.28, Thyroid Stimulating Hormone (TSH) 0.955, Salicylates Level < 1.7L, Acetaminophen Level < 2.0L, Ethyl Alcohol Level < 0.003 09/20/19 22:39: Urine Opiates Screen NEGATIVE, Urine Methadone Screen NEGATIVE, Urine Barbiturates Screen NEGATIVE, Urine Phencyclidine Screen NEGATIVE, Urine Amphetamines Screen NEGATIVE, Urine Benzodiazepines Screen NEGATIVE, Urine Cocaine Metabolite Screen NEGATIVE, Urine Cannabinoids Screen NEGATIVE CBC/BMP Laboratory Tests 09/20/19 21:13 Home Medications Scheduled Aspirin (Aspirin EC) 81 Mg Tab, 81 MG PO DAILY Atorvastatin Calcium (Atorvastatin Calcium) 20 Mg Tablet, 20 MG PO DAILY Gabapentin (Gabapentin) 300 Mg Capsule, 300 MG PO BID Multivitamins (Thera M Plus Tablet) 1 Tab Tab, 1 TAB PO DAILY Pramipexole Di-HCl (Pramipexole ER) 2.25 Mg Tab.er.24h, 2.25 MG PO QHS Quetiapine Fumarate (Quetiapine Fumarate) 200 Mg Tab, 200 MG PO TID Venlafaxine HCl (Venlafaxine HCl ER) 150 Mg Cap, 150 MG PO DAILY Scheduled PRN Clonazepam (Clonazepam) 1 Mg Tablet, 1 MG PO TID PRN for ANXIETY Pramipexole Di-HCl (Mirapex) 0.25 Mg Tablet, 0.25 MG PO TID PRN for ANXIETY/AGITATION Allergies Coded Allergies: amantadine (Verified Allergy, Unknown, 11/03/18) A-FIB/CHADSVASC A-FIB History Current/History of A-Fib/PAF?: No Current PO Anticoag Therapy: No CRYS HERRERA MD Sep 21, 2019 12:35
[2019-09-22] MEDS: ASPIRIN 81 MG ENTERIC TAB PO SCH (08:33)
[2019-09-22] MEDS: ATORVASTATIN 20 MG TAB PO SCH (08:33)
[2019-09-22] MEDS: QUEtiapine FUMARATE 200 MG TAB PO SCH (08:33)
[2019-09-22] MEDS: GABAPENTIN 300 MG CAP PO SCH ×2 (08:33→20:11)
[2019-09-22] MEDS: MULTIVITAMINS/MINERALS THERAP 1 TAB PO SCH (08:33)
[2019-09-22] MEDS: VENLAFAXINE **XR** 75MG CAPSULE PO SCH (08:34)
[2019-09-22] MEDS ORDERED: PRAMIPEXOLE (MIRAPEX) 0.125 MG TAB PO PRN (09:00)
--- NOTE | 2019-09-22 09:08 | MHIPNPDOC ---
[facility] Progress Note Progress Note Kofi Tello Inpatient Progress Note Kofi Tello Select Gender MRN: N/A Date of : MM/DD/YYYY Date of Service: 09/22/2019 History of Present Illness 64-year-old man with a history of likely Parkinson's-related tremors and dystonias presents bizarre and suicidal after being discharged on Pramipexole. The patient reports feeling suicidal and hopeless about his situation due to his refractory symptoms. Interval History Narrative: The patient is met with in the group setting. He has significant trouble relaying his symptoms as he still has quite a bit of tremors. He does grab for a pen in order to hold it, however he readily returns it. Affective: The patient reports significant low mood and suicidal thoughts. Psychotic: None related at this time. Anxiety: Significant worry about his health symptoms. Eating and sleeping behaviors: Generally normal eating, sleeping disrupted. Group Attendance: At times, although infrequent. Medication Side effects: See ROS below Behavioral problems/significant events overnight: Patient reportedly stating he was suicidal. Staff Report: Patient appears more hopeless, has more difficulty with tremors than previous. Review Of Systems Focused on tremors, unable to relay other more comprehensive review of systems at this time. Psychotherapy None on this visit. Vital Signs Reviewed. Mental Status Examination General: Fair hygiene. Speech: Garbled. Thought processes: Linear and logical. MSK: Significant tremors and dystonic movements. Thought content: Hopeless Abstract reasoning, and computation: Intact Description of associations: Intact Description of abnormal or psychotic thoughts: Admits to suicidal thoughts. Denies homicidal thoughts. Does not appear to be responding to internal stimuli. Judgment: Fair. Insight: Fair Orientation: Alert and orientated 3 Cognition: Grossly normal Recent and remote memory: Intact Attention span and concentration: Intact Fund of knowledge: Adequate Mood: "Bad." Affect: Dysthymic with a constricted range. 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 Assessment and Plan Psychosis: Likely related to increased dopamine, perhaps erratogenic. We will lower Seroquel as it appears to be much higher than previously dosed, currently at 200 mg TID, we will lower to 100 mg QHS as likely making tremors worse. Lowering pramipexole to 0.25 mg TID which will likely ally the Parkinson's psychosis. Depression: We will increase venlafaxine to 187.5 mg daily. Disposition The patient will need a further inpatient admission due to his suicidality and severe depression related to his medical condition. Time Spent 15 minutes. Vital Signs Vital Signs Date Time Temp Pulse Resp B/P (MAP) Pulse Ox O2 Delivery O2 Flow Rate FiO2 09/22/19 08:03 Room Air 09/22/19 06:42 97.9 80 14 126/70 (88) 09/21/19 04:45 94 Current Medications Current Medications Medications (Trade) Dose Ordered Sig/Tiki Route PRN Reason Start Time Stop Time Status Last Admin Dose Admin Acetaminophen (Tylenol Tab) 650 mg Q6HP PRN PO HEADACHE or DISCOMFORT 09/21/19 03:45 Al Hydrox/Mg Hydrox/Simethicone (Mylanta) 30 ml Q4HP PRN PO HEARTBURN/INDIGESTION 09/21/19 03:45 Aspirin (Ecotrin) 81 mg DAILY PO 09/21/19 09:00 09/22/19 08:33 Atorvastatin Calcium (Lipitor) 20 mg DAILY PO 09/21/19 09:00 09/22/19 08:33 Clonazepam (KlonoPIN) 1 mg TID PRN PO ANXIETY 09/21/19 04:15 09/22/19 05:43 Gabapentin (Neurontin) 300 mg BID PO 09/21/19 09:00 09/22/19 08:33 Home Med (Med Rec Complete!) ASDIRECTED XX 09/21/19 04:00 09/21/19 03:53 DC Magnesium Hydroxide (Milk Of Magnesia) 30 ml DAILYPRN PRN PO CONSTIPATION 09/21/19 03:45 Multivitamins (Theragram-M) 1 tab DAILY PO 09/21/19 09:00 09/22/19 08:33 Pramipexole Dihydrochloride (Mirapex) 0.125 mg QHSP PRN PO TREMORS 09/22/19 09:00 Pramipexole Dihydrochloride (Mirapex) 0.25 mg TID PO 09/22/19 09:00 Pramipexole Dihydrochloride (Mirapex) 0.25 mg TID PRN PO ANXIETY/AGITATION 09/21/19 04:15 09/21/19 17:30 Pramipexole Dihydrochloride (Mirapex) 0.75 mg TID PO 09/21/19 09:00 09/22/19 08:56 DC 09/21/19 20:13 Quetiapine Fumarate (SEROquel) 200 mg TID PO 09/21/19 09:00 09/22/19 08:33 Trazodone HCl (Desyrel) 50 mg QHSP PRN PO INSOMNIA 09/21/19 03:45 Venlafaxine HCl (Effexor Xr) 150 mg DAILY PO 09/21/19 09:00 09/22/19 08:34 Allergies Coded Allergies: amantadine (Verified Allergy, Unknown, 11/03/18) DAHLIA ADRIAN DO Sep 22, 2019 09:08
[2019-09-22] MEDS: PRAMIPEXOLE 0.25 MG TAB PO SCH ×3 (10:45→20:10)
[2019-09-22] MEDS: ACETAMINOPHEN TAB 650MG DOSE (2X325MG) PO PRN (10:59)
[2019-09-22] MEDS: PRAMIPEXOLE 0.25 MG TAB PO PRN (13:44)
[2019-09-22 16:00] VITALS: BP 162/66
[2019-09-22] MEDS ORDERED: QUEtiapine FUMARATE 200 MG TAB PO SCH (16:00)
[2019-09-22] MEDS: RAMELTEON 8 MG TAB (ROZEREM) PO SCH (20:10)
[2019-09-22] MEDS: QUEtiapine FUMARATE 100 MG TAB PO SCH (20:11)
[2019-09-22 21:02] VITALS: BP 125/60
[2019-09-23 06:25] VITALS: BP 140/79
[2019-09-23] MEDS: clonazePAM 1 MG TAB PO PRN ×2 (06:47→11:47)
[2019-09-23] MEDS: ACETAMINOPHEN TAB 650MG DOSE (2X325MG) PO PRN (06:48)
[2019-09-23] MEDS: PRAMIPEXOLE 0.25 MG TAB PO SCH ×3 (07:48→20:13)
[2019-09-23] MEDS: VENLAFAXINE **XR** 37.5 MG CAPSULE PO SCH (07:49)
[2019-09-23] MEDS: ATORVASTATIN 20 MG TAB PO SCH (07:49)
[2019-09-23] MEDS: MULTIVITAMINS/MINERALS THERAP 1 TAB PO SCH (07:49)
[2019-09-23] MEDS: VENLAFAXINE **XR** 75MG CAPSULE PO SCH (07:49)
[2019-09-23] MEDS: ASPIRIN 81 MG ENTERIC TAB PO SCH (07:49)
[2019-09-23] MEDS: GABAPENTIN 300 MG CAP PO SCH ×2 (07:49→20:13)
[2019-09-23] MEDS ORDERED: PRAMIPEXOLE (MIRAPEX) 0.125 MG TAB PO PRN (08:30)
--- NOTE | 2019-09-23 08:42 | MHIPNPDOC ---
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 The patient reports feeling suicidal and hopeless about his situation due to his refractory symptoms. Interval History Narrative: The patient is met within the group setting. He reports that the tremors have been getting somewhat better but is frustrated by their presence. Affective: The patient reports low mood continuously, but less overt suicidal thoughts. Psychotic: None related at this time. Anxiety: Significant worry about his health symptoms. Eating and sleeping behaviors: Generally normal eating, sleeping disrupted. Group Attendance: More frequently. Medication Side effects: See ROS below Behavioral problems/significant events overnight: Multiple dystonic episodes. Staff Report: Patient appears generally hopeless. Tremors appeared to be getting better though. Review Of Systems Denies any changes in his physical symptoms at this time, denies any side effects from medications. Psychotherapy None on this visit. Vital Signs Reviewed. Mental Status Examination General: Fair hygiene. Speech: Less garbled. Thought processes: Linear and logical. MSK: Less tremors and less dystonic movements. Thought content: Hopeless Abstract reasoning, and computation: Intact Description of associations: Intact Description of abnormal or psychotic thoughts: Admits to suicidal thoughts. Denies homicidal thoughts. Does not appear to be responding to internal stimuli. Judgment: Fair. Insight: Fair Orientation: Alert and orientated 3 Cognition: Grossly normal Recent and remote memory: Intact Attention span and concentration: Intact Fund of knowledge: Adequate Mood: "Okay." Affect: Dysthymic with a constricted range. 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 Assessment and Plan Psychosis: Continue Seroquel 100 mg QHS, continue pramipexole 0.25 mg TID with 0.125 mg TID PRN. Depression: Continue Effexor 187.5 mg daily. Disposition The patient will need a further inpatient admission due to his suicidality and severe depression related to his medical condition. Time Spent 15 minutes. Vital Signs Vital Signs Date Time Temp Pulse Resp B/P (MAP) Pulse Ox O2 Delivery O2 Flow Rate FiO2 09/23/19 06:25 97.0 73 18 140/79 (99) 09/22/19 08:03 Room Air 09/21/19 04:45 94 Current Medications Current Medications Medications (Trade) Dose Ordered Sig/Tiki Route PRN Reason Start Time Stop Time Status Last Admin Dose Admin Acetaminophen (Tylenol Tab) 650 mg Q6HP PRN PO HEADACHE or DISCOMFORT 09/21/19 03:45 09/23/19 06:48 Al Hydrox/Mg Hydrox/Simethicone (Mylanta) 30 ml Q4HP PRN PO HEARTBURN/INDIGESTION 09/21/19 03:45 Aspirin (Ecotrin) 81 mg DAILY PO 09/21/19 09:00 09/23/19 07:49 Atorvastatin Calcium (Lipitor) 20 mg DAILY PO 09/21/19 09:00 09/23/19 07:49 Clonazepam (KlonoPIN) 1 mg TID PRN PO ANXIETY 09/21/19 04:15 09/23/19 06:47 Gabapentin (Neurontin) 300 mg BID PO 09/21/19 09:00 09/23/19 07:49 Home Med (Med Rec Complete!) ASDIRECTED XX 09/21/19 04:00 09/21/19 03:53 DC Magnesium Hydroxide (Milk Of Magnesia) 30 ml DAILYPRN PRN PO CONSTIPATION 09/21/19 03:45 09/22/19 10:59 Multivitamins (Theragram-M) 1 tab DAILY PO 09/21/19 09:00 09/23/19 07:49 Pramipexole Dihydrochloride (Mirapex) 0.125 mg QHSP PRN PO TREMORS 09/22/19 09:00 09/23/19 08:25 DC Pramipexole Dihydrochloride (Mirapex) 0.125 mg TIDP PRN PO TREMORS 09/23/19 08:30 UNV Pramipexole Dihydrochloride (Mirapex) 0.25 mg TID PO 09/22/19 09:00 09/23/19 07:48 Pramipexole Dihydrochloride (Mirapex) 0.25 mg TID PRN PO ANXIETY/AGITATION 09/21/19 04:15 09/22/19 13:44 Pramipexole Dihydrochloride (Mirapex) 0.75 mg TID PO 09/21/19 09:00 09/22/19 08:56 DC 09/21/19 20:13 Quetiapine Fumarate (SEROquel) 100 mg QHS PO 09/22/19 21:00 09/22/19 20:11 Quetiapine Fumarate (SEROquel) 100 mg TID PO 09/22/19 16:00 09/22/19 13:47 DC Quetiapine Fumarate (SEROquel) 200 mg TID PO 09/21/19 09:00 09/22/19 13:45 DC 09/22/19 08:33 Ramelteon (Rozerem) 8 mg QHS PO 09/22/19 21:00 09/22/19 20:10 Trazodone HCl (Desyrel) 50 mg QHSP PRN PO INSOMNIA 09/21/19 03:45 Venlafaxine HCl (Effexor Xr) 37.5 mg DAILY PO 09/23/19 09:00 09/23/19 07:49 Venlafaxine HCl (Effexor Xr) 150 mg DAILY PO 09/21/19 09:00 09/22/19 09:14 DC 09/22/19 08:34 Venlafaxine HCl (Effexor Xr) 150 mg DAILY PO 09/23/19 09:00 09/23/19 07:49 Allergies Coded Allergies: amantadine (Verified Allergy, Unknown, 11/03/18) DAHLIA ADRIAN DO Sep 23, 2019 08:42
[2019-09-23 17:45] VITALS: BP 126/67
[2019-09-23] MEDS: RAMELTEON 8 MG TAB (ROZEREM) PO SCH (20:13)
[2019-09-23] MEDS: QUEtiapine FUMARATE 100 MG TAB PO SCH (20:14)
[2019-09-24] MEDS: clonazePAM 1 MG TAB PO PRN ×3 (01:50→13:37)
[2019-09-24] MEDS: ACETAMINOPHEN TAB 650MG DOSE (2X325MG) PO PRN (04:09)
[2019-09-24] MEDS: PRAMIPEXOLE (MIRAPEX) 0.125 MG TAB PO PRN ×3 (04:32→12:50)
[2019-09-24 06:15] VITALS: BP 162/81
[2019-09-24] MEDS: VENLAFAXINE **XR** 75MG CAPSULE PO SCH (08:22)
[2019-09-24] MEDS: VENLAFAXINE **XR** 37.5 MG CAPSULE PO SCH (08:22)
[2019-09-24] MEDS: MULTIVITAMINS/MINERALS THERAP 1 TAB PO SCH (08:23)
[2019-09-24] MEDS: ATORVASTATIN 20 MG TAB PO SCH (08:23)
[2019-09-24] MEDS: ASPIRIN 81 MG ENTERIC TAB PO SCH (08:23)
[2019-09-24] MEDS: GABAPENTIN 300 MG CAP PO SCH ×2 (08:23→20:22)
[2019-09-24] MEDS: PRAMIPEXOLE 0.25 MG TAB PO SCH ×4 (09:00→20:22)
--- NOTE | 2019-09-24 09:10 | MHIPNPDOC ---
[facility] Progress Note Progress Note Kofi Tello Inpatient Progress Note Kofi Tello Select Gender MRN: N/A Date of : MM/DD/YYYY Date of Service: 09/24/2019 History of Present Illness 64-year-old man with a history of likely Parkinson's-related tremors and dystonias presents bizarre and suicidal after being discharged on Pramipexole. The patient reports feeling suicidal and hopeless about his situation due to his refractory symptoms. Interval History Narrative: The patient is met with in the group room. He reports that the tremors have been getting somewhat better but is frustrated by their presence. Affective: The patient reports low mood continuously, more frustration. Psychotic: None related at this time. Anxiety: Significant worry about his health symptoms. Eating and sleeping behaviors: Generally normal eating, sleeping disrupted. Group Attendance: More frequently. Medication Side effects: See ROS below Behavioral problems/significant events overnight: Multiple dystonic episodes. Staff Report: Patient appears generally hopeless. Tremors appeared to be getting better though. Review Of Systems Denies any changes in his physical symptoms at this time, denies any side effects from medications. Psychotherapy None on this visit. Vital Signs Reviewed. Mental Status Examination General: Fair hygiene. Speech: Less garbled. Thought processes: Linear and logical. MSK: Less tremors and less dystonic movements. Thought content: Hopeless Abstract reasoning, and computation: Intact Description of associations: Intact Description of abnormal or psychotic thoughts: Admits to suicidal thoughts. Denies homicidal thoughts. Does not appear to be responding to internal stimuli. Judgment: Fair. Insight: Fair Orientation: Alert and orientated 3 Cognition: Grossly normal Recent and remote memory: Intact Attention span and concentration: Intact Fund of knowledge: Adequate Mood: "Okay." Affect: Dysthymic with a constricted range. 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 Assessment and Plan Psychosis: Continue Seroquel 100 mg QHS, continue pramipexole 0.25 mg TID with 0.125 mg TID PRN. Depression: lower Effexor to 150 mg daily, to reduce possible increased anxiety Disposition The patient will need a further inpatient admission due to his suicidality and severe depression related to his medical condition. Time Spent 15 minutes. Vital Signs Vital Signs Date Time Temp Pulse Resp B/P (MAP) Pulse Ox O2 Delivery O2 Flow Rate FiO2 09/24/19 06:15 97.2 72 16 162/81 (108) 09/22/19 08:03 Room Air 09/21/19 04:45 94 Current Medications Current Medications Medications (Trade) Dose Ordered Sig/Tiki Route PRN Reason Start Time Stop Time Status Last Admin Dose Admin Acetaminophen (Tylenol Tab) 650 mg Q6HP PRN PO HEADACHE or DISCOMFORT 09/21/19 03:45 09/24/19 04:09 Al Hydrox/Mg Hydrox/Simethicone (Mylanta) 30 ml Q4HP PRN PO HEARTBURN/INDIGESTION 09/21/19 03:45 Aspirin (Ecotrin) 81 mg DAILY PO 09/21/19 09:00 09/24/19 08:23 Atorvastatin Calcium (Lipitor) 20 mg DAILY PO 09/21/19 09:00 09/24/19 08:23 Clonazepam (KlonoPIN) 1 mg TID PRN PO ANXIETY 09/21/19 04:15 09/24/19 08:23 Gabapentin (Neurontin) 300 mg BID PO 09/21/19 09:00 09/24/19 08:23 Home Med (Med Rec Complete!) ASDIRECTED XX 09/21/19 04:00 09/21/19 03:53 DC Magnesium Hydroxide (Milk Of Magnesia) 30 ml DAILYPRN PRN PO CONSTIPATION 09/21/19 03:45 09/22/19 10:59 Multivitamins (Theragram-M) 1 tab DAILY PO 09/21/19 09:00 09/24/19 08:23 Pramipexole Dihydrochloride (Mirapex) 0.125 mg QHSP PRN PO TREMORS 09/22/19 09:00 09/23/19 08:25 DC Pramipexole Dihydrochloride (Mirapex) 0.125 mg TIDP PRN PO TREMORS 09/23/19 08:30 09/23/19 08:48 DC Pramipexole Dihydrochloride (Mirapex) 0.125 mg TIDP PRN PO TREMORS 09/23/19 15:15 09/24/19 08:23 Pramipexole Dihydrochloride (Mirapex) 0.25 mg TID PO 09/22/19 09:00 09/23/19 20:13 Pramipexole Dihydrochloride (Mirapex) 0.25 mg TID PRN PO ANXIETY/AGITATION 09/21/19 04:15 09/23/19 08:48 DC 09/22/19 13:44 Pramipexole Dihydrochloride (Mirapex) 0.75 mg TID PO 09/21/19 09:00 09/22/19 08:56 DC 09/21/19 20:13 Quetiapine Fumarate (SEROquel) 100 mg QHS PO 09/22/19 21:00 09/23/19 20:14 Quetiapine Fumarate (SEROquel) 100 mg TID PO 09/22/19 16:00 09/22/19 13:47 DC Quetiapine Fumarate (SEROquel) 200 mg TID PO 09/21/19 09:00 09/22/19 13:45 DC 09/22/19 08:33 Ramelteon (Rozerem) 8 mg QHS PO 09/22/19 21:00 09/23/19 20:13 Trazodone HCl (Desyrel) 50 mg QHSP PRN PO INSOMNIA 09/21/19 03:45 Venlafaxine HCl (Effexor Xr) 37.5 mg DAILY PO 09/23/19 09:00 09/24/19 08:22 Venlafaxine HCl (Effexor Xr) 150 mg DAILY PO 09/21/19 09:00 09/22/19 09:14 DC 09/22/19 08:34 Venlafaxine HCl (Effexor Xr) 150 mg DAILY PO 09/23/19 09:00 09/24/19 08:22 Allergies Coded Allergies: amantadine (Verified Allergy, Unknown, 11/03/18) DAHLIA ADRIAN DO Sep 24, 2019 09:10
[2019-09-24] MEDS ORDERED: BENZTROPINE 0.5 MG TAB PO ONE (13:45)
[2019-09-24 16:00] VITALS: BP 150/82
[2019-09-24] MEDS ORDERED: PIMAVANSERIN PO SCH (21:00)
[2019-09-24] MEDS: RAMELTEON 8 MG TAB (ROZEREM) PO SCH (21:18)
[2019-09-24] MEDS: QUEtiapine FUMARATE 100 MG TAB PO SCH (21:18)
[2019-09-25] MEDS: PRAMIPEXOLE (MIRAPEX) 0.125 MG TAB PO PRN ×2 (05:29→08:46)
[2019-09-25] MEDS: clonazePAM 1 MG TAB PO PRN ×2 (05:29→18:23)
[2019-09-25 06:33] VITALS: BP 160/80
[2019-09-25] MEDS: ACETAMINOPHEN TAB 650MG DOSE (2X325MG) PO PRN (06:37)
[2019-09-25] MEDS: ASPIRIN 81 MG ENTERIC TAB PO SCH (08:46)
[2019-09-25] MEDS: PRAMIPEXOLE 0.25 MG TAB PO SCH ×3 (08:46→21:17)
[2019-09-25] MEDS: GABAPENTIN 300 MG CAP PO SCH ×2 (08:46→21:17)
[2019-09-25] MEDS: MULTIVITAMINS/MINERALS THERAP 1 TAB PO SCH (08:46)
[2019-09-25] MEDS: ATORVASTATIN 20 MG TAB PO SCH (08:46)
[2019-09-25] MEDS ORDERED: LORazepam 1 MG TAB PO ONE (10:30)
[2019-09-25 16:09] VITALS: BP 157/80
[2019-09-25] MEDS: RAMELTEON 8 MG TAB (ROZEREM) PO SCH (21:17)
[2019-09-25] MEDS: QUEtiapine FUMARATE 100 MG TAB PO SCH (21:18)
[2019-09-26] MEDS: PRAMIPEXOLE (MIRAPEX) 0.125 MG TAB PO PRN (04:31)
[2019-09-26] MEDS: clonazePAM 1 MG TAB PO PRN ×2 (04:31→10:24)
[2019-09-26 06:29] VITALS: BP 140/98
[2019-09-26] MEDS: ACETAMINOPHEN TAB 650MG DOSE (2X325MG) PO PRN ×2 (06:45→18:01)
[2019-09-26] MEDS: MULTIVITAMINS/MINERALS THERAP 1 TAB PO SCH (08:45)
[2019-09-26] MEDS: GABAPENTIN 300 MG CAP PO SCH ×2 (08:45→21:12)
[2019-09-26] MEDS: ASPIRIN 81 MG ENTERIC TAB PO SCH (08:45)
[2019-09-26] MEDS: ATORVASTATIN 20 MG TAB PO SCH (08:45)
[2019-09-26] MEDS: PRAMIPEXOLE 0.25 MG TAB PO SCH ×3 (08:46→21:12)
--- NOTE | 2019-09-26 09:23 | MHIPN ---
DATE: 09/25/2019 VITAL SIGNS: Blood pressure 160/80, pulse 83, temperature 97.2. CHIEF COMPLAINT: Feels anxious. SUBJECTIVE: Seen for followup. Indicates he has been feeling anxious, and says has been feeling a bit more anxious during the mornings, and has had "spells" which he says are unusual for him at this time of day. He says the Ativan, which was given to him this morning, has tended to help. He uses clonazepam fairly regularly, Ativan was given to help with diminishing the anxiety. Says has had no overt stressors lately. MENTAL STATUS EXAMINATION He is neat. He is cooperative. He is tremulous, but coherent, with restricted affect. No psychomotor retardation. Denies active thoughts of harming himself, says has often thought of driving his car off the road, at a particular turn that he is aware of. No evidence of any thought of harming himself or anyone else, nor of any internal preoccupation present. Judgment and insight are of concern, diminished. 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 The other is a possibility of Parkinson's psychosis, though the patient's diagnoses have tended to vary over the years, because of lack of clarity of the symptoms. PLAN: Continue current care, would suggest encouraging the patient to participate in activities in the unit as tolerated.
[2019-09-26] MEDS ORDERED: LORazepam 0.5 MG TAB PO ONE (11:30)
[2019-09-26] MEDS: LORazepam 0.5 MG TAB PO PRN (15:38)
[2019-09-26 16:03] VITALS: BP 156/75
[2019-09-26] MEDS: RAMELTEON 8 MG TAB (ROZEREM) PO SCH (21:12)
[2019-09-26] MEDS: QUEtiapine FUMARATE 100 MG TAB PO SCH (21:13)
[2019-09-27] MEDS: clonazePAM 1 MG TAB PO PRN (06:06)
[2019-09-27] MEDS: PRAMIPEXOLE (MIRAPEX) 0.125 MG TAB PO PRN (06:06)
[2019-09-27 06:27] VITALS: BP 122/78
[2019-09-27] MEDS: ACETAMINOPHEN TAB 650MG DOSE (2X325MG) PO PRN ×2 (07:36→14:21)
[2019-09-27] MEDS: MULTIVITAMINS/MINERALS THERAP 1 TAB PO SCH (08:47)
[2019-09-27] MEDS: PRAMIPEXOLE 0.25 MG TAB PO SCH ×3 (08:47→21:45)
[2019-09-27] MEDS: ATORVASTATIN 20 MG TAB PO SCH (08:47)
[2019-09-27] MEDS: GABAPENTIN 300 MG CAP PO SCH ×2 (08:47→21:46)
[2019-09-27] MEDS: ASPIRIN 81 MG ENTERIC TAB PO SCH (08:47)
--- NOTE | 2019-09-27 10:26 | MHIPNPDOC ---
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 The patient reports feeling suicidal and hopeless about his situation due to his refractory symptoms. Interval History Narrative: The patient is met with in his room. He sits in a corner and is very discouraged. Affective: The patient continues to report low mood, but reports feeling hopeless about his situation. Psychotic: The patient reports none at this time. Anxiety: Significant worry about his health symptoms. Eating and sleeping behaviors: Generally normal eating, sleeping disrupted. Group Attendance: Frequently. Medication Side effects: See ROS below Behavioral problems/significant events overnight: Multiple dystonic episodes. Staff Report: Patient appears generally hopeless. Tremors appeared to be getting better though. Review Of Systems Denies any changes in his physical symptoms at this time, denies any side effects from medications. Psychotherapy None on this visit. Vital Signs Reviewed. Mental Status Examination General: Fair hygiene. Speech: Less garbled. Thought processes: Linear and logical. MSK: Less tremors and less dystonic movements. Thought content: Hopeless Abstract reasoning, and computation: Intact Description of associations: Intact Description of abnormal or psychotic thoughts: Admits to suicidal thoughts. Denies homicidal thoughts. Does not appear to be responding to internal stimuli. Judgment: Fair. Insight: Fair Orientation: Alert and orientated 3 Cognition: Grossly normal Recent and remote memory: Intact Attention span and concentration: Intact Fund of knowledge: Adequate Mood: "Okay." Affect: Dysthymic with a constricted range. 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 Assessment and Plan Movement disorder: Consult neurology. Depression: Effexor 150mg daily Parkinson's: Seroquel 100mg qhs Disposition The patient will need a further inpatient admission due to his suicidality and severe depression related to his medical condition. copy disposition. Time Spent 15 minutes. Friday Vital Signs Vital Signs Date Time Temp Pulse Resp B/P (MAP) Pulse Ox O2 Delivery O2 Flow Rate FiO2 09/27/19 06:27 98.2 76 20 122/78 (93) Room Air 09/21/19 04:45 94 Current Medications Current Medications Medications (Trade) Dose Ordered Sig/Tiki Route PRN Reason Start Time Stop Time Status Last Admin Dose Admin Acetaminophen (Tylenol Tab) 650 mg Q6HP PRN PO HEADACHE or DISCOMFORT 09/21/19 03:45 09/27/19 07:36 Al Hydrox/Mg Hydrox/Simethicone (Mylanta) 30 ml Q4HP PRN PO HEARTBURN/INDIGESTION 09/21/19 03:45 Aspirin (Ecotrin) 81 mg DAILY PO 09/21/19 09:00 09/27/19 08:47 Atorvastatin Calcium (Lipitor) 20 mg DAILY PO 09/21/19 09:00 09/27/19 08:47 Clonazepam (KlonoPIN) 1 mg TID PRN PO ANXIETY 09/21/19 04:15 09/27/19 06:06 Gabapentin (Neurontin) 300 mg BID PO 09/21/19 09:00 09/27/19 08:47 Home Med (Med Rec Complete!) ASDIRECTED XX 09/21/19 04:00 09/21/19 03:53 DC Lorazepam (Ativan) 0.5 mg BIDP PRN PO ANXIETY 09/26/19 11:15 09/28/19 07:00 09/26/19 15:38 Magnesium Hydroxide (Milk Of Magnesia) 30 ml DAILYPRN PRN PO CONSTIPATION 09/21/19 03:45 09/22/19 10:59 Miscellaneous (Unresolved Patient Own Med Order) SEE LABEL COMMENTS DAILY XX 09/24/19 09:00 Multivitamins (Theragram-M) 1 tab DAILY PO 09/21/19 09:00 09/27/19 08:47 Patient Own Medication (Patient'S Own Med) BID PO 09/24/19 21:00 UNV Pramipexole Dihydrochloride (Mirapex) 0.125 mg QHSP PRN PO TREMORS 09/22/19 09:00 09/23/19 08:25 DC Pramipexole Dihydrochloride (Mirapex) 0.125 mg TIDP PRN PO TREMORS 09/23/19 08:30 09/23/19 08:48 DC Pramipexole Dihydrochloride (Mirapex) 0.125 mg TIDP PRN PO TREMORS 09/23/19 15:15 09/27/19 06:06 Pramipexole Dihydrochloride (Mirapex) 0.25 mg TID PO 09/22/19 09:00 09/27/19 08:47 Pramipexole Dihydrochloride (Mirapex) 0.25 mg TID PRN PO ANXIETY/AGITATION 09/21/19 04:15 09/23/19 08:48 DC 09/22/19 13:44 Pramipexole Dihydrochloride (Mirapex) 0.75 mg TID PO 09/21/19 09:00 09/22/19 08:56 DC 09/21/19 20:13 Quetiapine Fumarate (SEROquel) 100 mg QHS PO 09/22/19 21:00 09/24/19 13:40 DC 09/23/19 20:14 Quetiapine Fumarate (SEROquel) 100 mg TID PO 09/22/19 16:00 09/22/19 13:47 DC Quetiapine Fumarate (SEROquel) 200 mg QHS PO 09/24/19 21:00 09/26/19 21:13 Quetiapine Fumarate (SEROquel) 200 mg TID PO 09/21/19 09:00 09/22/19 13:45 DC 09/22/19 08:33 Ramelteon (Rozerem) 8 mg QHS PO 09/22/19 21:00 09/26/19 21:12 Trazodone HCl (Desyrel) 50 mg QHSP PRN PO INSOMNIA 09/21/19 03:45 Venlafaxine HCl (Effexor Xr) 37.5 mg DAILY PO 09/23/19 09:00 09/24/19 13:39 DC 09/24/19 08:22 Venlafaxine HCl (Effexor Xr) 150 mg DAILY PO 09/21/19 09:00 09/22/19 09:14 DC 09/22/19 08:34 Venlafaxine HCl (Effexor Xr) 150 mg DAILY PO 09/23/19 09:00 09/24/19 13:39 DC 09/24/19 08:22 Allergies Coded Allergies: amantadine (Verified Allergy, Unknown, 11/03/18) DAHLIA ADRIAN 2, 2020 10:26
[2019-09-27] MEDS: LORazepam 0.5 MG TAB PO PRN (11:15)
[2019-09-27] MEDS: BENZTROPINE 0.5 MG TAB PO SCH ×3 (12:08→21:45)
--- NOTE | 2019-09-27 13:01 | MHIPN ---
DATE: 09/26/2019 I am informed the patient has been anxious with thoughts of but no firm plans. He just received his clonazepam earlier this morning. He had received Ativan in addition to this, which was quite helpful, and in view of this, we will divide the dose of Ativan at 0.5 mg twice a day as needed for anxiety, to be used temporarily for the next 2 days, in addition to the clonazepam, and then reassess. He is to receive the first 0.5 mg now.
[2019-09-27 16:15] VITALS: BP 128/70
[2019-09-27] MEDS: RAMELTEON 8 MG TAB (ROZEREM) PO SCH (21:45)
[2019-09-27] MEDS: QUEtiapine FUMARATE 100 MG TAB PO SCH (21:46)
[2019-09-28] MEDS: clonazePAM 1 MG TAB PO PRN ×3 (01:59→15:30)
[2019-09-28] MEDS: LORazepam 0.5 MG TAB PO PRN (06:05)
[2019-09-28 06:24] VITALS: BP 132/76
[2019-09-28] MEDS: BENZTROPINE 0.5 MG TAB PO SCH ×3 (06:48→21:25)
[2019-09-28] MEDS: ASPIRIN 81 MG ENTERIC TAB PO SCH (09:55)
[2019-09-28] MEDS: PRAMIPEXOLE 0.25 MG TAB PO SCH ×3 (09:55→21:24)
[2019-09-28] MEDS: MULTIVITAMINS/MINERALS THERAP 1 TAB PO SCH (09:55)
[2019-09-28] MEDS: ATORVASTATIN 20 MG TAB PO SCH (09:55)
[2019-09-28] MEDS: GABAPENTIN 300 MG CAP PO SCH ×2 (09:55→21:24)
--- NOTE | 2019-09-28 10:53 | MHIPNPDOC ---
[facility] Progress Note Progress Note Inpatient Progress Note Kofi Tello MRN: N/A Date of : N/A Date of Service: 09/28/2019 History of Present Illness 64-year-old man with a history of likely Parkinson's-related tremors and dystonias presents bizarre and suicidal after being discharged on Pramipexole. The patient reports feeling suicidal and hopeless about his situation due to his refractory symptoms. Interval History Narrative: The patient is met with in his room. He initially is still discouraged and sits in a corner. Affective: The patient continues to report low mood, but reports feeling hopeless about his situation. Psychotic: The patient reports none at this time. Anxiety: Significant worry about his health symptoms. Eating and sleeping behaviors: Generally normal eating, sleeping disrupted. Group Attendance: Frequently. Medication Side effects: See ROS below Behavioral problems/significant events overnight: The patient had a episode where he had to be lowered to the ground due to difficulty walking. Staff Report: The patient generally has been hopeless, although at night he is much better and with little tremors. Review Of Systems General: Denies fever or appetite changes Cardiovascular: Denies Chest pain or palpations GI: Denies Nausea, vomiting, or bowel changes Respiratory: Denies shortness of breath or cough Derm: Denies any rashes or pruritus : Denies any dysuria or urinary problems HEENT: Denies any vision changes or headaches Psychotherapy None on this visit. Vital Signs Reviewed. Mental Status Examination General: Fair hygiene. Speech: Less garbled. Thought processes: Linear and logical. MSK: Less tremors and less dystonic movements. Thought content: Hopeless Abstract reasoning, and computation: Intact Description of associations: Intact Description of abnormal or psychotic thoughts: Admits to suicidal thoughts. Denies homicidal thoughts. Does not appear to be responding to internal stimuli. Judgment: Fair. Insight: Fair Orientation: Alert and orientated 3 Cognition: Grossly normal Recent and remote memory: Intact Attention span and concentration: Intact Fund of knowledge: Adequate Mood: "Okay." Affect: Dysthymic with a constricted range. 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 Assessment and Plan Movement disorder: Neurology declined inpatient consult, recommended Cogentin due to reported history of tardive dyskinesia, we'll start 0.5 mg BID to TID, we'll lower pramipexole to just 0.25 mg TID. Parkinson psychosis: Discontinue Seroquel, we'll start Ambien for sleep, symptoms of psychosis could be medication induced. Depression due to general medical condition: Continue Effexor 150 mg daily. Disposition The patient will need a further inpatient admission due to his suicidality and severe depression related to his medical condition. Time Spent 15 minutes Friday Vital Signs Vital Signs Date Time Temp Pulse Resp B/P (MAP) Pulse Ox O2 Delivery O2 Flow Rate FiO2 09/28/19 10:10 Room Air 09/28/19 06:24 98.3 78 132/76 (94) 09/27/19 16:15 18 Current Medications Current Medications Medications (Trade) Dose Ordered Sig/Tiki Route PRN Reason Start Time Stop Time Status Last Admin Dose Admin Acetaminophen (Tylenol Tab) 650 mg Q6HP PRN PO HEADACHE or DISCOMFORT 09/21/19 03:45 09/27/19 14:21 Al Hydrox/Mg Hydrox/Simethicone (Mylanta) 30 ml Q4HP PRN PO HEARTBURN/INDIGESTION 09/21/19 03:45 Aspirin (Ecotrin) 81 mg DAILY PO 09/21/19 09:00 09/28/19 09:55 Atorvastatin Calcium (Lipitor) 20 mg DAILY PO 09/21/19 09:00 09/28/19 09:55 Benztropine Mesylate (Cogentin) 0.5 mg TID PO 09/27/19 12:00 09/28/19 06:48 Clonazepam (KlonoPIN) 1 mg TID PRN PO ANXIETY 09/21/19 04:15 09/28/19 09:56 Gabapentin (Neurontin) 300 mg BID PO 09/21/19 09:00 09/28/19 09:55 Home Med (Med Rec Complete!) ASDIRECTED XX 09/21/19 04:00 09/21/19 03:53 DC Lorazepam (Ativan) 0.5 mg BIDP PRN PO ANXIETY 09/26/19 11:15 09/28/19 07:00 DC 09/28/19 06:05 Magnesium Hydroxide (Milk Of Magnesia) 30 ml DAILYPRN PRN PO CONSTIPATION 09/21/19 03:45 09/22/19 10:59 Miscellaneous (Unresolved Patient Own Med Order) SEE LABEL COMMENTS DAILY XX 09/24/19 09:00 Multivitamins (Theragram-M) 1 tab DAILY PO 09/21/19 09:00 09/28/19 09:55 Patient Own Medication (Patient'S Own Med) BID PO 09/24/19 21:00 UNV Pramipexole Dihydrochloride (Mirapex) 0.125 mg QHSP PRN PO TREMORS 09/22/19 09:00 09/23/19 08:25 DC Pramipexole Dihydrochloride (Mirapex) 0.125 mg TIDP PRN PO TREMORS 09/23/19 08:30 09/23/19 08:48 DC Pramipexole Dihydrochloride (Mirapex) 0.125 mg TIDP PRN PO TREMORS 09/23/19 15:15 09/27/19 11:33 DC 09/27/19 06:06 Pramipexole Dihydrochloride (Mirapex) 0.25 mg TID PO 09/22/19 09:00 09/28/19 09:55 Pramipexole Dihydrochloride (Mirapex) 0.25 mg TID PRN PO ANXIETY/AGITATION 09/21/19 04:15 09/23/19 08:48 DC 09/22/19 13:44 Pramipexole Dihydrochloride (Mirapex) 0.75 mg TID PO 09/21/19 09:00 09/22/19 08:56 DC 09/21/19 20:13 Quetiapine Fumarate (SEROquel) 100 mg QHS PO 09/22/19 21:00 09/24/19 13:40 DC 09/23/19 20:14 Quetiapine Fumarate (SEROquel) 100 mg TID PO 09/22/19 16:00 09/22/19 13:47 DC Quetiapine Fumarate (SEROquel) 200 mg QHS PO 09/24/19 21:00 09/27/19 21:46 Quetiapine Fumarate (SEROquel) 200 mg TID PO 09/21/19 09:00 09/22/19 13:45 DC 09/22/19 08:33 Ramelteon (Rozerem) 8 mg QHS PO 09/22/19 21:00 09/27/19 21:45 Trazodone HCl (Desyrel) 50 mg QHSP PRN PO INSOMNIA 09/21/19 03:45 Venlafaxine HCl (Effexor Xr) 37.5 mg DAILY PO 09/23/19 09:00 09/24/19 13:39 DC 09/24/19 08:22 Venlafaxine HCl (Effexor Xr) 150 mg DAILY PO 09/21/19 09:00 09/22/19 09:14 DC 09/22/19 08:34 Venlafaxine HCl (Effexor Xr) 150 mg DAILY PO 09/23/19 09:00 09/24/19 13:39 DC 09/24/19 08:22 Allergies Coded Allergies: amantadine (Verified Allergy, Unknown, 11/03/18) DAHLIA ADRIAN 3, 2020 10:53
[2019-09-28] MEDS: ACETAMINOPHEN TAB 650MG DOSE (2X325MG) PO PRN (11:37)
[2019-09-28 16:00] VITALS: BP 125/81
[2019-09-28] MEDS ORDERED: MAALOX 30 ML SUSP *UDC PO PRN (18:15)
[2019-09-28] MEDS ORDERED: traZODone 50 MG TAB PO PRN (18:15)
[2019-09-28] MEDS ORDERED: MOM 30ML SUSPENSION UDC PO PRN (18:15)
[2019-09-28] MEDS ORDERED: ACETAMINOPHEN TAB 650MG DOSE (2X325MG) PO PRN (18:15)
[2019-09-28] MEDS ORDERED: zolPIDEM TARTRATE 5 MG TAB PO SCH (21:00)
[2019-09-28] MEDS: PILL CUTTER 1 EACH XX PRN (21:25)
[2019-09-28] MEDS: traZODone 50 MG TAB PO PRN (21:26)
[2019-09-29] MEDS: clonazePAM 1 MG TAB PO PRN (01:47)
[2019-09-29] MEDS: ACETAMINOPHEN TAB 650MG DOSE (2X325MG) PO PRN (06:18)
[2019-09-29 06:25] VITALS: BP 123/83
[2019-09-29] MEDS: GABAPENTIN 300 MG CAP PO SCH ×2 (09:08→21:34)
[2019-09-29] MEDS: ATORVASTATIN 20 MG TAB PO SCH (09:08)
[2019-09-29] MEDS: MULTIVITAMINS/MINERALS THERAP 1 TAB PO SCH (09:08)
[2019-09-29] MEDS: ASPIRIN 81 MG ENTERIC TAB PO SCH (09:08)
[2019-09-29] MEDS: BENZTROPINE 0.5 MG TAB PO SCH (09:08)
[2019-09-29] MEDS: PRAMIPEXOLE 0.25 MG TAB PO SCH ×3 (09:08→21:33)
--- NOTE | 2019-09-29 10:29 | MHIPNPDOC ---
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 The patient reports feeling suicidal and hopeless about his situation due to his refractory symptoms. 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 The patient reports feeling suicidal and hopeless about his situation due to his refractory symptoms. Interval History The patient is met with today. He is fairly upset about his symptoms, he had been found talking to himself earlier in the day. The patient was fairly agitated hitting burks, reporting that he was "a bad father" and continued to get worse. Nursing staff have noticed that he generally gets much better on At liss then clonazepam. The patient has had difficulties with his tremors, with frequent on and off periods. Unable to engage in full and comprehensive discussion due to his agitation. Review Of Systems Unable to engage due to patient's agitation. Psychotherapy None on this visit. Vital Signs Reviewed. Mental Status Examination General: Fair hygiene. Speech: Mildly garbled. Thought processes: Linear and logical. MSK: Less tremors and less dystonic movements. Thought content: Hopeless Abstract reasoning, and computation: Intact Description of associations: Intact Description of abnormal or psychotic thoughts: Angry thoughts and reported suicidal thoughts. Judgment: Impaired. Insight: Impaired. Orientation: Alert and orientated 3 Cognition: Grossly normal Recent and remote memory: Intact Attention span and concentration: Intact Fund of knowledge: Adequate Mood: "I am a bad father." Affect: Irritable and physically lashing out. 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 Assessment and Plan Movement disorder: Discontinue Cogentin, continue pramipexole 0.25 mg TID. Will cross taper Ativan with clonazepam, with 0.5 mg TID respectively versus 0.75 mg TID. Parkinson psychosis: Discontinue Ambien, will start Vraylar 1.5 mg nightly as he has not tried this agent. Depression due to general medical condition: Continue Effexor 150 mg daily. Disposition The patient will need a further inpatient admission as he has had significant decompensation in his symptoms, his presentation is fairly complex and he will likely need a complicated treatment, he also is still suicidal and appears to hallucinate too. Time Spent 15 minutes. Friday Vital Signs Vital Signs Date Time Temp Pulse Resp B/P (MAP) Pulse Ox O2 Delivery O2 Flow Rate FiO2 09/29/19 06:25 97.1 114 18 123/83 (96) 09/28/19 10:10 Room Air Current Medications Current Medications Medications (Trade) Dose Ordered Sig/Tiki Route PRN Reason Start Time Stop Time Status Last Admin Dose Admin Acetaminophen (Tylenol Tab) 650 mg Q6HP PRN PO HEADACHE or DISCOMFORT 09/21/19 03:45 09/29/19 06:18 Acetaminophen (Tylenol Tab) 650 mg Q6HP PRN PO HEADACHE or DISCOMFORT 09/28/19 18:15 09/28/19 18:27 DC Al Hydrox/Mg Hydrox/Simethicone (Mylanta) 30 ml Q4HP PRN PO HEARTBURN/INDIGESTION 09/21/19 03:45 Al Hydrox/Mg Hydrox/Simethicone (Mylanta) 30 ml Q4HP PRN PO HEARTBURN/INDIGESTION 09/28/19 18:15 09/28/19 18:27 DC Aspirin (Ecotrin) 81 mg DAILY PO 09/21/19 09:00 09/29/19 09:08 Atorvastatin Calcium (Lipitor) 20 mg DAILY PO 09/21/19 09:00 09/29/19 09:08 Benztropine Mesylate (Cogentin) 0.5 mg TID PO 09/27/19 12:00 09/29/19 09:08 Clonazepam (KlonoPIN) 1 mg TID PRN PO ANXIETY 09/21/19 04:15 09/29/19 01:47 Gabapentin (Neurontin) 300 mg BID PO 09/21/19 09:00 09/29/19 09:08 Home Med (Med Rec Complete!) ASDIRECTED XX 09/21/19 04:00 09/21/19 03:53 DC Lorazepam (Ativan) 0.5 mg BIDP PRN PO ANXIETY 09/26/19 11:15 09/28/19 07:00 DC 09/28/19 06:05 Magnesium Hydroxide (Milk Of Magnesia) 30 ml DAILYPRN PRN PO CONSTIPATION 09/21/19 03:45 09/22/19 10:59 Magnesium Hydroxide (Milk Of Magnesia) 30 ml DAILYPRN PRN PO CONSTIPATION 09/28/19 18:15 09/28/19 18:27 DC Miscellaneous (Unresolved Patient Own Med Order) SEE LABEL COMMENTS DAILY XX 09/24/19 09:00 09/29/19 10:16 DC Multivitamins (Theragram-M) 1 tab DAILY PO 09/21/19 09:00 09/29/19 09:08 Patient Own Medication (Patient'S Own Med) BID PO 09/24/19 21:00 09/29/19 10:14 DC Pramipexole Dihydrochloride (Mirapex) 0.125 mg QHSP PRN PO TREMORS 09/22/19 09:00 09/23/19 08:25 DC Pramipexole Dihydrochloride (Mirapex) 0.125 mg TIDP PRN PO TREMORS 09/23/19 08:30 09/23/19 08:48 DC Pramipexole Dihydrochloride (Mirapex) 0.125 mg TIDP PRN PO TREMORS 09/23/19 15:15 09/27/19 11:33 DC 09/27/19 06:06 Pramipexole Dihydrochloride (Mirapex) 0.25 mg TID PO 09/22/19 09:00 09/29/19 09:08 Pramipexole Dihydrochloride (Mirapex) 0.25 mg TID PRN PO ANXIETY/AGITATION 09/21/19 04:15 09/23/19 08:48 DC 09/22/19 13:44 Pramipexole Dihydrochloride (Mirapex) 0.75 mg TID PO 09/21/19 09:00 09/22/19 08:56 DC 09/21/19 20:13 Quetiapine Fumarate (SEROquel) 100 mg QHS PO 09/22/19 21:00 09/24/19 13:40 DC 09/23/19 20:14 Quetiapine Fumarate (SEROquel) 100 mg TID PO 09/22/19 16:00 09/22/19 13:47 DC Quetiapine Fumarate (SEROquel) 200 mg QHS PO 09/24/19 21:00 09/28/19 13:37 DC 09/27/19 21:46 Quetiapine Fumarate (SEROquel) 200 mg TID PO 09/21/19 09:00 09/22/19 13:45 DC 09/22/19 08:33 Ramelteon (Rozerem) 8 mg QHS PO 09/22/19 21:00 09/28/19 13:37 DC 09/27/19 21:45 Trazodone HCl (Desyrel) 50 mg QHSP PRN PO INSOMNIA 09/21/19 03:45 09/28/19 21:26 Trazodone HCl (Desyrel) 50 mg QHSP PRN PO INSOMNIA 09/28/19 18:15 09/28/19 18:27 DC Venlafaxine HCl (Effexor Xr) 37.5 mg DAILY PO 09/23/19 09:00 09/24/19 13:39 DC 09/24/19 08:22 Venlafaxine HCl (Effexor Xr) 150 mg DAILY PO 09/21/19 09:00 09/22/19 09:14 DC 09/22/19 08:34 Venlafaxine HCl (Effexor Xr) 150 mg DAILY PO 09/23/19 09:00 09/24/19 13:39 DC 09/24/19 08:22 Zolpidem Tartrate (Ambien) 2.5 mg QHS PO 09/28/19 21:00 09/28/19 21:24 Allergies Coded Allergies: amantadine (Verified Allergy, Unknown, 11/03/18) DAHLIA ADRIAN 4, 2020 10:29
[2019-09-29] MEDS ORDERED: clonazePAM 0.5 MG TAB PO PRN (11:45)
[2019-09-29] MEDS ORDERED: LORazepam 0.5 MG TAB PO PRN (11:45)
[2019-09-29 16:20] VITALS: BP 142/68
[2019-09-29] MEDS ORDERED: CARIPRAZINE 1.5MG CAPSULE (VRAYLAR) PO SCH (21:00)
[2019-09-29] MEDS: traZODone 50 MG TAB PO PRN (21:34)
[2019-09-30] MEDS: PILL CUTTER 1 EACH XX PRN (00:51)
[2019-09-30] MEDS ORDERED: LORazepam 2 MG/ML VIAL (J2060) IV STA (01:07)
[2019-09-30] MEDS ORDERED: LORazepam 2 MG/ML VIAL (J2060) IM STA (01:09)
[2019-09-30] MEDS ORDERED: levETIRAcetam INJection 1,000 MG in D5W 100 ML IV ONE (01:15)
[2019-09-30] MEDS ORDERED: PROPOFOL 1,000 MG/100 ML VIAL As Ordered ONE ×2 (01:17→01:34)
[2019-09-30] MEDS ORDERED: ETOMIDATE INJ 20MG/10ML VIAL As Ordered ONE (01:17)
[2019-09-30] MEDS ORDERED: SUCCINYLCHOLINE INJ 200 MG/10 ML VIAL (J0330) As Ordered ONE (01:18)
[2019-09-30] MEDS ORDERED: ROCURONIUM BROMIDE 50 MG/5 ML VIAL As Ordered ONE (01:29)
[2019-09-30] MEDS ORDERED: MIDAZOLAM INJ 2 MG/2 ML VIAL (J2250) As Ordered ONE (01:33)
[2019-09-30] MEDS ORDERED: MIDAZOLAM INJ 2 MG/2 ML VIAL (J2250) IV STA (01:35)
--- NOTE | 2019-09-30 01:37 | IPNPDOC ---
Text Note Date of Service The patient was seen on 09/30/19. NOTE Time of service 1AM Rapid assessment was called bc the patient was having seizures for 10min. On arrival the patient was unresponsive and continued to have intermittent seizures. His O2 sats dropped the 80s therefore we requested anesthesia to intubate the patient for airway protection. PE agonal breathing intermittently seizing. Plan: ativan 2mg IV / intubate / transfer to ICU / f/u CT head, CBC, CMP, lactic acid, ABG, chest xray / consult VS,Terry, I+O VS, Terry, I+O Vital Signs Date Time Temp Pulse Resp B/P (MAP) Pulse Ox O2 Delivery O2 Flow Rate FiO2 09/29/19 16:20 98.9 98 16 142/68 (92) 09/28/19 10:10 Room Air FORTUNATO GALAN MD Sep 30, 2019 01:37
[2019-09-30] MEDS ORDERED: MIDAZOLAM HCL 100 MG in D5W 80 ML IV SCH (01:40)
[2019-09-30] MEDS ORDERED: REFRIGERATOR IV KEYS XX PRN (01:40)
[2019-09-30 02:00] VITALS: BP 142/94
--- NOTE | 2019-09-30 08:17 | REP ---
Portable chest x-ray: Single view. History: Endotracheal tube. Comparison study: Rib series from May 02, 2019. Findings: Endotracheal tube is seen in good position between the proximal clavicles and the transverse aorta. Monitoring electrodes are noted. The lungs are symmetrically aerated and clear. Heart is not enlarged. The aorta is calcific. Impression: No acute disease. Endotracheal tube in good position. Electronically Signed by Balta Martínez MD 09/30/2019 08:08 A
--- NOTE | 2019-09-30 08:43 | MHDSPDOC ---
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 The patient reports feeling suicidal and hopeless about his situation due to his refractory symptoms. Consultants Involved Hospitalist/PCP screening Neurology: Declined inpatient consult. Treatment and Progress On The Unit The patient was admitted to the inpatient mental health unit due to increased psychosis and bizarre behavior after being started on extended-release Mirapex. The patient was lowered back down to 0.25 mg t.i.d. of Mirapex with 0.125 mg of pramipexole for tremors that were breakthrough. The patient was resumed on Seroquel initially on 200 t.i.d. but then was reduced back down to 100 mg nightly with some positive effects. The patient did have notable difficulties with tremors and involuntary movements and his reported unusual spells. He additionally had difficulties with depression and anger related to his current situation feeling that he was putting his family through too much. It was noted over the weekend that the patient got much better when taking Ativan versus clonazepam. The patient then was titrated to 0.75 mg t.i.d. of his Klonopin and then added 0.5 mg t.i.d. of Ativan in order to balance out the change and a cross taper. Neurology was consulted during the admission due to the complicated movement disorder but they declined a inpatient consultation due to feeling that it was inappropriate. They recommended Cogentin due to a history of reported tardive dyskinesia. The patient then was started on 0.5 mg t.i.d. with little of no effects over the last several days and it was thus discontinued. His pramipexole was lowered to 0.25 mg t.i.d. without any extra appearance. Over the night prior to his discharge, he had had unusual seizure like activity and became unresponsive. A rapid was called and he was transported to the medical floor for evaluation. Discharge Assessment 64-year-old man with a history of an unusual movement disorder and depression related to his situation as well as some psychotic symptoms, presents and is treated out of and appeared to be quite helpful for him versus clonazepam. His behavior is unusual, although he has a long history of presenting with unusual neurological disorders. He was discharged to the medical floor due to becoming not responsive. Mental Status Examination Please see my last mental status exam as the patient was discharged overnight. Follow Up Recommend one-to-one sitter and a psychiatry consultation once the patient is medically stable for reconsideration of inpatient admission. Time Spent The amount of time spent in the coordination of care for this patient was approximately 40 minutes. Vital Signs/I&Os Vital Signs Date Time Temp Pulse Resp B/P (MAP) Pulse Ox O2 Delivery O2 Flow Rate FiO2 09/30/19 02:00 97.4 115 142/94 96 Room Air 09/29/19 16:20 16 Medications Scheduled Aspirin (Aspirin EC) 81 Mg Tab, 81 MG PO DAILY, (Reported) Atorvastatin Calcium (Atorvastatin Calcium) 20 Mg Tablet, 20 MG PO DAILY, (Reported) Gabapentin (Gabapentin) 300 Mg Capsule, 300 MG PO BID, (Reported) Multivitamins (Thera M Plus Tablet) 1 Tab Tab, 1 TAB PO DAILY, (Reported) Pramipexole Di-HCl (Pramipexole ER) 2.25 Mg Tab.er.24h, 2.25 MG PO QHS, (Reported) Quetiapine Fumarate (Quetiapine Fumarate) 200 Mg Tab, 200 MG PO TID, (Reported) Venlafaxine HCl (Venlafaxine HCl ER) 150 Mg Cap, 150 MG PO DAILY, (Reported) Scheduled PRN Clonazepam (Clonazepam) 1 Mg Tablet, 1 MG PO TID PRN for ANXIETY, (Reported) Pramipexole Di-HCl (Mirapex) 0.25 Mg Tablet, 0.25 MG PO TID PRN for ANXIETY/AGITATION, (Reported) Allergies Coded Allergies: amantadine (Verified Allergy, Unknown, 11/03/18) DAHLIA ADRIAN DO Sep 30, 2019 08:43
== END 2019-09-30 01:23 | disposition other institution (70) | DRG 57 ==
LOC: M ED 20:42 → M ED INP 09-21 03:54 → M PSY 09-21 04:45 → M ICU 09-30 01:23
PROVIDERS: ADMIT Psychiatry & Neurology Psychiatry; ATTEND Psychiatry & Neurology Addiction Medicine
DX: G31.83 Neurocognitive disorder with Lewy bodies (principal); F02.81 Dementia in other diseases classified elsewhere, unspecified severity, with behavioral disturbance; R45.851 Suicidal ideations; F20.9 Schizophrenia, unspecified; Z79.899 Other long term (current) drug therapy; Z88.8 Allergy status to other drugs, medicaments and biological substances; G24.01 Drug induced subacute dyskinesia; F41.9 Anxiety disorder, unspecified; M19.90 Unspecified osteoarthritis, unspecified site; E55.9 Vitamin D deficiency, unspecified; F32.9 Major depressive disorder, single episode, unspecified; K57.30 Diverticulosis of large intestine without perforation or abscess without bleeding; K64.8 Other hemorrhoids; M54.5 Low back pain; R26.89 Other abnormalities of gait and mobility; Z79.82 Long term (current) use of aspirin

== ENCOUNTER 2019-09-30 01:23 | Inpatient (IN) | payer MEDICARE, MEDICAID ==
[~2019-09-30] VITALS: Ht 172.7 cm; Wt 71.6 kg
[2019-09-30] VITALS (38 sets, daily range): BP systolic 88–141; BP diastolic 51–76; O2SAT 99
--- NOTE | 2019-09-30 01:41 | HPEPDOC ---
[facility] Medical History & Physical Date of Admission Sep 30, 2019 Date of Service: Sep 30, 2019 Other Provider Attending Physician: FORTUNATO GALAN MD History and Physical TIME OF SERVICE: 1 AM CC time 45 minutes CHIEF COMPLAINT: Seizures HISTORY OF PRESENT ILLNESS: This 64-year-old man was admitted to [facility] on Sep 21 for management of depression with suicidal ideation; the patient was brought to the hospital by real estate asset manager's because he had a paring knife to his stomach and asked his to help him stop himself because he didn't want to cut his wrists. He had also taken more than his prescribed dose of Klonopin. Around 1 AM rapid response was called in [facility] because the patient had been having seizures for about 10 minutes. On initial assessment, he continued to have intermittent seizures and was unresponsive in between episodes. He was taking agonal breaths and his O2 sats dropped to the 80s; we began ventilation by bag and mask, he was subsequently transferred to the ICU and intubated by the anesthesiologist personnel security assistant. REVIEW OF SYSTEMS: Unobtainable PAST MEDICAL/ SURGICAL HISTORY: Tardive dyskinesia Possible Parkinson's Pituitary microadenoma Depression Anxiety Panic attacks Schizoaffective disorder/schizophrenia Pseudoseizures Osteoarthritis Diverticulosis Hemorrhoids Vitamin D deficiency Chronic back pain Status post foot surgery Status post left ear surgery SOCIAL HISTORY: Per chart review. He doesn't smoke, drink or use drugs FAMILY HISTORY: Per chart review, lung cancer, multiple sclerosis, schizophrenia, depression ALLERGIES: Please see below. HOME MEDICATIONS: Please see below. Vital Signs Date Time Temp Pulse Resp B/P (MAP) Pulse Ox O2 Delivery O2 Flow Rate FiO2 09/30/19 01:32 91 16 98 40 PHYSICAL EXAMINATION: GEN: well-nourished / well developed INTEGUMENT: not flushed/ not jaundice HEENT: NCAT /ET tube in place /mucus membranes dry/ sclera anicteric CVS: RRR/NMRG/ radial pulses intact / no lower extremity edema LUNGS: bronchovesicual breath sounds bilaterally ABDOMEN: Contour (flat) / soft NEURO: RASS -4 to -5 / unresponsive LABORATORY DATA: Lactic Acid Level 2.4*H, Calcium Level 9.7, Total Bilirubin 0.5, Aspartate Amino Transf (AST/SGOT) 29, Alanine Aminotransferase (ALT/SGPT) 39, Alkaline Phosphatase 78, Ammonia 38H, Total Protein 6.5, Albumin 3.9, Albumin/Globulin Ratio 1.50, Prolactin [Pending] IMAGING: Chest x-ray shows ET tube in place about 4 cm above the loly, but we will await the final read CT head " IMPRESSION: No acute intracranial abnormality. " MICROBIOLOGY: Please see below. ASSESSMENT: 1. AMS suspected Seizures Plan: admit to ICU / seizure precautions / f/u ammonia, drug screen, UA, blood cx, prolactin / per Neuro consult and EEG 2. Acute hypoxemic Respiratory Failure He was intubated for airway protection because he was taking agonal breaths and his O2 sats dropped to the 80s Plan: Vent management per 3. Tardive dyskinesia / Depression / Anxiety / Schizoaffective disorder/schizophrenia - Plan: hold all non-essential meds DVT Px w Heparin Dispo: possibly back to [facility] after more than 2 midnight's stay pending clinical course. Home Medications Scheduled Aspirin (Aspirin EC) 81 Mg Tab, 81 MG PO DAILY Atorvastatin Calcium (Atorvastatin Calcium) 20 Mg Tablet, 20 MG PO DAILY Gabapentin (Gabapentin) 300 Mg Capsule, 300 MG PO BID Multivitamins (Thera M Plus Tablet) 1 Tab Tab, 1 TAB PO DAILY Pramipexole Di-HCl (Pramipexole ER) 2.25 Mg Tab.er.24h, 2.25 MG PO QHS Quetiapine Fumarate (Quetiapine Fumarate) 200 Mg Tab, 200 MG PO TID Venlafaxine HCl (Venlafaxine HCl ER) 150 Mg Cap, 150 MG PO DAILY Scheduled PRN Clonazepam (Clonazepam) 1 Mg Tablet, 1 MG PO TID PRN for ANXIETY Pramipexole Di-HCl (Mirapex) 0.25 Mg Tablet, 0.25 MG PO TID PRN for ANXIETY/AGITATION Allergies Coded Allergies: amantadine (Verified Allergy, Unknown, 11/03/18) A-FIB/CHADSVASC A-FIB History Current/History of A-Fib/PAF?: No Current PO Anticoag Therapy: No FORTUNATO GALAN MD Sep 30, 2019 01:41
[2019-09-30] MEDS ORDERED: MIDAZOLAM INJ 2 MG/2 ML VIAL (J2250) As Ordered ONE ×2 (01:43→10:18)
[2019-09-30] MEDS ORDERED: MIDAZOLAM HCL 50 MG in D5W 40 ML IV SCH (01:45)
[2019-09-30] MEDS ORDERED: REFRIGERATOR IV KEYS XX PRN (01:45)
[2019-09-30] MEDS ORDERED: MIDAZOLAM HCL 100 MG in D5W 80 ML IV SCH (01:45)
[2019-09-30 01:54] LABS: HEMATOCRIT 43.9 % (42.0-52.0); HEMOGLOBIN 15.3 g/dl (13.5-17.5); MEAN CORPUSCULAR HEMOGLOBIN 30.5 pg (27.0-33.0); MEAN CORPUSCULAR HGB CONC 34.9 g/dl (32.0-36.5); MEAN CORPUSCULAR VOLUME 87.6 fl (80.0-96.0); PLATELET COUNT, AUTOMATED 270 10^3/uL (150-450); RED BLOOD COUNT 5.01 10^6/uL (4.30-6.10); WHITE BLOOD COUNT 6.6 10^3/uL (4.0-10.0)
[2019-09-30] MEDS ORDERED: fentaNYL CITRATE 1,000 MCG in NS 80 ML IV SCH (02:00)
--- NOTE | 2019-09-30 02:13 | REPVR ---
PROCEDURE INFORMATION: Exam: CT Head Without Contrast Exam date and time: 09/30/2019 1:43 AM Age: 64 years old Clinical indication: Condition or disease; Other: Seizure; Additional info: Seizures TECHNIQUE: Imaging protocol: Computed tomography of the head without contrast. Radiation optimization: All CT scans at this facility use at least one of these dose optimization techniques: automated exposure control; mA and/or kV adjustment per patient size (includes targeted exams where dose is matched to clinical indication); or iterative reconstruction. COMPARISON: CT Head without contrast 11/18/2018 3:58 PM FINDINGS: Brain: Mild decreased attenuation of the supratentorial white matter is likely secondary to chronic microvascular ischemia. No acute intracranial hemorrhage. Ventricles: Ventricular and subarachnoid spaces are age appropriate. Bones/joints: Unremarkable. No acute fracture. Sinuses: Mild paranasal sinus disease. Mastoid air cells: Visualized mastoid air cells are well aerated. Soft tissues: Unremarkable. Vasculature: Intracranial vascular calcification. IMPRESSION: No acute intracranial abnormality. Electronically signed by: Saulo Maya On 09/30/2019 02:13:15 AM
[2019-09-30 02:26] LABS: ALBUMIN 3.9 GM/DL (3.2-5.2); ALT/SGPT 39 U/L (12-78); BILIRUBIN,TOTAL 0.5 MG/DL (0.2-1.0); BLOOD UREA NITROGEN 24 MG/DL (7-18); CALCIUM LEVEL 9.7 MG/DL (8.8-10.2); CARBON DIOXIDE LEVEL 25 MEQ/L (21-32); CHLORIDE LEVEL 106 MEQ/L (98-107); CREATININE FOR GFR 1.13 MG/DL (0.70-1.30); GLOMERULAR FILTRATION RATE > 60.0 (>49); GLUCOSE, FASTING 126 MG/DL (70-100); POTASSIUM SERUM 3.8 MEQ/L (3.5-5.1); SODIUM LEVEL 139 MEQ/L (136-145); TOTAL PROTEIN 6.5 GM/DL (6.4-8.2)
[2019-09-30 03:00] LABS: ABG BASE EXCESS -0.9 (-2.0-2.0); ABG HCO3 23.5 MEQ/L (22.0-26.0); ABG PARTIAL PRESSURE CO2 38.3 mmHg (35.0-45.0); ABG STANDARD HCO3 23.7 MEQ/L (22.0-26.0); ABG TOTAL CO2 24.6 MEQ/L (23.0-31.0); ABG pH (ARTERIAL) 7.405 UNITS (7.350-7.450)
[2019-09-30] MEDS ORDERED: HEPARIN SOD (PORCINE) 5000 UNITS/ML VIAL (J1644 PER 1000UNITS) SC SCH (03:00)
[2019-09-30] MEDS ORDERED: MIDAZOLAM INJ 2 MG/2 ML VIAL (J2250) IV PRN (03:00)
[2019-09-30] MEDS ORDERED: NS 1,000 ML IV ONE (03:00)
[2019-09-30] MEDS ORDERED: fentaNYL 100 MCG/2 ML INJECTION (J3010) IV PRN (03:15)
[2019-09-30] MEDS: propofoL 1,000 MG in IV 1 EA IV SCH ×5 (03:29→22:05)
[2019-09-30 03:42] LABS: INR 1.03; PROTHROMBIN TIME 13.3 SECONDS (11.8-14.0)
[2019-09-30] MEDS ORDERED: LEVETIRACETAM IV ONE (03:45)
[2019-09-30] MEDS ORDERED: D5W IV ONE (03:45)
[2019-09-30 04:34] LABS: CK-MB VALUE MASS 2.6 NG/ML (<3.6); CPK CREATINE PHOSPHOKINASE 167 U/L (39-308); MAGNESIUM LEVEL 2.1 MG/DL (1.8-2.4); MB/CK RELATIVE INDEX 1.56 (< OR =4); TROPONIN I < 0.02 NG/ML (< 0.10)
[2019-09-30] MEDS: NS 1,000 ML IV SCH ×2 (04:54→19:28)
[2019-09-30 05:13] LABS: HEMOGLOBIN A1c 5.9 %
[2019-09-30 05:14] LABS: APPEARANCE, URINE CLEAR (CLEAR); BACTERIA, URINE AUTO NEGATIVE (NEGATIVE); BILIRUBIN, URINE AUTO NEGATIVE (NEGATIVE); BLOOD, URINE BLOOD NEGATIVE (NEGATIVE); COLOR, URINE YELLOW (YELLOW); GLUCOSE, URINE (UA) AUTO NEGATIVE (NEGATIVE); KETONE, URINE AUTO NEGATIVE (NEGATIVE); LEUKOCYTE ESTERASE, URINE AUTO NEGATIVE (NEGATIVE); MUCUS, URINE SMALL (NEGATIVE); NITRITE, URINE AUTO NEGATIVE (NEGATIVE); PROTEIN, URINE AUTO NEGATIVE (NEGATIVE); RBC, URINE AUTO 1 /HPF (0-3); SPECIFIC GRAVITY URINE AUTO 1.006 (1.002-1.035); SQUAMOUS EPITHELIAL CELL UR AU 0 /HPF (0-6); UROBILINOGEN, URINE AUTO 0.2 mg/dL (0.0-2.0); WBC, URINE AUTO 0 /HPF (0-3)
[2019-09-30] MEDS: HEPARIN SOD (PORCINE) 5000 UNITS/ML VIAL (J1644 PER 1000UNITS) SC SCH ×3 (06:09→20:22)
--- NOTE | 2019-09-30 07:20 | CR ---
DATE OF CONSULTATION: 09/30/2019 CHIEF COMPLAINT: Possible seizure. HISTORY OF PRESENT ILLNESS: History is obtained from collateral information as the patient is intubated and unable to provide history. Mr. Tello is a 64-year-old male with an extensive psychiatric history including schizoaffective disorder, possible schizophrenia, history of pseudoseizures, anxiety, depression, and panic attacks who has had multiple admissions with inpatient psych for psychotic episodes as well as for suicidal ideation and attempts in the past. The patient presented for this inpatient psych admission after being brought to the hospital by state troopers when they recalled when he was holding a knife to his stomach and asking his to stab himself because he did not want to cut his wrists. The patient had also been stating that he was hearing voices that talk to him and tell him that his situation is hopeless and helpless and that he had to protect himself with the knife from people who are going to hurt him. He also reportedly took additional Klonopin from his prescription as well as additional gabapentin that he has been prescribed. The patient was therefore admitted to inpatient psych for his unspecified psychotic disorder. While there, the patient continued to feel suicidal and hopeless as well as intermittently getting agitated. He does have a history of tremors which have been worked up in the past for potential Parkinson's and were thought to be potentially due to his pseudoseizures as well. Earlier in the day while in the [facility], the patient reportedly was having episodes of possible pseudoseizures. He then had a rapid response called overnight for seizures that were lasting for the last 10 minutes or so intermittently. The patient was unresponsive and his O2 sats dropped to the 80s. He was also agonally breathing. Anesthesia was called to the rapid response and the patient was intubated by anesthesia. The patient was transferred to the ICU for further management. PAST MEDICAL HISTORY: 1. Tardive dyskinesia. 2. Memory difficulty. 3. Depression. 4. Anxiety. 5. Panic attacks. 6. Schizoaffective disorder. 7. Schizophrenia. 8. History of pseudoseizure. 9. Possible real seizures. 10. Osteoarthritis. 11. Vitamin D deficiency. 12. Chronic back pain. 13. Questionable microadenoma of the pituitary. 14. Surgery repair of the left eardrum. 15. Diverticulosis. FAMILY HISTORY: Father with history of lung cancer and also reported probable schizophrenia. Grandmother with a history of multiple sclerosis. SOCIAL HISTORY: Denies a history of smoking and no history of alcohol abuse or other drug abuse. HOME MEDICATIONS: - aspirin - atorvastatin - gabapentin - multivitamin - pramipexole - Seroquel - venlafaxine - clonazepam p.r.n. - Mirapex p.r.n. ALLERGIES: - AMANTADINE PHYSICAL EXAMINATION: Temperature is 97.5, pulse 91, respirations 16, blood pressure 110/60, O2 sat 98% on the vent at 40% FIO2. General: The patient is a thin male who is lying in the bed and is intubated and sedated. He is moving extremities to painful stimuli, but is not awake or following commands. HEENT: Normocephalic, atraumatic. Pupils are equal and reactive to light bilaterally. Moist mucous membranes. There is no tongue biting or any lip lacerations. There are no fasciculations noted of his tongue either. Neck is supple. Trachea is midline. No palpable cervical adenopathy. Cardiac: Regular rate and rhythm. Normal S1, S2. No murmurs appreciated. Respiratory: There are coarse ventilated breath sounds bilaterally, but no rales, wheezing or rhonchi. Abdomen is soft, nontender, nondistended. No guarding to palpation. Extremities: There is no lower extremity edema noted bilaterally. LABORATORY DATA: WBC 6.6, hemoglobin 15.3, and platelets are 270. Chemistries: Sodium is 139, potassium 3.8, chloride is 106, bicarb is 25, BUN 24, creatinine is 1.13, glucose 126, calcium is 9.7. The AST and ALT are within normal limits. Alkaline phosphatase is normal. Albumin is 3.9. Ammonia is 38, lactic acid was 2.4 and procalcitonin is pending. ABG: pH 7.405, pCO2 of 38.3 and pO2 of 151. IMAGING: Chest x-ray shows ET tube in good position. There are no focal opacities or infiltrates noted. Head CT showed chronic microvascular ischemic changes, but no acute focal findings. ASSESSMENT AND PLAN: Mr. Tello is a 64-year-old male with an extensive psychiatric history including schizophrenia, pseudoseizures, tardive dyskinesia, depression and anxiety with history of suicidal attempts and ideation who presented again with suicidal ideation and possible attempt. The patient was admitted to [facility] where he was treated for his unspecified psychotic disorder. He continued to report feelings of helplessness and also continued be agitated and confused as well as potentially hallucinating. Earlier in the day, he was noted to have potential pseudoseizure activity and overnight the patient had a rapid response called for seizures that were lasting approximately 10 minutes or so. During the rapid response, he was given Ativan 2 mg IV without cessation of seizure activity. He was also noted to be hypoxic on room air and having agonal breathing and the decision was made for intubation for airway protection. In terms of the reported seizure activity, the patient was observed to have twitching movements initially with myoclonic jerking activity. He was Ativan 2 mg IV and then was noted to have stiffening of his extremities with internal rotation of his arms and flexion of his legs. He was doing these intermittently as well. Patient with seizures with respiratory compromise requiring intubation and mechanical ventilation for airway protection. - As patient is intubated and is on mechanical ventilation, will start the patient on sedation with propofol and Versed prn and titrate for a [place] of 2 to 3 - Will continue with seizure precautions and Ativan IV p.r.n. for seizure activity. - Will use fentanyl p.r.n. for pain control. - Will consult neurology and will also order an electroencephalogram (EEG). If patient is suspected to have continued seizure or potential non convulsive status epilepticus then he would need 24 hour video EEG monitoring, which we do not have here and may potentially need transfer to an outside facility. - Will load patient with [facility] for antiseizure and followup recommendations of neurology. - Will follow up his prolactin level as well as a CPK. He does have a history of pseudoseizures and it is unclear if patient had actual seizure during his rapid response or a pseudoseizure. He did have an elevated lactic acid, although this may have also been in the setting of his respiratory distress as well. The patient did develop desaturation after he received the Ativan. - The patient's initial head CT did not show any focal abnormalities. His initial chest x-ray did not show any opacities or infiltrates. - Will continue him on vent on PRVC at settings of 400/12/40/5 and continue to wean down his FIO2 as tolerated. - Will continue with daily ABGs and chest x-rays while intubated and vent bundle care with chlorhexidine mouthwash and head of bed elevation. - Will give the patient IV fluids with 1 liter normal saline bolus and will followup his renal function and electrolytes and replete as needed. Will also check a magnesium and phosphorus level. - Will place a Perry catheter while he is intubated. - Once the patient has been seizure-free for more than 24 hours, would consider weaning trial at that time and extubation. After he is extubated, he will need one-to-one for suicide precautions. Deep vein thrombosis (DVT) prophylaxis. Heparin. Gastrointestinal (GI) prophylaxis. Full code. Total critical care time spent, not including procedures, approximately 1 hour and 20 minutes. MTDD
[2019-09-30] MEDS: PANTOPRAZOLE 40MG INJ (PROTONIX) (C9113) IV SCH (08:03)
[2019-09-30] MEDS: CHLORHEXIDINE GLUCONATE 0.12 % 15ML UDC (PERIDEX ORAL RINSE) MT SCH ×3 (08:03→20:22)
[2019-09-30 10:05] LABS: PROLACTIN 9.3 NG/ML (2.1-17.7)
[2019-09-30] MEDS: MIDAZOLAM INJ 2 MG/2 ML VIAL (J2250) IV PRN ×6 (10:30→19:52)
[2019-09-30] MEDS ORDERED: LORazepam 2 MG/ML VIAL (J2060) As Ordered ONE (20:14)
[2019-09-30] MEDS: LORazepam 2 MG/ML VIAL (J2060) IV PRN (20:21)
[2019-10-01] VITALS (20 sets, daily range): BP systolic 85–187; BP diastolic 55–122
[2019-10-01] MEDS ORDERED: levETIRAcetam INJection 500 MG in D5W MINI-BAG PLUS 100 ML IV SCH ×2
[2019-10-01 05:03] LABS: HEMOGLOBIN 13.6 g/dl (13.5-17.5); MEAN CORPUSCULAR HEMOGLOBIN 30.4 pg (27.0-33.0); MEAN CORPUSCULAR HGB CONC 33.2 g/dl (32.0-36.5); MEAN CORPUSCULAR VOLUME 91.5 fl (80.0-96.0); PLATELET COUNT, AUTOMATED 190 10^3/uL (150-450); RED BLOOD COUNT 4.48 10^6/uL (4.30-6.10); WHITE BLOOD COUNT 5.9 10^3/uL (4.0-10.0)
[2019-10-01] MEDS ORDERED: LORazepam 2 MG/ML VIAL (J2060) As Ordered ONE ×2 (05:04→23:26)
[2019-10-01] MEDS: LORazepam 2 MG/ML VIAL (J2060) IV PRN ×4 (05:07→23:28)
[2019-10-01] MEDS: HEPARIN SOD (PORCINE) 5000 UNITS/ML VIAL (J1644 PER 1000UNITS) SC SCH ×3 (05:19→22:11)
[2019-10-01 05:21] LABS: BLOOD UREA NITROGEN 14 MG/DL (7-18); CALCIUM LEVEL 8.2 MG/DL (8.8-10.2); CARBON DIOXIDE LEVEL 29 MEQ/L (21-32); CHLORIDE LEVEL 112 MEQ/L (98-107); CREATININE FOR GFR 0.88 MG/DL (0.70-1.30); GLOMERULAR FILTRATION RATE > 60.0 (>49); GLUCOSE, FASTING 92 MG/DL (70-100); POTASSIUM SERUM 4.1 MEQ/L (3.5-5.1); SODIUM LEVEL 145 MEQ/L (136-145)
[2019-10-01 06:01] LABS: ABG pH (ARTERIAL) 7.424 UNITS (7.350-7.450)
[2019-10-01 06:02] LABS: ABG BASE EXCESS 1.8 (-2.0-2.0); ABG HCO3 26.4 MEQ/L (22.0-26.0); ABG O2 SATURATION 98.9 % (95.0-99.0); ABG PARTIAL PRESSURE CO2 41.3 mmHg (35.0-45.0); ABG PARTIAL PRESSURE O2 139.7 mmHg (75.0-100.0); ABG STANDARD HCO3 26.1 MEQ/L (22.0-26.0); ABG TOTAL CO2 27.7 MEQ/L (23.0-31.0)
[2019-10-01] MEDS: propofoL 1,000 MG in IV 1 EA IV SCH (06:10)
--- NOTE | 2019-10-01 06:53 | CR ---
DATE OF CONSULTATION: 09/30/2019 REFERRING PHYSICIAN: Dr. Melissa Dominguez REASON FOR CONSULTATION: Seizure-like spells. HISTORY OF PRESENT ILLNESS: Kofi Tello is a 64-year-old man with history of schizoaffective disorder, schizophrenia, pseudoseizures/psychogenic non-epileptic seizures (PNES), anxiety, depression, and panic attacks, who had multiple admissions to the inpatient mental health due to psychotic symptoms. He also had suicidal ideation and attempts in the past. According to the patient's , the patient's grandson in a four-guerrero accident in 2018 and then the patient's sister the same year and mother in 2019. The patient had told her that he wanted to . He did not want to go through this anymore. The patient has had hallucinations and believed that he had demons inside him. The patient's clearly states that the patient was diagnosed with pseudoseizures/psychogenic non-epileptic spells in the year 1999. She has a clear memory that the patient was admitted at [facility] for video electroencephalogram (EEG) monitoring and was given diagnosis of pseudoseizures. He would have seizures once or twice a month and then he would have 3-6 months without any spells. Stress definitely aggravated his spells. His body would become stiff and he would flop all over like a fish out of water for 1-2 minutes. He could hear other people, but could not respond. After the spell ended, he would sit down, calm down, concentrate on his breathing and that would help. There was never tongue biting or urinary incontinence in any of these spells. At our office, he had two completely normal EEGs in 2014 and 2016. According to the patient's , she stopped following with neurology because they could not find anything wrong and all of his tests always came back normal. He had a spell at inpatient mental health unit during this admission. According to nurses, he was shaking and was unable to protect his airway and he was intubated and was put on ventilator with propofol and Keppra. According to the patient's , she talked to him around 8:30 p.m. and he told her that he was going to go take a shower and go to sleep. Physicians from [facility] tried contacting her, but were unable to do so. There were able to get in touch with the patient's son early in the morning at around 3:04 a.m. and explained to him the patient's seizure-like spell and subsequent intubation. The patient is currently on mechanical ventilator sedated and unable to provide any history. PAST MEDICAL HISTORY: Tardive dyskinesia, schizoaffective disorder, schizophrenia, panic attack, anxiety, depression, history of pseudoseizures/PNES, chronic back pain, diverticulosis, osteoarthritis. FAMILY HISTORY: Father had lung cancer and possible schizophrenia. SOCIAL HISTORY: Does not smoke, drink alcohol or use drugs. HOME MEDICATIONS: Aspirin, Lipitor, gabapentin, pramipexole, Seroquel, Effexor, clonazepam, multivitamin. ALLERGIES: - AMANTADINE. REVIEW OF SYSTEMS: All systems were reviewed with the patient's and found to be noncontributory except as mentioned in history of present illness. PHYSICAL EXAMINATION: Blood pressure 98/62, pulse 84, respiratory rate 14, 98% saturation on 30% FIO2 and mechanical ventilation. Heart: Regular rate and rhythm. Lungs: Clear to auscultation. Abdomen: Soft, nontender, nondistended. No pedal edema. No musculoskeletal abnormalities. No rash. No signs of meningeal irritation. The patient is sedated on mechanical ventilator. He does not respond to verbal or painful stimuli. His pupils are 4 mm bilaterally, reactive to light. Plantars are mute. Sensory, motor, cerebellar and facial testing could not be performed. DIAGNOSTIC STUDIES: CT scan of head was unremarkable. ASSESSMENT: 1. Seizure-like spells. 2. History of known psychogenic nonepileptic spells. PLAN: 1. EEG. 2. The patient likely can be extubated. 3. Once the patient is awake, we should likely discontinue Keppra as will aggravate his psychiatric disorder. We should get records of video EEG monitoring from [facility]. The patient's thinks that it was done around the year 1999 and he was told from the beginning that he had pseudoseizures. He had two normal routine EEG studies at our office in 2014 and 2016.
[2019-10-01] MEDS: PANTOPRAZOLE 40MG INJ (PROTONIX) (C9113) IV SCH (08:22)
--- NOTE | 2019-10-01 08:57 | REP ---
Portable chest x-ray: Single view. History: Endotracheal tube and orogastric tube placement. Comparison chest x-ray: September 30, 2019. Findings: Endotracheal tube is seen terminating at the level of the proximal clavicles. NG tube enters left upper quadrant as before. Oxygen delivery tubing and monitoring electrodes are again seen. No infiltrate is seen in the lung dolan. Heart is not enlarged. Pulmonary vasculature is not increased. Electronically Signed by Balta Martínez MD 10/01/2019 08:48 A
[2019-10-01] MEDS: NS 1,000 ML IV SCH ×2 (09:19→23:28)
--- NOTE | 2019-10-01 18:55 | EEG ---
DATE OF PROCEDURE: 10/01/2019 REFERRING PHYSICIAN: Dr. Delmis Barcenas DIAGNOSIS: Seizure-like activity. EEG NUMBER: [id number] HISTORY: The patient is a 64-year-old man with a history of schizoaffective disorder, suicidal ideation who had seizure-like spell in mental health unit and was later intubated. The patient has a history of known pseudoseizures. He is currently taking Seroquel, gabapentin, pramipexole, clonazepam, Effexor, etc. TECHNICAL DESCRIPTION: This digital EEG was recorded by 21 scalp, ear and two EKG electrodes and was reviewed in bipolar and referential montages following reformatting in 10-20 international electrode placement system. INTERPRETATION: The patient was noted to be in awake and drowsy states during this EEG. Resting awake background rhythm consisted of 8-9 Hz alpha activity measuring 15-40 microvolts in amplitude. No sleep was achieved. Hyperventilation could not be performed. Photic stimulation remained unremarkable. EKG revealed normal sinus rhythm. The patient had two episodes of generalized shaking and four episodes of head shaking and altered breathing during which EEG was filled only with muscle artifact without postictal slowing or change in background rhythm. These episodes lasted for [id number]. No EEG abnormality was noted during these episodes. No focal, lateralizing or epileptiform abnormalities were seen. CONCLUSION: This EEG in awake and drowsy states is within normal limits. Two episodes of generalized shaking, four episodes of head shaking with abnormal breathing were noted during which only muscle artifact was seen without any EEG abnormalities. No epileptiform abnormalities were seen. These episodes most likely represent psychogenic nonepileptic spells (PNES). Clinical correlation is recommended.
--- NOTE | 2019-10-01 21:12 | IPNPDOC ---
Date Seen The patient was seen on 10/01/19. Progress Note SUBJECTIVE: 64 y.o male w/ an extensive psychiatric history, pseudoseizures was initially admitted to [facility] for suicidal ideation. He was having questionable seizure activity, desating and subsequently intubated to protect his airway. He was extubated in the morning, comfortable. He is moving all extremities, having tremors/tardive dyskinesia, unknown if baseline. EEG performed, no epileptic act ivity. Patient awake but doesn't speak or follow commands. Patient's at bedside, reports he appears worse than baseline. OBJECTIVE PHYSICAL EXAMINATION: VITAL SIGNS: Please see below. GENERAL: anxious HEENT: moist mucus membranes CARDIOVASCULAR: Tachycardic, S1, S2 RESPIRATORY: tachypneic, no wheezing ABDOMINAL: soft, non-distended, +BS EXTREMITIES: Moving all extremities uncontrollably NEUROLOGICAL: having uncontrolled movement of all extremities & facial muscles, unable to perform exam due to compliance PSYCHOLOGICAL: Guarded LABORATORY DATA, IMAGING STUDIES, MICROBIOLOGY: Please see below. ASSESSMENT AND PLAN: 64 y.o male w/ significant history of psychiatric disease & pseudoseizures who was admitted to [facility] for suicidal ideation later intubated for airway protection during a - likely - pseudoseizure episode. PROBLEMS: 1. ?seizure - intubated for airway protection, extubated earlier today, h/o pseudoseizures, EEG confirms pseudoseizure, evaluated by Neurology, Kimra dis continued, monitor overnight, will consult Psych for transfer back to [facility] in the morning. 2. Severe psychiatric illness - admitted for Suicidal ideation, continue suicidal precautions, further management as per Psychiatry. 3. Tardive Dyskinesia - related to initial treatment for Schizoaffective disorder, unknown if current presentation is baseline. VS, I&O, 24H, [facility] Vital Signs/I&O Vital Signs Date Time Temp Pulse Resp B/P (MAP) Pulse Ox O2 Delivery O2 Flow Rate FiO2 10/01/19 18:00 100 153/76 (101) 98 Room Air 10/01/19 16:00 100.1 26 10/01/19 10:01 2.0 10/01/19 09:00 30 I&O- Last 24 Hours up to 6 AM 10/01/19 06:00 Intake Total 1733.8 ml Output Total 2470 ml Balance -736.2 ml Laboratory Data 24H LABS Laboratory Tests 2 10/01/19 00:55: Bedside Glucose (Misc Panel) 94 10/01/19 04:19: Nucleated Red Blood Cells % (auto) 0.0, Anion Gap 4L, Glomerular Filtration Rate > 60.0, Calcium Level 8.2#L 10/01/19 05:38: Blood Gas Bicarbonate Standard 26.1H, Arterial Blood pH 7.424, Arterial Blood Partial Pressure CO2 41.3, Arterial Blood Partial Pressure O2 139.7H, Arterial Blood Total CO2 27.7, Arterial Blood HCO3 26.4H, Arterial Blood Base Excess 1.8, Arterial Blood Oxygen Saturation 98.9 CBC/BMP Laboratory Tests 10/01/19 04:19 Microbiology Microbiology 09/30/19 Respiratory Virus Panel (PCR) (KOBE) - Final, Complete 09/30/19 Blood Culture - Preliminary, Resulted No growth after 24 hours . All specim... LOWELL AVERY MD Oct 01, 2019 21:12
[2019-10-02] VITALS (12 sets, daily range): BP systolic 130–190; BP diastolic 75–112
[2019-10-02] MEDS ORDERED: LORazepam 2 MG/ML VIAL (J2060) As Ordered ONE ×2 (03:02→04:07)
[2019-10-02] MEDS: LORazepam 2 MG/ML VIAL (J2060) IV PRN ×2 (03:03→04:11)
[2019-10-02 04:55] LABS: HEMOGLOBIN 13.7 g/dl (13.5-17.5); MEAN CORPUSCULAR HEMOGLOBIN 30.6 pg (27.0-33.0); MEAN CORPUSCULAR HGB CONC 34.3 g/dl (32.0-36.5); MEAN CORPUSCULAR VOLUME 89.3 fl (80.0-96.0); PLATELET COUNT, AUTOMATED 224 10^3/uL (150-450); RED BLOOD COUNT 4.48 10^6/uL (4.30-6.10); WHITE BLOOD COUNT 6.8 10^3/uL (4.0-10.0)
[2019-10-02] MEDS: HEPARIN SOD (PORCINE) 5000 UNITS/ML VIAL (J1644 PER 1000UNITS) SC SCH ×3 (05:08→21:31)
[2019-10-02 05:17] LABS: BLOOD UREA NITROGEN 15 MG/DL (7-18); CALCIUM LEVEL 8.6 MG/DL (8.8-10.2); CARBON DIOXIDE LEVEL 23 MEQ/L (21-32); CHLORIDE LEVEL 117 MEQ/L (98-107); CREATININE FOR GFR 0.96 MG/DL (0.70-1.30); GLOMERULAR FILTRATION RATE > 60.0 (>49); GLUCOSE, FASTING 104 MG/DL (70-100); POTASSIUM SERUM 3.5 MEQ/L (3.5-5.1); SODIUM LEVEL 147 MEQ/L (136-145)
[2019-10-02] MEDS ORDERED: POTASSIUM CHLORIDE 10 MEQ SR TABLET PO ONE (07:30)
[2019-10-02] MEDS: PANTOPRAZOLE 40MG INJ (PROTONIX) (C9113) IV SCH (08:08)
--- NOTE | 2019-10-02 08:30 | CCN ---
DATE: 10/01/2019 NOTE: Mr. Tello remains critically ill secondary to acute respiratory failure secondary to pseudoseizures leading to mechanical ventilation. He has done well overnight. He required high doses of propofol at times. This morning, on a sedation holiday, he did reasonably well. He still had some movements that have been attributed to pseudoseizures / psychogenic nonepileptic seizures. He was awake and appeared to respond to stimuli but not clearly follow commands. He had been seen by neurology who did not feel there was any seizures going on and felt he could be extubated when medically ready. OBJECTIVE: PHYSICAL EXAMINATION: GENERAL: Mr. Tello is lying in bed synchronous with the ventilator. He opens his eyes and will stick out his tongue and moves all extremities but it is not clear that he is truly following commands. VITAL SIGNS: Temperature 97.1, pulse 61, blood pressure 104/60 with a MAP of 80, SpO2 99% on FiO2 of 0.3. HEENT: Anicteric, oropharynx ET tube and OG tube in place. NECK: Supple, without JVD, thyromegaly or masses, trachea is midline. LYMPHATICS: Without cervical or supraclavicular lymphadenopathy. CHEST: Normal shape. LUNGS: Symmetric excursion, good air entry, no wheeze, rhonchi or crackle on tidal excursion. Normal I to E. No accessory muscle usage or retractions. CARDIOVASCULAR: S1, S2, regular rate and rhythm with a normal S1, S2, no murmur, rub, or gallop. ABDOMEN: Positive bowel sounds, soft, nondistended, no hepatosplenomegaly or masses appreciated. EXTREMITIES: Without clubbing, cyanosis or edema. NEUROLOGIC: Awake and moving all fours, not clear if following commands. LABORATORY DATA: CBC from this morning showed a hemoglobin of 13.6, hematocrit of 41, platelet count of 190,000, white blood cell count 5900. Chemistries showed a sodium 145, potassium 4.1, chloride 112, bicarbonate 29, anion gap 4, BUN 14, creatinine 0.9, glucose 92, calcium 8.2. Arterial blood gas from this morning was 7.424 / 41/ 140 with a measured saturation of 99% and a base excess of 1.8. This was drawn on PRBC with a tidal volume of 400, set rate of 12 and FiO2 of 0.3. Yesterday's intake and output was 3039 in and 2455 out making him positive 584. Weight 70.4 kg. I reviewed his chest x-ray as well as the report. That x-ray showed normal-appearing cardiac silhouette and pulmonary vascular shadows. Normal-appearing mediastinal and hilar regions. No acute infiltrate. Endotracheal tube is in good position. ASSESSMENT: 1. Acute respiratory failure leading to mechanical ventilation secondary to pseudoseizures / PNES. 2. Tardive dyskinesia. 3. Schizoaffective disorder. 4. Schizophrenia. RECOMMENDATIONS: 1. Will go on to a weaning trial. Even though he is not following commands, he is clearly protecting his airway with a good cough and gag and I suspect some of his not following commands may be related to his underlying psychiatric difficulties. 2. Appreciate neurology input. ADDENDUM: Mr. Tello went on to a bedside weaning trial. On a pressure support of 5/5 he was taking in good tidal volumes and appeared comfortable. He has no significant secretions. It was felt safe to extubate him at this time. I saw him an hour plus later and he is doing well on 2 liters nasal cannula. As this was an intubation secondary to possible seizures and it has been determined that is not the case and he has no other respiratory medical problems, the location director service will sign off for now. Please recontact the service if there are further difficulties. Critical care time 35 minutes not including procedure time. [facility]
--- NOTE | 2019-10-02 11:21 | IPNPDOC ---
Date Seen The patient was seen on 10/02/19. Progress Note SUBJECTIVE: 64 y.o male w/ an extensive psychiatric history, pseudoseizures was initially admitted to [facility] for suicidal ideation. He was having questionable seizure activity, desating and subsequently intubated to protect his airway. He was extubated in the morning, comfortable. He is moving all extremities, having tremors/tardive dyskinesia, unknown if baseline. EEG performed, no epileptic act ivity. Patient awake but doesn't speak or follow commands. Patient's at bedside, reports he appears worse than baseline. 10/02/19 See in the morning, comfortable in bed, became anxious after I walked in, no additional complaints at this time. OBJECTIVE PHYSICAL EXAMINATION: VITAL SIGNS: Please see below. GENERAL: anxious HEENT: moist mucus membranes CARDIOVASCULAR: Tachycardic, S1, S2 RESPIRATORY: tachypneic, no wheezing ABDOMINAL: soft, non-distended, +BS EXTREMITIES: Moving all extremities uncontrollably NEUROLOGICAL: having uncontrolled movement of all extremities & facial muscles, unable to perform exam due to compliance PSYCHOLOGICAL: Guarded LABORATORY DATA, IMAGING STUDIES, MICROBIOLOGY: Please see below. ASSESSMENT AND PLAN: 64 y.o male w/ significant history of psychiatric disease & pseudoseizures who was admitted to [facility] for suicidal ideation later intubated for airway protection during a - likely - pseudoseizure episode. PROBLEMS: 1. ?seizure - intubated for airway protection, extubated yesterday, h/o pseudoseizures, EEG confirms pseudoseizure, evaluated by Neurology, Keppra discontinued, psych reconsulted to transfer patient back to [facility], no bed availability until Friday. 2. Severe psychiatric illness - admitted for Suicidal ideation, continue suicidal precautions, further management as per Psychiatry. 3. Tardive Dyskinesia - related to initial treatment for Schizoaffective disorder. VS, I&O, 24H, [facility] Vital Signs/I&O Vital Signs Date Time Temp Pulse Resp B/P (MAP) Pulse Ox O2 Delivery O2 Flow Rate FiO2 10/02/19 08:00 98.9 107 24 158/112 (127) 97 Room Air 10/02/19 04:00 1.0 10/01/19 09:00 30 I&O- Last 24 Hours up to 6 AM 10/02/19 06:00 Intake Total 2138 ml Output Total 730 ml Balance 1408 ml Laboratory Data 24H LABS Laboratory Tests 2 10/02/19 04:09: Nucleated Red Blood Cells % (auto) 0.0, Anion Gap 7L, Glomerular Filtration Rate > 60.0, Calcium Level 8.6L CBC/BMP Laboratory Tests 10/02/19 04:09 Microbiology Microbiology 09/30/19 Respiratory Virus Panel (PCR) (KOBE) - Final, Complete 09/30/19 Blood Culture - Preliminary, Resulted No Growth after 48 hours. All Specime... LOWELL AVERY MD Oct 02, 2019 11:21
[2019-10-02] MEDS ORDERED: ACETAMINOPHEN TAB 650MG DOSE (2X325MG) PO PRN (19:45)
[2019-10-03] MEDS: HEPARIN SOD (PORCINE) 5000 UNITS/ML VIAL (J1644 PER 1000UNITS) SC SCH ×3 (05:55→21:17)
[2019-10-03 06:00] VITALS: BP 149/96
[2019-10-03 06:31] LABS: HEMATOCRIT 41.1 % (42.0-52.0); HEMOGLOBIN 13.9 g/dl (13.5-17.5); MEAN CORPUSCULAR HEMOGLOBIN 30.6 pg (27.0-33.0); MEAN CORPUSCULAR HGB CONC 33.8 g/dl (32.0-36.5); MEAN CORPUSCULAR VOLUME 90.5 fl (80.0-96.0); PLATELET COUNT, AUTOMATED 212 10^3/uL (150-450); RED BLOOD COUNT 4.54 10^6/uL (4.30-6.10); WHITE BLOOD COUNT 7.8 10^3/uL (4.0-10.0)
[2019-10-03 06:57] LABS: BLOOD UREA NITROGEN 12 MG/DL (7-18); CALCIUM LEVEL 8.8 MG/DL (8.8-10.2); CARBON DIOXIDE LEVEL 24 MEQ/L (21-32); CHLORIDE LEVEL 113 MEQ/L (98-107); CREATININE FOR GFR 0.84 MG/DL (0.70-1.30); GLOMERULAR FILTRATION RATE > 60.0 (>49); GLUCOSE, FASTING 109 MG/DL (70-100); POTASSIUM SERUM 3.7 MEQ/L (3.5-5.1); SODIUM LEVEL 143 MEQ/L (136-145)
--- NOTE | 2019-10-03 08:04 | REP ---
Portable chest x-ray: Single view. History: Endotracheal tube. Comparison study: October 01, 2019. Findings: The nasogastric tube has been removed in the interval since the prior study. The lungs are well inflated and clear. The pleural angles are sharp. Heart size is normal. The aorta somewhat tortuous. No endotracheal tube is seen. Impression: Negative portable chest x-ray. Electronically Signed by Balta Martínez MD 10/03/2019 07:54 A
[2019-10-03] MEDS ORDERED: POTASSIUM CHLORIDE 10 MEQ SR TABLET PO ONE (08:45)
[2019-10-03] MEDS: PANTOPRAZOLE 40MG INJ (PROTONIX) (C9113) IV SCH (09:14)
[2019-10-03 14:00] VITALS: BP 155/98
--- NOTE | 2019-10-03 16:49 | IPNPDOC ---
Date Seen The patient was seen on 10/03/19. Progress Note SUBJECTIVE: 64 y.o male w/ an extensive psychiatric history, pseudoseizures was initially admitted to [facility] for suicidal ideation. He was having questionable seizure activity, desating and subsequently intubated to protect his airway. He was extubated in the morning, comfortable. He is moving all extremities, having tremors/tardive dyskinesia, unknown if baseline. EEG performed, no epileptic act ivity. Patient awake but doesn't speak or follow commands. Patient's at bedside, reports he appears worse than baseline. 10/02/19 See in the morning, comfortable in bed, became anxious after I walked in, no additional complaints at this time. 10/03/19 No acute events overnight, comfortable in bed, less anxious today, without any complaints at this time, awaiting transfer to [facility] once a bed is available. OBJECTIVE PHYSICAL EXAMINATION: VITAL SIGNS: Please see below. GENERAL: anxious HEENT: moist mucus membranes CARDIOVASCULAR: S1, S2 RESPIRATORY: clear to auscultation, no wheezing ABDOMINAL: soft, non-distended, +BS EXTREMITIES: Moving all extremities uncontrollably NEUROLOGICAL: having uncontrolled movement of all extremities & facial muscles, unable to perform exam due to compliance & underlying tremor/dyskinesia PSYCHOLOGICAL: Guarded LABORATORY DATA, IMAGING STUDIES, MICROBIOLOGY: Please see below. ASSESSMENT AND PLAN: 64 y.o male w/ significant history of psychiatric disease & pseudoseizures who was admitted to [facility] for suicidal ideation later intubated for airway protection during a - likely - pseudoseizure episode. PROBLEMS: 1. Pseudoseizure - intubated for airway protection, successfully extubated, EEG confirms pseudoseizure, evaluated by Neurology, Jeyson discontinued, psych reconsulted to transfer patient back to [facility], no bed availability until Friday. 2. Severe psychiatric illness - admitted for Suicidal ideation, continue suicidal precautions, further management as per Psychiatry. 3. Tardive Dyskinesia - related to initial treatment for Schizoaffective disorder. VS, I&O, 24H, [facility] Vital Signs/I&O Vital Signs Date Time Temp Pulse Resp B/P (MAP) Pulse Ox O2 Delivery O2 Flow Rate FiO2 10/03/19 14:00 98.1 92 18 155/98 (117) 97 Room Air 10/02/19 04:00 1.0 10/01/19 09:00 30 I&O- Last 24 Hours up to 6 AM 10/03/19 05:59 Intake Total 2100 ml Output Total 300 ml Balance 1800 ml Laboratory Data 24H LABS Laboratory Tests 2 10/03/19 05:43: Nucleated Red Blood Cells % (auto) 0.0, Anion Gap 6L, Glomerular Filtration Rate > 60.0, Calcium Level 8.8 CBC/BMP Laboratory Tests 10/03/19 05:43 Microbiology Microbiology 09/30/19 Respiratory Virus Panel (PCR) (KOBE) - Final, Complete 09/30/19 Blood Culture - Preliminary, Resulted No Growth after 72 hours. All specime... LOWELL AVERY MD Oct 03, 2019 16:49
[2019-10-03] MEDS: LORazepam 2 MG/ML VIAL (J2060) IV PRN (21:18)
[2019-10-03 22:00] VITALS: BP 118/72
[2019-10-04] MEDS: HEPARIN SOD (PORCINE) 5000 UNITS/ML VIAL (J1644 PER 1000UNITS) SC SCH ×3 (05:46→22:03)
[2019-10-04 06:00] VITALS: BP 106/73
[2019-10-04 06:11] LABS: HEMATOCRIT 43.9 % (42.0-52.0); MEAN CORPUSCULAR HEMOGLOBIN 30.3 pg (27.0-33.0); MEAN CORPUSCULAR HGB CONC 34.2 g/dl (32.0-36.5); MEAN CORPUSCULAR VOLUME 88.7 fl (80.0-96.0); PLATELET COUNT, AUTOMATED 244 10^3/uL (150-450); RED BLOOD COUNT 4.95 10^6/uL (4.30-6.10); WHITE BLOOD COUNT 7.9 10^3/uL (4.0-10.0)
[2019-10-04] MEDS: PANTOPRAZOLE 40MG INJ (PROTONIX) (C9113) IV SCH (09:31)
[2019-10-04 11:24] VITALS: BP 139/96
[2019-10-04] MEDS ORDERED: LORazepam 2 MG/ML VIAL (J2060) As Ordered ONE (11:30)
[2019-10-04] MEDS: clonazePAM 1 MG TAB PO PRN ×2 (13:53→22:03)
[2019-10-04 14:00] VITALS: BP 140/95
--- NOTE | 2019-10-04 19:17 | IPNPDOC ---
Date Seen The patient was seen on 10/04/19. Progress Note SUBJECTIVE: 64 y.o male w/ an extensive psychiatric history, pseudoseizures was initially admitted to [facility] for suicidal ideation. He was having questionable seizure activity, desating and subsequently intubated to protect his airway. He was extubated in the morning, comfortable. He is moving all extremities, having tremors/tardive dyskinesia, unknown if baseline. EEG performed, no epileptic act ivity. Patient awake but doesn't speak or follow commands. Patient's at bedside, reports he appears worse than baseline. 10/02/19 See in the morning, comfortable in bed, became anxious after I walked in, no additional complaints at this time. 10/03/19 No acute events overnight, comfortable in bed, less anxious today, without any complaints at this time, awaiting transfer to [facility] once a bed is available. 10/04/19 Patient continues to improve daily, resting comfortably in bed, without any comp laints at this time, awaiting transfer to inpatient mental health unit when a bed is available. OBJECTIVE PHYSICAL EXAMINATION: VITAL SIGNS: Please see below. GENERAL: anxious HEENT: moist mucus membranes CARDIOVASCULAR: S1, S2 RESPIRATORY: clear to auscultation, no wheezing ABDOMINAL: soft, non-distended, +BS EXTREMITIES: Moving all extremities uncontrollably NEUROLOGICAL: Continues to have resting tremors, no focal deficits PSYCHOLOGICAL: Guarded LABORATORY DATA, IMAGING STUDIES, MICROBIOLOGY: Please see below. ASSESSMENT AND PLAN: 64 y.o male w/ significant history of psychiatric disease & pseudoseizures who was admitted to [facility] for suicidal ideation later intubated for airway protection during a - likely - pseudoseizure episode. PROBLEMS: 1. Pseudoseizure - intubated for airway protection, successfully extubated, EEG confirms pseudoseizure, evaluated by Neurology, Kemarkra discontinued, psych reconsulted to transfer patient back to [facility], no bed available at this time, hopefully tomorrow. 2. Severe psychiatric illness - admitted for Suicidal ideation, continue suicidal precautions, further management as per Psychiatry. 3. Tardive Dyskinesia - related to initial treatment for Schizoaffective disorder. VS, I&O, 24H, Fishbone Vital Signs/I&O Vital Signs Date Time Temp Pulse Resp B/P (MAP) Pulse Ox O2 Delivery O2 Flow Rate FiO2 10/04/19 14:00 98.1 77 17 140/95 (110) 99 Room Air 10/02/19 04:00 1.0 10/01/19 09:00 30 I&O- Last 24 Hours up to 6 AM 10/04/19 06:00 Intake Total 720 ml Output Total 2000 ml Balance -1280 ml Laboratory Data 24H LABS Laboratory Tests 2 10/04/19 05:33: Nucleated Red Blood Cells % (auto) 0.0 CBC/BMP Laboratory Tests 10/04/19 05:33 Microbiology Microbiology 09/30/19 Respiratory Virus Panel (PCR) (KOBE) - Final, Complete 09/30/19 Blood Culture - Preliminary, Resulted No Growth after 72 hours. All specime... LOWELL AVERY MD Oct 04, 2019 19:17
[2019-10-04 22:00] VITALS: BP 107/73
[2019-10-05] MEDS: HEPARIN SOD (PORCINE) 5000 UNITS/ML VIAL (J1644 PER 1000UNITS) SC SCH ×2 (05:38→14:00)
[2019-10-05 06:00] VITALS: BP 115/71
[2019-10-05 06:02] LABS: HEMATOCRIT 45.3 % (42.0-52.0); HEMOGLOBIN 15.3 g/dl (13.5-17.5); MEAN CORPUSCULAR HEMOGLOBIN 30.4 pg (27.0-33.0); MEAN CORPUSCULAR HGB CONC 33.8 g/dl (32.0-36.5); MEAN CORPUSCULAR VOLUME 89.9 fl (80.0-96.0); PLATELET COUNT, AUTOMATED 262 10^3/uL (150-450); RED BLOOD COUNT 5.04 10^6/uL (4.30-6.10); WHITE BLOOD COUNT 7.7 10^3/uL (4.0-10.0)
[2019-10-05] MEDS: PANTOPRAZOLE 40MG INJ (PROTONIX) (C9113) IV SCH (08:13)
[2019-10-05] MEDS: clonazePAM 1 MG TAB PO PRN (08:55)
[2019-10-05 14:00] VITALS: BP 120/69
[2019-10-05 20:58] VITALS: BP 113/74
--- NOTE | 2019-10-07 23:49 | DS.PDOC ---
Discharge Summary General Date of Admission Sep 30, 2019 at 01:23 Date of Discharge 10/07/19 Attending Physician: LOWELL AVERY MD Discharge Summary PROCEDURES PERFORMED DURING STAY: Endotracheal intubation and mechanical ventilation ADMITTING DIAGNOSES: 1. Respiratory failure, pseudoseizure. DISCHARGE DIAGNOSES: 1. Respiratory failure, pseudoseizure. COMPLICATIONS/CHIEF COMPLAINT: Pseudoseizure HISTORY OF PRESENT ILLNESS: 64-year-old male with an extensive psychiatric history, was admitted to inpatient mental health unit when he developed pseudoseizure, followed by oxygen desaturation and he was intubated for airway protection. Patient was subsequently extubated without any difficulty, has been hemodynamically stable since then. Psychiatry was reconsulted to transfer patient back to inpatient mental health unit for further psychiatric care. Patient remained on the medical floor over the weekend until a bed was available, clinically is improved every day and appears to be at his baseline. Patient is comfortable in bed today, without complaints, clinically hemodynamically stable for discharge at this time. HOSPITAL COURSE: As above. DISCHARGE MEDICATIONS: Please see below. ALLERGIES: Please see below. OBJECTIVE PHYSICAL EXAMINATION: VITAL SIGNS: Please see below. GENERAL: anxious HEENT: moist mucus membranes CARDIOVASCULAR: S1, S2 RESPIRATORY: clear to auscultation, no wheezing ABDOMINAL: soft, non-distended, +BS EXTREMITIES: Moving all extremities uncontrollably NEUROLOGICAL: Continues to have resting tremors, no focal deficits PSYCHOLOGICAL: Guarded LABORATORY DATA: Please see below. PROGNOSIS: Fair ACTIVITY: As tolerated. DIET: Cardiac DISCHARGE PLAN: Follow with psychiatrist in inpatient mental health unit followed by primary care physician after discharge home DISPOSITION: 64 [facility]. DISCHARGE INSTRUCTIONS: 1. As above. DISCHARGE CONDITION: Stable. TIME SPENT ON DISCHARGE: Greater than 27 minutes. Vital Signs/I&Os Vital Signs Date Time Temp Pulse Resp B/P (MAP) Pulse Ox O2 Delivery O2 Flow Rate FiO2 10/05/19 20:58 98.6 68 19 113/74 (87) 95 Room Air 10/02/19 04:00 1.0 10/01/19 09:00 30 Microbiology Microbiology 09/30/19 Respiratory Virus Panel (PCR) (KOBE) - Final, Complete 09/30/19 Blood Culture - Final, Complete NO GROWTH AFTER 5 DAYS Discharge Medications Scheduled Aspirin (Aspirin EC) 81 Mg Tab, 81 MG PO DAILY for ., (Reported) Atorvastatin Calcium (Atorvastatin Calcium) 20 Mg Tablet, 20 MG PO DAILY for ., (Reported) Gabapentin (Gabapentin) 300 Mg Capsule, 300 MG PO BID for ., (Reported) Multivitamins (Thera M Plus Tablet) 1 Tab Tab, 1 TAB PO DAILY for ., (Reported) Pramipexole Di-HCl (Pramipexole ER) 2.25 Mg Tab.er.24h, 2.25 MG PO QHS for ., (Reported) Quetiapine Fumarate (Quetiapine Fumarate) 200 Mg Tab, 200 MG PO TID for ., (Reported) Venlafaxine HCl (Venlafaxine HCl ER) 150 Mg Cap, 150 MG PO DAILY for ., (Reported) Scheduled PRN Clonazepam (Clonazepam) 1 Mg Tablet, 1 MG PO TID PRN for ANXIETY, (Reported) Pramipexole Di-HCl (Mirapex) 0.25 Mg Tablet, 0.25 MG PO TID PRN for ANXIETY/AGITATION, (Reported) Allergies Coded Allergies: amantadine (Verified Allergy, Unknown, 11/03/18) LOWELL AVERY MD Oct 07, 2019 23:49
== END 2019-10-05 21:15 | DRG 208 ==
LOC: M ICU 01:23 → M MSPAV 10-02 18:39
PROVIDERS: ADMIT Internal Medicine; ATTEND Internal Medicine
PROC: 5A1945Z Respiratory Ventilation, 24-96 Consecutive Hours (ICD-10-PCS; principal; 2019-09-30)
DX: J96.01 Acute respiratory failure with hypoxia (principal); R45.851 Suicidal ideations; R56.9 Unspecified convulsions; E55.9 Vitamin D deficiency, unspecified; G24.01 Drug induced subacute dyskinesia; F41.0 Panic disorder [episodic paroxysmal anxiety]; F32.9 Major depressive disorder, single episode, unspecified; F20.9 Schizophrenia, unspecified; M54.5 Low back pain; K57.30 Diverticulosis of large intestine without perforation or abscess without bleeding; G20 Parkinson's disease; M19.90 Unspecified osteoarthritis, unspecified site; K64.8 Other hemorrhoids; Z79.899 Other long term (current) drug therapy; Z79.82 Long term (current) use of aspirin; Z88.8 Allergy status to other drugs, medicaments and biological substances

== ENCOUNTER 2019-10-05 19:50 | Inpatient (IN) | payer MEDICARE, MEDICAID ==
[2019-10-05] MEDS ORDERED: ACETAMINOPHEN TAB 650MG DOSE (2X325MG) PO PRN (20:00)
[2019-10-05] MEDS ORDERED: MAALOX 30 ML SUSP *UDC PO PRN (20:00)
[2019-10-05] MEDS ORDERED: MOM 30ML SUSPENSION UDC PO PRN (20:00)
[2019-10-05 21:30] VITALS: BP 139/69
[2019-10-05] MEDS: clonazePAM 1 MG TAB PO PRN (22:29)
[2019-10-06 06:44] VITALS: BP 106/64
[2019-10-06] MEDS: clonazePAM 1 MG TAB PO PRN (10:21)
--- NOTE | 2019-10-06 10:45 | MHHPEPDOC ---
[facility] History & Physical History and Physical DATE OF ADMISSION: Oct 05, 2019 at 21:15 New Patient Kofi Tello MRN: N/A Date of : N/A Date of Service: 10/06/2019 Chief Complaint "I don't remember much." History of Present Illness The patient, a 64-year-old man who had been discharged from our floor after being intubated for pseudoseizure, presents again after being treated on the medical floor. He had had a neurological workup with an EEG that revealed primarily pseudoseizures. After he had been medically cleared he was readmitted with abundance of caution. The patient is met with today. He reports he is doing much better. He has only been resumed on his home Klonopin of 1 mg 3 times a day, and has been doing generally well since his arrival back on our unit. He does ambulate with a walker at this time. The patient reports that he is not having any significant symptoms of depression, psychosis or other symptoms that he had had prior. His presentation is highly unclear and he consents to doing psychological testing in order to better understand his potential diagnosis and guide his treatment more appropriately. Review Of Systems Depression: Denies any symptoms at this time. Anxiety: Reports better managed anxiety. Tiffanie: No changes. Psychotic: Denies any psychotic symptoms at this time. Trauma: No changes. Borderline: No changes. Past Psychiatric History The patient has been treated at [facility] by Dr. Aponte currently being titrated off of Klonopin. He has been on multiple antipsychotics including clozapine, Seroquel and others. He has no history of suicide attempts. He has been admitted several times in the last couple of months for pseudoseizures and unusual behavior. Allergies Please see below. Family Psychiatric History The patient reports having a family history of schizophrenia namely in his father. Social History The patient grew up in the local area. Has been to his for 30 years. There appears to have been a stressor when he had had a relationship with a man earlier in his marriage. He has a fairly strict orthodoxy code. He has several adult children, but reports a straight relationship with them. 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 His is very supportive of him and has generally supporting throughout his need for treatment. Substance Abuse History The patient denies any excessive alcohol use, tobacco or illicit drug use, denies history of substance use treatment. Medical History He has had multiple workups for various tremors. Neurology believes them to be tardive dyskinesia. Mental Status Examination General: Well dressed with good hygiene Speech: Spontaneous and fluid Thought processes: Linear and logical MSK: Some mild tremors, but significantly improved from when he had left Thought content: Future orientated Abstract reasoning, and computation: Intact Description of associations: Intact Description of abnormal or psychotic thoughts: Denies any suicidal or homicidal ideation. Denies any auditory or visual hallucinations. Does not appear to be responding to internal stimuli. Does not appear to be endorsing any bizarre or paranoid ideation. Judgment: fair Insight: fair Orientation: Alert and orientated 3 Cognition: Grossly normal Recent and remote memory: Intact Attention span and concentration: Intact Fund of knowledge: Adequate Mood: "okay" Affect: Euthymic with a full range Diagnoses Dissociative disorder, unspecified. Unspecified movement disorder. Assessment and Plan Unspecified dissociative disorder: Initial psychological testing suggests possible dissociative disorder, will continue to test to understand the limits of what is presenting. Unspecified movement disorder: Will continue Klonopin at this time, trials of pramipexole and Cogentin have been unsatisfactory. Disposition Patient will need a further inpatient admission for diagnostic workup, however, given his symptoms have resolved well will attempt to triage him into outpatient sooner. Problem List Altered thoughts. Initial Treatment Plan 1. Patient was admitted on a 9.39 legal status. 2. Complete history was obtained. 3. With patients permission, family will be contacted and database will be expanded. 4. Patients medication regimen will be reviewed and changed accordingly. 5. Patient will be provided with protected environment. 6. Patient will be treated with individual, group, and milieu therapies. 7. Patient will receive supportive psych-education. 8. Discharge planning will commence immediately. 9. Outpatient follow-up treatment will be strongly recommended. 10. The initial treatment plan will focus initially on: Estimated Length Of Stay 3 days. Time Spent 70 minutes with greater than 70% of time spent on counseling/coordination of care. Friday Vital Signs Vital Signs Date Time Temp Pulse Resp B/P (MAP) Pulse Ox O2 Delivery O2 Flow Rate FiO2 10/06/19 06:44 97.6 72 14 106/64 (78) 10/05/19 21:30 98 Room Air Medications Scheduled Aspirin (Aspirin EC) 81 Mg Tab, 81 MG PO DAILY for ., (Reported) Atorvastatin Calcium (Atorvastatin Calcium) 20 Mg Tablet, 20 MG PO DAILY for ., (Reported) Gabapentin (Gabapentin) 300 Mg Capsule, 300 MG PO BID for ., (Reported) Multivitamins (Thera M Plus Tablet) 1 Tab Tab, 1 TAB PO DAILY for ., (Reported) Pramipexole Di-HCl (Pramipexole ER) 2.25 Mg Tab.er.24h, 2.25 MG PO QHS for ., (Reported) Quetiapine Fumarate (Quetiapine Fumarate) 200 Mg Tab, 200 MG PO TID for ., (Reported) Venlafaxine HCl (Venlafaxine HCl ER) 150 Mg Cap, 150 MG PO DAILY for ., (Reported) Scheduled PRN Clonazepam (Clonazepam) 1 Mg Tablet, 1 MG PO TID PRN for ANXIETY, (Reported) Pramipexole Di-HCl (Mirapex) 0.25 Mg Tablet, 0.25 MG PO TID PRN for ANXIETY/AGITATION, (Reported) Allergies Coded Allergies: amantadine (Verified Allergy, Unknown, 11/03/18) DAHLIA ADRIAN DO Oct 06, 2019 10:45
--- NOTE | 2019-10-06 12:13 | MHCR ---
DATE OF CONSULTATION: 10/05/2019 HISTORY OF PRESENT ILLNESS: This is one of multiple admissions for this 64-year-old man who had initially been admitted to the psychiatric unit on 09/21/2019 after he was brought to the hospital by [facility]. He reportedly had held a paring knife to his stomach and asked his to help him stab himself because he did no want to cut his wrists. The patient also reportedly took more than his prescribed daily dose of Klonopin. In addition, there was an empty bottle of gabapentin that had been filled on 09/13/2019. The patient appeared to be very confused when he was en route to the hospital asking for his children and describing them as kids instead of the adults that they are. I actually did his admission to the inpatient unit that day and when I saw him, he stated the reason why he wanted to kill himself was because he needed to find out what was wrong with him physically that he could not deal anymore with the chronic tremors that he was having. This patient is well known to me. He has had a lifelong episodes of what is possibly seizures but definitely also pseudo seizures that always seem to get worse when he gets overwhelmed or anxious. Today, I went to see the patient on the medical service. Apparently, while he was in the psychiatric unit, he was transferred to the medical service because he started to have seizures and was unresponsive. A rapid call was made, he was transported to the medical floor and he ended having to be intubated. At this point he has been extubated and actually he was walking around with a walker. He tells me that he is still having very severe anxiety and that he continues to feel depressed about his medical condition. When psychiatric unit on 09/21/2019, the patient stated that if someone did not finally figure out what was wrong with him physically, that he was going to kill himself. At this point, the patient is denying that he is actively suicidal. However, this patient is very impulsive and has a significant suicidal gestures via cutting and overdoses in the past. In particular, he states that his anxiety is still very severe. He also reiterates to me that he is having a lot of problems with his memory. He states that he loses periods of time. For example, he had gone to his brother's house, and the next thing he remembered was waking up in bed. He apparently told his that he walked home, ate dinner, watched TV for a view hours but then he did not remember any of that. At times, he reports that he hears voices talking to him, telling him that his situation is hopeless or helpless. It is not clear if this his actually hallucinations or his own thoughts. At this point, I really feel that this patient remains a significant suicidal risk due to his impulsive behavior and history of past overdoses and he is still describing very severe anxiety. PAST PSYCHIATRIC HISTORY: He has a history of multiple psychiatric hospitalizations with similar presentations. He attends [facility] and he is on Seroquel 20 mg three times a day, Effexor extended release 450 mg twice a day and Klonopin 1 mg three times a day, Neurontin 300 mg twice a day. He has a history of prior discharge from the psychiatric unit. When he was transferred to the medical service, it seems that the Klonopin was in the process of being cross-titrated with Ativan to see if this was more effective. FAMILY HISTORY: His father was schizophrenic and trouble abusing alcohol and he has two sisters that have attempted suicide. PAST MEDICAL HISTORY: Of note is that he has been worked up many times for his tremors and there is some concern that they may be Parkinsonian in nature. He also has been diagnosed with pseudo seizures. SUBSTANCE ABUSE: The patient denies any problems with alcohol or drugs. ABUSE HISTORY: He denies any history of being abused. MENTAL STATUS EXAMINATION: The patient was alert and oriented times three. Eye contact was fair. His speech was more understandable today though it tends to be a bit garbled. He does continue to have chronic tremors of basically his whole body. He is pleasant and cooperative. There was no formal thought disorder. His mood is anxious and depressed. Affect is appropriate to mood. He seems to have chronic auditory hallucinations that appear to be self-explanatory in nature. He continues to feel that if they do not find what is wrong with him that he may become suicidal again, although he is denying active suicidal thoughts now. He is not homicidal. Concentration was fair and memory appears to be grossly intact. Insight and judgment is poor. DIAGNOSES: 1. Unspecified psychotic disorder, rule out Parkinson's psychosis. 2. 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 3. Anxiety due to general medical condition. 4. History of conversion disorder with pseudo seizures. TREATMENT PLAN: At this point, the patient is stable and should be transferred to the psychiatric unit for further stabilization.
--- NOTE | 2019-10-06 13:01 | HPEPDOC ---
General Date of Admission Oct 05, 2019 at 21:15 Date of Service: Oct 06, 2019 Chief Complaint The patient is a 64-year-old male admitted with a reason for visit of Parkinsonism Vs Schizoaffactive D/O. Source: Patient, RN/MD, Old records Exam Limitations: No limitations History of Present Illness Mr. Tello is a 64-year-old male who was readmitted to the [facility] for management of his schizoaffective disorder. When seen today, patient reported that he is on [facility] because he had been making some threats to harm himself, but now he cannot quite remember what happened. His called emergency services who transported him to [facility] ED. According to the medical record, the patient was initially admitted to [facility] on September 21, with a diagnosis of depression with suicidal ideation. On September 29, a rapid response was called on the behavioral health unit as the patient had reportedly had seizures for approximately 10 minutes and was de-satting to the 80s. He was transferred to the ICU and intubated, sedated and given Keppra. He was assessed by neurology; per Dr. Mcintosh patient had normal EEG G's in 2014 and 2015. He was extubated on 09/30, repeat EEG provided a diagnosis of pseudoseizures and Keppra was discontinued. Patient was monitored, and reevalu ated by psychiatry for readmission. At the time, there were no beds available. He was eventually transferred on 10/04. Patient stated that he is doing pretty well, continues to use a walker while he regains his strength after being in the ICU. No other physical complaints at this time. Home Medications Scheduled Aspirin (Aspirin EC) 81 Mg Tab, 81 MG PO DAILY, (Reported) Atorvastatin Calcium (Atorvastatin Calcium) 20 Mg Tablet, 20 MG PO DAILY, (Reported) Gabapentin (Gabapentin) 300 Mg Capsule, 300 MG PO BID, (Reported) Multivitamins (Thera M Plus Tablet) 1 Tab Tab, 1 TAB PO DAILY, (Reported) Pramipexole Di-HCl (Pramipexole ER) 2.25 Mg Tab.er.24h, 2.25 MG PO QHS, (Reported) Quetiapine Fumarate (Quetiapine Fumarate) 200 Mg Tab, 200 MG PO TID, (Reported) Venlafaxine HCl (Venlafaxine HCl ER) 150 Mg Cap, 150 MG PO DAILY, (Reported) Scheduled PRN Clonazepam (Clonazepam) 1 Mg Tablet, 1 MG PO TID PRN for ANXIETY, (Reported) Pramipexole Di-HCl (Mirapex) 0.25 Mg Tablet, 0.25 MG PO TID PRN for ANXIETY/AGITATION, (Reported) Allergies Coded Allergies: amantadine (Verified Allergy, Unknown, 11/03/18) Past Medical History Medical History Questionable diagnosis of Parkinson disease. Tardive dyskinesia. Schizoaffective disorder. Schizophrenia. History of pseudoseizures/PNES Chronic back pain. Diverticulosis. Osteoarthritis Pituitary microadenoma. Depression Anxiety/panic attacks. Vitamin D deficiency Surgical History Remote history of foot surgery. Remote history of TM repair Family History Significant Family History: Cancer (fatherlung and brain. Motherrenal cell carcinoma), COPD (sister), Diabetes (mother), Seizures (sister) Social History * Smoker: quit greater than 1 year (smoked soon out of high school, then quickly quit) Alcohol: Denies Drugs: denies Recent Travel/Sick Contacts: Denies: Recent travel, Recent sick contacts A-FIB/CHADSVASC A-FIB History Current/History of A-Fib/PAF?: No Current PO Anticoag Therapy: No Review of Systems Constitutional: Denies: Chills, Fever, Night Sweats Eyes: Denies: Pain, Vision change ENT: Denies: Head Aches Skin: Denies: Rash Pulmonary: Denies: Dyspnea, Cough Cardiovascular: Denies: Chest Pain, Palpitations, Orthopnea, Paroxysmal Noc. Dyspnea, Edema, Lt Headedness Gastrointestinal: Denies: Nausea, Vomiting, Abdominal Pain, Diarrhea, Constipation Genitourinary: Denies: Dysuria Hematologic: Denies: Bruising Musculoskeletal: Denies: Neck Pain, Back Pain, Joint Pain, Muscle Pain, Spasms Neurological: Denies: Weakness, Numbness, Change in speech, Confusion Psych: Reports: Mood Normal, Anxiety, Depression, Memory Issues; Denies: Thoughts of Self Harm, Thoughts of Harming Other Physical Examination General Exam: Positive: Alert, No Acute Distress, Other (frail man appears older than stated age, using a walker) Eye Exam: Positive: PERRLA, Conjunctiva & lids normal, EOMI; Negative: Sclera icteric ENT Exam: Positive: Atraumatic, Mucous membr. moist/pink, Pharynx Normal, Tongue Midline; Negative: Pharyngeal Edema Neck Exam: Positive: Supple; Negative: thyromegaly Chest Exam: Positive: Clear to auscultation, Normal air movement Heart Exam: Positive: Rate Normal, Regular Rhythm, Normal S1, Normal S2; Negative: Murmurs, Rubs Telemetry: Positive: No significant arrhythmia Abdomen Exam: Positive: Normal bowel sounds, Soft; Negative: Tenderness Extremity Exam: Positive: Normal pulses; Negative: Clubbing, Cyanosis, Edema Skin Exam: Positive: Nl turgor and temperature Neuro Exam: Positive: Normal Speech, Strength at 5/5 X4 ext, Cranial Nerves 3- 12 NL Psych Exam: Positive: Mood NL; Negative: Oriented x 3 (oriented to person and place) Vital Signs Vital Signs Date Time Temp Pulse Resp B/P (MAP) Pulse Ox O2 Delivery O2 Flow Rate FiO2 10/06/19 06:44 97.6 72 14 106/64 (78) 10/05/19 21:30 98 Room Air Assessment/Plan Mr. Tello is a 64-year-old male who was readmitted to the [facility] for management of his schizoaffective disorder. When seen today, patient reported that he is on [facility] because he had been making some threats to harm himself, but now he cannot quite remember what happened. His called emergency services who transported him to [facility] ED. According to the medical record, the patient was initially admitted to [facility] on September 21, with a diagnosis of depression with suicidal ideation. On September 29, a rapid response was called on the behavioral health unit as the patient had reportedly had seizures for approximately 10 minutes and was de-satting to the 80s. He was transferred to the ICU and intubated, sedated and given Keppra. He was assessed by neurology; per Dr. Mcintosh patient had normal EEG G's in 2014 and . He was extubated on 09/30, repeat EEG provided a diagnosis of pseudoseizures and Keppra was discontinued. Patient was monitored, and reevaluated by psychiatry for readmission. At the time, there were no beds available. He was eventually transferred on 10/04. Patient stated that he is doing pretty well, continues to use a walker while he regains his strength after being in the ICU. No other physical complaints at this time. #1. Schizophrenia, schizoaffective disorder, anxiety, depression, panic attacks With suicidal ideation. Management per psychiatry #2. Possible Parkinson disease. Patient, diagnosed in August 2019 per psychiatry , where it was noted that his tremors were more likely to be dystonias. Patient was also noted to have a significant and positive response to Pramipexole trial - with remission of his tremors, severe depression, suicidal ideation, inability to walk - to being able to function at home. Unfortunately, he did not comply with this medication at home. I am unsure of the family dynamic. It appears that his did not continue to follow-up with neurology because his previous diagnosis was unclear. I will discuss with psychiatry what the plan is moving forward as they likely already have a plan in place for outpatient neurology follow-up for definitive diagnosis and continued care. #3. HLD/CAD - continue statin and ASA Plan / VTE VTE Prophylaxis Ordered?: No EVELYN TOLENTINO PA-C Oct 06, 2019 12:33
[2019-10-06 17:55] VITALS: BP 111/62
[2019-10-06] MEDS: traZODone 50 MG TAB PO PRN (21:09)
[2019-10-06] MEDS: PSEUDOEPHEDRINE 30 MG TAB PO PRN (21:09)
[2019-10-07 06:23] VITALS: BP 114/63
[2019-10-07] MEDS: clonazePAM 1 MG TAB PO PRN ×2 (07:55→20:38)
[2019-10-07 08:40] VITALS: BP 117/78
[2019-10-07 08:45] VITALS: BP 126/75
[2019-10-07] MEDS: ATORVASTATIN 20 MG TAB PO SCH (08:51)
[2019-10-07] MEDS: ASPIRIN 81 MG ENTERIC TAB PO SCH (08:51)
[2019-10-07] MEDS ORDERED: PRAMIPEXOLE 0.25 MG TAB PO SCH (09:00)
--- NOTE | 2019-10-07 12:21 | MHIPNPDOC ---
[facility] Progress Note Progress Note Inpatient Progress Note Kofi Tello MRN: N/A Date of : N/A Date of Service: 10/07/2019 History of Present Illness The patient, a 64-year-old man who had been discharged from our floor after being intubated for pseudoseizure, presents again after being treated on the medical floor. He had had a neurological workup with an EEG that revealed primarily pseudoseizures. After he had been medically cleared he was readmitted with abundance of caution. The patient is met with today. He reports he is doing much better. He has only been resumed on his home Klonopin of 1 mg 3 times a day, and has been doing generally well since his arrival back on our unit. He does ambulate with a walker at this time. The patient reports that he is not having any significant symptoms of depression, psychosis or other symptoms that he had had prior. His presentation is highly unclear and he consents to doing psychological testing in order to better understand his potential diagnosis and guide his treatment more appropriately. Interval History The patient has met with today. He reports he is doing much better, he is only on the Klonopin and appears as though he is doing much better. In the morning it appears that he does have more of his episodes, testing has not yielded much in terms of his diagnosis. However, he is attending more groups and being more social on the unit. He continues to deny any suicidal or homicidal ideation to staff, he reportedly he is doing better. His is still interested in him staying however, the patient reports that he wishes to leave as he reports that he has little to work on at this time. The patient appears to be doing much improved and reports feeling more future orientated and less anxious overall. He reports in the morning he has more anxiety, but this tapers off during the day. Review Of Systems General: Denies fever or appetite changes Cardiovascular: Denies Chest pain or palpations GI: Denies Nausea, vomiting, or bowel changes Respiratory: Denies shortness of breath or cough Neuro: Denies dizziness, tremors Derm: Denies any rashes or pruritus : Denies any dysuria or urinary problems MSK: Denies any muscle tightness or stiffness HEENT: Denies any vision changes or headaches Psychotherapy None on this visit. Vital Signs Reviewed. Mental Status Examination General: Well dressed with good hygiene Speech: Spontaneous and fluid Thought processes: Linear and logical MSK: Gait is much more coordinated, no longer needs walker. Tremor is much improved Thought content: Future orientated Abstract reasoning, and computation: Intact Description of associations: Intact Description of abnormal or psychotic thoughts: Denies any suicidal or homicidal ideation. Denies any auditory or visual hallucinations. Does not appear to be responding to internal stimuli. Does not appear to be endorsing any bizarre or paranoid ideation. Judgment: fair Insight: fair Orientation: Alert and orientated 3 Cognition: Grossly normal Recent and remote memory: Intact Attention span and concentration: Intact Fund of knowledge: Adequate Mood: "okay" Affect: Euthymic with a full range Diagnoses Conversion disorder. Unspecified movement disorder. Assessment and Plan Conversion disorder: Testing is inconclusive, however after observing him it appears that with his anxiety managed his symptoms have vanished, further suggesting conversion disorder, we will continue Klonopin 1 mg TID, we will discuss with outpatient provider prior to discharge about the difficulties of the situation. Unspecified movement disorder: Will refer to a movement disorder specialist at [facility], as his case is quite complicated. Disposition Discharge tomorrow if patient is not expressing any concerning ideation or behavior, will convert to voluntary today as no longer meets involuntary criteria. Time Spent 15 minutes. Vital Signs Vital Signs Date Time Temp Pulse Resp B/P (MAP) Pulse Ox O2 Delivery O2 Flow Rate FiO2 10/07/19 08:45 92 126/75 (92) 99 Room Air 10/07/19 06:23 98.5 16 Current Medications Current Medications Medications (Trade) Dose Ordered Sig/Tiki Route PRN Reason Start Time Stop Time Status Last Admin Dose Admin Acetaminophen (Tylenol Tab) 650 mg Q6HP PRN PO HEADACHE or DISCOMFORT 10/05/19 20:00 Al Hydrox/Mg Hydrox/Simethicone (Mylanta) 30 ml Q4HP PRN PO HEARTBURN/INDIGESTION 10/05/19 20:00 Aspirin (Ecotrin) 81 mg DAILY PO 10/07/19 09:00 10/07/19 08:51 Atorvastatin Calcium (Lipitor) 20 mg DAILY PO 10/07/19 09:00 10/07/19 08:51 Clonazepam (KlonoPIN) 1 mg TIDP PRN PO ANXIETY 10/05/19 22:00 10/07/19 07:55 Home Med (Med Rec Complete!) ASDIRECTED XX 10/06/19 13:15 10/06/19 13:09 DC Magnesium Hydroxide (Milk Of Magnesia) 30 ml DAILYPRN PRN PO CONSTIPATION 10/05/19 20:00 Pramipexole Dihydrochloride (Mirapex) 0.75 mg TID PO 10/07/19 09:00 10/07/19 09:31 Pseudoephedrine HCl (Sudafed) 30 mg QIDP PRN PO NASAL CONGESTION 10/06/19 18:15 10/06/19 21:09 Trazodone HCl (Desyrel) 50 mg QHSP PRN PO INSOMNIA 10/05/19 20:00 10/06/19 21:09 Allergies Coded Allergies: amantadine (Verified Allergy, Unknown, 11/03/18) DAHLIA ADRIAN 12, 2020 12:21
[2019-10-07 15:39] VITALS: BP 111/63
--- NOTE | 2019-10-07 15:52 | IPNPDOC ---
Subjective Date Seen The patient was seen on 10/07/19. Subjective Chief Complaint/HPI I was called to the floor this morning at around 8:30 AM as the patient reported to nursing that he was having trouble breathing. I attended the floor immediately and observed the patient having coordinated body jerks and twitches. He was hyperventilating with a fixed stare, reported that he was probably having a panic attack or a seizure. His vitals were stable. His oxygen was up to 100%. He was able to follow commands, and respond to questions. While sitting up during the examination, the twitches, body jerks and hyperventilation were not observed. Objective Physical Examination General Exam: Positive: Alert, Cooperative, Mild Distress, Other (observed with generalized body jerks. Hyperventilation staring with a fixed gaze at the ceiling. This resolved when distracted with questions or asked to follow directions) Eye Exam: Positive: PERRLA, Conjunctiva & lids normal; Negative: Sclera icteric ENT Exam: Positive: Atraumatic, Mucous membr. moist/pink, Pharynx Normal, Tongue Midline; Negative: Pharyngeal Edema Neck Exam: Positive: Supple; Negative: thyromegaly Chest Exam: Positive: Clear to auscultation, Normal air movement Heart Exam: Positive: Rate Normal, Regular Rhythm, Normal S1, Normal S2; Negative: Murmurs, Rubs Telemetry: Positive: No significant arrhythmia Abdomen Exam: Positive: Normal bowel sounds, Soft; Negative: Tenderness Extremity Exam: Positive: Normal pulses; Negative: Clubbing, Cyanosis, Edema Neuro Exam: Positive: Normal Speech, Cranial Nerves 3-12 NL Psych Exam: Positive: Anxiety Assessment /Plan Assessment Mr. Tello is a 64-year-old male who was readmitted to the [facility] for management of his schizoaffective disorder. When seen today, patient reported that he is on [facility] because he had been making some threats to harm himself, but now he cannot quite remember what happened. His called emergency services who transported him to [facility] ED. According to the medical record, the patient was initially admitted to [facility] on September 21, with a diagnosis of depression with suicidal ideation. On September 29, a rapid response was called on the behavioral health unit as the patient had reportedly had seizures for approximately 10 minutes and was de-satting to the 80s. He was transferred to the ICU and intubated, sedated and given Keppra. He was assessed by neurology; per Dr. Mcintosh patient had normal EEG G's in 2014 and 2015. He was extubated on 09/30, repeat EEG provided a diagnosis of pseudoseizures and Keppra was discontinued. Patient was monitored, and reevaluated by psychiatry for readmission. At the time, there were no beds available. He was eventually transferred on 10/04. #1. Schizophrenia, schizoaffective disorder, anxiety, depression, panic attacks With suicidal ideation. When I observe this morning appeared to be a panic attack, pseudoseizure. Patient was given 0.75 mg of Mirapex, which calmed him. He is also on Klonopin 1 mg 3 times a day for anxiety. At this time. I have reduced the dose of the Mirapex from 3 times a day scheduled to twice a day prn as we do not have a definitive diagnosis of Parkinson at this time. Continued management per psychiatry #2. Possible Parkinson disease. Patient, diagnosed in August 2019 per psychiatry , where it was noted that his tremors were more likely to be dystonias. Patient was also noted to have a significant and positive response to Pramipexole trial - with remission of his tremors, severe depression, suicidal ideation, inability to walk - to being able to function at home. Unfortunately, he did not comply with this medication at home. I am unsure of the family dynamic. It appears that his did not continue to follow-up with neurology because his previous diagnosis was unclear. I will discuss with psychiatry what the plan is moving forward as they likely already have a plan in place for outpatient neurology follow-up for definitive diagnosis and continued care. #3. HLD/CAD - continue statin and ASA Medicine will sign off at this time. Please re-consult as needed. Plan/VTE VTE Prophylaxis Ordered?: No VS, I&O, 24H, Fishbone Vital Signs/I&O Vital Signs Date Time Temp Pulse Resp B/P (MAP) Pulse Ox O2 Delivery O2 Flow Rate FiO2 10/07/19 15:39 98.2 79 18 111/63 (79) 10/07/19 08:45 99 Room Air EVELYN TOLENTINO PA-C Oct 07, 2019 15:52
[2019-10-07] MEDS ORDERED: PRAMIPEXOLE 0.25 MG TAB PO PRN (16:00)
[2019-10-07] MEDS: traZODone 50 MG TAB PO PRN (21:26)
[2019-10-07] MEDS: PSEUDOEPHEDRINE 30 MG TAB PO PRN (21:26)
[2019-10-08 06:37] VITALS: BP 121/65
[2019-10-08] MEDS: clonazePAM 1 MG TAB PO PRN (07:21)
[2019-10-08] MEDS: ATORVASTATIN 20 MG TAB PO SCH (10:08)
[2019-10-08] MEDS: ASPIRIN 81 MG ENTERIC TAB PO SCH (10:09)
[2019-10-08] MEDS: PSEUDOEPHEDRINE 30 MG TAB PO PRN (10:12)
--- NOTE | 2019-10-08 12:42 | MHDSPDOC ---
[facility] Discharge Summary Discharge Summary DATE OF ADMISSION: Oct 05, 2019 at 21:15 DATE OF DISCHARGE: 10/08/19 Discharge Kofi Tello MRN: N/A Date of : N/A Date of Service: 10/08/2019 Diagnoses Conversion disorder. Unspecified movement disorder. History of Present Illness The patient, a 64-year-old man who had been discharged from our floor after being intubated for pseudoseizure, presents again after being treated on the medical floor. He had had a neurological workup with an EEG that revealed primarily pseudoseizures. After he had been medically cleared he was readmitted with abundance of caution. The patient is met with today. He reports he is doing much better. He has only been resumed on his home Klonopin of 1 mg 3 times a day, and has been doing generally well since his arrival back on our unit. He does ambulate with a walker at this time. The patient reports that he is not having any significant symptoms of depression, psychosis or other symptoms that he had had prior. His presentation is highly unclear and he consents to doing psychological testing in order to better understand his potential diagnosis and guide his treatment more appropriately. Consultants Involved Hospitalist/PCP screening Treatment and Progress On The Unit The patient was readmitted to our unit, he was only restarted on his clonazepam 1 mg TID. However, the patient made precipitous improvement, testing was undertaken; however, the patient's inconsistencies and some level of attempting to present his symptoms is less extreme than they are, made the test generally invalid. However, he did make good progress on the unit and did not endorse any suicidal or homicidal ideation during his second stay with us. He was noted to make strong progress over the next couple days eventually having his tremors disappear and his gait restored a complete stability without any need for a walker. He attended groups relatively frequently and had no major behavioral problems other than his episodes where he would have some dystonic like behavior and breathing, which was found to be pseudoseizure like by EEG on the medical floor. He generally resolved and eventually requested discharge. Discharge Assessment 64-year-old man with a fairly complicated presentation, after observation and differential forming, it appears that the patient generally has conversion disorder, he does not likely have any psychotic disorder and it appears that when his anxiety is treated primarily by the Klonopin that his symptoms vanish and that they are highly related to anxiety. His dissociative screener was low indicating that pseudoseizures and dissociation are less likely and that conversion disorder is highest on the differential. It is still germane that he see a movement disorder specialist just to make sure, however my previous differential Parkinson's appears even less likely given the presentation on this admission. The patient at the time of discharge did not meet criteria for involuntary admission/extension due to having a normal mental status exam, fair insight into the situation, They are engaged in the discharge process, as well as being friendly and amenable in behavioral control and havent been engaging in any observed concerning behavior or ideation recently. They decline voluntary extension/admission at this time and must be discharged in good abel, as Im unable to make a case for holding the patient against their will. They may have historical risk factors of admissions and other interactions with psychiatry however, those are not modifiable from a clinical perspective. The patient will need to be discharged in good abel. Mental Status Examination General: Well dressed with good hygiene Speech: Spontaneous and fluid Thought processes: Linear and logical MSK: Smooth and coordinated gait, no signs of tremors or involuntary orofacial movements Thought content: Future orientated Abstract reasoning, and computation: Intact Description of associations: Intact Description of abnormal or psychotic thoughts: Denies any suicidal or homicidal ideation. Denies any auditory or visual hallucinations. Does not appear to be responding to internal stimuli. Does not appear to be endorsing any bizarre or paranoid ideation. Judgment: fair Insight: fair Orientation: Alert and orientated 3 Cognition: Grossly normal Recent and remote memory: Intact Attention span and concentration: Intact Fund of knowledge: Adequate Mood: "okay" Affect: Euthymic with a full range Follow Up The social work team worked during the predischarge meeting in order to evaluate for further issues of lethality address them fully before discharge. They worked on safety planning with the patient's family members in order to ensure that the patient will have a safe and effective discharge. Put in to call outpatient provider, to discuss case and arrange for proper followup. Patient was given time off for several days in order to adapt, as he has significant anxiety which will likely get worse and may decompensate if he was restarted at work too soon. Time Spent The amount of time spent in the coordination of care for this patient was approximately 15 minutes. Friday Vital Signs/I&Os Vital Signs Date Time Temp Pulse Resp B/P (MAP) Pulse Ox O2 Delivery O2 Flow Rate FiO2 10/08/19 06:37 97.5 77 16 121/65 (83) Room Air 10/07/19 08:45 99 Medications Scheduled Aspirin (Aspirin EC) 81 Mg Tab, 81 MG PO DAILY for ., (Reported) Atorvastatin Calcium (Atorvastatin Calcium) 20 Mg Tablet, 20 MG PO DAILY for ., (Reported) Multivitamins (Thera M Plus Tablet) 1 Tab Tab, 1 TAB PO DAILY for ., (Reported) Scheduled PRN Clonazepam (Clonazepam) 1 Mg Tablet, 1 MG PO TID PRN for ANXIETY for 7 Days, #21 Hydroxyzine Pamoate (Vistaril) 25 Mg Capsule, 1 CAP PO TID PRN for anxiety for 7 Days, #21 Allergies Coded Allergies: amantadine (Verified Allergy, Unknown, 11/03/18) DAHLIA ADRIAN DO Oct 08, 2019 12:42
[2019-10-08] MEDS ORDERED: CLON1TAB8 PO (13:06)
[2019-10-08] MEDS ORDERED: VIST25CA PO (13:06)
== END 2019-10-08 14:05 | disposition home or self-care (01) | DRG 880 ==
LOC: M PSY 21:15
PROVIDERS: ADMIT Psychiatry & Neurology Psychiatry; ATTEND Psychiatry & Neurology Addiction Medicine
DX: F44.4 Conversion disorder with motor symptom or deficit (principal); R45.851 Suicidal ideations; Z79.82 Long term (current) use of aspirin; Z79.899 Other long term (current) drug therapy; Z88.8 Allergy status to other drugs, medicaments and biological substances; E55.9 Vitamin D deficiency, unspecified; K57.30 Diverticulosis of large intestine without perforation or abscess without bleeding; M54.5 Low back pain; M19.90 Unspecified osteoarthritis, unspecified site; F20.9 Schizophrenia, unspecified; R56.9 Unspecified convulsions; Z87.891 Personal history of nicotine dependence; G20 Parkinson's disease

== ENCOUNTER 2019-10-19 16:45 | Inpatient (IN) | payer MEDICARE, MEDICAID ==
[~2019-10-19] VITALS: Ht 172.7 cm; Wt 71.2 kg
[~2019-10-19 16:45] MED LIST changes: +VIST25CA PO
[2019-10-19] MEDS ORDERED: clonazePAM 1 MG TAB PO ONE (17:15)
[2019-10-19 17:38] LABS: HEMATOCRIT 42.4 % (42.0-52.0); HEMOGLOBIN 14.7 g/dl (13.5-17.5); MEAN CORPUSCULAR HEMOGLOBIN 30.6 pg (27.0-33.0); MEAN CORPUSCULAR HGB CONC 34.7 g/dl (32.0-36.5); MEAN CORPUSCULAR VOLUME 88.3 fl (80.0-96.0); PLATELET COUNT, AUTOMATED 259 10^3/uL (150-450); WHITE BLOOD COUNT 8.6 10^3/uL (4.0-10.0)
[2019-10-19 18:11] LABS: ACETAMINOPHEN LEVEL < 2.0 UG/ML (10.0-30.0); ALBUMIN 3.8 GM/DL (3.2-5.2); ALT/SGPT 41 U/L (12-78); BILIRUBIN,DIRECT 0.1 MG/DL (0.0-0.2); BILIRUBIN,TOTAL 0.5 MG/DL (0.2-1.0); BLOOD UREA NITROGEN 14 MG/DL (7-18); CALCIUM LEVEL 9.1 MG/DL (8.8-10.2); CARBON DIOXIDE LEVEL 26 MEQ/L (21-32); CHLORIDE LEVEL 108 MEQ/L (98-107); CPK CREATINE PHOSPHOKINASE 81 U/L (39-308); CREATININE FOR GFR 1.22 MG/DL (0.70-1.30); ETHYL ALCOHOL (ETHANOL) < 0.003 % (0.000-0.010); GLOMERULAR FILTRATION RATE > 60.0 (>49); GLUCOSE, FASTING 92 MG/DL (70-100); POTASSIUM SERUM 3.6 MEQ/L (3.5-5.1); SALICYLATE LEVEL < 1.7 MG/DL (5.0-30.0); SODIUM LEVEL 142 MEQ/L (136-145); TOTAL PROTEIN 6.6 GM/DL (6.4-8.2)
[2019-10-19 19:17] LABS: AMPHETAMINES LEVEL URINE NEGATIVE (NEGATIVE); BARBITURATES URINE NEGATIVE (NEGATIVE); BENZODIAZEPINES URINE POSITIVE (NEGATIVE); CANNABINOIDS URINE NEGATIVE (NEGATIVE); COCAINE METABOLITE URINE NEGATIVE (NEGATIVE); METHADONE URINE NEGATIVE (NEGATIVE); OPIATES URINE NEGATIVE (NEGATIVE); PHENCYCLIDINE URINE NEGATIVE (NEGATIVE)
[2019-10-19] MEDS ORDERED: PROAAER10 (20:41)
[2019-10-19] MEDS ORDERED: LORazepam 1 MG TAB PO STA (20:57)
[2019-10-19] MEDS ORDERED: MAALOX 30 ML SUSP *UDC PO PRN (21:15)
[2019-10-19] MEDS ORDERED: traZODone 50 MG TAB PO PRN (21:15)
[2019-10-19] MEDS ORDERED: ACETAMINOPHEN TAB 650MG DOSE (2X325MG) PO PRN (21:15)
[2019-10-19] MEDS ORDERED: MOM 30ML SUSPENSION UDC PO PRN (21:15)
[2019-10-19] MEDS ORDERED: VITMTA PO (21:59)
[2019-10-19] MEDS ORDERED: ASPI-161 PO (21:59)
[2019-10-19] MEDS ORDERED: PROAAER10 INH (21:59)
[2019-10-19] MEDS ORDERED: ATOR1TAB21 PO (21:59)
[2019-10-19] MEDS ORDERED: CLON1TAB8 PO (21:59)
[2019-10-19] MEDS ORDERED: VIST25CA PO (22:01)
[2019-10-19] MEDS ORDERED: LORazepam 1 MG TAB PO PRN (22:30)
[2019-10-19] MEDS ORDERED: hydrOXYzine 25 MG TAB PO PRN (22:30)
[2019-10-19] MEDS ORDERED: ALBUTEROL 90 MCG/ACT 8GM HFA INHALER INH PRN (22:30)
[2019-10-19] MEDS ORDERED: HALOPERIDOL 5 MG/ML VIAL (J1630) IM STA ×2 (22:46→22:52)
[2019-10-19] MEDS ORDERED: LORazepam 2 MG/ML VIAL (J2060) IM STA (22:46)
[2019-10-19 23:00] VITALS: BP 132/76
[2019-10-19 23:15] VITALS: BP 145/75
[2019-10-19 23:30] VITALS: BP 145/75
[2019-10-19 23:45] VITALS: BP 140/78
[2019-10-20] VITALS (14 sets, daily range): BP systolic 113–150; BP diastolic 66–95
--- NOTE | 2019-10-20 00:10 | IPNPDOC ---
Date Seen The patient was seen on 10/20/19. Progress Note CODE 25 called on patient. Patient was noted to be complying at time. Patient subsequently received Ativan per Dr. Hamilton. Patient was noted to have some desaturations. Patient was evaluated. Appears to have baseline central apneas. This was exacerbated after receiving IV Ativan. Patient was vitally stable. Placed on one-one sitter. Staff advised that he may have apneic episodes but not requiring supplemental oxygenation at this point. Attending Physician Attestation: Patient was reevaluated at 4 AM this morning. Patient was sitting up in chair alert and oriented 3 as per baseline. As per nurse, no further apenic events noted over the past 2 hours and patient is doing well. Patient likely has some central apnea that was worsened by multiple administrations of benzodiazepines for his agitation. I recommend that benzodiazepine use be used judiciously in this patient due to his propensity to become apneic and desaturate. VS, I&O, 24H, Fishbone Vital Signs/I&O Vital Signs Date Time Temp Pulse Resp B/P (MAP) Pulse Ox O2 Delivery O2 Flow Rate FiO2 10/19/19 21:05 98.3 91 18 125/87 (100) 99 10/19/19 17:02 Room Air Laboratory Data 24H LABS Laboratory Tests 2 10/19/19 17:14: Urine Opiates Screen NEGATIVE, Urine Methadone Screen NEGATIVE, Urine Barbiturates Screen NEGATIVE, Urine Phencyclidine Screen NEGATIVE, Urine Amphetamines Screen NEGATIVE, Urine Benzodiazepines Screen POSITIVEH, Urine Cocaine Metabolite Screen NEGATIVE, Urine Cannabinoids Screen NEGATIVE 10/19/19 17:26: Nucleated Red Blood Cells % (auto) 0.0, Anion Gap 8, Glomerular Filtration Rate > 60.0, Calcium Level 9.1, Total Bilirubin 0.5, Direct Bilirubin 0.1, Aspartate Amino Transf (AST/SGOT) 27, Alanine Aminotransferase (ALT/SGPT) 41, Alkaline Phosphatase 82, Total Creatine Kinase 81, Total Protein 6.6, Albumin 3.8, Albumin/Globulin Ratio 1.36, Thyroid Stimulating Hormone (TSH) 2.660, Salicylates Level < 1.7L, Acetaminophen Level < 2.0L, Ethyl Alcohol Level < 0.003 CBC/BMP Laboratory Tests 10/19/19 17:26 KELLEN ROLDAN DO Oct 20, 2019 00:10 JS LOCKWOOD MD Oct 20, 2019 04:03
[2019-10-20] MEDS ORDERED: clonazePAM 1 MG TAB PO SCH (09:00)
[2019-10-20] MEDS ORDERED: ATORVASTATIN 20 MG TAB PO SCH (09:00)
[2019-10-20] MEDS ORDERED: MULTIVITAMINS/MINERALS THERAP 1 TAB PO SCH (09:00)
[2019-10-20] MEDS ORDERED: ASPIRIN 81 MG ENTERIC TAB PO SCH (09:00)
--- NOTE | 2019-10-20 10:07 | MHHPEPDOC ---
General Date Of Admission: Oct 20, 2019 Legal Status: 9.39 Chief Complaint "I never made suicidal statements" History of Present Illness HISTORY OF THE PRESENT ILLNESS: Patient is a 64 -year-old , male, with history of admission [facility] and last d/c from [facility] for pseudoseizures 10/08/2019 who was brought to ED on a 9.41 after he was seen at [facility] by Dr. Coronado for making vague suicidal statements per CC to ED. In the ED pt states he was agitated b/c he never made suicidal statements at [facility] and was jsut there for a routine visit. He experiences a pseudoseizure there due to being agitated when he was trying to leave. Per ED, pt denied SI/HI but was verbally aggressive mostly b/c he was being admitted when he felt he didn't need to be and it would be a "waste of resources." Psychiatric Review of Systems Depression (2 or more weeks): denies Tiffanie (4 or more days of): denies Psychosis: denies PTSD: denies Anxiety: situational anxiety Anxiety/ 6 months or more of: irritability Past Psychiatric History Previous Psychiatric Diagnosis: depression, psychosis, pseudoseizures Previous Psychiatric Admissions: Multiple admission [facility] in the past last d/c 10/08/2019 Suicide Attempts: denies Psychiatric Follow-up: [facility] Dr. Aponte Psychiatric medications: titration off Klonopin outpatient. multiple antipsychotics including clozapine, Seroquel and others in the past Past Medical History Medical Problems diverticulosis, pseudoseizures, orthostatic hypotension/syncope Family Medical/Psychiatric HX Psychiatric Disorders: Yes (father- schizophrenia) Addiction: No Suicide Attemps/Completions: No Addiction History denies, other (utox pos benxzos that he's prescribed for pseudoseizures) Social History Childhood: born and raised in [facility], 2 parent home with siblings, very jehovah's witness up bring, Abuse/Trauma:denies Current Living Situation: lives with his in [place] Education: [employer] certified 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 Social Support: , family Legal: dnies Marital: 30yrs with several adult children Mental Status Examination General Appearance: well groomed, appears stated age, hospital scubs/clothing Build: average Demeanor: average Eye Contact: average Activity: average Behavior: cooperative Speech: clear, spontaneous, reg/rate,rhythm,volume Mood: euthymic, other (bright) Mood fine Affect: full, appropriate, congruent Thought Process: logical/linear, intact Thought Content (Delusions): none reported, denies SI, HI, AVH Thought Content (Other): none reported, appropriate Thought Content (Aggressive): none reported Perception (Hallucinations): none reported Perception (Other): none reported Cognition (Impairment of): none reported Cognition(Intelligence Est.): average Oriented: Awake, Alert, Oriented times three Insight: good Judgment: Good Psychosis: Denies Diagnoses Unspecified depression Dissociative disorder, unspecified. A-FIB/CHADSVASC A-FIB History Current/History of A-Fib/PAF?: No Assessment Pt seen and states he's fine. States that he had a pseudoseizure yesterday but otherwise nothing was wrong. States he's not suicidal or homicidal and just wants to go home as he's been doing well since he was last d/c. He is very linear and logical in thoughts and appears euthymic and bright. He denies depression, anxiety, insomnia, SI/HI, hallucinations, delusions. Feels safe to go home to his today. Initial Treatment Plan 1. Patient was admitted on a 9.39 status. 2. Complete history was obtained. 3. With patients permission, family will be contacted and database will be expanded. 4. Patients medication regimen will be reviewed and changed accordingly. 5. Patient will be provided with protected environment. 6. Patient will be treated with individual, group, and milieu therapies. 7. Patient will receive supportive psych-education. 8. Discharge planning will commence immediately. 9. Outpatient follow-up treatment will be strongly recommended. 10. The initial treatment plan will focus initially on: * Depression. * Risk for suicide. 11. d/c home with follow-up at [facility] ESTIMATED LENGTH OF STAY: 1-3 DAYS. TIME SPENT COUNSELING AND COORDINATING INITIAL CARE: minutes. Vital Signs Vital Signs Date Time Temp Pulse Resp B/P (MAP) Pulse Ox O2 Delivery O2 Flow Rate FiO2 10/20/19 04:30 86 16 98 Room Air 10/20/19 03:15 132/80 10/19/19 23:00 98.9 Laboratory Data 24H Labs Laboratory Tests 2 10/19/19 17:14: Urine Opiates Screen NEGATIVE, Urine Methadone Screen NEGATIVE, Urine Barbiturates Screen NEGATIVE, Urine Phencyclidine Screen NEGATIVE, Urine Amphetamines Screen NEGATIVE, Urine Benzodiazepines Screen POSITIVEH, Urine Cocaine Metabolite Screen NEGATIVE, Urine Cannabinoids Screen NEGATIVE 10/19/19 17:26: Nucleated Red Blood Cells % (auto) 0.0, Anion Gap 8, Glomerular Filtration Rate > 60.0, Calcium Level 9.1, Total Bilirubin 0.5, Direct Bilirubin 0.1, Aspartate Amino Transf (AST/SGOT) 27, Alanine Aminotransferase (ALT/SGPT) 41, Alkaline Phosphatase 82, Total Creatine Kinase 81, Total Protein 6.6, Albumin 3.8, Albumin/Globulin Ratio 1.36, Thyroid Stimulating Hormone (TSH) 2.660, Salicylat es Level < 1.7L, Acetaminophen Level < 2.0L, Ethyl Alcohol Level < 0.003 CBC/BMP Laboratory Tests 10/19/19 17:26 Medications Scheduled Aspirin (Aspirin EC) 81 Mg Tablet.dr, 81 MG PO DAILY, (Reported) Atorvastatin Calcium (Atorvastatin Calcium) 20 Mg Tablet, 20 MG PO DAILY, (Reported) Multivitamins (Thera M Plus Tablet) 1 Each Tablet, 1 TAB PO DAILY, (Reported) Scheduled PRN Albuterol Sulfate (Proair Hfa) 8.5 Gm Hfa.aer.ad, 2 PUFF INH QID PRN for SHORTNESS OF BREATH, (Reported) Clonazepam (Clonazepam) 1 Mg Tablet, 1 MG PO TID PRN for ANXIETY, (Reported) Hydroxyzine Pamoate (Vistaril) 25 Mg Capsule, 25 MG PO TID PRN for ANXIETY, (Reported) Allergies Coded Allergies: amantadine (Verified Allergy, Unknown, 11/03/18) DANIS BISHOP DO Oct 20, 2019 10:07 am
--- NOTE | 2019-10-20 10:15 | MHDSPDOC ---
[facility] Discharge Summary Discharge Summary DATE OF ADMISSION: Oct 19, 2019 at 9:01 pm DATE OF DISCHARGE: oct 20, 2019 DISCHARGE DIAGNOSES: Unspecified depression Dissociative disorder, unspecified. REASON FOR ADMISSION: Patient is a 64 -year-old , male, with history of admission [facility] and last d/c from [facility] for pseudoseizures 10/08/2019 who was brought to ED on a 9.41 after he was seen at [facility] by Dr. Coronado for making vague suicidal statements per CC to ED. In the ED pt states he was agitated b/c he never made suicidal statements at [facility] and was jsut there for a routine visit. He experiences a pseudoseizure there due to being agitated when he was trying to leave. Per ED, pt denied SI/HI but was verbally aggressive mostly b/c he was being admitted when he felt he didn't need to be and it would be a "waste of resources." CONSULTANTS INVOLVED: medicine regarding medical comorbidities TREATMENT AND PROGRESS ON THE UNIT : Pt was admitted to [facility], seen for psychiatric assessment and restarted on his outpatient medication. Pt was ordered coded 25 on admission for agitation over not wanting to be admitted and was given Ativan IM resulting in calming down and going to sleep. The morning after he was coded he was seen appearing euthymic, linear, logical, and future oriented with desire to go home to his . He was provided trazodone 50mg qhs prn insomnia. On day of discharge he denied depression, anxiety, insomnia, SI/HI, hallucinations, delusions. He was discharged home with follow-up at [facility]. He felt safe for discharge. DISCHARGE ASSESSMENT: Pt seen and states he's fine. States that he had a p seudoseizure yesterday but otherwise nothing was wrong. States he's not suicidal or homicidal and just wants to go home as he's been doing well since he was last d/c. He is very linear and logical in thoughts and appears euthymic and bright. He denies depression, anxiety, insomnia, SI/HI, hallucinations, delusions. Feels safe to go home to his today. MENTAL STATUS EXAMINATION ON DISCHARGE: General Appearance: well groomed, appears stated age, hospital scubs/clothing Build: average Demeanor: average Eye Contact: average Activity: average Behavior: cooperative Speech: clear, spontaneous, reg/rate,rhythm,volume Mood: euthymic, other (bright) Mood fine Affect: full, appropriate, congruent Thought Process: logical/linear, intact Thought Content (Delusions): none reported, denies SI, HI, AVH Thought Content (Other): none reported, appropriate Thought Content (Aggressive): none reported Perception (Hallucinations): none reported Perception (Other): none reported Cognition (Impairment of): none reported Cognition(Intelligence Est.): average Oriented: Awake, Alert, Oriented times three Insight: good Judgment: Good Psychosis: Denies MEDICATIONS ON DISCHARGE: resume outpatient medications, no Rx given as pt has meds at home recently filled by pharmacy PLAN/FOLLOWUP ARRANGEMENTS: d/c home with follow-up at [facility] The amount of time spent in the coordination of care for this patient was approximately 30minutes. Vital Signs/I&Os Vital Signs Date Time Temp Pulse Resp B/P (MAP) Pulse Ox O2 Delivery O2 Flow Rate FiO2 10/20/19 04:30 86 16 98 Room Air 10/20/19 03:15 132/80 10/19/19 23:00 98.9 Laboratory Data Labs 24H Laboratory Tests 2 10/19/19 17:14: Urine Opiates Screen NEGATIVE, Urine Methadone Screen NEGATIVE, Urine Barbiturates Screen NEGATIVE, Urine Phencyclidine Screen NEGATIVE, Urine Amphetamines Screen NEGATIVE, Urine Benzodiazepines Screen POSITIVEH, Urine Cocaine Metabolite Screen NEGATIVE, Urine Cannabinoids Screen NEGATIVE 10/19/19 17:26: Nucleated Red Blood Cells % (auto) 0.0, Anion Gap 8, Glomerular Filtration Rate > 60.0, Calcium Level 9.1, Total Bilirubin 0.5, Direct Bilirubin 0.1, Aspartate Amino Transf (AST/SGOT) 27, Alanine Aminotransferase (ALT/SGPT) 41, Alkaline Phosphatase 82, Total Creatine Kinase 81, Total Protein 6.6, Albumin 3.8, Albumin/Globulin Ratio 1.36, Thyroid Stimulating Hormone (TSH) 2.660, Salicylates Level < 1.7L, Acetaminophen Level < 2.0L, Ethyl Alcohol Level < 0.003 CBC/BMP Laboratory Tests 10/19/19 17:26 Medications Scheduled Aspirin (Aspirin EC) 81 Mg Tablet.dr, 81 MG PO DAILY, (Reported) Atorvastatin Calcium (Atorvastatin Calcium) 20 Mg Tablet, 20 MG PO DAILY, (Reported) Multivitamins (Thera M Plus Tablet) 1 Each Tablet, 1 TAB PO DAILY, (Reported) Scheduled PRN Albuterol Sulfate (Proair Hfa) 8.5 Gm Hfa.aer.ad, 2 PUFF INH QID PRN for SHORTNESS OF BREATH, (Reported) Clonazepam (Clonazepam) 1 Mg Tablet, 1 MG PO TID PRN for ANXIETY, (Reported) Hydroxyzine Pamoate (Vistaril) 25 Mg Capsule, 25 MG PO TID PRN for ANXIETY, (Reported) Allergies Coded Allergies: amantadine (Verified Allergy, Unknown, 11/03/18) DANIS BISHOP DO Oct 20, 2019 10:15 am
--- NOTE | 2019-10-20 10:39 | CR.PDOC ---
General Date of Consultation: Oct 20, 2019 Referring Provider: DANIS PERRY DO Primary Care Physician: Roxanne Hdz Consultation TIME OF SERVICE: 7:35 AM REASON FOR CONSULT: Medical comanagement HISTORY OF PRESENT ILLNESS: This is a 64-year-old male is well-known to our service; during previous admissions the patient was transferred to the medical floor for evaluation of pseudoseizures and hypoxia. Yesterday he was admitted to the inpatient psych unit for observation after reports of vague comments indicating that he may have suicidal ideation. The patient denied feeling suicidal, but reported feeling anxious because he was having problems breathing. Last night, a code 25 was called. Based on the progress note the patient had intermittent desaturations which were attributed to central sleep apnea and appear to have been exacerbated by benzodiazepine use. This morning the patient reports feeling anxious; he denied having suicidal ideation, chest pain, shortness of breath, fever, chills, or any other acute complaints. He denies having a sleep study since his recent discharge. REVIEW OF SYSTEMS: 12 point review of systems negative except as listed in HPI PAST MEDICAL/ SURGICAL HISTORY: Tardive dyskinesia Possible Parkinson's Hx of Pituitary microadenoma Depression Anxiety Panic attacks Schizoaffective disorder/schizophrenia Pseudoseizures Osteoarthritis Diverticulosis Hemorrhoids Vitamin D deficiency Chronic back pain Status post foot surgery Status post left ear surgery SOCIAL HISTORY: Per chart review. He doesn't smoke, drink or use drugs FAMILY HISTORY: Lung cancer Multiple sclerosis Schizophrenia Depression ALLERGIES: Please see below. HOME MEDICATIONS: Please see below. PHYSICAL EXAMINATION: Date Time Temp Pulse Resp B/P (MAP) Pulse Ox O2 Delivery O2 Flow Rate FiO2 10/20/19 04:30 86 16 98 Room Air 10/20/19 03:15 132/80 10/19/19 23:00 98.9 GEN: well-nourished / well developed/ anxious / tumultuous INTEGUMENT: not flushed/ not jaundice HEENT: NCAT / lips acyanotic /mucus membranes moist and pink CVS: RRR/NMRG LUNGS: no coughing / lungs are clear to auscultation bilaterally on room air NEURO: CN 2-12 are grossly intact / speech is not dysarthric PSYCH: alert and oriented / able to understand and follow all commands LABORATORY DATA: Laboratory Tests 2 10/19/19 17:14: Urine Opiates Screen NEGATIVE, Urine Methadone Screen NEGATIVE, Urine Gina turates Screen NEGATIVE, Urine Phencyclidine Screen NEGATIVE, Urine Amphetamines Screen NEGATIVE, Urine Benzodiazepines Screen POSITIVEH, Urine Cocaine Metabolite Screen NEGATIVE, Urine Cannabinoids Screen NEGATIVE 10/19/19 17:26: Nucleated Red Blood Cells % (auto) 0.0, Anion Gap 8, Glomerular Filtration Rate > 60.0, Calcium Level 9.1, Total Bilirubin 0.5, Direct Bilirubin 0.1, Aspartate Amino Transf (AST/SGOT) 27, Alanine Aminotransferase (ALT/SGPT) 41, Alkaline Phosphatase 82, Total Creatine Kinase 81, Total Protein 6.6, Albumin 3.8, Albumin/Globulin Ratio 1.36, Thyroid Stimulating Hormone (TSH) 2.660, Salicylates Level < 1.7L, Acetaminophen Level < 2.0L, Ethyl Alcohol Level < 0.003 ASSESSMENT: Ms. Tello is a 64 year old with a past medical history of tardive dyskinesia, depression, anxiety, schizophrenia, pseudoseizures, vitamin D deficiency, chronic back pain who was admitted to COUNTS INCLUDE 234 BEDS AT THE [facility] for evaluation of questionable suicidal ideation. Per Dr. Perry note, the patient was being verbally aggressive because he felt like is being admitted when he didn't feel that he needed to be admitted. Based on the discharge summary, it appears as if the plan is to discharge him today. PLAN: 1. Nocturnal hypoxia, possibly due to sleep apnea - can follow-up with PCP for outpatient sleep study / if the patient's discharge was delayed, the primary team can consider nocturnal oxygen and pulse oximetry 2. History of pseudoseizures - follow-up with PCP and/ or Neurology on an outpatient basis 3. Tardive dyskinesia - follow up with PCP and/or neurology on an outpatient basis 4 .Depression, anxiety, schizophrenia - plan per primary team DVT Px not needed bc the patient is ambulatory Thank you for consulting us. We will sign off. Allergies Coded Allergies: amantadine (Verified Allergy, Unknown, 11/03/18) Home Medications Scheduled Aspirin (Aspirin EC) 81 Mg Tablet.dr, 81 MG PO DAILY, (Reported) Atorvastatin Calcium (Atorvastatin Calcium) 20 Mg Tablet, 20 MG PO DAILY, (Reported) Multivitamins (Thera M Plus Tablet) 1 Each Tablet, 1 TAB PO DAILY, (Reported) Scheduled PRN Albuterol Sulfate (Proair Hfa) 8.5 Gm Hfa.aer.ad, 2 PUFF INH QID PRN for SHORTNESS OF BREATH, (Reported) Clonazepam (Clonazepam) 1 Mg Tablet, 1 MG PO TID PRN for ANXIETY, (Reported) Hydroxyzine Pamoate (Vistaril) 25 Mg Capsule, 25 MG PO TID PRN for ANXIETY, (Reported) FORTUNATO GALAN MD Oct 20, 2019 10:39
== END 2019-10-20 12:45 | disposition home or self-care (01) | DRG 881 ==
LOC: M ED 16:45 → EEVIPCON 16:45 → EDBD 16:45 → M ED INP 21:01 → M PSY 22:06
PROVIDERS: ADMIT Psychiatry & Neurology Psychiatry; ATTEND Psychiatry & Neurology Addiction Medicine
DX: F32.9 Major depressive disorder, single episode, unspecified (principal); R45.851 Suicidal ideations; F44.9 Dissociative and conversion disorder, unspecified; Z79.82 Long term (current) use of aspirin; Z79.899 Other long term (current) drug therapy; Z88.8 Allergy status to other drugs, medicaments and biological substances; G20 Parkinson's disease; M19.90 Unspecified osteoarthritis, unspecified site; K57.30 Diverticulosis of large intestine without perforation or abscess without bleeding; E55.9 Vitamin D deficiency, unspecified; K64.8 Other hemorrhoids; M54.5 Low back pain; F41.0 Panic disorder [episodic paroxysmal anxiety]; R56.9 Unspecified convulsions; G24.01 Drug induced subacute dyskinesia; F20.9 Schizophrenia, unspecified; Z88.6 Allergy status to analgesic agent

== ENCOUNTER 2019-10-22 10:40 | Emergency (ER) | payer MEDICARE, MEDICAID ==
[~2019-10-22 10:40] MED LIST changes: +ASPI-161 PO; +PROAAER10
[2019-10-22] MEDS ORDERED: QUET200T2 PO (11:58)
== END 2019-10-22 10:56 | disposition home or self-care (01) ==
LOC: EDBD 10:40 → M ED 10:40
DX: R56.9 Unspecified convulsions (principal); I10 Essential (primary) hypertension; E78.00 Pure hypercholesterolemia, unspecified; K57.30 Diverticulosis of large intestine without perforation or abscess without bleeding; E55.9 Vitamin D deficiency, unspecified; F25.9 Schizoaffective disorder, unspecified; Z88.8 Allergy status to other drugs, medicaments and biological substances; Z79.51 Long term (current) use of inhaled steroids; Z79.899 Other long term (current) drug therapy

== ENCOUNTER 2019-10-22 11:40 | Emergency (ER) | payer MEDICARE, MEDICAID ==
[~2019-10-22] VITALS: Ht 172.7 cm; Wt 63.7 kg
[2019-10-22] MEDS ORDERED: QUET200T2 PO (11:58)
[2019-10-22 12:15] VITALS: BP 141/82
== END 2019-10-22 12:33 | disposition home or self-care (01) ==
LOC: M ED 11:40
DX: F44.5 Conversion disorder with seizures or convulsions (principal); F41.9 Anxiety disorder, unspecified; I10 Essential (primary) hypertension; E23.7 Disorder of pituitary gland, unspecified; E78.00 Pure hypercholesterolemia, unspecified; K57.30 Diverticulosis of large intestine without perforation or abscess without bleeding; E55.9 Vitamin D deficiency, unspecified; F52.9 Unspecified sexual dysfunction not due to a substance or known physiological condition; Z88.8 Allergy status to other drugs, medicaments and biological substances; Z79.899 Other long term (current) drug therapy

== ENCOUNTER 2019-11-12 03:54 | Inpatient (IN) | payer MEDICARE, MEDICAID ==
[~2019-11-12] VITALS: Ht 172.7 cm; Wt 69.0 kg
[2019-11-12 04:19] LABS: HEMOGLOBIN 14.1 g/dl (13.5-17.5); MEAN CORPUSCULAR HEMOGLOBIN 29.6 pg (27.0-33.0); MEAN CORPUSCULAR HGB CONC 33.6 g/dl (32.0-36.5); MEAN CORPUSCULAR VOLUME 88.2 fl (80.0-96.0); PLATELET COUNT, AUTOMATED 247 10^3/uL (150-450); RED BLOOD COUNT 4.76 10^6/uL (4.30-6.10); WHITE BLOOD COUNT 7.4 10^3/uL (4.0-10.0)
[2019-11-12 04:55] LABS: ACETAMINOPHEN LEVEL < 2.0 UG/ML (10.0-30.0); ALBUMIN 3.7 GM/DL (3.2-5.2); ALT/SGPT 33 U/L (12-78); BILIRUBIN,DIRECT 0.1 MG/DL (0.0-0.2); BILIRUBIN,TOTAL 0.4 MG/DL (0.2-1.0); BLOOD UREA NITROGEN 13 MG/DL (7-18); CARBON DIOXIDE LEVEL 29 MEQ/L (21-32); CHLORIDE LEVEL 106 MEQ/L (98-107); CREATININE FOR GFR 1.11 MG/DL (0.70-1.30); ETHYL ALCOHOL (ETHANOL) < 0.003 % (0.000-0.010); GLOMERULAR FILTRATION RATE > 60.0 (>49); GLUCOSE, FASTING 109 MG/DL (70-100); POTASSIUM SERUM 4.5 MEQ/L (3.5-5.1); SALICYLATE LEVEL < 1.7 MG/DL (5.0-30.0); SODIUM LEVEL 140 MEQ/L (136-145); TOTAL PROTEIN 6.5 GM/DL (6.4-8.2)
[2019-11-12 05:46] LABS: AMPHETAMINES LEVEL URINE NEGATIVE (NEGATIVE); BARBITURATES URINE NEGATIVE (NEGATIVE); BENZODIAZEPINES URINE POSITIVE (NEGATIVE); CANNABINOIDS URINE NEGATIVE (NEGATIVE); COCAINE METABOLITE URINE NEGATIVE (NEGATIVE); METHADONE URINE NEGATIVE (NEGATIVE); OPIATES URINE NEGATIVE (NEGATIVE); PHENCYCLIDINE URINE NEGATIVE (NEGATIVE)
[2019-11-12] MEDS ORDERED: PRAM1TAB75 (07:24)
[2019-11-12] MEDS ORDERED: CLON-412 (07:24)
[2019-11-12] MEDS ORDERED: HYDR50TA70 (07:24)
[2019-11-12] MEDS ORDERED: VENL150T24 (07:24)
[2019-11-12] MEDS ORDERED: GABA-843 (07:24)
[2019-11-12] MEDS ORDERED: ASPIRIN 81 MG CHEW TABLET PO ONE (08:15)
[2019-11-12] MEDS ORDERED: ASPIRIN 325 MG TAB PO ONE (08:15)
--- NOTE | 2019-11-12 09:12 | ED PDOC ---
Provider Note reviewed patient's chart, will likely need admission for observation as behavioral problems are concerning DAHLIA ADRIAN DO Nov 12, 2019 09:12
[2019-11-12] MEDS ORDERED: cloNIDine 0.1 MG TAB PO ONE (10:00)
[2019-11-12 10:07] VITALS: BP 152/75
[2019-11-12] MEDS ORDERED: LORazepam 1 MG TAB PO STA (11:18)
[2019-11-12] MEDS ORDERED: diphenhydrAMINE 50MG/ML VIAL (J1200) IM ONE (14:15)
[2019-11-12] MEDS ORDERED: LORazepam 2 MG/ML VIAL (J2060) IM ONE (14:15)
[2019-11-12] MEDS ORDERED: HALOPERIDOL 5MG/ML VIAL (J1630 PER 1) IM ONE (15:00)
[2019-11-12] MEDS ORDERED: MAALOX 30 ML SUSP *UDC PO PRN (15:30)
[2019-11-12] MEDS ORDERED: MOM 30ML SUSPENSION UDC PO PRN (15:30)
[2019-11-12] MEDS ORDERED: haloperidoL 5 MG TAB PO ONE (20:15)
[2019-11-12] MEDS: traZODone 50 MG TAB PO PRN (20:15)
[2019-11-12] MEDS ORDERED: diphenhydrAMINE 50MG CAP PO ONE (20:15)
[2019-11-12 20:18] VITALS: BP 146/87
--- NOTE | 2019-11-12 20:18 | IPN ---
DATE: 11/12/2019 SUBJECTIVE: A Code 25 was called due to increased agitation. Patient was demanding not to be admitted to the inpatient mental health unit and was demanding to be seen by a psychiatrist. Patient otherwise denies any shortness of breath, chest pain, pressure, tightness. "I'm healthy, I don't have any medical problems." Patient denied any nausea, vomiting, epigastric pain, headaches, changes in vision. He was cooperative with the physical examination and was open to taking oral medications for sedation. Temperature 97.9, pulse 91, respiratory rate 16, blood pressure 162/89, 98% on room air. Generally, patient appears his stated age, anicteric sclerae, no jaundice. Dry mucous membranes. Lungs are clear to auscultation. No wheezing, rales or rhonchi. Heart: S1, S2, sinus tachycardia. Abdomen is soft, nontender, nondistended. Positive bowel sounds. Extremities: No cyanosis, clubbing or any pitting edema. LABORATORY DATA: White count 7.4, hemoglobin 14, hematocrit 42, platelet count 247. Sodium 140, potassium 4.5, chloride 106, bicarbonate 29, BUN 13, creatinine 1.1, glucose of 109, calcium 9, total bilirubin 0.4, direct bilirubin 0.1, AST 26, ALT 33, alkaline phosphatase 96, total protein 6.5, albumin 3.7, TSH is 4.85. Urine drug screen is positive for benzodiazepine. ASSESSMENT AND PLAN: This is a 64-year-old male admitted to the mental health unit with prior history of schizoaffective disorder, suicide attempt, tardive dyskinesia, pituitary microadenoma, depression, anxiety, panic attacks, pseudoseizures, osteoarthritis, diverticulosis, hemorrhoids, vitamin D deficiency, chronic back pain, foot and left ear surgery, admitted for severe depression in the mental health unit. Patient was belligerent and a Code 25 was issued. At this time, the patient is open to taking sedatives. IMPRESSION: 1. Aggressive behavior with belligerence but cooperative with taking sedatives. Patient will be given Haldol and Benadryl for now. 2. Depression. Defer to psychiatrist for management of his chronic medications.
--- NOTE | 2019-11-13 00:48 | ECGEPIP ---
[facility] - ED Test Date: 2019-11-12 Pat Name: YOSSI PENA Department: Room: - Gender: Male Endo Tech: YANCI : [id number] Requested By: KELLEN Lugo Order Number: [id number] Reading MD: Alfredo Montes Measurements Intervals [place] Rate: 91 P: 51 OK: 150 QRS: 28 QRSD: 92 T: 30 QT: 365 QTc: 449 Interpretive Statements SINUS RHYTHM SIMILAR TO 09/20/19 Electronically Signed on 11-13-2019 0:48:02 EDT by Alfredo Montes
[2019-11-13 06:21] VITALS: BP 101/63
[2019-11-13] MEDS: clonazePAM 1 MG TAB PO PRN ×3 (06:44→23:11)
--- NOTE | 2019-11-13 13:50 | HPEPDOC ---
General Date of Admission Nov 12, 2019 at 15:22 Date of Service: Nov 13, 2019 Chief Complaint The patient is a 64-year-old male admitted with a reason for visit of Depressive Disorder. Source: Patient Exam Limitations: No limitations Timing/Duration: Day(s) Severity: Moderate History of Present Illness Patient is 64 years old male with past mental history of schizoaffective disorder, suicide attempt, tardive dyskinesia, pituitary microadenoma, depression, anxiety, panic attacks, pseudoseizures, osteoarthritis, diverticulosis, hemorrhoids, vitamin D deficiency, chronic back pain, foot and left ear surgery, admitted for severe depression in the mental health unit. During my interview patient denied fever, chills, nausea, vomiting, chest pain, palpitations, diarrhea, dysuria Home Medications Scheduled Aspirin (Aspirin EC) 81 Mg Tablet.dr, 81 MG PO DAILY, (Reported) Multivitamins (Thera M Plus Tablet) 1 Each Tablet, 1 TAB PO DAILY, (Reported) Quetiapine Fumarate (Quetiapine Fumarate) 200 Mg Tablet, 200 MG PO TID, (Reported) Scheduled PRN Albuterol Sulfate (Proair Hfa) 8.5 Gm Hfa.aer.ad, 2 PUFF INH QID PRN for SHORTNESS OF BREATH, (Reported) Miscellaneous Medications Clonidine HCl (Clonidine HCl) 0.1 Mg Tablet, (Reported) Gabapentin (Gabapentin) 300 Mg Capsule, (Reported) Hydroxyzine HCl (Hydroxyzine HCl) 50 Mg Tablet, (Reported) Pramipexole Di-HCl (Pramipexole ER) 2.25 Mg Tab.er.24h, (Reported) Venlafaxine HCl (Venlafaxine HCl ER) 150 Mg Tab.er.24, (Reported) Allergies Coded Allergies: amantadine (Verified Allergy, Unknown, 11/03/18) Past Medical History Medical History schizoaffective disorder, suicide attempt, tardive dyskinesia, pituitary microadenoma, depression, anxiety, panic attacks, pseudoseizures, osteoarthritis, diverticulosis, hemorrhoids, vitamin D deficiency, chronic back pain, hyperlipidemia Surgical History chronic back pain, foot and left ear surgery Family History I reviewed family history and found not pertinent Social History * Smoker: Denies Alcohol: Denies Drugs: denies A-FIB/CHADSVASC A-FIB History Current/History of A-Fib/PAF?: No Current PO Anticoag Therapy: No Review of Systems Constitutional: Denies: Chills Eyes: Denies: Pain, Vision change ENT: Denies: Head Aches Skin: Denies: Rash Pulmonary: Denies: Dyspnea Cardiovascular: Denies: Chest Pain Gastrointestinal: Denies: Nausea, Vomiting Genitourinary: Denies: Dysuria, Frequency Hematologic: Denies: Bruising Endocrine: Denies: Polydipsia, Polyphagia Musculoskeletal: Denies: Neck Pain, Other Symptoms Neurological: Denies: Weakness, Numbness Psych: Reports: Mood Normal, Depression Physical Examination General Exam: Positive: Alert, Cooperative Eye Exam: Positive: PERRLA, Conjunctiva & lids normal ENT Exam: Positive: Atraumatic Neck Exam: Positive: Supple; Negative: JVD Chest Exam: Positive: Clear to auscultation Heart Exam: Positive: Rate Normal Telemetry: Positive: No significant arrhythmia Abdomen Exam: Positive: Normal bowel sounds Extremity Exam: Negative: Clubbing Skin Exam: Positive: Nl turgor and temperature Neuro Exam: Positive: Normal Gait Psych Exam: Positive: Mental status NL Vital Signs Vital Signs Date Time Temp Pulse Resp B/P (MAP) Pulse Ox O2 Delivery O2 Flow Rate FiO2 11/13/19 09:55 Room Air 11/13/19 06:21 97.6 106 16 101/63 (63) 98 Assessment/Plan Patient is 64 years old male with past mental history of schizoaffective disorder, suicide attempt, tardive dyskinesia, pituitary microadenoma, depression, anxiety, panic attacks, pseudoseizures, osteoarthritis, diverticulosis, hemorrhoids, vitamin D deficiency, chronic back pain, foot and left ear surgery, admitted for severe depression in the mental health unit. German bolivar my interview patient denied fever, chills, nausea, vomiting, chest pain, palpitations, diarrhea, dysuria Problems (1) Depression Status: Chronic Problem Text: Defer to psychiatrist for management of his chronic medications. 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
[2019-11-13 14:55] LABS: CHOLESTEROL RISK RATIO 2.704 (<5)
[2019-11-13] MEDS: hydrOXYzine 50 MG TAB PO PRN (15:23)
[2019-11-13] MEDS: ASPIRIN 81 MG CHEW TABLET PO SCH (15:23)
[2019-11-13 16:11] VITALS: BP 132/83
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
[2019-11-13] MEDS: traZODone 50 MG TAB PO PRN (21:59)
[2019-11-13] MEDS: QUEtiapine FUMARATE 200 MG TAB PO SCH (21:59)
[2019-11-13] MEDS: GABAPENTIN 300 MG CAP PO SCH (21:59)
[2019-11-13 23:40] VITALS: BP 145/87
[2019-11-14 06:42] VITALS: BP 144/80
[2019-11-14] MEDS: hydrOXYzine 50 MG TAB PO PRN (07:09)
[2019-11-14] MEDS: GABAPENTIN 300 MG CAP PO SCH ×3 (08:12→21:45)
[2019-11-14] MEDS: ASPIRIN 81 MG CHEW TABLET PO SCH (08:12)
[2019-11-14] MEDS: QUEtiapine FUMARATE 200 MG TAB PO SCH ×3 (08:12→21:45)
[2019-11-14] MEDS: VENLAFAXINE **XR** 75MG CAPSULE PO SCH (08:12)
[2019-11-14 16:04] VITALS: BP 102/67
[2019-11-14] MEDS: ACETAMINOPHEN TAB 650MG DOSE (2X325MG) PO PRN (18:33)
[2019-11-14] MEDS: traZODone 50 MG TAB PO PRN (21:45)
--- NOTE | 2019-11-15 02:26 | MHIPN ---
DATE: 11/14/2019 Today, the patient states, "I'm not too great." He says that he feels oversedated this morning, and I discussed with the patient that part of the problem is that despite the Klonopin 1 mg three times a day that he has, that he has continued to be requesting more medications and that I had ordered some hydroxyzine for him because he was increasingly agitated last night and asking for more medicine. I explained that he really needs to be aware that there is a limit as to how much medicine he can have for his anxiety. He tells me today that at one point he thought he heard the radio playing and everybody telling him there was no radio playing. I have not elicited any other hallucinations, and he really does not have any more complaints today. Of note, last night, he had another pseudoseizure and the rapid assessment and treatment (RAT) team was called but they did not feel that it was a legitimate seizure and he did not need to be transferred. MENTAL STATUS EXAMINATION: The patient is alert and oriented times three. He does appear to be somewhat groggy. Of note was that I did not notice any involuntary movements and his speech definitely much more spontaneous and free of hesitation than it tends to be. The patient's mood was "not too great." Affect is constricted but appropriate to mood. I am not too sure of his alleging that he heard a radio playing, whether that was a hallucination or not. He is not suicidal or homicidal. Concentration is fair. Insight and judgment are fair. DIAGNOSES: 1. Unspecified psychotic disorder. 2. Unspecified depressive disorder. 3. History of conversion disorder with pseudoseizures. TREATMENT PLAN: We will continue to monitor the patient for continued resolution of suicidal ideations and continued elevation and stabilization of his mood, both his depression and anxiety. BRAYDEN
[2019-11-15] MEDS: hydrOXYzine 50 MG TAB PO PRN ×3 (04:21→15:48)
[2019-11-15 06:34] VITALS: BP 137/86
[2019-11-15] MEDS: clonazePAM 1 MG TAB PO PRN (07:39)
[2019-11-15] MEDS: ASPIRIN 81 MG CHEW TABLET PO SCH (08:11)
[2019-11-15] MEDS: VENLAFAXINE **XR** 75MG CAPSULE PO SCH (08:11)
[2019-11-15] MEDS: QUEtiapine FUMARATE 200 MG TAB PO SCH ×3 (08:11→20:32)
[2019-11-15] MEDS: GABAPENTIN 300 MG CAP PO SCH ×3 (08:11→20:32)
--- NOTE | 2019-11-15 09:19 | MHDSPDOC ---
[facility] Discharge Summary Discharge Summary DATE OF ADMISSION: Nov 12, 2019 at 15:22 DATE OF DISCHARGE: DISCHARGE DIAGNOSES: 1. . 2. . REASON FOR ADMISSION: CONSULTANTS INVOLVED: TREATMENT AND PROGRESS ON THE UNIT : . HOSPITAL COURSE: DISCHARGE ASSESSMENT: MENTAL STATUS EXAMINATION ON DISCHARGE: Patient is a -year old male, who is . Speech is . Language skills are . Thought processes including: . Thought content: . Abstract reasoning, and computation: . Description of associations: . Description of abnormal or psychotic thoughts: . Judgment: . Insight: . Orientation to . Recent and remote memory: . Attention span and concentration: . Language: . Fund of knowledge: . Mood: . Affect: . MEDICATIONS ON DISCHARGE: - for . - for . - for . PLAN/FOLLOWUP ARRANGEMENTS: . The amount of time spent in the coordination of care for this patient was approximately minutes. Vital Signs/I&Os Vital Signs Date Time Temp Pulse Resp B/P (MAP) Pulse Ox O2 Delivery O2 Flow Rate FiO2 11/15/19 06:34 98.1 99 14 137/86 (103) 96 Room Air Medications Scheduled Aspirin (Aspirin EC) 81 Mg Tablet.dr, 81 MG PO DAILY, (Reported) Multivitamins (Thera M Plus Tablet) 1 Each Tablet, 1 TAB PO DAILY, (Reported) Quetiapine Fumarate (Quetiapine Fumarate) 200 Mg Tablet, 200 MG PO TID, (Reported) Scheduled PRN Albuterol Sulfate (Proair Hfa) 8.5 Gm Hfa.aer.ad, 2 PUFF INH QID PRN for SHORTNESS OF BREATH, (Reported) Miscellaneous Medications Clonidine HCl (Clonidine HCl) 0.1 Mg Tablet, (Reported) Gabapentin (Gabapentin) 300 Mg Capsule, (Reported) Hydroxyzine HCl (Hydroxyzine HCl) 50 Mg Tablet, (Reported) Pramipexole Di-HCl (Pramipexole ER) 2.25 Mg Tab.er.24h, (Reported) Venlafaxine HCl (Venlafaxine HCl ER) 150 Mg Tab.er.24, (Reported) Allergies Coded Allergies: amantadine (Verified Allergy, Unknown, 11/03/18) DAHLIA ADRIAN DO Nov 15, 2019 09:19
[2019-11-15] MEDS: ACETAMINOPHEN TAB 650MG DOSE (2X325MG) PO PRN (10:22)
--- NOTE | 2019-11-15 12:06 | MHIPNPDOC ---
[facility] Progress Note Progress Note Inpatient Progress Note Kofi Tello MRN: N/A Date of : N/A Date of Service: 11/15/2019 History of Present Illness The patient, a well-known 64-year-old man with pseudoseizures and conversion disorder, presents after reportedly becoming lost in the [place], his was worried about suicide, and he was brought in. He did not want a stay, but had unusual behavior and was very defensive, he was admitted out of abundance of caution. Interval History When the patient was met with today he reports that he still has his shakes and he worries that he has Alzheimer's and he is demanding Alzheimer's testing. The patient continues to report some memory problems and reports that he "hears voices", however gives no signs that he is doing that at this time. He still has various pseudoseizure episodes of which medicine has not admitted him to medicine or required any further workup as he has had negative EEG testing on each episode. Notably on review of his [facility] records he has been technically off of clonazepam for last 2 weeks, however, he appears to still be taking it, his outpatient provider had mentioned to me on previous admissions that he was trying to taper him off, conspicuously around the time he started presenting to our inpatient unit when he had started seeing this new provider. He at times can be irritable and problematic, but becomes much better in the evening. However, he has had no major behavioral problems overnight. Review Of Systems Patient reports continued shakes and memory loss, denies any other physical side effects from his medications, generally is defensive and becomes more anxious when asked any questions. Psychotherapy None on this visit. Vital Signs Reviewed. Mental Status Examination General: Fair hygiene Speech: Spontaneous and fluid Thought processes: Linear and logical MSK: Continual tremors, worse with anxiety Thought content: Some hopelessness Abstract reasoning, and computation: Intact Description of associations: Intact Description of abnormal or psychotic thoughts: Reports hopelessness, but denies overt suicidality. Judgment: Impaired Insight: Impaired Orientation: Alert and orientated 3 Cognition: Grossly normal Recent and remote memory: Intact Attention span and concentration: Intact Fund of knowledge: Adequate Mood: "okay" Affect: Anxious with a constricted range Diagnoses Unspecified depressive disorder. Organic versus adjustment versus substance related. Conversion disorder. Benzodiazepine use disorder, unspecified. Assessment and Plan Unspecified depressive disorder: Patient has precontemplated about changing medications. We'll continue Effexor 150 mg daily. Conversion disorder: Testing and EEGs generally suggest this, although he has generally attempted to evade anymore specific exams. Benzodiazepine use disorder: Currently worried about benzodiazepine use disorder at this time as reviewing his [facility] records reveal that he presents primarily when he is out of medications or coming close to, he generally focuses on having his medications renewed each time he has presented which is likely a potential means of averting having his outpatient provider taper him off which also was conspicuously around the time he had initially started presenting after 2 years of stability. Disposition Patient will be converted to voluntary status, could benefit from continued admission. He has multiple readmissions and would likely benefit from an extended admission in order to prevent new readmissions as we work with his outpatient providers and try to address the underlying problems that lead to his problematic admissions. Time Spent 15 minutes Friday Vital Signs Vital Signs Date Time Temp Pulse Resp B/P (MAP) Pulse Ox O2 Delivery O2 Flow Rate FiO2 11/15/19 06:34 98.1 99 14 137/86 (103) 96 Room Air Current Medications Current Medications Medications (Trade) Dose Ordered Sig/Tiki Route PRN Reason Start Time Stop Time Status Last Admin Dose Admin Acetaminophen (Tylenol Tab) 650 mg Q6HP PRN PO HEADACHE or DISCOMFORT 11/12/19 15:30 11/15/19 10:22 Al Hydrox/Mg Hydrox/Simethicone (Mylanta) 30 ml Q4HP PRN PO HEARTBURN/INDIGESTION 11/12/19 15:30 Aspirin (Aspirin Chewable) 81 mg DAILY PO 11/13/19 09:00 11/15/19 08:11 Clonazepam (KlonoPIN) 1 mg TIDP PRN PO ANXIETY 11/13/19 06:45 11/15/19 07:39 Gabapentin (Neurontin) 300 mg TID PO 11/13/19 21:00 11/15/19 08:11 Hydroxyzine HCl (Atarax) 50 mg Q4HP PRN PO ANXIETY 11/13/19 12:45 11/15/19 11:05 Lorazepam (Ativan) 1 mg STAT STAT PO 11/12/19 11:18 11/12/19 11:19 DC 11/12/19 11:27 Magnesium Hydroxide (Milk Of Magnesia) 30 ml DAILYPRN PRN PO CONSTIPATION 11/12/19 15:30 Quetiapine Fumarate (SEROquel) 200 mg TID PO 11/13/19 21:00 11/15/19 08:11 Trazodone HCl (Desyrel) 50 mg QHSP PRN PO INSOMNIA 11/12/19 15:30 11/14/19 21:45 Venlafaxine HCl (Effexor Xr) 150 mg QAM PO 11/14/19 09:00 11/15/19 08:11 Allergies Coded Allergies: amantadine (Verified Allergy, Unknown, 11/03/18) DAHLIA ADRIAN DO Nov 15, 2019 12:06
--- NOTE | 2019-11-15 14:49 | ECGEPIP ---
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
[2019-11-15 15:00] VITALS: BP 130/88
[2019-11-15] MEDS: traZODone 50 MG TAB PO PRN (20:32)
[2019-11-16] MEDS: ACETAMINOPHEN TAB 650MG DOSE (2X325MG) PO PRN (01:53)
[2019-11-16 06:13] VITALS: BP 138/83
[2019-11-16] MEDS: ASPIRIN 81 MG CHEW TABLET PO SCH (08:08)
[2019-11-16] MEDS: GABAPENTIN 300 MG CAP PO SCH ×3 (08:09→20:06)
[2019-11-16] MEDS: VENLAFAXINE **XR** 75MG CAPSULE PO SCH (08:09)
[2019-11-16] MEDS: QUEtiapine FUMARATE 200 MG TAB PO SCH (09:00)
--- NOTE | 2019-11-16 10:51 | MHIPNPDOC ---
[facility] Progress Note Progress Note Inpatient Progress Note Kofi Tello MRN: N/A Date of : N/A Date of Service: 11/16/2019 History of Present Illness The patient, a well-known 64-year-old man with pseudoseizures and conversion disorder, presents after reportedly becoming lost in [place], his was worried about suicide, and he was brought in. He did not want a stay, but had unusual behavior and was very defensive, he was admitted out of abundance of caution. Interval History The patient was met with today. He was initially quite anxious, after some reframing, he was more able to work with his anxiety. He reports that he is still quite anxious and worried about his memory loss, focusing greatly on it. After some discussion, he does elect to try to work on his anxiety as he reports that it is quite problematic for him. He reports that it's generally been difficult to control with medications. He does appear to resort quite a bit once discussion is undertaken and reflective listening is engaged. Review Of Systems Continues to report his tremors, however, no changes, no headaches, no GI upset, rashes or other physical problems other than his chronic tremors and gait issues. Psychotherapy None on this visit. Vital Signs Reviewed. Mental Status Examination General: Fair hygiene Speech: Spontaneous and fluid Thought processes: Linear and logical MSK: Continual tremors, worse with anxiety Thought content: Improved hopelessness Abstract reasoning, and computation: Intact Description of associations: Intact Description of abnormal or psychotic thoughts: Denies any suicidality, homicidality or hallucinations at this time. Does not appear to be endorsing any bizarre paranoid ideation, does not appear to be responding to internal stimuli. Judgment: Improved Insight: Improved Orientation: Alert and orientated 3 Cognition: Grossly normal Recent and remote memory: Intact Attention span and concentration: Intact Fund of knowledge: Adequate Mood: "okay" Affect: Initially anxious, but becomes more euthymic. Diagnoses Unspecified depressive disorder. Organic versus adjustment versus substance related. Conversion disorder. Benzodiazepine use disorder, unspecified. Assessment and Plan Unspecified depressive disorder: Continue Effexor at this time. We will change patient's Seroquel to 600 mg at night as he notes the Seroquel makes him sedated during the day. Conversion disorder: Recommend continued psychotherapy for anxiety. Benzodiazepine use disorder: We will connect with outpatient provider, Dr. Aponte in order to inform him of my suspicions for further outpatient treatment. Disposition Patient is currently on a voluntary and will continue to resolve, he is doing well; however, given his multiple readmissions and difficulty anxiety, a further inpatient admission is needed in order to help reassure patient and prevent further readmissions. Time Spent 15 minutes. Friday Vital Signs Vital Signs Date Time Temp Pulse Resp B/P (MAP) Pulse Ox O2 Delivery O2 Flow Rate FiO2 11/16/19 06:13 97.0 96 16 138/83 (101) 11/15/19 15:00 100 11/15/19 06:34 Room Air Current Medications Current Medications Medications (Trade) Dose Ordered Sig/Tiki Route PRN Reason Start Time Stop Time Status Last Admin Dose Admin Acetaminophen (Tylenol Tab) 650 mg Q6HP PRN PO HEADACHE or DISCOMFORT 11/12/19 15:30 11/16/19 01:53 Al Hydrox/Mg Hydrox/Simethicone (Mylanta) 30 ml Q4HP PRN PO HEARTBURN/INDIGESTION 11/12/19 15:30 Aspirin (Aspirin Chewable) 81 mg DAILY PO 11/13/19 09:00 11/16/19 08:08 Clonazepam (KlonoPIN) 1 mg TIDP PRN PO ANXIETY 11/13/19 06:45 11/15/19 07:39 Gabapentin (Neurontin) 300 mg TID PO 11/13/19 21:00 11/16/19 08:09 Hydroxyzine HCl (Atarax) 50 mg Q4HP PRN PO ANXIETY 11/13/19 12:45 11/15/19 15:48 Lorazepam (Ativan) 1 mg STAT STAT PO 11/12/19 11:18 11/12/19 11:19 DC 11/12/19 11:27 Magnesium Hydroxide (Milk Of Magnesia) 30 ml DAILYPRN PRN PO CONSTIPATION 11/12/19 15:30 Quetiapine Fumarate (SEROquel) 200 mg TID PO 11/13/19 21:00 11/15/19 20:32 Trazodone HCl (Desyrel) 50 mg QHSP PRN PO INSOMNIA 11/12/19 15:30 11/15/19 20:32 Venlafaxine HCl (Effexor Xr) 150 mg QAM PO 11/14/19 09:00 11/16/19 08:09 Allergies Coded Allergies: amantadine (Verified Allergy, Unknown, 11/03/18) DAHLIA ADRIAN DO Nov 16, 2019 10:51
[2019-11-16] MEDS: clonazePAM 1 MG TAB PO PRN (15:15)
[2019-11-16 16:26] VITALS: BP 140/75
[2019-11-16] MEDS ORDERED: QUEtiapine FUMARATE 200 MG TAB PO SCH (21:00)
[2019-11-17] MEDS: clonazePAM 1 MG TAB PO PRN (04:16)
[2019-11-17] MEDS: hydrOXYzine 50 MG TAB PO PRN (05:44)
[2019-11-17 06:50] VITALS: BP 131/65
[2019-11-17] MEDS: VENLAFAXINE **XR** 75MG CAPSULE PO SCH (08:15)
[2019-11-17] MEDS: ACETAMINOPHEN TAB 650MG DOSE (2X325MG) PO PRN (08:15)
[2019-11-17] MEDS: GABAPENTIN 300 MG CAP PO SCH (08:15)
[2019-11-17] MEDS: ASPIRIN 81 MG CHEW TABLET PO SCH (08:15)
--- NOTE | 2019-11-17 09:27 | MHDSPDOC ---
[facility] Discharge Summary Discharge Summary DATE OF ADMISSION: Nov 12, 2019 at 15:22 DATE OF DISCHARGE: 11/17/19 Discharge Kofi Tello MRN: N/A Date of : N/A Date of Service: 11/17/2019 Diagnoses Unspecified depressive disorder. Organic versus adjustment versus substance related. Conversion disorder. Benzodiazepine use disorder, unspecified. History of Present Illness The patient, a well-known 64-year-old man with pseudoseizures and conversion disorder, presents after reportedly becoming lost in the [place], his was worried about suicide, and he was brought in. He did not want a stay, but had unusual behavior and was very defensive, he was admitted out of abundance of caution. Consultants Involved Hospitalist/PCP screening Treatment and Progress On The Unit The patient was admitted to the inpatient mental health unit after reportedly making suicidal statements after a walk through the park. Patient continues to report various problems with auditory hallucinations, he was kept on his home medications, however, he reports still being on clonazepam despite not being prescribed it recently. The overnight provider had restarted this and he was observed on this combination where he made complete resolution with no changes in his medications. His tremors and other aspects quickly resolved further increasing our suspicion of either benzodiazepine use or conversion or likely a combination of both. The patient did well and denies any suicidal or homicidal ideation through his stay, cooperated well without any behavior problems other than his consistent pseudoseizures that did not require any medical treatment. Discharge Assessment The patient, a 64-year-old man with a history of reported pseudoseizures conversion disorder and anxiety presents after reportedly becoming anxious and worried about his memory problems and subsequently reporting that he "rather not be here." He is admitted out of abundance of caution and restarted on his home medications, interestingly enough it seems that his presentations have mirrored when he was being taken off of his previous medications such as clonazepam due to a long use of it when he had changed providers earlier this year. The patient at the time of discharge did not meet criteria for involuntary admission/extension due to having a normal mental status exam, fair insight into the situation, They are engaged in the discharge process, as well as being friendly and amenable in behavioral control and havent been engaging in any observed concerning behavior or ideation recently. They decline voluntary extension/admission at this time and must be discharged in good abel, as Im unable to make a case for holding the patient against their will. They may have historical risk factors of admissions and other interactions with psychiatry however, those are not modifiable from a clinical perspective. The patient will need to be discharged in good abel. Mental Status Examination General: Well dressed with good hygiene Speech: Spontaneous and fluid Thought processes: Linear and logical MSK: Smooth and coordinated gait, no signs of tremors or involuntary orofacial movements Thought content: Future orientated Abstract reasoning, and computation: Intact Description of associations: Intact Description of abnormal or psychotic thoughts: Denies any suicidal or homicidal ideation. Denies any auditory or visual hallucinations. Does not appear to be responding to internal stimuli. Does not appear to be endorsing any bizarre or paranoid ideation. Judgment: Appears to be chronicall limited. Insight: Appears to be chronically limited. Orientation: Alert and orientated 3 Cognition: Grossly normal Recent and remote memory: Intact Attention span and concentration: Intact Fund of knowledge: Adequate Mood: "okay" Affect: Euthymic with a full range Follow Up The social work team worked during the predischarge meeting in order to evaluate for further issues of lethality address them fully before discharge. They worked on safety planning with the patient's family members in order to ensure that the patient will have a safe and effective discharge. Attempted to reach patient's outpatient provider in order to discuss treatment plan, no contact as of yet. Time Spent The amount of time spent in the coordination of care for this patient was approximately 45 minutes. Friday Vital Signs/I&Os Vital Signs Date Time Temp Pulse Resp B/P (MAP) Pulse Ox O2 Delivery O2 Flow Rate FiO2 11/17/19 08:19 Room Air 11/17/19 06:50 97.1 104 16 131/65 (87) 98 Medications Scheduled Aspirin (Aspirin EC) 81 Mg Tablet.dr, 81 MG PO DAILY, (Reported) Multivitamins (Thera M Plus Tablet) 1 Each Tablet, 1 TAB PO DAILY, (Reported) Quetiapine Fumarate (Quetiapine Fumarate) 200 Mg Tablet, 600 MG PO QHS for mood for 7 Days, #14 pt will use current script and take 3 x200mg tabs at night instead of TID Scheduled PRN Albuterol Sulfate (Proair Hfa) 8.5 Gm Hfa.aer.ad, 2 PUFF INH QID PRN for SHORTNESS OF BREATH, (Reported) Miscellaneous Medications Clonidine HCl (Clonidine HCl) 0.1 Mg Tablet, (Reported) Gabapentin (Gabapentin) 300 Mg Capsule, (Reported) Hydroxyzine HCl (Hydroxyzine HCl) 50 Mg Tablet, (Reported) Venlafaxine HCl (Venlafaxine HCl ER) 150 Mg Tab.er.24, (Reported) Allergies Coded Allergies: amantadine (Verified Allergy, Unknown, 11/03/18) DAHLIA ADRIAN DO Nov 17, 2019 09:27
[2019-11-17] MEDS ORDERED: QUET200T2 PO (10:57)
== END 2019-11-17 15:15 | disposition home or self-care (01) | DRG 881 ==
LOC: M ED 03:54 → M ED INP 15:22 → M PSY 20:07
PROVIDERS: ADMIT Psychiatry & Neurology Addiction Medicine; ATTEND Psychiatry & Neurology Addiction Medicine
DX: F32.9 Major depressive disorder, single episode, unspecified (principal); F15.90 Other stimulant use, unspecified, uncomplicated; F44.4 Conversion disorder with motor symptom or deficit; Z79.899 Other long term (current) drug therapy; Z79.82 Long term (current) use of aspirin; Z88.8 Allergy status to other drugs, medicaments and biological substances; M19.90 Unspecified osteoarthritis, unspecified site; E55.9 Vitamin D deficiency, unspecified; K64.8 Other hemorrhoids; M54.5 Low back pain; I10 Essential (primary) hypertension; K57.30 Diverticulosis of large intestine without perforation or abscess without bleeding; E78.5 Hyperlipidemia, unspecified; E03.9 Hypothyroidism, unspecified

== ENCOUNTER 2019-12-02 15:59 | Emergency (ER) | payer MEDICARE, MEDICAID ==
[~2019-12-02 15:59] MED LIST changes: +CLON-412 PO; +PRAM1TAB75; +VENL150T24 PO
[2019-12-02] MEDS ORDERED: NS 500 ML IV ONE (17:00)
[2019-12-02 17:31] LABS: BASO % 0.3 % (0.0-1.0); EOS # 0.3 10^3/uL (0.0-0.5); EOS % 4.2 % (0.0-3.0); HEMATOCRIT 43.4 % (42.0-52.0); HEMOGLOBIN 14.6 g/dl (13.5-17.5); LYMPH # 0.6 10^3/uL (1.5-5.0); LYMPH % 9.3 % (24.0-44.0); MEAN CORPUSCULAR HEMOGLOBIN 30.2 pg (27.0-33.0); MEAN CORPUSCULAR HGB CONC 33.6 g/dl (32.0-36.5); MEAN CORPUSCULAR VOLUME 89.7 fl (80.0-96.0); MONO # 0.5 10^3/uL (0.0-0.8); MONO % 7.8 % (0.0-5.0); NEUTROPHILS # 4.6 10^3/uL (1.5-8.5); NEUTROPHILS % 77.9 % (36.0-66.0); PLATELET COUNT, AUTOMATED 236 10^3/uL (150-450); RED BLOOD COUNT 4.84 10^6/uL (4.30-6.10); WHITE BLOOD COUNT 5.9 10^3/uL (4.0-10.0)
[2019-12-02 18:08] LABS: ACETAMINOPHEN LEVEL < 2.0 UG/ML (10.0-30.0); ALBUMIN 3.3 GM/DL (3.2-5.2); ALT/SGPT 45 U/L (12-78); BILIRUBIN,DIRECT 0.1 MG/DL (0.0-0.2); BILIRUBIN,TOTAL 0.4 MG/DL (0.2-1.0); BLOOD UREA NITROGEN 13 MG/DL (7-18); CALCIUM LEVEL 9.3 MG/DL (8.8-10.2); CARBON DIOXIDE LEVEL 32 MEQ/L (21-32); CHLORIDE LEVEL 105 MEQ/L (98-107); CK-MB VALUE MASS 1.1 NG/ML (<3.6); CPK CREATINE PHOSPHOKINASE 34 U/L (39-308); CREATININE FOR GFR 1.04 MG/DL (0.70-1.30); ETHYL ALCOHOL (ETHANOL) < 0.003 % (0.000-0.010); GLOMERULAR FILTRATION RATE > 60.0 (>49); GLUCOSE, FASTING 104 MG/DL (70-100); MB/CK RELATIVE INDEX 3.24 (< OR =4); SALICYLATE LEVEL < 1.7 MG/DL (5.0-30.0); SODIUM LEVEL 140 MEQ/L (136-145); TOTAL PROTEIN 6.1 GM/DL (6.4-8.2); TROPONIN I < 0.02 NG/ML (< 0.10)
[2019-12-02] MEDS ORDERED: LIDOCAINE 2% 5ML JELLY UROJET TOP ONE (19:00)
[2019-12-02 20:24] LABS: AMPHETAMINES LEVEL URINE NEGATIVE (NEGATIVE); BARBITURATES URINE NEGATIVE (NEGATIVE); BENZODIAZEPINES URINE NEGATIVE (NEGATIVE); CANNABINOIDS URINE NEGATIVE (NEGATIVE); COCAINE METABOLITE URINE NEGATIVE (NEGATIVE); METHADONE URINE NEGATIVE (NEGATIVE); OPIATES URINE NEGATIVE (NEGATIVE); PHENCYCLIDINE URINE NEGATIVE (NEGATIVE)
[2019-12-02 21:15] VITALS: BP 126/66
[2019-12-03] MEDS ORDERED: QUET200T2 PO (19:13)
== END 2019-12-02 21:32 | disposition home or self-care (01) ==
LOC: M ED 15:59
DX: F44.5 Conversion disorder with seizures or convulsions (principal); I10 Essential (primary) hypertension; Z88.8 Allergy status to other drugs, medicaments and biological substances; Z79.899 Other long term (current) drug therapy; Z79.82 Long term (current) use of aspirin

== ENCOUNTER 2019-12-03 16:41 | Inpatient (IN) | payer MEDICARE, MEDICAID ==
[~2019-12-03] VITALS: Ht 172.7 cm; Wt 72.9 kg
[2019-12-03 17:18] LABS: BASO % 0.4 % (0.0-1.0); EOS # 0.3 10^3/uL (0.0-0.5); EOS % 5.3 % (0.0-3.0); HEMATOCRIT 39.1 % (42.0-52.0); HEMOGLOBIN 13.2 g/dl (13.5-17.5); LYMPH # 0.9 10^3/uL (1.5-5.0); LYMPH % 19.6 % (24.0-44.0); MEAN CORPUSCULAR HEMOGLOBIN 30.3 pg (27.0-33.0); MEAN CORPUSCULAR HGB CONC 33.8 g/dl (32.0-36.5); MEAN CORPUSCULAR VOLUME 89.7 fl (80.0-96.0); MONO # 0.6 10^3/uL (0.0-0.8); MONO % 13.6 % (0.0-5.0); NEUTROPHILS # 2.8 10^3/uL (1.5-8.5); NEUTROPHILS % 60.7 % (36.0-66.0); PLATELET COUNT, AUTOMATED 211 10^3/uL (150-450); RED BLOOD COUNT 4.36 10^6/uL (4.30-6.10); WHITE BLOOD COUNT 4.7 10^3/uL (4.0-10.0)
[2019-12-03 18:02] LABS: ACETAMINOPHEN LEVEL 17.5 UG/ML (10.0-30.0); ALBUMIN 2.8 GM/DL (3.2-5.2); ALT/SGPT 44 U/L (12-78); BILIRUBIN,DIRECT 0.1 MG/DL (0.0-0.2); BILIRUBIN,TOTAL 0.5 MG/DL (0.2-1.0); BLOOD UREA NITROGEN 19 MG/DL (7-18); CALCIUM LEVEL 8.4 MG/DL (8.8-10.2); CARBON DIOXIDE LEVEL 28 MEQ/L (21-32); CHLORIDE LEVEL 106 MEQ/L (98-107); CPK CREATINE PHOSPHOKINASE 109 U/L (39-308); CREATININE FOR GFR 1.15 MG/DL (0.70-1.30); ETHYL ALCOHOL (ETHANOL) < 0.003 % (0.000-0.010); GLOMERULAR FILTRATION RATE > 60.0 (>49); GLUCOSE, FASTING 114 MG/DL (70-100); POTASSIUM SERUM 3.7 MEQ/L (3.5-5.1); SALICYLATE LEVEL < 1.7 MG/DL (5.0-30.0); SODIUM LEVEL 140 MEQ/L (136-145); TOTAL PROTEIN 5.3 GM/DL (6.4-8.2)
[2019-12-03 18:57] LABS: AMPHETAMINES LEVEL URINE NEGATIVE (NEGATIVE); BARBITURATES URINE NEGATIVE (NEGATIVE); BENZODIAZEPINES URINE NEGATIVE (NEGATIVE); CANNABINOIDS URINE NEGATIVE (NEGATIVE); COCAINE METABOLITE URINE NEGATIVE (NEGATIVE); METHADONE URINE NEGATIVE (NEGATIVE); OPIATES URINE NEGATIVE (NEGATIVE); PHENCYCLIDINE URINE NEGATIVE (NEGATIVE)
[2019-12-03] MEDS ORDERED: QUET200T2 PO (19:13)
[2019-12-03] MEDS ORDERED: ACETAMINOPHEN 325 MG TAB PO ONE (19:30)
[2019-12-03] MEDS ORDERED: ACETAMINOPHEN TAB 650MG DOSE (2X325MG) PO PRN (20:00)
[2019-12-03] MEDS ORDERED: MOM 30ML SUSPENSION UDC PO PRN (20:00)
[2019-12-03] MEDS ORDERED: MAALOX 30 ML SUSP *UDC PO PRN (20:00)
[2019-12-03] MEDS ORDERED: traZODone 50 MG TAB PO PRN (20:00)
[2019-12-04 06:37] VITALS: BP 134/80
--- NOTE | 2019-12-04 11:52 | MHHPEPDOC ---
[facility], [place] History & Physical History and Physical DATE OF ADMISSION: December 03, 2019 at 19:57 New Patient Kofi Tello MRN: N/A Date of : N/A Date of Service: 12/04/2019 Chief Complaint "I am so anxious." History of Present Illness The patient a 64-year-old man with a long history of likely conversion disorder and severe anxiety presents after reportedly making unusual statements to his outpatient provider. He was brought in and admitted out of an abundance of caution. The patient continues to report hopelessness and helplessness related to his anxiety and shakiness and reports memory problems and is highly anxious during the interview. After he calms down he reports that other than these reported symptoms he has not had any changes from his previous admissions and no major social changes either. Review Of Systems Depression: As above. Anxiety: As above. Tiffanie: No changes. Psychotic: No changes. Trauma: No changes. Borderline: No changes. Past Psychiatric History Has multiple inpatient admissions likely conversion disorder and anxiety and pseudoseizures. Tried on multiple different medications, currently not on clonazepam, but on a combination of venlafaxine and Seroquel. Treated at [facility] by Dr. Aponte. Allergies Please see below. Family Psychiatric History The patient denies/is unaware any history of mental health history including addictions and suicide. Social History The patient grew up in the local area. Has a supportive family, works in the [employer]. He has been generally quite functional for a number of years. Reports conflict between his sexuality and his orthodoxy beliefs. Has a supportive family, multiple adult children, no legal troubles at this time. Substance Abuse History The patient denies any excessive alcohol use, tobacco or illicit drug use, denies history of substance use treatment. Medical History Extensive history of pseudoseizure. Mental Status Examination General: Fair hygiene Speech: Spontaneous and fluid Thought processes: Linear and logical MSK: Multiple anxiety related tremors Thought content: Hopeless Abstract reasoning, and computation: Intact Description of associations: Intact Description of abnormal or psychotic thoughts: Denies any suicidal or homicidal ideation. Denies any auditory or visual hallucinations. Does not appear to be responding to internal stimuli. Does not appear to be endorsing any bizarre or paranoid ideation. Judgment: Limited Insight: Limited Orientation: Alert and orientated 3 Cognition: Grossly normal Recent and remote memory: Intact Attention span and concentration: Intact Fund of knowledge: Adequate Mood: "okay" Affect: Highly anxious and dysthymic Diagnoses Unspecified depressive disorder. Organic versus adjustment versus substance related. Conversion disorder. Benzodiazepine use disorder, unspecified. Assessment and Plan Unspecified depressive disorder: Continue Effexor at 150 mg daily as has done poorly on higher doses, will consider augmenting with clozapine as had done well for a number of years on it. Conversion disorder: Likely related to current presentation. Benzodiazepine use disorder unspecified: No longer on benzos, will attempt to avoid using them. Disposition Patient will be retained further on an inpatient involuntary admission in order to coordinate his care, more appropriately treat his symptoms, and coordinate a more effective discharge. Problem List 1. Risk for suicide. 2. Ineffective coping. Initial Treatment Plan 1. Patient was admitted on a legal status. 2. Complete history was obtained. 3. With patients permission, family will be contacted and database will be expanded. 4. Patients medication regimen will be reviewed and changed accordingly. 5. Patient will be provided with protected environment. 6. Patient will be treated with individual, group, and milieu therapies. 7. Patient will receive supportive psych-education. 8. Discharge planning will commence immediately. 9. Outpatient follow-up treatment will be strongly recommended. 10. The initial treatment plan will focus initially on: Estimated Length Of Stay 4 days Time Spent 70 minutes with greater than 50% of time spent on counseling/coordination of care. Friday Vital Signs Vital Signs Date Time Temp Pulse Resp B/P (MAP) Pulse Ox O2 Delivery O2 Flow Rate FiO2 12/04/19 07:55 Room Air 12/04/19 06:37 97.5 80 16 134/80 (98) 98 Laboratory Data 24H Labs Laboratory Tests 2 12/03/19 16:44: Immature Granulocyte % (Auto) 0.4, Neutrophils (%) (Auto) 60.7, Lymphocytes (%) (Auto) 19.6L, Monocytes (%) (Auto) 13.6H, Eosinophils (%) (Auto) 5.3H, Basophils (%) (Auto) 0.4, Neutrophils # (Auto) 2.8, Lymphocytes # (Auto) 0.9L, Monocytes # (Auto) 0.6, Eosinophils # (Auto) 0.3, Basophils # (Auto) 0.0, Nucleated Red Bloo d Cells % (auto) 0.0, Anion Gap 6L, Glomerular Filtration Rate > 60.0, Calcium Level 8.4L, Total Bilirubin 0.5, Direct Bilirubin 0.1, Aspartate Amino Transf (AST/SGOT) 24, Alanine Aminotransferase (ALT/SGPT) 44, Alkaline Phosphatase 90, Total Creatine Kinase 109#, Total Protein 5.3L, Albumin 2.8L, Albumin/Globulin Ratio 1.12, Thyroid Stimulating Hormone (TSH) 1.440, Salicylates Level < 1.7L, Acetaminophen Level 17.5, Ethyl Alcohol Level < 0.003 12/03/19 16:47: Urine Opiates Screen NEGATIVE, Urine Methadone Screen NEGATIVE, Urine Barbiturates Screen NEGATIVE, Urine Phencyclidine Screen NEGATIVE, Urine Amphetamines Screen NEGATIVE, Urine Benzodiazepines Screen NEGATIVE, Urine Cocaine Metabolite Screen NEGATIVE, Urine Cannabinoids Screen NEGATIVE CBC/BMP Laboratory Tests 12/03/19 16:44 Medications Scheduled Aspirin (Aspirin EC) 81 Mg Tablet.dr, 81 MG PO DAILY, (Reported) Clonidine HCl (Clonidine HCl) 0.1 Mg Tablet, 0.1 MG PO BID, (Reported) Gabapentin (Gabapentin) 300 Mg Capsule, 300 MG PO TID, (Reported) Multivitamins (Thera M Plus Tablet) 1 Each Tablet, 1 TAB PO DAILY, (Reported) Quetiapine Fumarate (Quetiapine Fumarate) 200 Mg Tablet, 600 MG PO QHS, (Reported) Venlafaxine HCl (Venlafaxine HCl ER) 150 Mg Tab.er.24, 150 MG PO DAILY, (Re ported) Scheduled PRN Hydroxyzine HCl (Hydroxyzine HCl) 50 Mg Tablet, 50 MG PO Q8H PRN for ANXIETY, (Reported) Allergies Coded Allergies: amantadine (Verified Allergy, Unknown, 11/03/18) A-FIB/CHADSVASC A-FIB History Current/History of A-Fib/PAF?: No DAHLIA ADRIAN DO December 04, 2019 11:52
--- NOTE | 2019-12-04 14:12 | CR.PDOC ---
General Date of Consultation: December 04, 2019 Referring Provider: DAHLIA ADRIAN DO Consultation REASON FOR CONSULTATION/CHIEF COMPLAINT: medical management. HISTORY OF PRESENT ILLNESS: Pt is a 64-year-old male with past history of dementia, mood disorders, was brought in for SI, and not wanting to burden his family. He also complains of some knee pain, which she contributes to walking. Hospitalist team was consulted for medical management. Vital signs stable. Today he denies any pain, he denies any fevers, chills, chest pain, shortness of breath, nausea, vomiting, abdominal pain, knee pain, issues with voiding or stooling. Labs reviewed, patients CBC has hemoglobin and hematocrit 13.2 and 39.1 respectively, slight decrease from previous labs. BUN slightly elevated at 19, creatinine of 1.15, TSH 1.44, UDS is negative, salicylates, acetaminophen, and alcohol levels grossly within normal limits. ROS: 10 point review systems negative except per above. PMH: See above. PSH: none Family history: Reviewed and noncontributory, father had brain cancer, was a smoker, mother had kidney disease. Social history: No tobacco, alcohol, or illicits, grandson of 14 years old, 2 years ago, patient has a tattoo on his right upper extremity in reference to his grandson Medications: Reviewed Allergies: amantadine (anaphylaxis) PHYSICAL EXAMINATION: VITAL SIGNS: Please see below. GENERAL: No distress HEENT: Normocephalic, atraumatic, moist mucous membranes NECK: Supple CARDIOVASCULAR EXAMINATION: S1, S2 RESPIRATORY EXAMINATION: CTAB ABDOMINAL EXAMINATION: Soft, nontender, nondistended, positive bowel sounds EXTREMITIES: no edema, nontender L knee SKIN: No rash NEUROLOGICAL EXAMINATION: awake PSYCHIATRIC EXAMINATION: Calm and cooperative, appears anxious, no eye contact ASSESSMENT/PLAN: Pt is a 64-year-old male with past history of dementia, mood disorders, was brought in for SI, and not wanting to burden his family. #SI/mood disorder: We'll defer to primary team #Knee pain: Likely muscle skeletal, stable, can trial ibuprofen when necessary for pain versus Tylenol. #Dementia:. No additional medications at this time, continue baby aspirin DVT ppx: freq ambulation Full code Thank you for the consult. Vital Signs/I&O Vital Signs Date Time Temp Pulse Resp B/P (MAP) Pulse Ox O2 Delivery O2 Flow Rate FiO2 12/04/19 07:55 Room Air 12/04/19 06:37 97.5 80 16 134/80 (98) 98 Laboratory Data Labs 24H Laboratory Tests 2 12/03/19 16:44: Immature Granulocyte % (Auto) 0.4, Neutrophils (%) (Auto) 60.7, Lymphocytes (%) (Auto) 19.6L, Monocytes (%) (Auto) 13.6H, Eosinophils (%) (Auto) 5.3H, Basophils (%) (Auto) 0.4, Neutrophils # (Auto) 2.8, Lymphocytes # (Auto) 0.9L, Monocytes # (Auto) 0.6, Eosinophils # (Auto) 0.3, Basophils # (Auto) 0.0, Nucleated Red Blood Cells % (auto) 0.0, Anion Gap 6L, Glomerular Filtration Rate > 60.0, Calcium Level 8.4L, Total Bilirubin 0.5, Direct Bilirubin 0.1, Aspartate Amino Transf (AST/SGOT) 24, Alanine Aminotransferase (ALT/SGPT) 44, Alkaline Phosphatase 90, Total Creatine Kinase 109#, Total Protein 5.3L, Albumin 2.8L, Albumin/Globulin Ratio 1.12, Thyroid Stimulating Hormone (TSH) 1.440, Salicylates Level < 1.7L, Acetaminophen Level 17.5, Ethyl Alcohol Level < 0.003 12/03/19 16:47: Urine Opiates Screen NEGATIVE, Urine Methadone Screen NEGATIVE, Urine Barbiturates Screen NEGATIVE, Urine Phencyclidine Screen NEGATIVE, Urine Amp hetamines Screen NEGATIVE, Urine Benzodiazepines Screen NEGATIVE, Urine Cocaine Metabolite Screen NEGATIVE, Urine Cannabinoids Screen NEGATIVE CBC/BMP Laboratory Tests 12/03/19 16:44 Allergies Coded Allergies: amantadine (Verified Allergy, Unknown, 11/03/18) Home Medications Scheduled Aspirin (Aspirin EC) 81 Mg Tablet.dr, 81 MG PO DAILY, (Reported) Clonidine HCl (Clonidine HCl) 0.1 Mg Tablet, 0.1 MG PO BID, (Reported) Gabapentin (Gabapentin) 300 Mg Capsule, 300 MG PO TID, (Reported) Multivitamins (Thera M Plus Tablet) 1 Each Tablet, 1 TAB PO DAILY, (Reported) Quetiapine Fumarate (Quetiapine Fumarate) 200 Mg Tablet, 600 MG PO QHS, (Reported) Venlafaxine HCl (Venlafaxine HCl ER) 150 Mg Tab.er.24, 150 MG PO DAILY, (Reported) Scheduled PRN Hydroxyzine HCl (Hydroxyzine HCl) 50 Mg Tablet, 50 MG PO Q8H PRN for ANXIETY, (Reported) NIMA HARDWICK MD December 04, 2019 14:12
[2019-12-04] MEDS ORDERED: IBUPROFEN 400 MG TAB PO PRN (14:15)
[2019-12-04] MEDS: GABAPENTIN 300 MG CAP PO SCH ×2 (15:50→20:05)
[2019-12-04] MEDS: ASPIRIN 81 MG ENTERIC TAB PO SCH (15:50)
[2019-12-04] MEDS: MULTIVITAMINS/MINERALS THERAP 1 TAB PO SCH (15:50)
[2019-12-04] MEDS ORDERED: VENLAFAXINE **XR** 75MG CAPSULE PO ONE (16:00)
[2019-12-04 16:18] VITALS: BP 145/78
[2019-12-04] MEDS: cloNIDine 0.1 MG TAB PO SCH (20:06)
[2019-12-04] MEDS ORDERED: QUEtiapine FUMARATE 200 MG TAB PO SCH (21:00)
[2019-12-05] MEDS: hydrOXYzine 50 MG TAB PO PRN ×2 (04:40→13:00)
--- NOTE | 2019-12-05 04:44 | IPNPDOC ---
Text Note Date of Service The patient was seen on 12/05/19. NOTE A rapid assessment was called bc the patient was unresponsive. His vitals were wln and his glucose was 109. On initial assessment he was not responding to verbal stimuli but grimaced slightly with sternal rub. After a few minutes he begun to talk and said that he was feeling anxious. Assessment & Plan: #Pseudoseizures He has a known history of pseudoseizures Plan: no acute intervention. FORTUNATO GALAN MD December 05, 2019 04:44
[2019-12-05 04:54] VITALS: BP 141/82
[2019-12-05 06:21] VITALS: BP 142/65
--- NOTE | 2019-12-05 07:11 | IPNPDOC ---
Date Seen The patient was seen on 12/05/19. Progress Note SUBJECTIVE: Patient is a 64-year-old male with past history of depression, psychosis, pseudoseizures, dementia, orthostatic hypotension with syncope, diverticulosis, family history of schizophrenia presenting with SI/HI and is seen in [facility]. She was seen yesterday 12/04/2023. Medical evaluation, knee pain. Overnight, patient had pseudoseizures, no interventions. This morning upon evaluation, pt denies sx, he does report anxiety attack prior to pseudoseizure. ThisPHYSICAL EXAMINATION: VITAL SIGNS: Please see below. GENERAL: No distress HEENT: Normocephalic, atraumatic, moist mucous membranes NECK: Supple CARDIOVASCULAR EXAMINATION: S1, S2 RESPIRATORY EXAMINATION: CTAB ABDOMINAL EXAMINATION: Soft, nontender, nondistended, positive bowel sounds EXTREMITIES: [no] edema SKIN: No rash NEUROLOGICAL EXAMINATION:awake, finger to nose intact PSYCHIATRIC EXAMINATION: appears anxious LABORATORY DATA, IMAGING STUDIES, MICROBIOLOGY: Please see below. ASSESSMENT AND PLAN: Patient is a 64-year-old male with past history of depression, psychosis, pseudoseizures, dementia, orthostatic hypotension with syncope, diverticulosis, family history of schizophrenia presenting with SI/HI and is seen in [facility]. #Pseudoseizures:. No additional intervention at this time, no medications #SI/mood disorder: We'll defer to primary team #Knee pain: Likely muscle skeletal, stable, can trial ibuprofen when necessary for pain versus Tylenol. #Dementia:. No additional medications at this time, continue baby aspirin #elevation in BP with hx of orthostatic hypotension with syncope, likely secondary to anxiety rather than essential HTN, tx underlying cause, no BP meds at this time #diverticulosis: monitor, pt has no bowel issues at this time DVT ppx: freq ambulation Full code Thank you for the consult. VS, I&O, 24H, Fishbone Vital Signs/I&O Vital Signs Date Time Temp Pulse Resp B/P (MAP) Pulse Ox O2 Delivery O2 Flow Rate FiO2 12/05/19 06:21 99.7 87 16 142/65 (90) 98 Room Air Laboratory Data 24H LABS Laboratory Tests 2 12/05/19 04:31: Bedside Glucose (Misc Panel) 109 NIMA HARDWICK MD December 05, 2019 07:10
[2019-12-05] MEDS: ASPIRIN 81 MG ENTERIC TAB PO SCH (08:16)
[2019-12-05] MEDS: MULTIVITAMINS/MINERALS THERAP 1 TAB PO SCH (08:16)
[2019-12-05] MEDS: GABAPENTIN 300 MG CAP PO SCH ×3 (08:16→20:00)
[2019-12-05] MEDS: cloNIDine 0.1 MG TAB PO SCH ×2 (08:16→20:00)
[2019-12-05] MEDS: VENLAFAXINE **XR** 75MG CAPSULE PO SCH (08:16)
--- NOTE | 2019-12-05 11:36 | MHIPNPDOC ---
[facility] Progress Note Progress Note Inpatient Progress Note Kofi Tello MRN: N/A Date of : N/A Date of Service: 12/05/2019 History of Present Illness The patient a 64-year-old man with a long history of likely conversion disorder and severe anxiety presents after reportedly making unusual statements to his outpatient provider. He was brought in and admitted out of an abundance of caution. The patient continues to report hopelessness and helplessness related to his anxiety and shakiness and reports memory problems and is highly anxious during the interview. After he calms down he reports that other than these reported symptoms he has not had any changes from his previous admissions and no major social changes either. Interval History The patient is met with today. He reports that he is still anxious, but less so since he has gotten his home medications. He has not been returned on any benzodiazepine. He still has episodes where he gets anxious and agitated, but has been able to control them better. He generally reports that he is still anxious and is unsure of how to proceed. Informed consent. Review Of Systems Denies any specific changes in physical side effects. Continues to report tremors. Psychotherapy None on this visit. Vital Signs Reviewed. Mental Status Examination General: Fair hygiene Speech: Spontaneous and fluid Thought processes: Linear and logical MSK: Multiple anxiety related tremors Thought content: Hopeless Abstract reasoning, and computation: Intact Description of associations: Intact Description of abnormal or psychotic thoughts: Denies any suicidal or homicidal ideation. Denies any auditory or visual hallucinations. Does not appear to be responding to internal stimuli. Does not appear to be endorsing any bizarre or paranoid ideation. Judgment: Limited Insight: Limited Orientation: Alert and orientated 3 Cognition: Grossly normal Recent and remote memory: Intact Attention span and concentration: Intact Fund of knowledge: Adequate Mood: "okay" Affect: Less anxious. Diagnoses Unspecified depressive disorder. Organic versus adjustment versus substance related. Conversion disorder. Benzodiazepine use disorder, unspecified. Assessment and Plan Unspecified depressive disorder: Continue Effexor at 150 mg daily. We'll augment with clozapine 12.5 mg nightly, cross taper Seroquel to 300 mg nightly. Conversion disorder: Likely related to current presentation. Benzodiazepine use disorder unspecified: No longer on benzos, will attempt to avoid using them. The risks, benefits as well as common side effects as well as alternative treatments (including non-treatment) were discussed with the patient both in general and for their particular case. The patient selected this option out of a range. Disposition Patient will be further retained and treated, as he has multiple admissions and significant comorbidities. Time Spent 15 minutes. Friday Vital Signs Vital Signs Date Time Temp Pulse Resp B/P (MAP) Pulse Ox O2 Delivery O2 Flow Rate FiO2 12/05/19 09:47 Room Air 12/05/19 08:16 140/73 12/05/19 06:21 99.7 87 16 98 Laboratory Data 24H Labs Laboratory Tests 2 12/05/19 04:31: Bedside Glucose (Misc Panel) 109 Current Medications Current Medications Medications (Trade) Dose Ordered Sig/Tiki Route PRN Reason Start Time Stop Time Status Last Admin Dose Admin Acetaminophen (Tylenol Tab) 650 mg Q6HP PRN PO HEADACHE or DISCOMFORT 12/03/19 20:00 Al Hydrox/Mg Hydrox/Simethicone (Mylanta) 30 ml Q4HP PRN PO HEARTBURN/INDIGESTION 12/03/19 20:00 Aspirin (Ecotrin) 81 mg DAILY PO 12/04/19 09:00 12/05/19 08:16 Clonidine HCl (Catapres) 0.1 mg BID PO 12/04/19 21:00 12/05/19 08:16 Gabapentin (Neurontin) 300 mg TID PO 12/04/19 16:00 12/05/19 08:16 Home Med (Med Rec Complete!) ASDIRECTED XX 12/03/19 20:45 12/03/19 20:38 DC Hydroxyzine HCl (Atarax) 50 mg Q8H PRN PO ANXIETY 12/04/19 15:15 12/05/19 04:40 Ibuprofen (Advil) 400 mg Q6HP PRN PO knee PAIN 12/04/19 14:15 Magnesium Hydroxide (Milk Of Magnesia) 30 ml DAILYPRN PRN PO CONSTIPATION 12/03/19 20:00 Multivitamins (Theragram-M) 1 tab DAILY PO 12/04/19 09:00 12/05/19 08:16 Quetiapine Fumarate (SEROquel) 600 mg QHS PO 12/04/19 21:00 12/04/19 20:05 Trazodone HCl (Desyrel) 50 mg QHSP PRN PO INSOMNIA 12/03/19 20:00 Venlafaxine HCl (Effexor Xr) 150 mg DAILY PO 12/05/19 09:00 12/05/19 08:16 Allergies Coded Allergies: amantadine (Verified Allergy, Unknown, 11/03/18) DAHLIA ADRIAN DO December 05, 2019 11:36
[2019-12-05] MEDS ORDERED: PILL CUTTER 1 EACH XX PRN (12:45)
[2019-12-05 15:34] VITALS: BP 134/74
[2019-12-05] MEDS ORDERED: OLANZapine ORAL DISINTEGRATING TAB 5MG PO ONE (20:00)
[2019-12-05] MEDS ORDERED: hydrOXYzine 50 MG TAB PO ONE (20:00)
[2019-12-05] MEDS ORDERED: QUEtiapine FUMARATE 100 MG TAB PO SCH (21:00)
[2019-12-05] MEDS ORDERED: cloZAPine 25 MG TAB (S0136) PO SCH (21:00)
[2019-12-06 06:31] VITALS: BP 129/68
[2019-12-06] MEDS: GABAPENTIN 300 MG CAP PO SCH ×3 (08:24→20:04)
[2019-12-06] MEDS: MULTIVITAMINS/MINERALS THERAP 1 TAB PO SCH (08:24)
[2019-12-06] MEDS: ASPIRIN 81 MG ENTERIC TAB PO SCH (08:24)
[2019-12-06] MEDS: cloNIDine 0.1 MG TAB PO SCH ×2 (08:24→20:04)
[2019-12-06] MEDS: VENLAFAXINE **XR** 75MG CAPSULE PO SCH (08:24)
--- NOTE | 2019-12-06 09:51 | MHIPNPDOC ---
[facility] Progress Note Progress Note Inpatient Progress Note Kofi Tello MRN: N/A Date of : N/A Date of Service: 12/06/2019 History of Present Illness The patient a 64-year-old man with a long history of likely conversion disorder and severe anxiety presents after reportedly making unusual statements to his outpatient provider. He was brought in and admitted out of an abundance of caution. The patient continues to report hopelessness and helplessness related to his anxiety and shakiness and reports memory problems and is highly anxious during the interview. After he calms down he reports that other than these reported symptoms he has not had any changes from his previous admissions and no major social changes either. Interval History The patient was met with today. He reports he is doing much better and is feeling improved on the clozapine. He reports that he has had some better sleep and is less anxious today. He has notably had less pseudoseizures although he did need some medicines for agitation the previous evening. Review Of Systems General: Denies fever or appetite changes Cardiovascular: Denies Chest pain or palpations GI: Denies Nausea, vomiting, or bowel changes Respiratory: Denies shortness of breath or cough Derm: Denies any rashes or pruritus : Denies any dysuria or urinary problems MSK: Denies any muscle tightness or stiffness HEENT: Denies any vision changes or headaches Psychotherapy None on this visit. Vital Signs Reviewed. Mental Status Examination General: Fair hygiene Speech: Spontaneous and fluid Thought processes: Linear and logical MSK: No notable tremors. Thought content: Less hopeless. Abstract reasoning, and computation: Intact Description of associations: Intact Description of abnormal or psychotic thoughts: Denies any suicidal or homicidal ideation. Denies any auditory or visual hallucinations. Does not appear to be responding to internal stimuli. Does not appear to be endorsing any bizarre or paranoid ideation. Judgment: Limited Insight: Limited Orientation: Alert and orientated 3 Cognition: Grossly normal Recent and remote memory: Intact Attention span and concentration: Intact Fund of knowledge: Adequate Mood: "okay" Affect: Less anxious. Diagnoses Unspecified depressive disorder. Organic versus adjustment versus substance related. Conversion disorder. Benzodiazepine use disorder, unspecified. Assessment and Plan Unspecified depressive disorder: Continue Effexor and increase clozapine to 25 mg nightly. decrease Seroquel further. Benzodiazepine use disorder unspecified: No longer on benzos, will attempt to avoid using them. The risks, benefits as well as common side effects as well as alternative treatments (including non-treatment) were discussed with the patient both in general and for their particular case. The patient selected this option out of a range. Disposition Patient will be observed for continued improvement and discharged if he continues to improve. Time Spent 15 minutes. Friday Vital Signs Vital Signs Date Time Temp Pulse Resp B/P (MAP) Pulse Ox O2 Delivery O2 Flow Rate FiO2 12/06/19 08:49 Room Air 12/06/19 08:24 133/93 12/06/19 06:31 98.5 88 16 97 Current Medications Current Medications Medications (Trade) Dose Ordered Sig/Tiki Route PRN Reason Start Time Stop Time Status Last Admin Dose Admin Acetaminophen (Tylenol Tab) 650 mg Q6HP PRN PO HEADACHE or DISCOMFORT 12/03/19 20:00 Al Hydrox/Mg Hydrox/Simethicone (Mylanta) 30 ml Q4HP PRN PO HEARTBURN/INDIGESTION 12/03/19 20:00 Aspirin (Ecotrin) 81 mg DAILY PO 12/04/19 09:00 12/06/19 08:24 Clonidine HCl (Catapres) 0.1 mg BID PO 12/04/19 21:00 12/06/19 08:24 Clozapine (Clozaril) 12.5 mg QHS PO 12/05/19 21:00 12/05/19 20:00 Gabapentin (Neurontin) 300 mg TID PO 12/04/19 16:00 12/06/19 08:24 Home Med (Med Rec Complete!) ASDIRECTED XX 12/03/19 20:45 12/03/19 20:38 DC Hydroxyzine HCl (Atarax) 50 mg Q8H PRN PO ANXIETY 12/04/19 15:15 12/05/19 13:00 Ibuprofen (Advil) 400 mg Q6HP PRN PO knee PAIN 12/04/19 14:15 Magnesium Hydroxide (Milk Of Magnesia) 30 ml DAILYPRN PRN PO CONSTIPATION 12/03/19 20:00 Multivitamins (Theragram-M) 1 tab DAILY PO 12/04/19 09:00 12/06/19 08:24 Quetiapine Fumarate (SEROquel) 300 mg QHS PO 12/05/19 21:00 12/05/19 21:29 Quetiapine Fumarate (SEROquel) 600 mg QHS PO 12/04/19 21:00 12/05/19 12:40 DC 12/04/19 20:05 Trazodone HCl (Desyrel) 50 mg QHSP PRN PO INSOMNIA 12/03/19 20:00 Venlafaxine HCl (Effexor Xr) 150 mg DAILY PO 12/05/19 09:00 12/06/19 08:24 Allergies Coded Allergies: amantadine (Verified Allergy, Unknown, 11/03/18) DAHLIA ADRIAN DO December 06, 2019 09:51
--- NOTE | 2019-12-06 10:31 | IPNPDOC ---
Date Seen The patient was seen on 12/06/19. Progress Note SUBJECTIVE: Patient is a 64-year-old male with past history of depression, psychosis, pseudoseizures, dementia, orthostatic hypotension with syncope, diverticulosis, family history of schizophrenia presenting with SI/HI and is seen in [facility]. He was seen 12/04/2019. Medical evaluation, knee pain. Overnight, patient had pseudoseizures, no interventions. This morning upon evaluation, pt denies sx, knee pain controlled. ThisPHYSICAL EXAMINATION: VITAL SIGNS: Please see below. GENERAL: No distress HEENT: Normocephalic, atraumatic, moist mucous membranes NECK: Supple CARDIOVASCULAR EXAMINATION: S1, S2 RESPIRATORY EXAMINATION: CTAB ABDOMINAL EXAMINATION: Soft, nontender, nondistended, positive bowel sounds EXTREMITIES: no edema SKIN: No rash NEUROLOGICAL EXAMINATION:awake, finger to nose intact PSYCHIATRIC EXAMINATION: appears anxious LABORATORY DATA, IMAGING STUDIES, MICROBIOLOGY: Please see below. ASSESSMENT AND PLAN: Patient is a 64-year-old male with past history of depr ession, psychosis, pseudoseizures, dementia, orthostatic hypotension with syncope, diverticulosis, family history of schizophrenia presenting with SI/HI and is seen in [facility]. #Pseudoseizures:. No additional intervention at this time, no medications #SI/mood disorder: We'll defer to primary team #Knee pain: Likely muscle skeletal, stable, can trial ibuprofen when necessary for pain versus Tylenol. #Dementia:. No additional medications at this time, continue baby aspirin #elevation in BP with hx of orthostatic hypotension with syncope, likely secondary to anxiety rather than essential HTN, tx underlying cause, no BP meds at this time #diverticulosis: monitor, pt has no bowel issues at this time DVT ppx: freq ambulation Full code Will sign off at this time, please reconsult if issues arise. VS, I&O, 24H, Fishbone Vital Signs/I&O Vital Signs Date Time Temp Pulse Resp B/P (MAP) Pulse Ox O2 Delivery O2 Flow Rate FiO2 12/06/19 08:49 Room Air 12/06/19 08:24 133/93 12/06/19 06:31 98.5 88 16 97 NIMA HARDWICK MD December 06, 2019 10:31
[2019-12-06 16:41] VITALS: BP 127/74
[2019-12-06] MEDS: cloZAPine 25 MG TAB (S0136) PO SCH (20:04)
[2019-12-06] MEDS ORDERED: QUEtiapine FUMARATE 50 MG TAB PO SCH (21:00)
[2019-12-07] MEDS: hydrOXYzine 50 MG TAB PO PRN (05:41)
[2019-12-07 06:25] VITALS: BP 119/58
[2019-12-07] MEDS: ASPIRIN 81 MG ENTERIC TAB PO SCH (08:06)
[2019-12-07] MEDS: MULTIVITAMINS/MINERALS THERAP 1 TAB PO SCH (08:06)
[2019-12-07] MEDS: VENLAFAXINE **XR** 75MG CAPSULE PO SCH (08:06)
[2019-12-07] MEDS: cloNIDine 0.1 MG TAB PO SCH ×2 (08:07→21:15)
[2019-12-07] MEDS: GABAPENTIN 300 MG CAP PO SCH ×3 (08:07→21:15)
--- NOTE | 2019-12-07 09:23 | MHIPNPDOC ---
[facility] Progress Note Progress Note Inpatient Progress Note Kofi Tello MRN: N/A Date of : N/A Date of Service: 12/07/2019 History of Present Illness The patient a 64-year-old man with a long history of likely conversion disorder and severe anxiety presents after reportedly making unusual statements to his outpatient provider. He was brought in and admitted out of an abundance of caution. The patient continues to report hopelessness and helplessness related to his anxiety and shakiness and reports memory problems and is highly anxious during the interview. After he calms down he reports that other than these reported symptoms he has not had any changes from his previous admissions and no major social changes either. Interval History The patient is met with today. He is doing much improved. He reports that he feels "great." He states that otherwise he is doing quite well and that his tremors are completely gone. He reports otherwise he is doing well and feels much more hopeful and is more insightful today about his memory problems. Spoke with his outpatient provider, does appear the patient had had some unusual behavior, concerns for dementia is present, however, at this time patient is reporting no significant memory problems. Review Of Systems General: Denies fever or appetite changes Cardiovascular: Denies Chest pain or palpations GI: Denies Nausea, vomiting, or bowel changes Respiratory: Denies shortness of breath or cough Neuro: Denies dizziness, tremors Derm: Denies any rashes or pruritus : Denies any dysuria or urinary problems MSK: Denies any muscle tightness or stiffness HEENT: Denies any vision changes or headaches Psychotherapy None on this visit. Vital Signs Reviewed. Mental Status Examination General: Well dressed with good hygiene Speech: Spontaneous and fluid Thought processes: Linear and logical MSK: Smooth and coordinated gait, no signs of tremors or involuntary orofacial movements Thought content: Future orientated Abstract reasoning, and computation: Intact Description of associations: Intact Description of abnormal or psychotic thoughts: Denies any suicidal or homicidal ideation. Denies any auditory or visual hallucinations. Does not appear to be responding to internal stimuli. Does not appear to be endorsing any bizarre or paranoid ideation. Judgment: Improved Insight: Improved Orientation: Alert and orientated 3 Cognition: Grossly normal Recent and remote memory: Intact Attention span and concentration: Intact Fund of knowledge: Adequate Mood: "okay" Affect: Euthymic with a full range Diagnoses Unspecified depressive disorder. Organic versus adjustment versus substance related. Conversion disorder. Benzodiazepine use disorder, unspecified. Assessment and Plan Unspecified depressive disorder: Continue Effexor at 150 mg daily, discontinue Seroquel, continue clozapine at 25 mg nightly. Benzodiazepine use disorder unspecified: No longer on benzos, will attempt to avoid using them. Disposition Discharge tomorrow. Time Spent 15 minutes. Friday Vital Signs Vital Signs Date Time Temp Pulse Resp B/P (MAP) Pulse Ox O2 Delivery O2 Flow Rate FiO2 12/07/19 08:07 117/76 12/07/19 06:25 98.4 82 16 Room Air 12/06/19 06:31 97 Current Medications Current Medications Medications (Trade) Dose Ordered Sig/Tiki Route PRN Reason Start Time Stop Time Status Last Admin Dose Admin Acetaminophen (Tylenol Tab) 650 mg Q6HP PRN PO HEADACHE or DISCOMFORT 12/03/19 20:00 Al Hydrox/Mg Hydrox/Simethicone (Mylanta) 30 ml Q4HP PRN PO HEARTBURN/INDIGESTION 12/03/19 20:00 Aspirin (Ecotrin) 81 mg DAILY PO 12/04/19 09:00 12/07/19 08:06 Clonidine HCl (Catapres) 0.1 mg BID PO 12/04/19 21:00 12/07/19 08:07 Clozapine (Clozaril) 12.5 mg QHS PO 12/05/19 21:00 12/06/19 10:49 DC 12/05/19 20:00 Clozapine (Clozaril) 25 mg QHS PO 12/06/19 21:00 12/06/19 20:04 Gabapentin (Neurontin) 300 mg TID PO 12/04/19 16:00 12/07/19 08:07 Home Med (Med Rec Complete!) ASDIRECTED XX 12/03/19 20:45 12/03/19 20:38 DC Hydroxyzine HCl (Atarax) 50 mg Q8H PRN PO ANXIETY 12/04/19 15:15 12/07/19 05:41 Ibuprofen (Advil) 400 mg Q6HP PRN PO knee PAIN 12/04/19 14:15 Magnesium Hydroxide (Milk Of Magnesia) 30 ml DAILYPRN PRN PO CONSTIPATION 12/03/19 20:00 Multivitamins (Theragram-M) 1 tab DAILY PO 12/04/19 09:00 12/07/19 08:06 Quetiapine Fumarate (SEROquel) 150 mg QHS PO 12/06/19 21:00 12/06/19 21:31 Quetiapine Fumarate (SEROquel) 300 mg QHS PO 12/05/19 21:00 12/06/19 10:49 DC 12/05/19 21:29 Quetiapine Fumarate (SEROquel) 600 mg QHS PO 12/04/19 21:00 12/05/19 12:40 DC 12/04/19 20:05 Trazodone HCl (Desyrel) 50 mg QHSP PRN PO INSOMNIA 12/03/19 20:00 Venlafaxine HCl (Effexor Xr) 150 mg DAILY PO 12/05/19 09:00 12/07/19 08:06 Allergies Coded Allergies: amantadine (Verified Allergy, Unknown, 11/03/18) DAHLIA ADRIAN DO December 07, 2019 09:23
[2019-12-07 16:04] VITALS: BP 119/69
[2019-12-07] MEDS: cloZAPine 25 MG TAB (S0136) PO SCH (21:15)
[2019-12-08 06:30] VITALS: BP 156/78
[2019-12-08 07:10] LABS: BASO # 0.1 10^3/uL (0.0-0.2); BASO % 0.8 % (0.0-1.0); EOS # 0.3 10^3/uL (0.0-0.5); EOS % 4.2 % (0.0-3.0); HEMATOCRIT 43.6 % (42.0-52.0); HEMOGLOBIN 14.5 g/dl (13.5-17.5); LYMPH # 1.6 10^3/uL (1.5-5.0); MEAN CORPUSCULAR HEMOGLOBIN 29.7 pg (27.0-33.0); MEAN CORPUSCULAR HGB CONC 33.3 g/dl (32.0-36.5); MEAN CORPUSCULAR VOLUME 89.3 fl (80.0-96.0); MONO # 0.8 10^3/uL (0.0-0.8); MONO % 9.8 % (0.0-5.0); NEUTROPHILS # 4.9 10^3/uL (1.5-8.5); NEUTROPHILS % 63.7 % (36.0-66.0); PLATELET COUNT, AUTOMATED 281 10^3/uL (150-450); RED BLOOD COUNT 4.88 10^6/uL (4.30-6.10); WHITE BLOOD COUNT 7.7 10^3/uL (4.0-10.0)
[2019-12-08 08:13] VITALS: BP 133/69
[2019-12-08] MEDS: cloNIDine 0.1 MG TAB PO SCH (08:13)
[2019-12-08] MEDS: VENLAFAXINE **XR** 75MG CAPSULE PO SCH (08:13)
[2019-12-08] MEDS: MULTIVITAMINS/MINERALS THERAP 1 TAB PO SCH (08:13)
[2019-12-08] MEDS: ASPIRIN 81 MG ENTERIC TAB PO SCH (08:13)
[2019-12-08] MEDS: GABAPENTIN 300 MG CAP PO SCH (08:13)
--- NOTE | 2019-12-08 09:59 | MHDSPDOC ---
[facility] Discharge Summary Discharge Summary DATE OF ADMISSION: December 03, 2019 at 19:57 DATE OF DISCHARGE: 12/08/2019 Discharge Kofi Tello MRN: N/A Date of : N/A Date of Service: 12/08/2019 Diagnoses Unspecified depressive disorder. Organic versus adjustment versus substance related. Conversion disorder. Benzodiazepine use disorder, unspecified. History of Present Illness The patient a 64-year-old man with a long history of likely conversion disorder and severe anxiety presents after reportedly making unusual statements to his outpatient provider. He was brought in and admitted out of an abundance of caution. The patient continues to report hopelessness and helplessness related to his anxiety and shakiness and reports memory problems and is highly anxious during the interview. After he calms down he reports that other than these reported symptoms he has not had any changes from his previous admissions and no major social changes either. Consultants Involved Hospitalist/PCP screening Treatment and Progress On The Unit The patient was admitted to the inpatient mental health unit. He was resumed on his Effexor 150 mg, Seroquel 600 mg nightly, gabapentin and other medications. He was not resumed on benzodiazepines as it appears he had been ceased on these as outpatients. He attended treatment, although being quite anxious at first, he rapidly became much less anxious when started on clozapine 12.5 mg nightly. He was started on this as he had done well in the previous years being on this medication. Incoordination of this outpatient provider this was increased to 25 mg nightly and his Seroquel was dropped to a 150 mg nightly as well. Although, we attempted to cross taper him entirely, he found significant insomnia if he did not take at least 150 mg of the Seroquel at night. He did well without any need for benzodiazepines, and although he had one minor episode of being agitated, he did not have any significant behavioral problems. He improved and became euthymic without any tremors as he has done before and subsequently requested discharge. He had become much more amenable and made significant progress by the time he had finished his inpatient admission. Discharge Assessment The patient, a 64-year-old man with a confusing history presents again with symptoms of significant anxiety and depression, however, he is resumed on his home medications and cross tapered to clozapine from Seroquel ideally having an augmented regimen as he had had in 2017 when he had significant success and stayed out of the hospital for quite some time. It is unclear as to the rationale for his presentations, but resuming previously helpful, medications appeared to produce a positive effect for him. The patient at the time of discharge did not meet criteria for involuntary admission/extension due to having a normal mental status exam, fair insight into the situation, They are engaged in the discharge process, as well as being friendly and amenable in behavioral control and havent been engaging in any observed concerning behavior or ideation recently. They decline voluntary extension/admission at this time and must be discharged in good abel, as Im unable to make a case for holding the patient against their will. They may have historical risk factors of admissions and other interactions with psychiatry however, those are not modifiable from a clinical perspective. The patient will need to be discharged in good abel. Mental Status Examination General: Well dressed with good hygiene Speech: Spontaneous and fluid Thought processes: Linear and logical MSK: Smooth and coordinated gait, no signs of tremors or involuntary orofacial movements Thought content: Future orientated Abstract reasoning, and computation: Intact Description of associations: Intact Description of abnormal or psychotic thoughts: Denies any suicidal or homicidal ideation. Denies any auditory or visual hallucinations. Does not appear to be responding to internal stimuli. Does not appear to be endorsing any bizarre or paranoid ideation. Judgment: fair Insight: fair Orientation: Alert and orientated 3 Cognition: Grossly normal Recent and remote memory: Intact Attention span and concentration: Intact Fund of knowledge: Adequate Mood: "okay" Affect: Euthymic with a full range Follow Up The social work team worked during the predischarge meeting in order to evaluate for further issues of lethality address them fully before discharge. They worked on safety planning with the patient's family members in order to ensure that the patient will have a safe and effective discharge. Time Spent The amount of time spent in the coordination of care for this patient was approximately 45 minutes. Friday Vital Signs/I&Os Vital Signs Date Time Temp Pulse Resp B/P (MAP) Pulse Ox O2 Delivery O2 Flow Rate FiO2 12/08/19 08:13 133/69 12/08/19 06:30 97.4 83 14 12/07/19 06:25 Room Air 12/06/19 06:31 97 Laboratory Data Labs 24H Laboratory Tests 2 12/08/19 06:43: Immature Granulocyte % (Auto) 0.5, Neutrophils (%) (Auto) 63.7, Lymphocytes (%) (Auto) 21.0L, Monocytes (%) (Auto) 9.8H, Eosinophils (%) (Auto) 4.2H, Basophils (%) (Auto) 0.8, Neutrophils # (Auto) 4.9, Lymphocytes # (Auto) 1.6, Monocytes # (Auto) 0.8, Eosinophils # (Auto) 0.3, Basophils # (Auto) 0.1, Nucleated Red Blood Cells % (auto) 0.0 CBC/BMP Laboratory Tests 12/08/19 06:43 Medications Scheduled Aspirin (Aspirin EC) 81 Mg Tablet.dr, 81 MG PO DAILY, (Reported) Clonidine HCl (Clonidine HCl) 0.1 Mg Tablet, 0.1 MG PO BID, (Reported) Clozapine (Clozapine) 25 Mg Tablet, 25 MG PO QHS for mood for 7 Days, #7 Gabapentin (Gabapentin) 300 Mg Capsule, 300 MG PO TID, (Reported) Multivitamins (Thera M Plus Tablet) 1 Each Tablet, 1 TAB PO DAILY, (Reported) Quetiapine Fumarate (Quetiapine Fumarate) 50 Mg Tablet, 150 MG PO QPM for mood for 7 Days, #21 Venlafaxine HCl (Venlafaxine HCl ER) 150 Mg Tab.er.24, 150 MG PO DAILY, (Reported) Scheduled PRN Hydroxyzine HCl (Hydroxyzine HCl) 50 Mg Tablet, 50 MG PO Q8H PRN for ANXIETY, (Reported) Allergies Coded Allergies: amantadine (Verified Allergy, Unknown, 11/03/18) DAHLIA ADRIAN DO December 08, 2019 09:59
[2019-12-08] MEDS ORDERED: QUET5TAB PO (10:24)
[2019-12-08] MEDS ORDERED: CLOZ25TA3 PO (10:24)
== END 2019-12-08 12:10 | disposition home or self-care (01) | DRG 881 ==
LOC: M ED 16:41 → M ED INP 19:57 → M PSY 12-04 00:10
PROVIDERS: ADMIT Psychiatry & Neurology Addiction Medicine; ATTEND Psychiatry & Neurology Addiction Medicine
DX: F32.9 Major depressive disorder, single episode, unspecified (principal); F44.5 Conversion disorder with seizures or convulsions; F43.21 Adjustment disorder with depressed mood; F19.14 Other psychoactive substance abuse with psychoactive substance-induced mood disorder; F41.9 Anxiety disorder, unspecified; F03.90 Unspecified dementia, unspecified severity, without behavioral disturbance, psychotic disturbance, mood disturbance, and anxiety; D64.9 Anemia, unspecified; I10 Essential (primary) hypertension; Z79.82 Long term (current) use of aspirin; Z79.899 Other long term (current) drug therapy; Z88.8 Allergy status to other drugs, medicaments and biological substances

== ENCOUNTER → 2019-12-16 | Outpatient (REF) | payer MEDICARE, MEDICAID ==
[~2019-12-16] MED LIST changes: +QUET5TAB PO
[2019-12-16 18:43] LABS: BASO % 0.7 % (0.0-1.0); EOS # 0.2 10^3/uL (0.0-0.5); EOS % 4.3 % (0.0-3.0); HEMATOCRIT 41.2 % (42.0-52.0); HEMOGLOBIN 13.6 g/dl (13.5-17.5); LYMPH # 1.6 10^3/uL (1.5-5.0); MEAN CORPUSCULAR HEMOGLOBIN 29.8 pg (27.0-33.0); MEAN CORPUSCULAR VOLUME 90.4 fl (80.0-96.0); MONO # 0.5 10^3/uL (0.0-0.8); MONO % 11.1 % (0.0-5.0); NEUTROPHILS # 2.2 10^3/uL (1.5-8.5); NEUTROPHILS % 48.7 % (36.0-66.0); PLATELET COUNT, AUTOMATED 252 10^3/uL (150-450); RED BLOOD COUNT 4.56 10^6/uL (4.30-6.10); WHITE BLOOD COUNT 4.6 10^3/uL (4.0-10.0)
== END ==
LOC: M LABDRWAD 16:57
PROVIDERS: ATTEND Psychiatry & Neurology Child & Adolescent Psychiatry
DX: F31.9 Bipolar disorder, unspecified (principal)

== ENCOUNTER → 2020-01-12 | Outpatient (REF) | payer MEDICARE, MEDICAID ==
[2020-01-12 17:38] LABS: BASO # 0.1 10^3/uL (0.0-0.2); BASO % 0.8 % (0.0-1.0); EOS # 0.3 10^3/uL (0.0-0.5); EOS % 4.8 % (0.0-3.0); HEMATOCRIT 44.4 % (42.0-52.0); LYMPH # 2.1 10^3/uL (1.5-5.0); LYMPH % 35.3 % (24.0-44.0); MEAN CORPUSCULAR HEMOGLOBIN 30.1 pg (27.0-33.0); MEAN CORPUSCULAR HGB CONC 33.8 g/dl (32.0-36.5); MEAN CORPUSCULAR VOLUME 89.2 fl (80.0-96.0); MONO # 0.6 10^3/uL (0.0-0.8); NEUTROPHILS # 2.9 10^3/uL (1.5-8.5); NEUTROPHILS % 48.8 % (36.0-66.0); PLATELET COUNT, AUTOMATED 265 10^3/uL (150-450); RED BLOOD COUNT 4.98 10^6/uL (4.30-6.10)
== END ==
LOC: M LABDRWAD 17:19
PROVIDERS: ATTEND Psychiatry & Neurology Child & Adolescent Psychiatry
DX: F25.9 Schizoaffective disorder, unspecified (principal)

== ENCOUNTER → 2020-01-18 | Outpatient (CLI) | payer MEDICARE, MEDICAID ==
[2020-01-18 18:54] LABS: BASO % 0.5 % (0.0-1.0); EOS # 0.1 10^3/uL (0.0-0.5); EOS % 1.1 % (0.0-3.0); HEMATOCRIT 42.9 % (42.0-52.0); HEMOGLOBIN 14.3 g/dl (13.5-17.5); LYMPH # 1.1 10^3/uL (1.5-5.0); LYMPH % 17.6 % (24.0-44.0); MEAN CORPUSCULAR HEMOGLOBIN 29.5 pg (27.0-33.0); MEAN CORPUSCULAR HGB CONC 33.3 g/dl (32.0-36.5); MEAN CORPUSCULAR VOLUME 88.6 fl (80.0-96.0); MONO # 0.5 10^3/uL (0.0-0.8); MONO % 8.2 % (0.0-5.0); NEUTROPHILS # 4.7 10^3/uL (1.5-8.5); NEUTROPHILS % 72.4 % (36.0-66.0); PLATELET COUNT, AUTOMATED 246 10^3/uL (150-450); RED BLOOD COUNT 4.84 10^6/uL (4.30-6.10); WHITE BLOOD COUNT 6.5 10^3/uL (4.0-10.0)
== END ==
LOC: M LAB 16:37
PROVIDERS: ATTEND Nurse Practitioner Psychiatric/Mental Health
DX: F25.9 Schizoaffective disorder, unspecified (principal)

== ENCOUNTER 2020-02-07 10:02 | Emergency (ER) | payer MEDICARE, MEDICAID ==
[~2020-02-07] VITALS: Ht 172.7 cm; Wt 76.2 kg
[2020-02-07] MEDS ORDERED: VENL75CA47 (10:12)
[2020-02-07] MEDS ORDERED: HYDR-3363 (10:12)
[2020-02-07 12:48] LABS: BASO % 0.7 % (0.0-1.0); EOS # 0.2 10^3/uL (0.0-0.5); EOS % 4.2 % (0.0-3.0); HEMATOCRIT 45.6 % (42.0-52.0); HEMOGLOBIN 15.2 g/dl (13.5-17.5); LYMPH # 1.1 10^3/uL (1.5-5.0); LYMPH % 24.5 % (24.0-44.0); MEAN CORPUSCULAR HEMOGLOBIN 29.3 pg (27.0-33.0); MEAN CORPUSCULAR HGB CONC 33.3 g/dl (32.0-36.5); MEAN CORPUSCULAR VOLUME 87.9 fl (80.0-96.0); MONO # 0.5 10^3/uL (0.0-0.8); MONO % 11.1 % (0.0-5.0); NEUTROPHILS # 2.6 10^3/uL (1.5-8.5); PLATELET COUNT, AUTOMATED 242 10^3/uL (150-450); RED BLOOD COUNT 5.19 10^6/uL (4.30-6.10); WHITE BLOOD COUNT 4.3 10^3/uL (4.0-10.0)
[2020-02-07 13:13] LABS: ALBUMIN 3.7 GM/DL (3.2-5.2); ALT/SGPT 23 U/L (12-78); BILIRUBIN,DIRECT < 0.1 MG/DL (0.0-0.2); BILIRUBIN,TOTAL 0.3 MG/DL (0.2-1.0); BLOOD UREA NITROGEN 12 MG/DL (7-18); CALCIUM LEVEL 9.3 MG/DL (8.8-10.2); CARBON DIOXIDE LEVEL 26 MEQ/L (21-32); CHLORIDE LEVEL 105 MEQ/L (98-107); CK-MB VALUE MASS < 1.0 NG/ML (<3.6); CPK CREATINE PHOSPHOKINASE 47 U/L (39-308); CREATININE FOR GFR 1.07 MG/DL (0.70-1.30); ETHYL ALCOHOL (ETHANOL) < 0.003 % (0.000-0.010); GLOMERULAR FILTRATION RATE > 60.0 (>49); GLUCOSE, FASTING 109 MG/DL (70-100); MB/CK RELATIVE INDEX 2.13 (< OR =4); POTASSIUM SERUM 4.6 MEQ/L (3.5-5.1); SODIUM LEVEL 139 MEQ/L (136-145); TOTAL PROTEIN 6.8 GM/DL (6.4-8.2); TROPONIN I < 0.02 NG/ML (< 0.10)
[2020-02-07 13:51] LABS: AMPHETAMINES LEVEL URINE NEGATIVE (NEGATIVE); BARBITURATES URINE NEGATIVE (NEGATIVE); BENZODIAZEPINES URINE NEGATIVE (NEGATIVE); CANNABINOIDS URINE NEGATIVE (NEGATIVE); COCAINE METABOLITE URINE NEGATIVE (NEGATIVE); METHADONE URINE NEGATIVE (NEGATIVE); OPIATES URINE NEGATIVE (NEGATIVE); PHENCYCLIDINE URINE NEGATIVE (NEGATIVE)
[2020-02-07 15:00] VITALS: BP 130/87
[2020-02-07] MEDS ORDERED: hydrOXYzine 50 MG TAB PO ONE (15:30)
--- NOTE | 2020-02-07 16:32 | ECGEPIP ---
[facility] - ED Test Date: 2020-02-07 Pat Name: YOSSI PENA Department: Room: - Gender: Male Telephone Operator Chief: ELIANA : 1955 Requested By: GALLITO ZAZUETA PA-C Order Number: [id number] Reading MD: Winnie Graves Measurements Intervals [place] Rate: 104 P: 34 NV: 140 QRS: 5 QRSD: 95 T: 42 QT: 331 QTc: 436 Interpretive Statements SINUS TACHYCARDIA ABNORMAL RHYTHM ECG DECREASED RATE 11/23/19 Electronically Signed on 02-07-2020 16:32:42 EDT by Winnie Graves
--- NOTE | 2020-02-07 23:46 | REP ---
CHEST, SINGLE VIEW: Single view of the chest is performed and compared to prior study of 10/03/2019. There is mild linear fibroatelectatic change in the lung bases with no acute infiltrate. Heart does not appear to be significantly enlarged. There is calcification and tortuosity of the thoracic aorta. The mediastinal silhouette is unchanged. IMPRESSION: No evidence of acute infiltrate or pulmonary edema. Electronically Signed by Jeremias Wagoner MD 02/08/2020 11:25 P
--- NOTE | 2020-02-08 01:26 | REP ---
REASON FOR EXAM: Altered mental status. COMPARISON EXAMS: 11/18/2018, 08/02/2019, 09/30/2019, all within normal limits for the patient's age. Today's exam is unchanged from the prior exam, showing no acute intracranial pathology. The ventricles and sulci are unchanged. The deep cerebral white matter is unchanged. There is no acute shift in the midline structures, and there are no extra-axial fluid collections. There is no change in appearance of the skull, images paranasal sinuses, or mastoid air cells. IMPRESSION: No change and no acute intracranial pathology. Electronically Signed by Ruddy Coronel DO 02/08/2020 11:34 A
== END 2020-02-07 15:47 | disposition home or self-care (01) ==
LOC: M ED 10:02
DX: G25.3 Myoclonus (principal); R00.0 Tachycardia, unspecified; R94.31 Abnormal electrocardiogram [ECG] [EKG]; G24.01 Drug induced subacute dyskinesia; F44.5 Conversion disorder with seizures or convulsions; F25.9 Schizoaffective disorder, unspecified; M19.90 Unspecified osteoarthritis, unspecified site; F41.0 Panic disorder [episodic paroxysmal anxiety]; G89.29 Other chronic pain; M54.9 Dorsalgia, unspecified; Z79.82 Long term (current) use of aspirin; Z79.899 Other long term (current) drug therapy; Z88.8 Allergy status to other drugs, medicaments and biological substances
CPT/HCPCS: 70450; 71045; 80048; 80076; 80307; 81001; 82550; 82553; 84443; 84484; 85025; 87486; 87581; 87633; 87798; 93005; 93041; 94760; 99285; G0480

== ENCOUNTER 2020-03-25 09:08 | Emergency (ER) | payer MEDICARE, MEDICAID ==
[~2020-03-25 09:08] MED LIST changes: +ASPI-546 PO; -ASPI1TAB15 PO; +HYDR-3363; +VENL75CA47
[2020-03-25] MEDS ORDERED: NS 1,000 ML IV SCH (09:16)
[2020-03-25 09:33] LABS: VENOUS BASE EXCESS -5.2 (-2.0-2.0); VENOUS HCO3 20.2 MEQ/L (23.0-27.0); VENOUS PARTIAL PRESSURE CO2 38.9 mmHg (38.0-50.0); VENOUS PH 7.333 UNITS (7.330-7.430); VENOUS STANDARD HCO3 20.1 MEQ/L; VENOUS TOTAL CO2 21.4 MEQ/L (24.0-28.0)
[2020-03-25 09:34] LABS: BASO # 0.1 10^3/uL (0.0-0.2); BASO % 0.8 % (0.0-1.0); EOS # 0.2 10^3/uL (0.0-0.5); EOS % 3.5 % (0.0-3.0); HEMATOCRIT 47.2 % (42.0-52.0); HEMOGLOBIN 15.9 g/dl (13.5-17.5); LYMPH # 2.4 10^3/uL (1.5-5.0); LYMPH % 37.2 % (24.0-44.0); MEAN CORPUSCULAR HEMOGLOBIN 29.3 pg (27.0-33.0); MEAN CORPUSCULAR HGB CONC 33.7 g/dl (32.0-36.5); MEAN CORPUSCULAR VOLUME 86.9 fl (80.0-96.0); MONO # 0.7 10^3/uL (0.0-0.8); MONO % 10.1 % (0.0-5.0); NEUTROPHILS # 3.1 10^3/uL (1.5-8.5); NEUTROPHILS % 48.1 % (36.0-66.0); PLATELET COUNT, AUTOMATED 289 10^3/uL (150-450); RED BLOOD COUNT 5.43 10^6/uL (4.30-6.10); WHITE BLOOD COUNT 6.5 10^3/uL (4.0-10.0)
[2020-03-25] MEDS ORDERED: QUET200T2 (09:46)
[2020-03-25 10:20] LABS: ACETAMINOPHEN LEVEL < 2.0 UG/ML (10.0-30.0); ALT/SGPT 29 U/L (12-78); BILIRUBIN,DIRECT 0.2 MG/DL (0.0-0.2); BILIRUBIN,TOTAL 0.7 MG/DL (0.2-1.0); BLOOD UREA NITROGEN 16 MG/DL (7-18); CALCIUM LEVEL 9.2 MG/DL (8.8-10.2); CARBON DIOXIDE LEVEL 24 MEQ/L (21-32); CHLORIDE LEVEL 105 MEQ/L (98-107); CPK CREATINE PHOSPHOKINASE 100 U/L (39-308); CREATININE FOR GFR 1.19 MG/DL (0.70-1.30); ETHYL ALCOHOL (ETHANOL) < 0.003 % (0.000-0.010); GLOMERULAR FILTRATION RATE > 60.0 (>49); GLUCOSE, FASTING 130 MG/DL (70-100); POTASSIUM SERUM 3.9 MEQ/L (3.5-5.1); SALICYLATE LEVEL < 1.7 MG/DL (5.0-30.0); SODIUM LEVEL 140 MEQ/L (136-145); TOTAL PROTEIN 7.3 GM/DL (6.4-8.2)
--- NOTE | 2020-03-25 11:01 | REPVR ---
PROCEDURE INFORMATION: Exam: XR Chest, 1 View Exam date and time: 03/25/20 (10:39am) Age: 64 years old Clinical indication: SOB TECHNIQUE: Imaging protocol: Portable CXR Views: 1 view COMPARISON: Portable CXR of 02/07/20 FINDINGS: Lungs: Unremarkable. No consolidation. Pleural space: Unremarkable. No pleural effusions. No pneumothorax. Heart/Mediastinum: Unremarkable. No cardiomegaly. Uncoiled thoracic aorta. Bones/joints: Unremarkable. IMPRESSION: No acute findings. No focal infiltrates. No pleural effusions Electronically signed by: Fiorella Goins On 03/25/2020 11:01:11 AM
[2020-03-25] MEDS ORDERED: ACETAMINOPHEN 500 MG TAB PO ONE (11:15)
[2020-03-25 12:21] LABS: AMPHETAMINES LEVEL URINE NEGATIVE (NEGATIVE); BARBITURATES URINE NEGATIVE (NEGATIVE); BENZODIAZEPINES URINE NEGATIVE (NEGATIVE); CANNABINOIDS URINE NEGATIVE (NEGATIVE); COCAINE METABOLITE URINE NEGATIVE (NEGATIVE); METHADONE URINE NEGATIVE (NEGATIVE); OPIATES URINE NEGATIVE (NEGATIVE); PHENCYCLIDINE URINE NEGATIVE (NEGATIVE)
[2020-03-25 12:29] VITALS: BP 132/67
--- NOTE | 2020-04-06 16:23 | ECGEPIP ---
[facility] - ED Test Date: 2020-03-25 Pat Name: YOSSI PENA Department: Room: - Gender: Male Instrumentation Technologist: TRACE : 1955 Requested By: Winnie Graves Order Number: [id number] Reading MD: Alfredo Montes Measurements Intervals [place] Rate: 96 P: 43 [place]: 128 QRS: 42 QRSD: 98 T: 52 QT: 339 QTc: 429 Interpretive Statements SINUS RHYTHM NORMAL ECG SEE SCANNE DOWNTIME REPORT
--- NOTE | 2020-04-24 07:46 | REP ---
THORACIC SPINE X-RAY: HISTORY: Trauma. TECHNIQUE: AP, lateral, swimmer's views of the thoracic spine. FINDINGS: Alignment and kyphosis maintained. Vertebral bodies intact. No acute fracture/compression injury or subluxation. Age related changes noted. Paravertebral soft tissues grossly normal. IMPRESSION: No acute fracture/compression injury or subluxation. MTDD
--- NOTE | 2020-04-24 07:46 | REP ---
NONCONTRAST CT OF THE HEAD: HISTORY: Drug overdose. COMPARISON: 02/07/20 TECHNIQUE: Axial noncontrast images from the skull base to the vertex with coronal reformations. FINDINGS: Age related atrophy and microvascular ischemic changes with periventricular leukomalacia noted. The ventricles are symmetric. Wagoner-white differentiation is maintained. No acute intracranial hemorrhage, mass or mass effect. No extra- axial fluid collection. The calvarium is intact. The paranasal sinuses and mastoid air cells are clear. IMPRESSION: Atrophy and chronic microvascular ischemic changes. No acute intracranial pathology or trauma/injury. MTDD
== END 2020-03-25 12:37 | disposition home or self-care (01) ==
LOC: M ED 09:08
DX: R56.9 Unspecified convulsions (principal); M54.5 Low back pain; F25.9 Schizoaffective disorder, unspecified; Z79.82 Long term (current) use of aspirin; Z79.899 Other long term (current) drug therapy
CPT/HCPCS: 36415; 70450; 71045; 72072; 80048; 80076; 80307; 82550; 82803; 84443; 85025; 93005; 93041; 94760; 96360; 96361; 99285; G0480

== ENCOUNTER 2020-04-17 16:27 | Emergency (ER) | payer MEDICARE, MEDICAID ==
[~2020-04-17] VITALS: Ht 177.8 cm; Wt 81.8 kg
[2020-04-17 17:58] LABS: HEMATOCRIT 40.7 % (42.0-52.0); HEMOGLOBIN 14.4 g/dl (13.5-17.5); MEAN CORPUSCULAR HEMOGLOBIN 30.4 pg (27.0-33.0); MEAN CORPUSCULAR HGB CONC 35.4 g/dl (32.0-36.5); MEAN CORPUSCULAR VOLUME 85.9 fl (80.0-96.0); PLATELET COUNT, AUTOMATED 244 10^3/uL (150-450); RED BLOOD COUNT 4.74 10^6/uL (4.30-6.10); WHITE BLOOD COUNT 5.7 10^3/uL (4.0-10.0)
[2020-04-17] MEDS ORDERED: NS 1,000 ML IV SCH (18:23)
[2020-04-17 18:55] LABS: ACETAMINOPHEN LEVEL 8.2 UG/ML (10.0-30.0); ALBUMIN 3.3 GM/DL (3.2-5.2); ALT/SGPT 32 U/L (12-78); BILIRUBIN,DIRECT < 0.1 MG/DL (0.0-0.2); BILIRUBIN,TOTAL 0.4 MG/DL (0.2-1.0); BLOOD UREA NITROGEN 16 MG/DL (7-18); CALCIUM LEVEL 8.8 MG/DL (8.8-10.2); CARBON DIOXIDE LEVEL 25 MEQ/L (21-32); CHLORIDE LEVEL 109 MEQ/L (98-107); CREATININE FOR GFR 1.11 MG/DL (0.70-1.30); ETHYL ALCOHOL (ETHANOL) < 0.003 % (0.000-0.010); GLOMERULAR FILTRATION RATE > 60.0 (>49); GLUCOSE, FASTING 123 MG/DL (70-100); POTASSIUM SERUM 4.3 MEQ/L (3.5-5.1); SALICYLATE LEVEL < 1.7 MG/DL (5.0-30.0); SODIUM LEVEL 140 MEQ/L (136-145); TOTAL PROTEIN 6.2 GM/DL (6.4-8.2)
--- NOTE | 2020-04-17 20:36 | ECGEPIP ---
[facility] - ED Test Date: 2020-04-17 Pat Name: YOSSI PENA Department: Room: - Gender: Male Rail Flaw Detector Operator: KRISTIE : 1955 Requested By: BLUE Grande Order Number: [id number] Reading MD: Winnie Graves Measurements Intervals [place] Rate: 93 P: 47 VA: 149 QRS: 28 QRSD: 90 T: 39 QT: 351 QTc: 437 Interpretive Statements SINUS RHYTHM SIMILAR 03/25/20 Electronically Signed on 04-17-2020 20:36:10 EDT by Winnie Graves
[2020-04-17 20:50] VITALS: BP 138/87
[2020-04-17 21:12] LABS: AMPHETAMINES LEVEL URINE NEGATIVE (NEGATIVE); BARBITURATES URINE NEGATIVE (NEGATIVE); BENZODIAZEPINES URINE NEGATIVE (NEGATIVE); CANNABINOIDS URINE NEGATIVE (NEGATIVE); COCAINE METABOLITE URINE NEGATIVE (NEGATIVE); METHADONE URINE NEGATIVE (NEGATIVE); OPIATES URINE NEGATIVE (NEGATIVE); PHENCYCLIDINE URINE NEGATIVE (NEGATIVE)
== END 2020-04-17 20:52 | disposition home or self-care (01) ==
LOC: M ED 16:27
DX: Z04.6 Encounter for general psychiatric examination, requested by authority (principal); Z79.82 Long term (current) use of aspirin; Z79.899 Other long term (current) drug therapy; Z88.3 Allergy status to other anti-infective agents
CPT/HCPCS: 80048; 80076; 80307; 84443; 85027; 93005; 93041; 94760; 99285; G0480

== ENCOUNTER 2020-04-18 16:47 | Emergency (ER) | payer MEDICARE, MEDICAID ==
[~2020-04-18] VITALS: Ht 172.7 cm; Wt 75.4 kg
[2020-04-18] MEDS ORDERED: NS 1,000 ML IV ONE (17:00)
[2020-04-18] MEDS ORDERED: CHARCOAL ACTIVATED LIQUID 25 GM/120 ML BTL PO ONE (17:00)
[2020-04-18 17:21] LABS: BASO % 0.2 % (0.0-1.0); HEMOGLOBIN 15.4 g/dl (13.5-17.5); LYMPH # 0.7 10^3/uL (1.5-5.0); LYMPH % 7.9 % (24.0-44.0); MEAN CORPUSCULAR HEMOGLOBIN 29.2 pg (27.0-33.0); MEAN CORPUSCULAR HGB CONC 33.5 g/dl (32.0-36.5); MEAN CORPUSCULAR VOLUME 87.3 fl (80.0-96.0); MONO # 0.5 10^3/uL (0.0-0.8); MONO % 5.6 % (0.0-5.0); NEUTROPHILS # 7.6 10^3/uL (1.5-8.5); NEUTROPHILS % 85.6 % (36.0-66.0); PLATELET COUNT, AUTOMATED 250 10^3/uL (150-450); RED BLOOD COUNT 5.27 10^6/uL (4.30-6.10); WHITE BLOOD COUNT 8.9 10^3/uL (4.0-10.0)
[2020-04-18 17:33] LABS: ACETAMINOPHEN LEVEL < 2.0 UG/ML (10.0-30.0); ALBUMIN 3.6 GM/DL (3.2-5.2); ALT/SGPT 36 U/L (12-78); BILIRUBIN,DIRECT 0.1 MG/DL (0.0-0.2); BILIRUBIN,TOTAL 0.5 MG/DL (0.2-1.0); BLOOD UREA NITROGEN 14 MG/DL (7-18); CALCIUM LEVEL 9.2 MG/DL (8.8-10.2); CARBON DIOXIDE LEVEL 20 MEQ/L (21-32); CHLORIDE LEVEL 104 MEQ/L (98-107); CPK CREATINE PHOSPHOKINASE 93 U/L (39-308); CREATININE FOR GFR 1.27 MG/DL (0.70-1.30); ETHYL ALCOHOL (ETHANOL) 0.008 % (0.000-0.010); GLOMERULAR FILTRATION RATE > 60.0 (>49); GLUCOSE, FASTING 148 MG/DL (70-100); POTASSIUM SERUM 3.7 MEQ/L (3.5-5.1); SALICYLATE LEVEL < 1.7 MG/DL (5.0-30.0); SODIUM LEVEL 139 MEQ/L (136-145); TOTAL PROTEIN 6.7 GM/DL (6.4-8.2)
[2020-04-18 17:52] LABS: MAGNESIUM LEVEL 2.1 MG/DL (1.8-2.4)
[2020-04-18 18:25] LABS: AMPHETAMINES LEVEL URINE NEGATIVE (NEGATIVE); BARBITURATES URINE NEGATIVE (NEGATIVE); BENZODIAZEPINES URINE NEGATIVE (NEGATIVE); CANNABINOIDS URINE NEGATIVE (NEGATIVE); COCAINE METABOLITE URINE NEGATIVE (NEGATIVE); METHADONE URINE NEGATIVE (NEGATIVE); OPIATES URINE NEGATIVE (NEGATIVE); PHENCYCLIDINE URINE NEGATIVE (NEGATIVE)
--- NOTE | 2020-04-18 23:18 | ECGEPIP ---
[facility] - ED Test Date: 2020-04-18 Pat Name: YOSSI PENA Department: Room: - Gender: Male Phlebotomy Coordinator: LUDA : 1955 Requested By: DERRICK PRICE Order Number: [id number] Reading MD: Alfredo Montes Measurements Intervals [place] Rate: 113 P: 54 [place]: 123 QRS: 44 QRSD: 88 T: 57 QT: 326 QTc: 447 Interpretive Statements SINUS TACHYCARDIA RATE CHANGE COMPARED TO 04/17/20 Electronically Signed on 04-18-2020 23:18:02 EDT by Alfredo Montes
[2020-04-19] MEDS ORDERED: QUET200T2 PO (06:44)
[2020-04-19] MEDS ORDERED: CLOZ25TA3 PO (06:44)
--- NOTE | 2020-04-19 15:35 | REPVR ---
PROCEDURE INFORMATION: Exam: XR Chest, 2 Views Exam date and time: 04/19/2020 3:25 PM Age: 64 years old Clinical indication: Other: Mhe TECHNIQUE: Imaging protocol: XR of the chest Views: 2 views. COMPARISON: CR Chest, 1 view 03/25/2020 10:38 AM FINDINGS: Lungs: There is mild scarring at the left lung base. The lungs are otherwise clear. Pleural space: Unremarkable. No pleural effusion. No pneumothorax. Heart/Mediastinum: The cardiomediastinal silhouette is fairly stable in appearance, allowing for differences in technique. Bones/joints: Unremarkable. IMPRESSION: No evidence for acute pulmonary disease. Electronically signed by: Yuan Espinosa On 04/19/2020 15:35:32 PM
[2020-04-19] MEDS ORDERED: IBUPROFEN 400 MG TAB PO ONE (17:15)
[2020-04-19] MEDS ORDERED: LORazepam 2 MG/ML VIAL As Ordered ONE (21:25)
[2020-04-19] MEDS ORDERED: LORazepam 2 MG/ML VIAL IM ONE (21:30)
[2020-04-19] MEDS ORDERED: diphenhydrAMINE 50MG/ML VIAL (J1200) IM ONE (21:30)
[2020-04-19] MEDS ORDERED: HALOPERIDOL 5MG/ML VIAL (J1630 PER 1) IM ONE (21:30)
[2020-04-20] MEDS ORDERED: LORazepam 2 MG TAB PO STA (11:47)
[2020-04-20 17:27] VITALS: BP 136/89
== END 2020-04-20 17:28 | disposition short-term general hospital (02) ==
LOC: EDBD 16:47 → M ED 16:47
DX: T43.592A Poisoning by other antipsychotics and neuroleptics, intentional self-harm, initial encounter (principal); R45.851 Suicidal ideations; F33.9 Major depressive disorder, recurrent, unspecified; R94.31 Abnormal electrocardiogram [ECG] [EKG]; F44.5 Conversion disorder with seizures or convulsions; Z20.828 Contact with and (suspected) exposure to other viral communicable diseases; Z88.8 Allergy status to other drugs, medicaments and biological substances; Z79.82 Long term (current) use of aspirin; Z79.899 Other long term (current) drug therapy
CPT/HCPCS: 36415; 71046; 80048; 80076; 80307; 82550; 83735; 84443; 85025; 93005; 93041; 94760; 96360; 96361; 96372; 99285; G0480; J1200; J1630; J2060; U0002

== ENCOUNTER 2020-06-24 10:06 | Emergency (ER) | payer MEDICARE, MEDICAID ==
[~2020-06-24] VITALS: Ht 172.7 cm; Wt 79.5 kg
[2020-06-24 10:15] VITALS: BP 156/95
[2020-06-24] MEDS ORDERED: BACIOIN5 OP (10:41)
--- NOTE | 2020-06-24 10:42 | REP ---
INDICATION: Head Injury COMPARISON: 03/25/2020 TECHNIQUE: Axial noncontrast images from the skull base to the thoracic inlet with coronal reformations. This CT examination was performed using the following dose reduction techniques: Automated exposure control, adjustment of mA and/or kv according to the patient's size, and use of iterative reconstruction technique. FINDINGS: Age-related atrophy and microvascular ischemic changes are appreciated. The ventricles and sulci are symmetric. Wagoner-white differentiation is maintained. There is no evidence for acute intracranial hemorrhage, mass/mass effect, pathology or infarction. No extra-axial fluid collection. Calvarium is intact. Paranasal sinuses and mastoid air cells are clear. IMPRESSION: Age related atrophy and microvascular ischemic changes. No acute intracranial hemorrhage, infarction, or mass/mass effect. <Electronically signed by Kofi Flowers > 06/24/20 1038
--- NOTE | 2020-06-24 10:45 | REP ---
INDICATION: Head Injury COMPARISON: 10/15/2018 TECHNIQUE: Axial noncontrast images from the skull base to the thoracic inlet with coronal and sagittal re-formations This CT examination was performed using the following dose reduction techniques: Automated exposure control, adjustment of mA and/or kv according to the patient's size, and use of iterative reconstruction technique. FINDINGS: Straightening of normal lordosis along with advanced multilevel degenerative changes including bridging osteophytosis, endplate sclerosis, small posterior osteophytes, and disc space narrowing as well as hypertrophic facet changes remain essentially stable. Alignment is relatively maintained and there is no evidence for acute fracture/compression injury or subluxation. Spinal canal is patent. Posterior elements and spinous processes are intact. Paravertebral soft tissues without evidence for acute injury. IMPRESSION: Advanced multilevel degenerative spondylosis similar to prior examination. No evidence for acute pathology or trauma/injury. <Electronically signed by Kofi Flowers > 06/24/20 1049
== END 2020-06-24 11:30 | disposition home or self-care (01) ==
LOC: M ED 10:06 → EDBD 10:06 → M ED 11:30
DX: S00.01XA Abrasion of scalp, initial encounter (principal); W18.2XXA Fall in (into) shower or empty bathtub, initial encounter; Y92.002 Bathroom of unspecified non-institutional (private) residence as the place of occurrence of the external cause; Y93.9 Activity, unspecified; Y99.9 Unspecified external cause status; I10 Essential (primary) hypertension; F33.9 Major depressive disorder, recurrent, unspecified; Z88.8 Allergy status to other drugs, medicaments and biological substances; Z79.82 Long term (current) use of aspirin; Z79.899 Other long term (current) drug therapy

== ENCOUNTER 2020-07-10 21:43 | Emergency (ER) | payer MEDICARE, MEDICAID ==
[~2020-07-10 21:43] MED LIST changes: -BUSP5TA PO; -QUET1TAB10 PO
[2020-07-10] MEDS ORDERED: VENL75CA47 PO (22:17)
[2020-07-10] MEDS ORDERED: VENL37.598 PO (22:17)
[2020-07-10] MEDS ORDERED: BUSP5TA PO (22:17)
[2020-07-10] MEDS ORDERED: HYDR-3363 PO (22:17)
[2020-07-10 22:50] LABS: HEMATOCRIT 43.7 % (42.0-52.0); HEMOGLOBIN 14.5 g/dl (13.5-17.5); MEAN CORPUSCULAR HEMOGLOBIN 28.2 pg (27.0-33.0); MEAN CORPUSCULAR HGB CONC 33.2 g/dl (32.0-36.5); PLATELET COUNT, AUTOMATED 252 10^3/uL (150-450); RED BLOOD COUNT 5.14 10^6/uL (4.30-6.10); WHITE BLOOD COUNT 7.8 10^3/uL (4.0-10.0)
[2020-07-10 23:16] LABS: AMPHETAMINES LEVEL URINE NEGATIVE (NEGATIVE); BARBITURATES URINE NEGATIVE (NEGATIVE); BENZODIAZEPINES URINE NEGATIVE (NEGATIVE); CANNABINOIDS URINE NEGATIVE (NEGATIVE); COCAINE METABOLITE URINE NEGATIVE (NEGATIVE); METHADONE URINE NEGATIVE (NEGATIVE); OPIATES URINE NEGATIVE (NEGATIVE); PHENCYCLIDINE URINE NEGATIVE (NEGATIVE)
[2020-07-10 23:25] LABS: ACETAMINOPHEN LEVEL < 2.0 UG/ML (10.0-30.0); ALBUMIN 3.7 GM/DL (3.2-5.2); ALT/SGPT 42 U/L (12-78); BILIRUBIN,DIRECT < 0.1 MG/DL (0.0-0.2); BILIRUBIN,TOTAL 0.4 MG/DL (0.2-1.0); BLOOD UREA NITROGEN 15 MG/DL (7-18); CALCIUM LEVEL 8.9 MG/DL (8.8-10.2); CARBON DIOXIDE LEVEL 26 MEQ/L (21-32); CHLORIDE LEVEL 108 MEQ/L (98-107); CREATININE FOR GFR 1.07 MG/DL (0.70-1.30); ETHYL ALCOHOL (ETHANOL) < 0.003 % (0.000-0.010); GLOMERULAR FILTRATION RATE > 60.0 (>49); GLUCOSE, FASTING 107 MG/DL (70-100); POTASSIUM SERUM 4.2 MEQ/L (3.5-5.1); SALICYLATE LEVEL < 1.7 MG/DL (5.0-30.0); SODIUM LEVEL 140 MEQ/L (136-145); TOTAL PROTEIN 6.6 GM/DL (6.4-8.2)
[2020-07-11 04:47] LABS: APPEARANCE, URINE CLEAR (CLEAR); BACTERIA, URINE AUTO NEGATIVE (NEGATIVE); BILIRUBIN, URINE AUTO NEGATIVE (NEGATIVE); BLOOD, URINE BLOOD NEGATIVE (NEGATIVE); COLOR, URINE YELLOW (YELLOW); GLUCOSE, URINE (UA) AUTO NEGATIVE (NEGATIVE); KETONE, URINE AUTO NEGATIVE (NEGATIVE); LEUKOCYTE ESTERASE, URINE AUTO NEGATIVE (NEGATIVE); MUCUS, URINE SMALL (NEGATIVE); NITRITE, URINE AUTO NEGATIVE (NEGATIVE); PROTEIN, URINE AUTO NEGATIVE (NEGATIVE); RBC, URINE AUTO 0 /HPF (0-3); SPECIFIC GRAVITY URINE AUTO 1.017 (1.002-1.035); SQUAMOUS EPITHELIAL CELL UR AU 0 /HPF (0-6); UROBILINOGEN, URINE AUTO 0.2 mg/dL (0.0-2.0); WBC, URINE AUTO 1 /HPF (0-3)
--- NOTE | 2020-07-11 05:58 | ECGEPIP ---
[facility] - ED Test Date: 2020-07-10 Pat Name: YOSSI PENA Department: Room: - Gender: Male [employer]: carmencita : 1955 Requested By: JENNIFER SINGH PA-C. Order Number: [id number] Reading MD: Alfredo Montes Measurements Intervals Turrell Rate: 75 P: 24 ND: 158 QRS: 27 QRSD: 98 T: 41 QT: 372 QTc: 416 Interpretive Statements SINUS RHYTHM RATE CHANGE COMPARED TO 04/18/20 Electronically Signed on 07-11-2020 5:58:21 EST by Alfredo Montes
[2020-07-11] MEDS ORDERED: QUET1TAB10 PO (07:55)
[2020-07-11] MEDS ORDERED: CLON-412 PO (07:55)
[2020-07-11] MEDS ORDERED: CLOZ25TA3 PO (07:55)
[2020-07-11 08:11] LABS: RSV AMPLIFICATION NEGATIVE (NEGATIVE)
[2020-07-11 14:41] VITALS: BP 139/89
== END 2020-07-11 14:45 ==
LOC: M ED 21:43
DX: F32.9 Major depressive disorder, single episode, unspecified (principal); T14.91XA Suicide attempt, initial encounter; Z88.8 Allergy status to other drugs, medicaments and biological substances; Y92.9 Unspecified place or not applicable; Y93.9 Activity, unspecified; Y99.9 Unspecified external cause status; M79.662 Pain in left lower leg
CPT/HCPCS: 80048; 80076; 80307; 81001; 84443; 85027; 87631; 93005; 93971; 99284; G0480

== ENCOUNTER → 2020-07-10 | Outpatient (CLI) | payer MEDICARE, MEDICAID ==
[~2020-07-10] MED LIST changes: +BACIOIN5 OP; +BUSP5TA PO; +QUET1TAB10 PO
--- NOTE | 2020-07-10 11:31 | REP ---
INDICATION: LT LEG PAIN IN CALF. COMPARISON: None. TECHNIQUE: Left lower extremity deep vein duplex ultrasound FINDINGS: The left lower extremity deep veins demonstrate normal compression, normal Doppler color flow and normal Doppler waveforms with respiration and augmentation at multiple levels. IMPRESSION: There is no evidence of left lower extremity deep vein thrombus by duplex ultrasound. <Electronically signed by Jeremias Pierre > 07/10/20 1120
== END ==
LOC: M RAD 09:55
PROVIDERS: ATTEND Physician Assistant Medical
DX: M79.662 Pain in left lower leg (principal)

== ENCOUNTER 2020-08-14 12:01 | Emergency (ER) | payer MEDICARE, MEDICAID ==
[~2020-08-14] VITALS: Ht 172.7 cm; Wt 80.4 kg
[~2020-08-14 12:01] MED LIST changes: +BUSP5TA PO; +GABA-282; +GABA-282 PO; -GABA-843; -GABA-843 PO; +QUET300T2 PO; +QUET50TA3 PO; -QUET5TAB PO
--- OUTSIDE RECORDS SUMMARY | 2020-08-14 12:09 | CCD ---
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 Active 06/29/2019 06/29/2019 F44.9 Unspecified Dissociative Disorder Active 08/25/201908/25 R41.9 Unspecified Neurocognitive Disorder Active 08/26/2019 Medications Rx Norm Medication Route Route Concept Start Date Stop Date Dosage Abdiaziz quency Duration Formula Strength Dosage Form Dosage Form Code Dosage Description Medication Id Account Npid Author First Name Author Last Name Taxonomy Code Taxonomy Desc Phone Number [phone] quetiapine by mouth [id number] 05/03/2020 at bedtime 300 mg ta blet 16637 [phone] [phone] Nathaniel Prasad [id number] Psychiatry [phone] venlafaxine by mouth [id number] 05/17/2020 06/07/2020 every morning 21 37.5 mg capsule,extended release 24hr as directed 67815 201219 [id number] [phone] Nathaniel Prasad [id number] Psychiatry [phone] 370018 clozapine by mouth [id number] 05/17/2020 07/16/2020 at bedtime 30 25 mg tablet 52878 [id number] Nathaniel Prasad [id number] Psychiatr y [id number] 032393 clonidine HCl by mouth [id number] 05/17/2020 07/16/2020 at bedtime 30 0.1 mg tablet 39030 052663 [id number] Nathaniel Prasad [id number] Psychiatr y [id number] Social History Social History Element Description Concept Effective Date Smoking Status Unknown if ever smoked [id number] Immunizations No Data in Section Vital Signs Encounter Date Height Ins Weight Lbs Bmi Bp Systolic Bp Diastoli c Oxygen Saturation Respiration Rate Pulse Rate Body Temp Head Circumference Heigh t Lying 05/31/2020 0.00 0.00 0.00 0 0 0.00 0 0 0.00 0.0 0.0 0 Procedures Date Concept Id Description Targeted Site Concept Targeted Site Concept Type 05/31/2020 09101-17 [facility] Telemed E/M Lvl 3--Est pt CPT Patient has no history of implantable de vices Encounters Encounter Start Date End Date Encounter Type Description Diagnosis Di agnosis Desc Location Author First Name Author Last Name Npid Taxonomy Cod e Taxonomy Desc Phone Number Location Addr1 Location Addr2 Location [facility] Location Sta te Location [facility] [id number] 05/31/2020 05/31/2020 16983-29 [facility] Telemed E/M Lvl 3--Est p t F33.9 Major depressive disorder, recurrent, unspecified [facility] Nathaniel [id number] Psychiatry [phone] [address] [facility] [address] Plan of Treatment No Data in Section Lab Results No Data in Section Instructions No Data in Section Functional Cognitive Status No Data in Section Insurance Providers Insurance Id Policy Effective Date Policy Thru Date Nutrinia Patricia pepper [id number] 2011 MEDICARE [id number] 2017 MEDICAID
--- OUTSIDE RECORDS SUMMARY | 2020-08-14 12:09 | CCD | Continuity of Care Document ---
Author Author Kofi PALMA Organization Unknown Address [address] [facility] [address] [place] [address] Phone [phone] Care Team Providers Care Facility Maintenance Helper Name Role Phone Roxanne Hdz AUTM [phone] Jordan Beckham MD AUTM [phone] Deisy More MD AUTM [phone] [facility] Radiology AUTM [phone] Problems Active Problems Provider Date Schizophrenia GERI [place]: 08/29/2011 Pure hypercholesterolemia GERI [place]: 2011 Anxiety state GERI [place]: 08/29/2011 Social History Type Date Description Comments Sex Unknown Tobacco Use Start: Unknown End: Unknown Former Cigarette Smo ker 1 Pack Daily QUIT 30 YRS AGO ETOH Use Denies alcohol use Tobacco Use Start: Unknown End: Unknown Patient is a former smoker Allergies, Adverse Reactions, Alerts Active Allergies Reaction Severity Comments Date Amantadine violent, memorymloss 019 Inactive Allergies NKDA 03/12/2011 Medications Active Medications SIG Qnty Indications Ordering Provide r Date Atorvastatin Calcium 20mg Tablets 1 by mouth every day 30tabs Peter Melendrez MD 11/24/2019 Viagra 25mg Tablets make take one tablet by mouth before sexual relations 30tabs JAMES Hathaway JR 11/24/2019 Proair HFA 108(90Base) mcg/Act Aer osol 2 puffs up to four times daily as needed for cough or shortness of breath 8.500gm Peter Melendrez MD 10/15/2019 Hydroxyzine HCL 25mg Tablets 1 by mouth three times a day as needed anxiety 180tabs JAMES Keller JR 10/08/2019 Daily Multivitamin Capsules 1 daily Roxanne Hdz, ANP 08/11/2019 Aspir-Low 81[address] Table[address] DR 1 q d Roxanne Hdz, ANP 08/05/2016 Clonazepam 1mg Tablets one tab by mouth 3x's a day prn Anxiety Unknown 0 Gabapentin 300mg Capsules Unknown Clonidine HCL 0.1mg Tablets Unknown Quetiapine Fumarate 200mg Tablets Unknown Immunizations CPT Code Status Date Vaccine Lot # U-Flu Given 06/17/2019 Influenza,Unspecified U-Tetan Given 11/07/2014 Tetanus,Unspecified 33753 Given 01/02/2012 Adacel- Tetanus Diphtheria P ertussis (Age64 & Under) 44772 Given 01/02/2012 Adacel- Tetanus Diphtheria P ertussis (Age64 & Under) 64945 Given 01/02/2012 Adacel- Tetanus Diphtheria P ertussis (Age64 & Under) 10565 Refused 06/16/2018 Zoster Vaccine Vital Signs Date Vital Result Comment 07/07/2020 3:02pm BP Systolic 122 mmHg BP Diastolic 70 mmHg Height 68 inches 5'8" Weight 180.00 lb BMI (Body Mass Index) 27.4 kg/m2 05/29/2020 7:59am BP Systolic 122 mmHg BP Diastolic 70 mmHg Heart Rate 104 /min Height 68 inches 5'8" Weight 175.00 lb O2 % BldC Oximetry 98 % RM Air BMI (Body Mass Index) 26.6 kg/m2 Results Test Acquired Date Facility Test Result H/L Range Note Ua W/ Reflex To Culture 02/07/[address] [id number] [phone] Appearance, Urine RFX CLEAR Normal Clear Color, Urine RFX YELLOW Normal Yellow PH,Urine RFX 7.0 units Normal 5.0-9.0 Specific [place] Ur Auto RFX 1.008 Normal 1.002-1.035 Protein, Urine Auto RFX NEGATIVE mg/dL Normal Negative Glucose, Urine (Ua) Auto RFX NEGATIVE mg/dL Normal Negative Ketone, Urine Auto RFX NEGATIVE mg/dL Normal Negative Urobilinogen, Urine Auto RFX 0.2 mg/dL Normal 0.0-2.0 Bilirubin, Urine Auto RFX NEGATIVE Normal Negative Nitrite, Urine Auto RFX NEGATIVE Normal Negative Leukocyte Esterase Ur Auto RFX NEGATIVE Normal Negative Blood, Urine Blood RFX NEGATIVE Normal Negative WBC, Urine Auto RFX 0 /HPF Normal 0-3 RBC, Urine Auto RFX 1 /HPF Normal 0-3 Bacteria, Urine Auto RFX NEGATIVE Normal Negative Squam Epithelial Cell Ur Aurfx 0 /HPF Normal 0-6 Hyaline Cast, Urine Auto RFX 0 /LPF Normal 0-1 Drug Eval Toxicology ED Only 02/07/2020 [address] [place] [address] [phone] Amphetamines Level Urine NEGATIVE Normal Negativ e Barbiturates Urine NEGATIVE Normal Negative Benzodiazepines Urine NEGATIVE Normal Negative Cannabinoids Urine NEGATIVE Normal Negative Cocaine Metabolite Urine NEGATIVE Normal Negative Methadone Urine NEGATIVE Normal Negative Opiates Urine NEGATIVE Normal Negative Phencyclidine Urine NEGATIVE Normal Negative 1 Respiratory Panel 02/07/2020 [facility] nter [address] [place] [address] [phone] Respiratory Panel This respiratory <SEE NOTE> 2 CBC With Differential 02/07/2020 [address] [place] [address] [phone] White Blood Count 4.3 10 Normal 4.0-10.0 Red Blood Count 5.19 10 Normal 4.30-6.10 Hemoglobin 15.2 g/dL Normal 13.5-17.5 Hematocrit 45.6 % Normal 42.0-52.0 Mean Corpuscular Volume 87.9 fl Normal 80.0-96.0 Mean Corpuscular Hemoglobin 29.3 pg Normal 27.0-33.0 Mean Corpuscular HGB Conc 33.3 g/dL Normal 32.0-36.5 Red Cell Distribution Width 12.3 % Normal 11.5-14.5 Platelet Count, Automated 242 10 Normal 150-450 Neutrophils % 59.0 % Normal 36.0-66.0 Lymph % 24.5 % Normal 24.0-44.0 Harris % 11.1 % High 0.0-5.0 Eos % 4.2 % High 0.0-3.0 Baso % 0.7 % Normal 0.0-1.0 Immature Granulocyte % 0.5 % Normal 0-3.0 Nucleated Red Blood Cell % 0.0 % Normal 0-0 Neutrophils # 2.6 10 Normal 1.5-8.5 Lymph # 1.1 10 Low 1.5-5.0 Harris # 0.5 10 Normal 0.0-0.8 Eos # 0.2 10 Normal 0.0-0.5 Baso # 0.0 10 Normal 0.0-0.2 Cardiac Marker Panel 02/07/2020 [facility] enter [address] [place] [address] [phone] CPK Creatine Phosphokinase 47 U/L Normal 39-30 8 CK-MB Value Mass < 1.0 NG/ML Normal <3.6 MB/CK Relative Index 2.13 Normal < Or =4 3 Troponin I < 0.02 NG/ML Normal < 0.10 4 Liver Profile 02/07/2020 [facility] [address] [place] [address] [phone] Ast/Sgot 17 U/L Normal 7-37 Alt/SGPT 23 U/L Normal 12-78 Alkaline Phosphatase 102 U/L Normal 45-117 Bilirubin,Total 0.3 mg/dL Normal 0.2-1.0 Bilirubin,Direct < 0.1 mg/dL Normal 0.0-0.2 Total Protein 6.8 GM/DL Normal 6.4-8.2 Albumin 3.7 GM/DL Normal 3.2-5.2 Albumin/Globulin Ratio 1.2 Normal Basic Metabolic Profile 02/07/[address] [address] [phone] Glucose, Fasting 109 mg/dL High 70-100 Blood Urea Nitrogen 12 mg/dL Normal 7-18 Creatinine For GFR 1.07 mg/dL Normal 0.70-1.30 Glomerular Filtration Rate > 60.0 Normal >49 5 Sodium Level 139 mEq/L Normal 136-145 Potassium Serum 4.6 mEq/L Normal 3.5-5.1 Chloride Level 105 mEq/L Normal 98-107 Carbon Dioxide Level 26 mEq/L Normal 21-32 Anion Gap 8 mEq/L Normal 8-16 Calcium Level 9.3 mg/dL Normal 8.8-10.2 Laboratory test finding 02/07/[address] [address] [phone] Ethyl Alcohol (Ethanol) < 0.003 % Normal 0.000-0. 010 Thyroid Stimulating Hormone 3.060 uIU/ML Normal 0.358-3.740 CBC With Differential 01/18/2020 [facility] [address] [place] [address] [phone] White Blood Count 6.5 10 Normal 4.0-10.0 Red Blood Count 4.84 10 Normal 4.30-6.10 Hemoglobin 14.3 g/dL Normal 13.5-17.5 Hematocrit 42.9 % Normal 42.0-52.0 Mean Corpuscular Volume 88.6 fl Normal 80.0-96.0 Mean Corpuscular Hemoglobin 29.5 pg Normal 27.0-33.0 Mean Corpuscular HGB Conc 33.3 g/dL Normal 32.0-36.5 Red Cell Distribution Width 12.4 % Normal 11.5-14.5 Platelet Count, Automated 246 10 Normal 150-450 Neutrophils % 72.4 % High 36.0-66.0 Lymph % 17.6 % Low 24.0-44.0 Harris % 8.2 % High 0.0-5.0 Eos % 1.1 % Normal 0.0-3.0 Baso % 0.5 % Normal 0.0-1.0 Immature Granulocyte % 0.2 % Normal 0-3.0 Nucleated Red Blood Cell % 0.0 % Normal 0-0 Neutrophils # 4.7 10 Normal 1.5-8.5 Lymph # 1.1 10 Low 1.5-5.0 Harris # 0.5 10 Normal 0.0-0.8 Eos # 0.1 10 Normal 0.0-0.5 Baso # 0.0 10 Normal 0.0-0.2 1 ALL PRESUMPTIVE POSITIVE FINDINGS ARE UNCONFIRMED THRESHOLD IN NG/ML AMPHETAMINES/METHAMPHET 1000 BARBITURATES 200 BENZODIAZEPINES 200 CANNABINOIDS (THC) 50 COCAINE METABOLITE 300 METHADONE 300 OPIATES 300 PHENCYCLIDINE 25 RESULTS ARE FOR MEDICAL PURPOSES ONLY. ALL URINE SPECIMENS WILL BE SAVED FOR 3 DAYS. IF CONFIRMATION OF A PRESUMPTIVE POSITIVE SCREEN RESULT IS DESIRED, CALL CHEMISTRY ([phone]) AND REQUEST URINE TO BE SENT TO REFERENCE LAB. FOR A LIST OF CLOSELY RELATED COMPOUNDS PLEASE CALL THE LAB. 2 This respiratory PCR panel d etects Influenza A H1, H3 and 2009 H1 viruses, Influenza B virus, Resp iratory Syncytial Virus, Human metapneumovirus, Parainfluenza virus 1, 2, 3 and 4, Adenovirus, Rhinovirus/Enterovirus, Coronavirus HKU1, NL63, OC43, 229E and SARS-CoV-2 (COVID 19), Bordetella pertussis, Bordetella parapertussis, Mycoplasma pneumoniae and Chlamydia pneumoniae. NEGATIVE by MULTIPLEXED NUCLEIC ACID PCR SARS-CoV-2 (COVID 19) NEGATIVE - SARS-CoV-2 (COVID19) 3 DIAGNOSIS CRITERIA MMB ng/ml Relative Index (RI) NON-AMI < or = 5 N/A ADKINS ZONE > 5 < or = 4 AMI > 5 > 4 4 Troponin I Reference Interva l for [employer] LOCI: 99th Percentile= 0.00-0.045 ng/ml Risk Stratification: <= 0.10 ng/ml Decreased Risk for Adverse Clinical Events. 0.10-1.50 ng/ml Increased Risk for Adv erse Clinical Events. Evaluation of additional criterion and/or repeat testing in 2-6 hours is suggested to rule out myocardial damage. >= 1.50 ng/ml Indicative of Myocardial Injury. 5 Units are mL/min/1.73 m2 Chronic Kidney Disease Staging per NKF: Stage I & II GFR >=60 Normal to Mildly Decreased Stage III GFR 30-59 Moderately Decreased Stage IV GFR 15-29 Severely Decreased Stage V GFR <15 Very Little GFR Left ESRD GFR <15 on [employer] Procedures Date Code Description Status 08/09/2009 [id number] Colonoscopy Completed Medical Devices Description No Information Available Encounters Type Date Location Provider Dx Diagnosis Office Visit 07/07/2020 2:40p Migel Ross JR, PA M79.605 Pain in left leg Office Visit 05/29/2020 8:00a Migel Ross JR, PA I10 Essential (primary) hyperten dhiraj E78.00 Pure hypercholesterolemia, u nspecified F41.9 Anxiety disorder, unspecifie d F20.0 Paranoid schizophrenia M79.602 Pain in left arm Office Visit 01/27/2020 8:20a [facility] 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 Z13.89 Encounter for screening for other disorder Assessments Date Code Description Provider 07/07/2020 M79.605 Pain in left leg Ok raymond JR, PA 05/29/2020 I10 Essential (primary) hypertension Ok Palma JR, JAMES 05/29/2020 E78.00 Pure hypercholesterolemia, unspe cified Ok Palma JR, PA 05/29/2020 F41.9 Anxiety disorder, unspecified Ro chelsy Palma JR, PA 05/29/2020 F20.0 Paranoid schizophrenia Ok Palma JR, JAMES 05/29/2020 M79.602 Pain in left arm Ok raymond JR, JAMES 05/17/2020 I10 Essential (primary) hypertension Peter Melendrez MD 05/17/2020 E78.00 Pure hypercholesterolemia, unspe cified Peter Melendrez MD 05/17/2020 F41.9 Anxiety disorder, unspecified Co david Melendrez MD 03/23/2020 E78.00 Pure hypercholesterolemia, unspe cified Peter Melendrez MD 03/23/2020 I10 Essential (primary) hypertension Peter Melendrez MD 03/23/2020 F41.9 Anxiety disorder, unspecified Co david Melendrez MD 03/23/2020 E55.9 Vitamin D deficiency, unspecifie d Peter Melendrez MD 01/27/2020 E78.00 Pure hypercholesterolemia, unspe cified Ok Palma JR PA 01/27/2020 I10 Essential (primary) hypertension JAMES Xiao JR 01/27/2020 M79.602 Pain in left arm Ok raymond JR, JAMES 01/27/2020 F52.21 Male erectile disorder JAMES Xiao JR 01/27/2020 F20.0 Paranoid schizophrenia JAMES Xiao JR 01/27/2020 F41.9 Anxiety disorder, unspecified Ro JAMES Ackerman JR 01/27/2020 F44.5 Conversion disorder with seizure s or convulsions JAMES Xiao JR 01/27/2020 Z13.89 Encounter for screening for othe r disorder JAMES Xiao JR Plan of Treatment Future Appointment(s):* 09/26/2020 8:00 am - JAMES Xiao JR at [facility] 07/07/2020 - JAMES Xiao JR* M79.605 Pain in left leg* Comments:* Unlikely DVT, will do US friday just to be sure, advised heat and Tylenol prn Functional Status Description No Information Available Mental Status Description No Information Available Referrals Description No Information Available
--- OUTSIDE RECORDS SUMMARY | 2020-08-14 12:09 | CCD ---
Author Author Kofi Fleming Organization Unknown Address [address] [place] [address] Phone Care Team Providers Care Call Or Contact Centre Team Leader Name Role Phone Jeannie Fleming PCP Allergies, Adverse Reactions, Alerts No Data [...] Route Concept Start Date Stop Date Dosage Abdizaiz quency Duration Formula Strength Dosage Form Dosage Form Code Dosage Description Medication Id Account Npid Author First Name Author Last Name Taxonomy Code Taxonomy Desc Phone Number [phone] quetiapine by mouth I35788 05/03/2020 at bedtime 300 mg ta blet 44167 [id number] Nathaniel Prasad [id number] Psychiatry [phone] [id number] venlafaxine by mouth [id number] 05/17/2020 06/07/2020 every morning 21 37.5 mg capsule,extended release 24hr as directed 97589 123873 [id number] 1096 Nathaniel Prasad [id number] Psychiatry [id number] 084306 clozapine by mouth [id number] 05/17/2020 07/16/2020 at bedtime 30 25 mg tablet 09308 662049 [id number] Nathaniel Prasad [id number] Psychiatr y [id number] 536107 clonidine HCl by mouth [id number] 05/17/2020 07/16/2020 at bedtime 30 0.1 mg tablet 45545 852348 [id number] Nathaniel Prasad [id number] Psychiatr y [id number] Social History Social History Element Description Concept Effective Date Smoking Status Unknown if ever smoked [id number] Immunizations No Data in Section Vital Signs No Data in Section Procedures Date Concept Id Description Targeted Site Concept Targeted Site Concept Type 05/30/2020 25832 Extended Individual Psychotherapy - 45 min CPT Patient has no history of implantable de vices Encounters Encounter Start Date End Date Encounter Type Description Diagnosis Di agnosis Desc Location Author First Name Author Last Name Npid Taxonomy Cod e Taxonomy Desc Phone Number Location Addr1 Location Addr2 Location [facility] Location Sta te Location Zip [address] 05/30/2020 05/30/2020 32800 Extended Individual Psych otherapy - 45 min F33.9 Major depressive disorder, recurrent, unspecified [facility] [phone] [id number] Psychologist [phone] [address] [address] Plan of Treatment No Data in Section Lab Results No Data in Section Instructions No Data in Section Insurance Providers Insurance Id Policy Effective Date Policy Thru Date Harpreet Gomez ame [id number] 2011 MEDICARE [id number] 2017 MEDICAID
--- OUTSIDE RECORDS SUMMARY | 2020-08-14 12:09 | CCD | Continuity of Care Document ---
Author Author Kofi PALMA Organization Unknown Address [address] [facility] [address] [place] [address] Phone [phone] Care Team Providers Care Regional Environmental Manager Name Role Phone Roxanne Hdz AUTM [phone] Jordan Beckham MD AUTM [phone] Deisy More MD AUTM [phone] Problems Active Problems Provider Date Schizophrenia GERI [...] Given 06/17/2019 Influenza,Unspecified U-Tetan Given 11/07/2014 Tetanus,Unspecified 74114 Given 01/02/2012 Adacel- Tetanus Diphtheria P ertussis (Age64 & Under) 04321 Given 01/02/2012 Adacel- Tetanus Diphtheria P ertussis (Age64 & Under) 30370 Given 01/02/2012 Adacel- Tetanus Diphtheria P ertussis (Age64 & Under) 88577 Refused 06/16/2018 Zoster Vaccine Vital Signs Date Vital Result Comment 05/29/2020 7:59am BP Systolic 122 mmHg BP Diastolic 70 mmHg Heart Rate 104 /min Height 68 inches 5'8" Weight 175.00 lb O2 % BldC Oximetry 98 % RM Air BMI (Body Mass Index) 26.6 kg/m2 01/27/2020 7:58am BP Systolic 110 mmHg BP Diastolic 70 mmHg Height 68 inches 5'8" Weight 167.38 lb BMI (Body Mass Index) 25.4 kg/m2 Results Test Acquired Date Facility Test Result H/L Range Note Ua W/ Reflex To Culture 02/07/2020 [place] [id number] [phone] Appearance, Urine RFX CLEAR Normal Clear Color, Urine RFX YELLOW Normal Yellow PH,Urine RFX 7.0 units Normal 5.0-9.0 Specific [place] Ur Auto RFX 1.008 Normal 1.002-1.035 Protein, [...] 0-1 Drug Eval Toxicology ED Only 02/07/[address] [address] [phone] Amphetamines Level Urine NEGATIVE Normal Negativ e Barbiturates Urine NEGATIVE Normal Negative Benzodiazepines Urine NEGATIVE Normal Negative Cannabinoids Urine NEGATIVE Normal Negative Cocaine Metabolite Urine NEGATIVE Normal Negative Methadone Urine NEGATIVE Normal Negative Opiates Urine NEGATIVE Normal Negative Phencyclidine Urine NEGATIVE Normal Negative 1 Respiratory Panel 02/07/2020 [facility] nter [address] [place] [address] [phone] Respiratory Panel This respiratory <SEE NOTE> 2 CBC With Differential 02/07/[address] [address] [phone] White Blood Count 4.3 10 Normal 4.0-10.0 [...] 36.0-66.0 Lymph % 24.5 % Normal 24.0-44.0 [place] % 11.1 % High 0.0-5.0 Eos % 4.2 % High 0.0-3.0 Baso % 0.7 % Normal 0.0-1.0 Immature Granulocyte % 0.5 % Normal 0-3.0 Nucleated Red Blood Cell % 0.0 % Normal 0-0 Neutrophils # 2.6 10 Normal 1.5-8.5 Lymph # 1.1 10 Low 1.5-5.0 [place] # 0.5 10 Normal 0.0-0.8 Eos # 0.2 10 Normal 0.0-0.5 Baso # 0.0 10 Normal 0.0-0.2 Cardiac Marker Panel 02/07/2020 [facility] enter [address] [place] [address] [phone] CPK Creatine Phosphokinase 47 U/L Normal 39-30 8 CK-MB Value Mass < 1.0 NG/ML Normal <3.6 MB/CK Relative Index 2.13 Normal < Or =4 3 Troponin I < 0.02 NG/ML Normal < 0.10 4 Liver Profile 02/07/2020 [facility] nter [address] [place] [address] [phone] Ast/Sgot 17 U/L Normal 7-37 Alt/SGPT 23 U/L Normal 12-78 Alkaline Phosphatase 102 U/L Normal 45-117 Bilirubin,Total 0.3 mg/dL Normal 0.2-1.0 Bilirubin,Direct < 0.1 mg/dL Normal 0.0-0.2 Total Protein 6.8 GM/DL Normal 6.4-8.2 Albumin 3.7 GM/DL Normal 3.2-5.2 Albumin/Globulin Ratio 1.2 Normal Basic Metabolic Profile 02/07/[address] [address] [phone] Glucose, Fasting 109 mg/dL High 70-100 Blood [...] mg/dL Normal 8.8-10.2 Laboratory test finding 02/07/[address] [address] [phone] Ethyl Alcohol (Ethanol) < 0.003 % Normal 0.000-0. 010 Thyroid Stimulating Hormone 3.060 uIU/ML Normal 0.358-3.740 CBC With Differential 01/18/[address] [address] [phone] White Blood Count 6.5 10 Normal 4.0-10.0 [...] 36.0-66.0 Lymph % 17.6 % Low 24.0-44.0 [place] % 8.2 % High 0.0-5.0 Eos % 1.1 % Normal 0.0-3.0 Baso % 0.5 % Normal 0.0-1.0 Immature Granulocyte % 0.2 % Normal 0-3.0 Nucleated Red Blood Cell % 0.0 % Normal 0-0 Neutrophils # 4.7 10 Normal 1.5-8.5 Lymph # 1.1 10 Low 1.5-5.0 [place] # 0.5 10 Normal 0.0-0.8 Eos # [...] 4 Troponin I Reference Interva l for [employer] LOCI: 99th Percentile= 0.00-0.045 ng/ml Risk Stratification: [...] Little GFR Left ESRD GFR <15 on [employer] OPERATOR Procedures Date Code Description Status 08/09/2009 [id number] Colonoscopy Completed Medical Devices Description No Information Available Encounters Type Date Location Provider Dx Diagnosis [facility] Essential (primary) hyperten dhiraj E78.00 Pure hypercholesterolemia, u nspecified F41.9 Anxiety disorder, unspecifie d F20.0 Paranoid schizophrenia M79.602 Pain in left arm Office Visit 01/27/2020 8:20a [facility] Ross JR, PA E78.00 Pure hypercholesterolemia, u nspecified I10 Essential (primary) hyperten dhiraj M79.602 Pain in left arm F52.21 Male erectile disorder F20.0 Paranoid schizophrenia F41.9 Anxiety disorder, unspecifie d 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 Z13.89 Encounter for screening for other disorder Assessments Date Code Description Provider 05/29/2020 I10 Essential (primary) hypertension JAMES Xiao JR 05/29/2020 E78.00 Pure hypercholesterolemia, unspe cified JAMES Xiao JR 05/29/2020 F41.9 Anxiety disorder, unspecified Ro chelsy Palma JR, JAMES 05/29/2020 F20.0 Paranoid schizophrenia JAMES Xiao JR 05/29/2020 M79.602 Pain in left arm JAMES Hathaway JR 03/23/2020 E78.00 Pure hypercholesterolemia, unspe cified Peter Melendrez MD 03/23/2020 I10 Essential (primary) hypertension Peter Melendrez MD 03/23/2020 F41.9 Anxiety disorder, unspecified Co david Melendrez MD 03/23/2020 E55.9 Vitamin D deficiency, unspecifie d Peter Melendrez MD 01/27/2020 E78.00 Pure hypercholesterolemia, unspe cified JAMES Xiao JR 01/27/2020 I10 Essential (primary) hypertension JAMES Xiao JR 01/27/2020 M79.602 Pain in left arm Ok raymond JR, JAMES 01/27/2020 F52.21 Male erectile disorder JAMES Xiao JR 01/27/2020 F20.0 Paranoid schizophrenia JAMES Xiao JR 01/27/2020 F41.9 Anxiety disorder, unspecified Ro chelsy Palma JR, JAMES 01/27/2020 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 05/29/2020 - JAMES Xiao JR* I10 Essential (primary) hypertension* Comments:* He is currently at [facility] goals, diet and exercise were discussed including Mediterranean diet and 30 minutes of aerobic exercise daily, continue current medication regimen at this time. * E78.00 Pure hypercholesterolemia, unspecified* Comments:* On statin * F41.9 Anxiety disorder, unspecified* Comments:* He seems to be doing quite well at this time, continues current medications, follows with psych as well * F20.0 Paranoid schizophrenia* Comments:* Seems to be doing well, follows with psych. Continues to take current medications * M79.602 Pain in left arm* Comments:* Advised heat and tylenol, possible side effect of psychotropic medications will continue to monitor Functional Status Description No Information Available Mental Status Description No Information Available Referrals Description No Information Available
--- OUTSIDE RECORDS SUMMARY | 2020-08-14 12:09 | CCD | Continuity of Care Document ---
Author Author Kofi SMITH Organization Unknown Address [address] [facility] [address] [place] [address] Phone [phone] Care Team Providers Care Slitter Scorer Name Role Phone Roxanne Hdz AUTM [phone] Jordan Beckham MD AUTM [phone] Deisy More MD AUTM [phone] Problems Active Problems Provider Date Schizophrenia GERI [...] Given 06/17/2019 Influenza,Unspecified U-Tetan Given 11/07/2014 Tetanus,Unspecified 23479 Given 01/02/2012 Adacel- Tetanus Diphtheria P ertussis (Age64 & Under) 85121 Given 01/02/2012 Adacel- Tetanus Diphtheria P ertussis (Age64 & Under) 93013 Given 01/02/2012 Adacel- Tetanus Diphtheria P ertussis (Age64 & Under) 73889 Refused 06/16/2018 Zoster Vaccine Vital Signs Date [...] Note Ua W/ Reflex To Culture 02/07/2020 [place] [id number] [phone] Appearance, Urine RFX CLEAR Normal Clear Color, Urine RFX YELLOW Normal Yellow PH,Urine RFX 7.0 units Normal 5.0-9.0 Specific [place] Ur Auto RFX 1.008 Normal 1.002-1.035 Protein, [...] 0-1 Drug Eval Toxicology ED Only 02/07/[address] [address] [phone] Amphetamines Level Urine NEGATIVE Normal Negativ e Barbiturates Urine NEGATIVE Normal Negative Benzodiazepines Urine NEGATIVE Normal Negative Cannabinoids Urine NEGATIVE Normal Negative Cocaine Metabolite Urine NEGATIVE Normal Negative Methadone Urine NEGATIVE Normal Negative Opiates Urine NEGATIVE Normal Negative Phencyclidine Urine NEGATIVE Normal Negative 1 Respiratory Panel 02/07/2020 [facility] nter [address] [place] [address] [phone] Respiratory Panel This respiratory <SEE NOTE> 2 CBC With Differential 02/07/[address] [address] [phone] White Blood Count 4.3 10 Normal 4.0-10.0 [...] 36.0-66.0 Lymph % 24.5 % Normal 24.0-44.0 [place] % 11.1 % High 0.0-5.0 Eos % 4.2 % High 0.0-3.0 Baso % 0.7 % Normal 0.0-1.0 Immature Granulocyte % 0.5 % Normal 0-3.0 Nucleated Red Blood Cell % 0.0 % Normal 0-0 Neutrophils # 2.6 10 Normal 1.5-8.5 Lymph # 1.1 10 Low 1.5-5.0 [place] # 0.5 10 Normal 0.0-0.8 Eos # 0.2 10 Normal 0.0-0.5 Baso # 0.0 10 Normal 0.0-0.2 Cardiac Marker Panel 02/07/2020 [facility] enter [address] [place] [address] [phone] CPK Creatine Phosphokinase 47 U/L Normal 39-30 8 CK-MB Value Mass < 1.0 NG/ML Normal <3.6 MB/CK Relative Index 2.13 Normal < Or =4 3 Troponin I < 0.02 NG/ML Normal < 0.10 4 Liver Profile 02/07/2020 [facility] nter [address] [place] [address] [phone] Ast/Sgot 17 U/L Normal 7-37 Alt/SGPT 23 U/L Normal 12-78 Alkaline Phosphatase 102 U/L Normal 45-117 Bilirubin,Total 0.3 mg/dL Normal 0.2-1.0 Bilirubin,Direct < 0.1 mg/dL Normal 0.0-0.2 Total Protein 6.8 GM/DL Normal 6.4-8.2 Albumin 3.7 GM/DL Normal 3.2-5.2 Albumin/Globulin Ratio 1.2 Normal Basic Metabolic Profile 02/07/[address] [address] [phone] Glucose, Fasting 109 mg/dL High 70-100 Blood [...] mg/dL Normal 8.8-10.2 Laboratory test finding 02/07/[address] [address] [phone] Ethyl Alcohol (Ethanol) < 0.003 % Normal 0.000-0. 010 Thyroid Stimulating Hormone 3.060 uIU/ML Normal 0.358-3.740 CBC With Differential 01/18/[address] [address] [phone] White Blood Count 6.5 10 Normal 4.0-10.0 [...] 36.0-66.0 Lymph % 17.6 % Low 24.0-44.0 [place] % 8.2 % High 0.0-5.0 Eos % 1.1 % Normal 0.0-3.0 Baso % 0.5 % Normal 0.0-1.0 Immature Granulocyte % 0.2 % Normal 0-3.0 Nucleated Red Blood Cell % 0.0 % Normal 0-0 Neutrophils # 4.7 10 Normal 1.5-8.5 Lymph # 1.1 10 Low 1.5-5.0 [place] # 0.5 10 Normal 0.0-0.8 Eos # [...] 4 Troponin I Reference Interva l for [employer] LOCI: 99th Percentile= 0.00-0.045 ng/ml Risk Stratification: [...] Little GFR Left ESRD GFR <15 on [employer]NET [employer] SPECIALIST Procedures Date Code Description Status 08/09/2009 [id number] Colonoscopy Completed Medical Devices Description No Information Available Encounters Type Date Location Provider Dx Diagnosis [facility] (primary) hyperten [...] JR 05/29/2020 F41.9 Anxiety disorder, unspecified Ro JAMES Ackerman JR 05/29/2020 F20.0 Paranoid schizophrenia JAMES Xiao JR 05/29/2020 M79.602 Pain in left arm JAMES Hathaway JR 05/17/2020 I10 Essential (primary) hypertension Peter Melendrez [...] JR 01/27/2020 M79.602 Pain in left arm JAMES Hathaway JR 01/27/2020 F52.21 Male erectile disorder JAMES Xiao JR 01/27/2020 F20.0 Paranoid schizophrenia JAMES Xiao JR 01/27/2020 F41.9 Anxiety disorder, unspecified Ro JAMES Ackerman JR 01/27/2020 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 Functional Status Description No Information Available Mental Status Description No Information Available Referrals Description No Information Available
--- OUTSIDE RECORDS SUMMARY | 2020-08-14 12:09 | CCD ---
Author Author Kofi Prasad Organization Unknown Address [address] [address] Phone Care Team Providers Care Voice Studies Director Name Role Phone Nathaniel Prasad PCP Allergies, [...] Name Taxonomy Code Taxonomy Desc Phone Number [phone] quetiapine by mouth [id number] 05/03/2020 at bedtime 300 mg ta blet 00454 [id number] [phone] Nathaniel Prasad [id number] Psychiatry [id number] [phone] [id number] clozapine by mouth [id number] 05/17/2020 07/30/2020 at bedtime 30 25 mg tablet 24858 [id number] Nathaniel Prasad [id number] Psychiatr y [id number] 903796 clonidine HCl by mouth [id number] 05/17/2020 07/30/2020 at bedtime 30 0.1 mg tablet 98912 540834 [id number] Nathaniel Prasad [id number] Psychiatr y [id number] 808777 venlafaxine by mouth [id number] 05/31/2020 07/30/2020 every morning 30 75 mg capsule,extended release 24hr as directed 78608 [id number] [phone] Nathaniel Prasad [id number] Psychiatry [id number] 604285 venlafaxine by mouth [id number] 05/31/2020 07/30/2020 every morning 30 37.5 mg capsule,extended release 24hr as directed 26540 119616 [phone] Nathaniel Prasad [id number] Psychiatry [id number] 227771 buspirone by mouth [id number] 05/31/2020 07/30/2020 three times a d ay 30 5 mg tablet 56383 530156 [id number] Nathaniel Prasad [id number] Psychia try [id number] Social History Social History Element Description Concept Effective Date Smoking Status Unknown if ever smoked [id number] Immunizations No Data in Section Vital Signs No Data in Section Procedures Date Concept Id Description Targeted Site Concept Targeted Site Concept Type 07/05/2020 [id number] [facility] Telemed E/M Lvl 3--Est pt CPT Patient has no history of implantable de vices Encounters Encounter Start Date End Date Encounter Type Description Diagnosis Di agnosis Desc Location Author First Name Author Last Name Npid Taxonomy Cod e Taxonomy Desc Phone Number Location Addr1 Location Addr2 Location [facility] Location Sta te Location Zip [id number] 07/05/2020 07/05/2020 98902-18 [facility] Telemed E/M Lvl 3--Est p t F33.9 Major depressive disorder, recurrent, unspecified [facility][1] Shanice Armstrong [id number] Psychiatry [id number] [address] [address] Plan of Treatment No Data in Section Lab Results No Data in Section Instructions No Data in Section Insurance Providers Insurance Id Policy Effective Date Policy Thru Date Company Patricia pepper [id number] 2011 MEDICARE [id number] 2017 MEDICAID
--- OUTSIDE RECORDS SUMMARY | 2020-08-14 12:10 | CCD | Continuity of Care Document ---
Author Author Kofi PALMA Organization Unknown Address [address] [facility] [address] [place] [address] Phone [phone] Care Team Providers Care Can Filling And Closing Machine Tender Name Role Phone Roxanne Hdz AUTM [phone] Jordan Beckham MD AUTM [phone] Deisy More MD AUTM [phone] Problems Active Problems Provider Date Schizophrenia GERI [...] Given 06/17/2019 Influenza,Unspecified U-Tetan Given 11/07/2014 Tetanus,Unspecified 21495 Given 01/02/2012 Adacel- Tetanus Diphtheria P ertussis (Age64 & Under) 07903 Given 01/02/2012 Adacel- Tetanus Diphtheria P ertussis (Age64 & Under) 09549 Given 01/02/2012 Adacel- Tetanus Diphtheria P ertussis (Age64 & Under) 80185 Refused 06/16/2018 Zoster Vaccine Vital Signs Date [...] Note Ua W/ Reflex To Culture 02/07/2020 [place] [id number] [phone] Appearance, Urine RFX CLEAR Normal Clear Color, Urine RFX YELLOW Normal Yellow PH,Urine RFX 7.0 units Normal 5.0-9.0 Specific [place] Ur Auto RFX 1.008 Normal 1.002-1.035 Protein, [...] 0-1 Drug Eval Toxicology ED Only 02/07/[address] [address] [phone] Amphetamines Level Urine NEGATIVE Normal Negativ e Barbiturates Urine NEGATIVE Normal Negative Benzodiazepines Urine NEGATIVE Normal Negative Cannabinoids Urine NEGATIVE Normal Negative Cocaine Metabolite Urine NEGATIVE Normal Negative Methadone Urine NEGATIVE Normal Negative Opiates Urine NEGATIVE Normal Negative Phencyclidine Urine NEGATIVE Normal Negative 1 Respiratory Panel 02/07/2020 [facility] nter [address] [place] [address] [phone] Respiratory Panel This respiratory <SEE NOTE> 2 CBC With Differential 02/07/[address] [address] [phone] White Blood Count 4.3 10 Normal 4.0-10.0 [...] 36.0-66.0 Lymph % 24.5 % Normal 24.0-44.0 [place] % 11.1 % High 0.0-5.0 Eos % 4.2 % High 0.0-3.0 Baso % 0.7 % Normal 0.0-1.0 Immature Granulocyte % 0.5 % Normal 0-3.0 Nucleated Red Blood Cell % 0.0 % Normal 0-0 Neutrophils # 2.6 10 Normal 1.5-8.5 Lymph # 1.1 10 Low 1.5-5.0 [place] # 0.5 10 Normal 0.0-0.8 Eos # 0.2 10 Normal 0.0-0.5 Baso # 0.0 10 Normal 0.0-0.2 Cardiac Marker Panel 02/07/2020 [facility] enter [address] [place] [address] [phone] CPK Creatine Phosphokinase 47 U/L Normal 39-30 8 CK-MB Value Mass < 1.0 NG/ML Normal <3.6 MB/CK Relative Index 2.13 Normal < Or =4 3 Troponin I < 0.02 NG/ML Normal < 0.10 4 Liver Profile 02/07/2020 [facility] nter [address] [place] [address] [phone] Ast/Sgot 17 U/L Normal 7-37 Alt/SGPT 23 U/L Normal 12-78 Alkaline Phosphatase 102 U/L Normal 45-117 Bilirubin,Total 0.3 mg/dL Normal 0.2-1.0 Bilirubin,Direct < 0.1 mg/dL Normal 0.0-0.2 Total Protein 6.8 GM/DL Normal 6.4-8.2 Albumin 3.7 GM/DL Normal 3.2-5.2 Albumin/Globulin Ratio 1.2 Normal Basic Metabolic Profile 02/07/[address] [address] [phone] Glucose, Fasting 109 mg/dL High 70-100 Blood [...] mg/dL Normal 8.8-10.2 Laboratory test finding 02/07/[address] [address] [phone] Ethyl Alcohol (Ethanol) < 0.003 % Normal 0.000-0. 010 Thyroid Stimulating Hormone 3.060 uIU/ML Normal 0.358-3.740 CBC With Differential 01/18/[address] [address] [phone] White Blood Count 6.5 10 Normal 4.0-10.0 [...] 36.0-66.0 Lymph % 17.6 % Low 24.0-44.0 [place] % 8.2 % High 0.0-5.0 Eos % 1.1 % Normal 0.0-3.0 Baso % 0.5 % Normal 0.0-1.0 Immature Granulocyte % 0.2 % Normal 0-3.0 Nucleated Red Blood Cell % 0.0 % Normal 0-0 Neutrophils # 4.7 10 Normal 1.5-8.5 Lymph # 1.1 10 Low 1.5-5.0 [place] # 0.5 10 Normal 0.0-0.8 Eos # [...] 4 Troponin I Reference Interva l for [employer] LOCI: 99th Percentile= 0.00-0.045 ng/ml Risk Stratification: [...] Little GFR Left ESRD GFR <15 on [employer]OL AGENT Procedures Date Code Description Status 08/09/2009 [id number] Colonoscopy Completed Medical Devices Description No Information Available Encounters Type Date Location Provider Dx Diagnosis Office Visit 01/27/2020 8:20a [facility] 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 Z13.89 Encounter for screening for other disorder Assessments Date Code Description Provider 03/23/2020 E78.00 Pure hypercholesterolemia, unspe cified Peter [...] 01/04/2020 E78.00 Pure hypercholesterolemia, unspe cified Peter Melendrez MD 01/04/2020 F41.9 Anxiety disorder, unspecified Co david Melendrez MD 01/04/2020 E55.9 Vitamin D deficiency, unspecifie d Peter Melendrez MD 01/04/2020 I10 Essential (primary) hypertension Peter Melendrez MD Plan of Treatment No Information Available Functional Status Description No Information Available Mental Status Description No Information Available Referrals Description No Information Available
[2020-08-14 12:47] VITALS: BP 154/82
== END 2020-08-14 12:49 | disposition home or self-care (01) ==
LOC: M ED 12:01
DX: F44.4 Conversion disorder with motor symptom or deficit (principal); Z79.82 Long term (current) use of aspirin; Z79.899 Other long term (current) drug therapy; Z88.8 Allergy status to other drugs, medicaments and biological substances
CPT/HCPCS: 99284; U0002

== ENCOUNTER 2020-08-15 13:34 | Emergency (ER) | payer MEDICARE, MEDICAID ==
[~2020-08-15] VITALS: Ht 172.7 cm; Wt 79.5 kg
[2020-08-15 14:13] LABS: HEMOGLOBIN 15.7 g/dl (13.5-17.5); MEAN CORPUSCULAR HEMOGLOBIN 29.5 pg (27.0-33.0); MEAN CORPUSCULAR HGB CONC 34.1 g/dl (32.0-36.5); MEAN CORPUSCULAR VOLUME 86.5 fl (80.0-96.0); PLATELET COUNT, AUTOMATED 265 10^3/uL (150-450); RED BLOOD COUNT 5.32 10^6/uL (4.30-6.10); WHITE BLOOD COUNT 5.7 10^3/uL (4.0-10.0)
[2020-08-15 14:49] LABS: ACETAMINOPHEN LEVEL < 2.0 UG/ML (10.0-30.0); ALT/SGPT 65 U/L (12-78); BILIRUBIN,DIRECT 0.2 MG/DL (0.0-0.2); BILIRUBIN,TOTAL 0.6 MG/DL (0.2-1.0); BLOOD UREA NITROGEN 12 MG/DL (7-18); CALCIUM LEVEL 9.7 MG/DL (8.8-10.2); CARBON DIOXIDE LEVEL 25 MEQ/L (21-32); CHLORIDE LEVEL 107 MEQ/L (98-107); CREATININE FOR GFR 1.29 MG/DL (0.70-1.30); ETHYL ALCOHOL (ETHANOL) < 0.003 % (0.000-0.010); GLOMERULAR FILTRATION RATE 59.3 (>49); GLUCOSE, FASTING 132 MG/DL (70-100); POTASSIUM SERUM 4.4 MEQ/L (3.5-5.1); SALICYLATE LEVEL < 1.7 MG/DL (5.0-30.0); SODIUM LEVEL 140 MEQ/L (136-145); TOTAL PROTEIN 6.7 GM/DL (6.4-8.2)
[2020-08-15 15:15] LABS: AMPHETAMINES LEVEL URINE NEGATIVE (NEGATIVE); BARBITURATES URINE NEGATIVE (NEGATIVE); BENZODIAZEPINES URINE NEGATIVE (NEGATIVE); CANNABINOIDS URINE NEGATIVE (NEGATIVE); COCAINE METABOLITE URINE NEGATIVE (NEGATIVE); METHADONE URINE NEGATIVE (NEGATIVE); OPIATES URINE NEGATIVE (NEGATIVE); PHENCYCLIDINE URINE NEGATIVE (NEGATIVE)
[2020-08-15 20:09] VITALS: BP 126/79
--- NOTE | 2020-08-16 05:51 | ECGEPIP ---
[facility] - ED Test Date: 2020-08-15 Pat Name: YOSSI PENA Department: Room: - Gender: Male Runway Model: TRACE : 1955 Requested By: BLUE Grande Order Number: [id number] Reading MD: Alfredo Montes Measurements Intervals [place] Rate: 91 P: 53 WI: 144 QRS: 29 QRSD: 93 T: 50 QT: 380 QTc: 470 Interpretive Statements SINUS RHYTHM POOR R WAVE PROGRESSION SIMILAR TO 07/10/20 Electronically Signed on 08-16-2020 5:50:43 EST by Alfredo Montes
== END 2020-08-15 20:13 | disposition home or self-care (01) ==
LOC: M ED 13:34
DX: Z04.6 Encounter for general psychiatric examination, requested by authority (principal); F33.9 Major depressive disorder, recurrent, unspecified; F41.9 Anxiety disorder, unspecified; F25.9 Schizoaffective disorder, unspecified; E55.9 Vitamin D deficiency, unspecified; G24.01 Drug induced subacute dyskinesia; R56.9 Unspecified convulsions; Z79.899 Other long term (current) drug therapy; Z79.82 Long term (current) use of aspirin; Z88.8 Allergy status to other drugs, medicaments and biological substances
CPT/HCPCS: 36415; 80048; 80076; 80307; 84443; 85027; 93005; 99284; G0480

== ENCOUNTER → 2020-09-15 | Outpatient (CLI) | payer MEDICARE, MEDICAID | LOC: M LABSMTC 12:17 | PROVIDERS: ATTEND Family Medicine | DX: Z20.822 Contact with and (suspected) exposure to COVID-19 (principal) | CPT/HCPCS: C9803; U0003 ==

== ENCOUNTER 2020-09-22 16:23 | Emergency (ER) | payer MEDICARE, MEDICAID ==
[~2020-09-22] VITALS: Ht 172.7 cm; Wt 82.2 kg
[~2020-09-22 16:23] MED LIST changes: +ASPI-569 PO; -ASPI81TAEC PO
--- OUTSIDE RECORDS SUMMARY | 2020-09-22 16:33 | CCD | Continuity of Care Document ---
Author Organization Unknown Address Unknown Phone Unavailable Care Team Providers Care Resistance Brazer Name Role Phone Roxanne Hdz AUTM [phone] Jordan Beckham MD AUTM [phone] Deisy More MD AUTM [phone] [facility] Radiology AUTM [phone] Problems Active Problems Provider Date Schizophrenia GERI [...] tablet by mouth before sexual relations 30tabs Ok raymond JR PA 11/24/2019 Proair HFA 108(90Base) mcg/Act Aer osol 2 puffs up to four times daily as needed for cough or shortness of breath 8.500gm Peter Melendrez MD 10/15/2019 Hydroxyzine HCL 25mg Tablets 1 by mouth three times a day as needed anxiety 180tabs Ok cunningham JR PA 10/08/2019 Daily Multivitamin Capsules 1 daily GERI Sanon 08/11/2019 Aspir-Low 81mg Tablets DR 1 q d Roxanne Hdz, GERI 08/05/2016 Clonazepam 1mg Tablets one tab by mouth 3x's a day prn Anxiety Unknown 0 Gabapentin 300mg Capsules Unknown Clonidine HCL 0.1mg Tablets Unknown Quetiapine Fumarate 200mg Tablets 2 Tabs AT hs 60tabs Roxanne Hdz, GERI Immunizations CPT Code Status Date Vaccine Lot # U-Flu Given 06/17/2019 Influenza,Unspecified U-Tetan Given 11/07/2014 Tetanus,Unspecified 57012 Given 01/02/2012 Adacel- Tetanus Diphtheria P ertussis (Age64 & Under) 09055 Given 01/02/2012 Adacel- Tetanus Diphtheria P ertussis (Age64 & Under) 38191 Given 01/02/2012 Adacel- Tetanus Diphtheria P ertussis (Age64 & Under) 53969 Refused 06/16/2018 Zoster Vaccine Vital Signs Date [...] Date Facility Test Result H/L Range Note Coronavirus 2019 Nasopharygeal 09/15/[address] [id number] [phone] Coronavirus 2019 Nasopharygeal This nucleic aci <SEE N OTE> 1 1 This nucleic acid amplificat ion test was developed and its performance characteristics determined by [facility]. Nucleic acid amplification tests include RT- PCR and TMA. This test has not been FDA cleared or approved. This test has been authorized by FDA under an Emergency Use Authorization (EUA). This test is only authorized for the duration of time the declaration that circumstances exist justifying the authorization of the emergency use of in vitro diagnostic tests for detection of SARS-CoV-2 virus and/or diagnosis of COVID-19 infection under section 564(b)(1) of the Act, 21 U.S.C. 360bbb-3(b) (1), unless the authorization is termina annabella or revoked sooner. When diagnostic testing is negative, the possibility of a false negative result should be considered in the context of a patient's recent exposures and the presence of clinical signs and symptoms consistent with COVID-19. An individual without symptoms of COVID-19 and who is not shedding SARS-CoV-2 virus would expect to have a negative (not detected) result in this assay. Performed at: [facility], [place], [place] [id number] Lcsw: Teagan Bah PhD, Phone: [phone] Not Detected Procedures Date Code Description Status 08/09/2009 [id number] Colonoscopy Completed Medical Devices Description No Information Available Encounters Type Date Location Provider Dx Diagnosis Office Visit 07/07/2020 2:40p [facility] PJAMES Ma JR M79.605 Pain in left leg Office Visit 05/29/2020 8:00a [facility] PAdanCJAMES Stevens JR I10 Essential (primary) hyperten dhiraj E78.00 Pure hypercholesterolemia, u nspecified F41.9 Anxiety disorder, unspecifie d F20.0 Paranoid schizophrenia M79.602 Pain in left arm Assessments Date Code Description Provider 08/22/2020 I10 Essential (primary) hypertension Peter Melendrez MD 08/22/2020 E78.00 Pure hypercholesterolemia, unspe cified Peter Melendrez MD 08/22/2020 F41.9 Anxiety disorder, unspecified Co david Melendrez MD 08/22/2020 E55.9 Vitamin D deficiency, unspecifie d Peter Melendrez MD 07/07/2020 M79.605 Pain in left leg JAMES Hathaway JR 05/31/2020 I10 Essential (primary) hypertension Peter Melendrez MD 05/31/2020 E78.00 Pure hypercholesterolemia, unspe cified Peter Melendrez MD 05/31/2020 F41.9 Anxiety disorder, unspecified Co david Melendrez MD 05/31/2020 E55.9 Vitamin D deficiency, unspecifie d Peter Melendrez MD 05/29/2020 I10 Essential (primary) hypertension JAMES Xiao [...] D deficiency, unspecifie d Peter Melendrez MD Plan of Treatment Future Appointment(s):* 09/26/2020 8:00 am - JAMES Xiao JR at [facility] 07/07/2020 - JAMES Xiao JR* M79.605 Pain in left leg* Comments:* Unlikely DVT, will do US friday just to be sure, advised heat and Tylenol prn Functional Status Description No Information Available Mental Status Description No Information Available Referrals Description No Information Available
[2020-09-22] MEDS ORDERED: LORazepam 1 MG TAB PO STA (18:05)
[2020-09-22 18:33] LABS: BASO % 0.6 % (0.0-1.0); EOS # 0.3 10^3/uL (0.0-0.5); EOS % 4.2 % (0.0-3.0); HEMOGLOBIN 15.9 g/dl (13.5-17.5); LYMPH # 1.9 10^3/uL (1.5-5.0); LYMPH % 30.6 % (24.0-44.0); MEAN CORPUSCULAR HEMOGLOBIN 29.4 pg (27.0-33.0); MEAN CORPUSCULAR HGB CONC 34.6 g/dl (32.0-36.5); MEAN CORPUSCULAR VOLUME 85.2 fl (80.0-96.0); MONO # 0.7 10^3/uL (0.0-0.8); MONO % 11.7 % (2.0-8.0); NEUTROPHILS # 3.3 10^3/uL (1.5-8.5); NEUTROPHILS % 52.6 % (36.0-66.0); PLATELET COUNT, AUTOMATED 275 10^3/uL (150-450); WHITE BLOOD COUNT 6.3 10^3/uL (4.0-10.0)
--- NOTE | 2020-09-22 18:41 | REP ---
INDICATION: DYSPNEA/COUGH. COMPARISON: 04/19/2020. TECHNIQUE: SINGLE PORTABLE AP VIEW OF THE CHEST WAS PERFORMED. FINDINGS: There is mild bibasilar linear fibro atelectatic change. No infiltrate is seen. The heart is normal in size. There is mild calcification and tortuosity of the thoracic aorta. The mediastinal silhouette is unchanged. IMPRESSION: Mild linear bibasilar fibro atelectatic change with no acute infiltrate. <Electronically signed by Jeremias Wagoner > 09/22/20 [id number]
[2020-09-22 19:10] LABS: ALBUMIN 3.8 GM/DL (3.2-5.2); ALT/SGPT 61 U/L (12-78); BILIRUBIN,DIRECT 0.1 MG/DL (0.0-0.2); BILIRUBIN,TOTAL 0.4 MG/DL (0.2-1.0); BLOOD UREA NITROGEN 18 MG/DL (7-18); CALCIUM LEVEL 10.2 MG/DL (8.8-10.2); CARBON DIOXIDE LEVEL 26 MEQ/L (21-32); CHLORIDE LEVEL 107 MEQ/L (98-107); CK-MB VALUE MASS < 1.0 NG/ML (<3.6); CPK CREATINE PHOSPHOKINASE 50 U/L (39-308); CREATININE FOR GFR 1.19 MG/DL (0.70-1.30); GLOMERULAR FILTRATION RATE > 60.0 (>49); GLUCOSE, FASTING 104 MG/DL (70-100); NT-PRO BNP 19 PG/ML (<125); POTASSIUM SERUM 4.5 MEQ/L (3.5-5.1); SODIUM LEVEL 140 MEQ/L (136-145); TOTAL PROTEIN 6.7 GM/DL (6.4-8.2); TROPONIN I < 0.02 NG/ML (< 0.10)
[2020-09-22] MEDS ORDERED: ISOVUE-370 76% 100ML VIAL As Ordered ONE (19:51)
--- NOTE | 2020-09-22 20:33 | REPVR ---
PROCEDURE INFORMATION: Exam: CT Angiography Chest With Contrast Exam date and time: 09/22/2020 7:54 PM Age: 65 years old Clinical indication: Other: Dyspnea, elevated d-dimer R/O pe TECHNIQUE: Imaging protocol: Computed tomographic angiography of the chest with contrast. 3D rendering (Not supervised by radiologist): MIP and/or 3D reconstructed images were created by the technologist. Radiation optimization: All CT scans at this facility use at least one of these dose optimization techniques: automated exposure control; mA and/or kV adjustment per patient size (includes targeted exams where dose is matched to clinical indication); or iterative reconstruction. Contrast material: ISOVUE 370; Contrast volume: 75 ml; Contrast route: INTRAVENOUS (IV); COMPARISON: IA PORTABLE CHEST X-RAY 09/22/2020 6:22 PM FINDINGS: Pulmonary arteries: Normal. No pulmonary emboli. Aorta: Unremarkable. No aortic aneurysm. No aortic dissection. Lungs: Unremarkable. No consolidation. No masses. Pleural spaces: Unremarkable. No pneumothorax. No pleural effusion. Heart: Unremarkable. No cardiomegaly. No pericardial effusion. Mediastinal space: There is a small sliding hiatal hernia. Lymph nodes: Unremarkable. No enlarged lymph nodes. Diaphragm: Eventration right hemidiaphragm. Liver: Liver is low in density. Bones/joints: Unremarkable. No acute fracture. Soft tissues: Unremarkable. Other findings: There is significant misregistration artifact. IMPRESSION: 1. No acute pulmonary embolism. 2. Small sliding hiatal hernia. 3. Hepatic steatosis. Electronically signed by: Almaz Pina On 09/22/2020 20:33:53 PM
[2020-09-22 20:45] VITALS: BP 134/91
--- NOTE | 2020-09-23 07:54 | ECGEPIP ---
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
== END 2020-09-22 21:00 | disposition home or self-care (01) ==
LOC: M ED 16:23
DX: F41.9 Anxiety disorder, unspecified (principal); I10 Essential (primary) hypertension; E78.5 Hyperlipidemia, unspecified; E07.9 Disorder of thyroid, unspecified; F25.9 Schizoaffective disorder, unspecified; R56.9 Unspecified convulsions; F03.90 Unspecified dementia, unspecified severity, without behavioral disturbance, psychotic disturbance, mood disturbance, and anxiety; Z79.899 Other long term (current) drug therapy; Z79.82 Long term (current) use of aspirin; Z88.8 Allergy status to other drugs, medicaments and biological substances
CPT/HCPCS: 36415; 71045; 71275; 80048; 80076; 82550; 82553; 83880; 84443; 84484; 85025; 85379; 93005; 93041; 94760; 99285; Q9967

== ENCOUNTER → 2020-10-09 | Outpatient (CLI) | payer MEDICARE, MEDICAID | LOC: M LABSMTC 12:05 | PROVIDERS: ATTEND Family Medicine | DX: Z20.822 Contact with and (suspected) exposure to COVID-19 (principal) | CPT/HCPCS: C9803; U0003 ==

== ENCOUNTER 2020-10-12 12:48 | Emergency (ER) | payer MEDICARE, MEDICAID ==
[~2020-10-12] VITALS: Ht 180.3 cm; Wt 68.8 kg
[2020-10-12 16:00] VITALS: BP 155/70
== END 2020-10-12 16:11 | disposition home or self-care (01) ==
LOC: M ED 12:48
DX: U07.1 COVID-19 (principal); R05 Cough; I10 Essential (primary) hypertension; E78.5 Hyperlipidemia, unspecified; Z79.82 Long term (current) use of aspirin; Z79.899 Other long term (current) drug therapy; Z88.8 Allergy status to other drugs, medicaments and biological substances
CPT/HCPCS: 99284; M0239

== ENCOUNTER 2020-10-12 15:48 | Outpatient (CLI) | payer MEDICARE, MEDICAID ==
[~2020-10-12] VITALS: Ht 180.3 cm; Wt 80.9 kg
--- NOTE | 2020-10-12 15:41 | CR.PDOC ---
General Date of Consultation: Oct 12, 2020 Attending Physician: PETE MCCOY MD Consultation REASON FOR CONSULTATION/CHIEF COMPLAINT: COVID-19 Positive Monoclonal infusion HISTORY OF PRESENT ILLNESS: Patient is a 65 year old male wit a past medical history significant for depression and conversion disorder who presented to [facility] for monoclonal antibody therapy for COVID-19. Patient reported that around 10/06/20 he had developed shortness of breath and cough. He did admit to a fever. He presented for a COVID-19 test on 10/09/20 which resulted positive today 10/12/20. On presentation to ER the patient was found to be eligible for monoclonal antibody infusion. He was consented for monoclonal antibody infusion ALLERGIES: Please see below. HOME MEDICATIONS: Please see below. PAST MEDICAL HISTORY: 1. Depression 2. Conversion Disorder 3. Hyperlipidemia PAST SURGICAL HISTORY: 1. NONE FAMILY HISTORY: Denies family history of malignancy SOCIAL HISTORY: Lives at home and is independent with his ADLs. Denies illicit drug use or IV drug use. Denies tobacco use REVIEW OF SYSTEMS: CONSTITUTIONAL: Admits to fevers and chills. Denies unintentional weight loss. HEENT: Denies headache. Denies dysphagia CARDIOVASCULAR: Denies chest pain, palpitations or feelings of the heart racing RESPIRATORY: Admits to shortness of breath and cough. Denies hemoptysis GENITOURINARY: Denies dysuria or increased frequency MUSCULOSKELETAL: Denies musculoskeletal pain GASTROINTESTINAL: Denies nausea, vomiting, diarrhea, constipation SKIN: Denies rashes or lesions NEUROLOGICAL: Denies changes in gait. Denies changes in speech PSYCHIATRIC: Admits to history of depression or anxiety ENDOCRINE: Denies heat intolerance or cold tolerance HEMATOLOGIC/LYMPHATIC: Denies easy bruising bleeding. Denies history of DVT or PE PHYSICAL EXAMINATION: VITAL SIGNS: Please see below. GENERAL APPEARANCE: Awake, alert, and oriented. Appears in no acute distress HEENT: Atraumatic, normocephalic. Eyes are nonicteric. Trachea is midline. Mucous membranes are pink and moist RESPIRATORY: Clear breath sounds bilaterally. Diminished in the bases bilaterally. No wheezes, rhonchi, or rales CARDIOVASCULAR: Normal S1, S2. Regular rate and rhythm. No clicks rubs or murmurs ABDOMEN: Soft, nondistended. Nontender. Normoactive bowel sounds EXTREMITIES: No edema. Full and equal pulses in bilateral upper and lower extremities NEUROLOGICAL: No focal neurological deficits PSYCHIATRIC: Mood and affect appear appropriate LABORATORY DATA: Please see below. ASSESSMENT/PLAN: 1. COVID-19 Infection -Patient is presenting with COVID-19 infection. He meets criteria for outpatient monoclonal antibody infusion given his age greater than 65. -Patient was consented for Bamlanivimab infusion. Risks and benefits were discussed and all questions were answered. Patient signed consent for infusion 2. Hypertension -Patient denies history of hypertension. In ED his BP was noted to be 189/98. On recheck he was 160/90. He likely does have hypertension which would confer an additional risk factor and further necessitate monoclonal antibody infusion. However given his acute illness his BP elevation could be secondary to that -Would recommend follow-up with PCP for BP recheck. Allergies Coded Allergies: amantadine (Verified Allergy, Unknown, 11/03/18) Home Medications Scheduled Aspirin (Aspirin EC) 81 Mg Tablet.dr, 81 MG PO DAILY, (Reported) Buspirone HCl (Buspirone HCl) 5 Mg Tablet, 5 MG PO TID, (Reported) Quetiapine Fumarate (Quetiapine Fumarate) 300 Mg Tablet, 600 MG PO QHS, (Reported) Venlafaxine HCl (Venlafaxine HCl ER) 75 Mg Cap.er.24h, 75 MG PO DAILY, (Reported) 112.5MG TOTAL DAILY Venlafaxine HCl (Venlafaxine HCl ER) 37.5 Mg Cap.er.24h, 37.5 MG PO DAILY, (Reported) 112.5MG TOTAL DAILY Scheduled PRN Hydroxyzine HCl (Hydroxyzine HCl) 25 Mg Tablet, 25 MG PO TID PRN for ANXIETY, (Reported) GME ATTESTATION GME ATTESTATION My faculty preceptor for this patient encounter was physically present during the encounter and was fully available. All aspects of the patient interview, examination, medical decision making process, and medical care plan development were reviewed and approved by the faculty preceptor. The faculty preceptor is aware and concurs with the plan as stated in the body of this note and will attest to such by his/her cosignature. ATTENDING NOTE I, Pete Mccoy MD, have independently examined this patient and performed my own physical exam, as well as reviewed the documentation and edited where necessary. I have discussed in detail with the resident / student the findings and plan of treatment as documented by the resident / student and edited their note. I agree with their findings and treatment plan and have edited their documentation. KELLEN ROLDAN DO Oct 12, 2020 15:41 PETE MCCOY MD Oct 17, 2020 09:26
[~2020-10-12 15:48] MED LIST changes: +ALBUTEROL 90 MCG/ACT 8GM HFA INHALER INH PRN; +ALBUTEROL SULFATE 2.5 MG/0.5 ML INH NEB SOLN INH PRN; +EPINEPHrine INJ 1 MG/ML 1ML AMP IM PRN; +NS 1,000 ML IV SCH; +diphenhydrAMINE 50MG/ML VIAL (J1200) IV PRN; +methylPREDNISolone 125MG 2ML VIAL IV PRN
[2020-10-12 15:51] VITALS: BP 128/81
[2020-10-12] MEDS ORDERED: BAMLANIVIMAB 700 MG in NS 250 ML IV ONE (16:00)
[2020-10-12 16:15] VITALS: BP 118/78
[2020-10-12 16:43] VITALS: BP 146/85
[2020-10-12 17:13] VITALS: BP 139/80
[2020-10-12 17:45] VITALS: BP 148/78
[2020-10-12 17:57] VITALS: BP 138/72
== END 2020-10-12 18:00 | disposition home or self-care (01) ==
LOC: M MS4PR 15:48 → M OPCLI4PR 15:48
PROVIDERS: ATTEND Internal Medicine Nephrology
DX: U07.1 COVID-19 (principal); Z88.8 Allergy status to other drugs, medicaments and biological substances

== ENCOUNTER 2020-11-25 12:49 | Emergency (ER) | payer MEDICARE, MEDICAID ==
[~2020-11-25] VITALS: Ht 172.7 cm; Wt 78.6 kg
[~2020-11-25 12:49] MED LIST changes: -ALBUTEROL 90 MCG/ACT 8GM HFA INHALER INH PRN; -ALBUTEROL SULFATE 2.5 MG/0.5 ML INH NEB SOLN INH PRN; -EPINEPHrine INJ 1 MG/ML 1ML AMP IM PRN; -NS 1,000 ML IV SCH; -diphenhydrAMINE 50MG/ML VIAL (J1200) IV PRN; -methylPREDNISolone 125MG 2ML VIAL IV PRN
--- NOTE | 2020-11-25 13:51 | REP ---
INDICATION: LEFT LOWER LEG PAIN COMPARISON: None. TECHNIQUE: Wagoner scale and color Doppler evaluation using linear high frequency transducer. FINDINGS: Ultrasound examination of the left lower extremity deep venous structures from the common femoral vein to the popliteal vein demonstrates normal compressibility flow and wave patterns in response to respiration and augmentation. There is no evidence for deep venous thrombosis. IMPRESSION: No evidence for deep venous thrombosis. <Electronically signed by Kofi Flowers > 11/25/20 [id number]
[2020-11-25 14:56] VITALS: BP 136/88
== END 2020-11-25 14:57 | disposition home or self-care (01) ==
LOC: M ED 12:49
DX: S86.912A Strain of unspecified muscle(s) and tendon(s) at lower leg level, left leg, initial encounter (principal); X58.XXXA Exposure to other specified factors, initial encounter; Y92.9 Unspecified place or not applicable; Y93.9 Activity, unspecified; Y99.9 Unspecified external cause status; Z88.8 Allergy status to other drugs, medicaments and biological substances; Z79.82 Long term (current) use of aspirin; Z79.899 Other long term (current) drug therapy

== ENCOUNTER 2021-01-01 22:44 | Emergency (ER) | payer MEDICARE, MEDICAID ==
[~2021-01-01] VITALS: Ht 172.7 cm; Wt 78.6 kg
[2021-01-01] MEDS ORDERED: QUET200T2 PO (23:03)
[2021-01-01 23:23] LABS: HEMATOCRIT 45.1 % (42.0-52.0); HEMOGLOBIN 15.4 g/dl (13.5-17.5); MEAN CORPUSCULAR HEMOGLOBIN 29.3 pg (27.0-33.0); MEAN CORPUSCULAR HGB CONC 34.1 g/dl (32.0-36.5); MEAN CORPUSCULAR VOLUME 85.9 fl (80.0-96.0); PLATELET COUNT, AUTOMATED 258 10^3/uL (150-450); RED BLOOD COUNT 5.25 10^6/uL (4.30-6.10); WHITE BLOOD COUNT 6.7 10^3/uL (4.0-10.0)
[2021-01-02 00:05] LABS: ACETAMINOPHEN LEVEL < 2.0 UG/ML (10.0-30.0); ALBUMIN 3.9 GM/DL (3.2-5.2); ALT/SGPT 57 U/L (12-78); BILIRUBIN,DIRECT 0.1 MG/DL (0.0-0.2); BILIRUBIN,TOTAL 0.5 MG/DL (0.2-1.0); BLOOD UREA NITROGEN 17 MG/DL (7-18); CALCIUM LEVEL 9.4 MG/DL (8.8-10.2); CARBON DIOXIDE LEVEL 28 MEQ/L (21-32); CHLORIDE LEVEL 109 MEQ/L (98-107); ETHYL ALCOHOL (ETHANOL) 0.003 % (0.000-0.010); GLOMERULAR FILTRATION RATE 58.8 (>49); GLUCOSE, FASTING 94 MG/DL (70-100); POTASSIUM SERUM 4.2 MEQ/L (3.5-5.1); SALICYLATE LEVEL < 1.7 MG/DL (5.0-30.0); SODIUM LEVEL 143 MEQ/L (136-145); TOTAL PROTEIN 6.7 GM/DL (6.4-8.2)
[2021-01-02 00:45] LABS: AMPHETAMINES LEVEL URINE NEGATIVE (NEGATIVE); BARBITURATES URINE NEGATIVE (NEGATIVE); BENZODIAZEPINES URINE NEGATIVE (NEGATIVE); CANNABINOIDS URINE NEGATIVE (NEGATIVE); COCAINE METABOLITE URINE NEGATIVE (NEGATIVE); METHADONE URINE NEGATIVE (NEGATIVE); OPIATES URINE NEGATIVE (NEGATIVE); PHENCYCLIDINE URINE NEGATIVE (NEGATIVE)
[2021-01-02 02:04] VITALS: BP 133/71
== END 2021-01-02 02:05 | disposition home or self-care (01) ==
LOC: M ED 22:44
DX: F43.0 Acute stress reaction (principal); F33.9 Major depressive disorder, recurrent, unspecified; F41.9 Anxiety disorder, unspecified; M54.9 Dorsalgia, unspecified; E55.9 Vitamin D deficiency, unspecified; Z88.8 Allergy status to other drugs, medicaments and biological substances; Z79.899 Other long term (current) drug therapy

== ENCOUNTER 2021-02-18 11:39 | Emergency (ER) | payer MEDICARE, MEDICAID ==
[~2021-02-18] VITALS: Ht 172.7 cm; Wt 77.7 kg
[~2021-02-18 11:39] MED LIST changes: +OLAN1TAB16 PO; -OLAN5TAB PO
[2021-02-18] MEDS ORDERED: FLUO20CA22 PO (11:58)
[2021-02-18 13:04] LABS: HEMATOCRIT 48.1 % (42.0-52.0); HEMOGLOBIN 16.7 g/dl (13.5-17.5); MEAN CORPUSCULAR HGB CONC 34.7 g/dl (32.0-36.5); MEAN CORPUSCULAR VOLUME 86.4 fl (80.0-96.0); PLATELET COUNT, AUTOMATED 257 10^3/uL (150-450); RED BLOOD COUNT 5.57 10^6/uL (4.30-6.10); WHITE BLOOD COUNT 9.1 10^3/uL (4.0-10.0)
[2021-02-18 13:50] LABS: ACETAMINOPHEN LEVEL < 2.0 UG/ML (10.0-30.0); ALBUMIN 4.3 GM/DL (3.2-5.2); ALT/SGPT 49 U/L (12-78); BILIRUBIN,DIRECT 0.2 MG/DL (0.0-0.2); BILIRUBIN,TOTAL 0.7 MG/DL (0.2-1.0); BLOOD UREA NITROGEN 11 MG/DL (7-18); CALCIUM LEVEL 9.8 MG/DL (8.8-10.2); CARBON DIOXIDE LEVEL 23 MEQ/L (21-32); CHLORIDE LEVEL 107 MEQ/L (98-107); CREATININE FOR GFR 1.14 MG/DL (0.70-1.30); ETHYL ALCOHOL (ETHANOL) < 0.003 % (0.000-0.010); GLOMERULAR FILTRATION RATE > 60.0 (>49); GLUCOSE, FASTING 122 MG/DL (70-100); POTASSIUM SERUM 4.1 MEQ/L (3.5-5.1); SALICYLATE LEVEL < 1.7 MG/DL (5.0-30.0); SODIUM LEVEL 139 MEQ/L (136-145); TOTAL PROTEIN 7.3 GM/DL (6.4-8.2)
[2021-02-18 15:23] LABS: AMPHETAMINES LEVEL URINE NEGATIVE (NEGATIVE); BARBITURATES URINE NEGATIVE (NEGATIVE); BENZODIAZEPINES URINE NEGATIVE (NEGATIVE); CANNABINOIDS URINE NEGATIVE (NEGATIVE); COCAINE METABOLITE URINE NEGATIVE (NEGATIVE); METHADONE URINE NEGATIVE (NEGATIVE); OPIATES URINE NEGATIVE (NEGATIVE); PHENCYCLIDINE URINE NEGATIVE (NEGATIVE)
[2021-02-18 19:19] LABS: RSV AMPLIFICATION NEGATIVE (NEGATIVE)
[2021-02-18] MEDS ORDERED: QUEtiapine FUMARATE 200 MG TAB PO ONE (21:00)
[2021-02-19 00:41] VITALS: BP 133/75
[2021-02-19] MEDS ORDERED: LORazepam 2 MG TAB PO ONE (01:00)
--- NOTE | 2021-02-19 20:28 | ECGEPIP ---
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
== END 2021-02-19 00:53 ==
LOC: M ED 11:39
DX: F33.2 Major depressive disorder, recurrent severe without psychotic features (principal); R45.851 Suicidal ideations; I10 Essential (primary) hypertension; J44.9 Chronic obstructive pulmonary disease, unspecified; E78.5 Hyperlipidemia, unspecified; R25.1 Tremor, unspecified; K57.30 Diverticulosis of large intestine without perforation or abscess without bleeding; R41.3 Other amnesia; E55.9 Vitamin D deficiency, unspecified; Z87.891 Personal history of nicotine dependence; Z88.8 Allergy status to other drugs, medicaments and biological substances; Z79.899 Other long term (current) drug therapy

== ENCOUNTER → 2021-02-26 | Outpatient (REF) ==
[~2021-02-26] MED LIST changes: +FLUO20CA22 PO
== END ==
LOC: M LAB 08:07
DX: Z02.89 Encounter for other administrative examinations